=== PATIENT | female | born 1970 | race Caucasian/White ===

== ENCOUNTER → 2019-01-03 09:43 | Outpatient (CLI) | payer OTHER, SELFPAY ==
[2019-01-03 10:50] LABS: Add Manual Diff / Slide Review NO; Basophils Absolute Auto 100 /uL (0-100); Basophils Percent Auto 0.6 % (0-2); Eosinophils Absolute Auto 200 /uL (0-450); Eosinophils Percent Auto 1.5 % (2-4); Hematocrit 40.5 % (36-46); Hemoglobin 13.9 g/dL (12.0-16.0); Lymphocytes Absolute Auto 3200 /uL (1100-4500); Lymphocytes Percent Auto 25.7 % (25-40); Mean Corpuscular HGB Conc 34.4 % (30-36); Mean Corpuscular Hemoglobin 32.8 PG (26-34); Mean Corpuscular Volume 95.2 fL (80-100); Monocytes Absolute Auto 700 /uL (0-900); Monocytes Percent Auto 5.3 % (3-14); Neutrophils Absolute Auto 8400 /uL (1500-7000); Neutrophils Percent Auto 66.9 % (50-75); Platelet Count 300 X10^3/uL (150-400); Red Blood Cell Count 4.25 X10^6/uL (4.0-5.2); Red Cell Distribution Width 13.3 % (11.6-14.8); White Blood Cell Count 12.6 X10^3/uL (4.5-11.0)
[2019-01-03 10:55] LABS: Alanine Aminotransferase 28 IU/L (9-52); Albumin 4.5 g/dL (3.5-5.0); Albumin Globulin Ratio 1.7 (1.0-2.8); Alkaline Phosphatase 61 U/L (38-126); Aspartate Aminotransferase 43 IU/L (14-36); BUN Creatinine Ratio 12.2 (6-22); Bilirubin Total 1.2 mg/dL (0.2-1.3); Blood Urea Nitrogen 11 mg/dL (7-17); Calcium 8.7 mg/dL (8.4-10.2); Carbon Dioxide 21 mmol/L (22-32); Chloride 100 mmol/L (98-107); Cholesterol 207 mg/dL (140-199); Estimated Glomerular Filt Rate > 60.0 mL/min (>60); Globulin 2.7 g/dL (1.7-4.1); Glucose 81 mg/dL (70-100); HEMOLYSIS < 15 (0-50); Potassium 3.8 mmol/L (3.4-5.1); Sodium 135 mmol/L (137-145); Total Protein 7.2 g/dL (6.3-8.2); Triglycerides 192 mg/dL (35-150)
[2019-01-03 11:02] LABS: HDL Cholesterol 101 mg/dL (40-60); LDL Cholesterol Calculated 68 mg/dL (<100)
[2019-01-03 11:40] LABS: Thyroid Stimulating Hormone 1.82 uIU/mL (0.47-4.68)
== END ==
PROVIDERS: PCP Family Medicine; Visit Provider Family Medicine
DX: E03.9 Hypothyroidism, unspecified (principal); Z00.00 Encounter for general adult medical examination without abnormal findings
CPT/HCPCS: 36415; 80053; 80061; 84443; 85025

== ENCOUNTER → 2019-02-15 10:20 | Outpatient (CLI) | payer OTHER, SELFPAY | PROVIDERS: PCP Family Medicine; Visit Provider Allergy & Immunology | DX: R23.2 Flushing (principal) | CPT/HCPCS: 36415; 86003 ==

== ENCOUNTER → 2019-05-02 12:29 | Outpatient (CLI) | payer OTHER, SELFPAY ==
[2019-05-02 13:31] LABS: Free T3, Triiodothyronine Free 2.49 pg/mL (2.77-5.27); Free T4, Direct Thyroxine 0.72 ng/dL (0.78-2.19)
== END ==
PROVIDERS: PCP Family Medicine; Visit Provider Family Medicine
DX: E03.9 Hypothyroidism, unspecified (principal)
CPT/HCPCS: 36415; 84439; 84443; 84481

== ENCOUNTER → 2019-05-03 12:22 | Outpatient (CLI) | payer OTHER, SELFPAY ==
[2019-05-03 15:38] LABS: Appearance Urine UA CLEAR; Bilirubin Urine UA NEGATIVE (NEGATIVE); Color Urine UA YELLOW; Glucose Urine UA NEGATIVE (Negative); Ketones Urine UA 1+ (NEGATIVE); Leukocyte Esterase Urine UA TRACE (NEGATIVE); Nitrite Urine UA NEGATIVE (Negative); Occult Blood Urine UA 1+ (Negative); Protein Urine UA NEGATIVE (Negative); Urobilinogen Urine UA 0.2 E.U./dL (0.2); pH Urine UA 7.5 (4.5-8.0)
[2019-05-03 15:46] LABS: Bacteria Urine Few (2-10); Culture Indicated Urine Cult Not Indicated; RBC Urine 1-5/HPF (0-5/HPF); Squamous Epithelial Cell Urine 5-10 /HPF (0-5/HPF); WBC Urine 1-5/HPF (0-5/HPF)
== END ==
PROVIDERS: PCP Family Medicine; Visit Provider Registered Nurse
DX: R30.0 Dysuria (principal)
CPT/HCPCS: 81001

== ENCOUNTER → 2019-11-20 11:05 | Outpatient (CLI) | payer OTHER, SELFPAY ==
--- NOTE | 2019-11-20 11:06 | DI.MG.S_ITS ---
BILATERAL DIGITAL SCREENING MAMMOGRAM 3D/2D WITH CAD: 11/20/2019 CLINICAL: Routine screening. Comparison is made to exams dated: 12/21/2016 mammogram, 04/08/2015 mammogram, and 02/05/2014 mammogram - [facility]. The tissue of both breasts is heterogeneously dense. This may lower the sensitivity of mammography. Current study was also evaluated with a Computer Aided Detection (CAD) system. No significant masses, calcifications, or other findings are seen in either breast. There has been no significant interval change. IMPRESSION: NEGATIVE There is no mammographic evidence of malignancy. A 1 year screening mammogram is recommended. This exam was interpreted at Station ID: [id number]. NOTE: For mammograms, a report in lay terms will be sent to the patient. Approximately 15% of breast malignancies will not be visualized mammographically. In the management of a palpable breast mass, a negative mammogram must not discourage biopsy of a clinically suspicious lesion. Electronically Signed By: Nayeli greene/lauren:11/20/2019 12:56:47 letter sent: Normal Exam ACR BI-RADS Category 1: Negative [id number]
== END ==
PROVIDERS: PCP Family Medicine; Referring Provider Family Medicine; Visit Provider Family Medicine
DX: Z12.31 Encounter for screening mammogram for malignant neoplasm of breast (principal)
CPT/HCPCS: 77063; 77067

== ENCOUNTER → 2019-12-25 11:57 | Outpatient (CLI) | payer OTHER, SELFPAY ==
[2019-12-25 13:43] LABS: Add Manual Diff / Slide Review NO; Basophils Absolute Auto 100 /uL (0-100); Basophils Percent Auto 1.3 % (0-2); Eosinophils Absolute Auto 500 /uL (0-450); Eosinophils Percent Auto 5.1 % (2-4); Hemoglobin 12.9 g/dL (12.0-16.0); Lymphocytes Absolute Auto 1800 /uL (1100-4500); Lymphocytes Percent Auto 19.4 % (25-40); Mean Corpuscular HGB Conc 33.9 % (30-36); Mean Corpuscular Hemoglobin 34.7 PG (26-34); Mean Corpuscular Volume 102.2 fL (80-100); Monocytes Absolute Auto 800 /uL (0-900); Monocytes Percent Auto 8.6 % (3-14); Neutrophils Absolute Auto 6200 /uL (1500-7000); Neutrophils Percent Auto 65.6 % (50-75); Platelet Count 262 X10^3/uL (150-400); Red Blood Cell Count 3.71 X10^6/uL (4.0-5.2); Red Cell Distribution Width 14.2 % (11.6-14.8); White Blood Cell Count 9.4 X10^3/uL (4.5-11.0)
[2019-12-25 16:33] LABS: BUN Creatinine Ratio 22.2 (6-22); Blood Urea Nitrogen 18 mg/dL (7-17); Calcium 9.9 mg/dL (8.4-10.2); Carbon Dioxide 22 mmol/L (22-32); Chloride 102 mmol/L (98-107); Estimated Glomerular Filt Rate > 60.0 mL/min (>60); Glucose 101 mg/dL (70-100); HEMOLYSIS < 15 (0-50); Magnesium 1.6 mg/dL (1.6-2.3); Potassium 4.4 mmol/L (3.4-5.1); Sodium 135 mmol/L (137-145)
[2019-12-25 17:04] LABS: TSH w/ Reflex to FT4 3.53 uIU/mL (0.47-4.68)
== END ==
PROVIDERS: PCP Family Medicine; Referring Provider Internal Medicine Cardiovascular Disease; Visit Provider Internal Medicine Cardiovascular Disease
DX: I47.1 Supraventricular tachycardia (principal)
CPT/HCPCS: 36415; 80048; 83735; 84443; 85025

== ENCOUNTER → 2020-01-28 09:22 | Outpatient (CLI) | payer OTHER, SELFPAY ==
--- NOTE | 2020-01-28 09:27 | DI.ECHO.S_ITS ---
Echocardiogram Report + + :Name: JYOTSNA GARRETT Study Date: 01/28/2020 Height: 66 in : :[facility] Weight: 183 lb : : Gender: Other BSA: 1.9 m2 : :: 1970 Age: 49 yrs BP: 138/82 mmHg: :Reason For Study: TACHYCARDIA : :Ordering Physician: Celeste Castro : :Agnes Performed By: Callie Nguyen : :Referring: Celeste Alarcon : + + Interpretation Summary 1) Normal left ventricular size, thickness, wall motion, and systolic function (EF 60-65%). 2) Normal right ventricular size and function. 3) No significant valvular abnormalities. 4) No prior Echo available for comparison. Procedure: A two-dimensional transthoracic echocardiogram with color flow and Doppler was performed. The study quality was technically adequate. There is no prior echocardiogram noted for this patient. The patient was in normal sinus rhythm during the exam. The heart rate ranged between 80-95 bpm during the study. Left Ventricle: The left ventricle is normal in size and wall thickness. The ejection fraction is estimated to be 60-65%. Left ventricular systolic function is normal. Left ventricular wall motion is normal. Right Ventricle: The right ventricle is normal in size and function. Atria: Both atria are normal in size. There is no Doppler evidence for an interatrial shunt. Mitral Valve: The mitral valve is normal in structure and function. There is mild mitral regurgitation. Aortic Valve: The aortic valve is trileaflet. The aortic valve opens well. There is no aortic valve stenosis. No aortic regurgitation is present. Tricuspid Valve: The tricuspid valve is normal in structure and function. There is mild tricuspid regurgitation. The right ventricular systolic pressure is estimated to be at least 23 mmHg based on an estimated right atrial pressure of 3 mm Hg. Pulmonic Valve: The pulmonic valve is normal in structure and function. There is trace pulmonic regurgitation. Great Vessels: The aortic root is normal size. The dimensions of the ascending aorta are normal. The IVC is of normal diameter and collapses greater than 50% with a sniff. This suggests a low right atrial pressure of 3 mm Hg. Pericardium/ Pleura There is no pericardial effusion. There is no pleural effusion. MMode/2D Measurements & Calculations LVIDd: 4.5 cm LVOT diam: 2.1 cm LVIDs: 2.9 cm Ao root diam: 2.8 cm FS: 35.1 % asc Aorta Diam: 3.0 cm EPSS: 0.72 cm Ao Arch Diam (Prox Trans): 2.9 cm IVSd: 0.99 cm LVPWd: 0.77 cm LV li. diameter/BSA (cm/m^2): 2.3 LV sys. diameter/BSA (cm/m^2): 1.5 LA A2 area: 16.3 cm2 RA long axis: 4.1 cm LA A4 area: 11.6 cm2 RA area: 11.6 cm2 LA length (vol): 3.9 cm RA vol: 27.9 ml LA vol: 40.6 ml RA : 14.5 ml/m2 LA vol index: 21.1 ml/m2 RVD1 (basal): 3.4 cm TAPSE: 1.8 cm Doppler Measurements & Calculations Ao V2 max: 116.8 cm/sec LVOT Max Farhad: 93.1 cm/sec Ao V2 mean: 76.9 cm/sec LV V1 max P.5 mmHg Ao max P.5 mmHg LV V1 VTI: 18.9 cm Ao mean P.7 mmHg MARY(I,D): 2.7 cm2 Ao V2 VTI: 23.5 cm MARY(V,D): 2.7 cm2 sev ratio: 0.81 MARY indexed to BSA (cm^2/m^2): 1.4 MV E max farhad: 99.1 cm/sec TR max farhad: 215.5 cm/sec MV A max farhad: 53.9 cm/sec TR max P.6 mmHg MV E/A: 1.8 PA V2 max: 69.9 cm/sec Med Peak E' Farhad: 9.8 cm/sec PA V2 mean: 49.7 cm/sec E/E' med: 10.1 PA mean P.1 mmHg Lat Peak E' Frahad: 10.6 cm/sec E/E' lat: 9.4 E/e' average: 9.7 MV dec time: 0.23 sec SV(LVOT): 63.8 ml _ Reading Physician:12:54 PM
== END ==
PROVIDERS: PCP Family Medicine; Referring Provider Internal Medicine Cardiovascular Disease; Visit Provider Internal Medicine Cardiovascular Disease
DX: I08.1 Rheumatic disorders of both mitral and tricuspid valves (principal); I47.1 Supraventricular tachycardia
CPT/HCPCS: 93306

== ENCOUNTER 2020-11-12 17:16 | Emergency (ER) | payer OTHER, SELFPAY ==
[2020-11-12] VITALS (8 sets, daily range): BP systolic 121–144; BP diastolic 63–88; PULSE 95–119; RESP 14–20; TEMP 36.6; O2SAT 94–98; BMI 31.3
--- NOTE | 2020-11-12 17:21 | DI.CT.S_ITS ---
PROCEDURE: CT HEAD/BRAIN WO CON INDICATIONS: fall head lac etoh TECHNIQUE: Noncontrast 4.5 mm thick angled axial sections acquired from the foramen magnum to the vertex, with coronal and sagittal reformats. For radiation dose reduction, the following was used: automated exposure control, adjustment of mA and/or kV according to patient size. COMPARISON: None. FINDINGS: Image quality: Excellent. CSF spaces: Basal cisterns are patent. No extra-axial fluid collections. Ventricles are normal in size and shape. Brain: No midline shift. No intracranial masses or hemorrhage. Umanzor-white matter interface is normal. Skull and face: Soft tissue laceration with hematoma can be seen involving the right forehead. No underlying calvarial fracture can be seen. Calvarium and visualized facial bones are intact, without suspicious lesions. Sinuses: Visualized sinuses and mastoids are clear. IMPRESSION: Right forehead hematoma with laceration. No associated fracture is seen. No acute intracranial hemorrhage is seen. No acute intracranial process is seen. Dictated by: Darryl Lowery M.D. on 11/12/2020 at 16:53 Approved by: Darryl Lowery M.D. on 11/12/2020 at 16:53
--- NOTE | 2020-11-12 17:21 | DI.CT.S_ITS ---
PROCEDURE: CT CERVICAL SPINE WO CON INDICATIONS: fall etoh TECHNIQUE: Noncontrast 3 mm thick sections acquired from the skull base to the T4 level. Sagittal and coronal reformats were then constructed. For radiation dose reduction, the following was used: automated exposure control, adjustment of mA and/or kV according to patient size. COMPARISON: [facility], US, THYROID, 03/15/2017, 9:36. [facility], CT, CT HEAD/BRAIN WO CON, 11/12/2020, 17:28. FINDINGS: Image quality: Excellent. Bones: No fractures or dislocations. Visualized superior ribs are intact. Degenerative changes are seen, with mild disc space narrowing at C6-C7. Milder degenerative changes are seen elsewhere. Soft tissues: Prevertebral soft tissues are normal in thickness. No paravertebral hematomas. No apical pneumothoraces. The right thyroid is not seen. Rim calcified left thyroid lesions can be seen. IMPRESSION: No acute fractures are seen. Degenerative changes are seen, which are worst at the C6-C7 level. Thyroid abnormalities are seen, which are believed to be similar to the prior thyroid ultrasound. Dictated by: Darryl Lowery M.D. on 11/12/2020 at 16:54 Approved by: Darryl Lowery M.D. on 11/12/2020 at 16:55
[2020-11-12 17:33] LABS: Add Manual Diff / Slide Review NO; Basophils Absolute Auto 300 /uL (0-100); Basophils Percent Auto 2.2 % (0-2); Eosinophils Absolute Auto 200 /uL (0-450); Eosinophils Percent Auto 1.5 % (2-4); Hematocrit 37.2 % (36-46); Hemoglobin 12.7 g/dL (12.0-16.0); Lymphocytes Absolute Auto 4000 /uL (1100-4500); Lymphocytes Percent Auto 30.2 % (25-40); Mean Corpuscular HGB Conc 34.1 % (30-36); Mean Corpuscular Hemoglobin 36.7 PG (26-34); Mean Corpuscular Volume 107.6 fL (80-100); Monocytes Absolute Auto 800 /uL (0-900); Neutrophils Absolute Auto 7900 /uL (1500-7000); Neutrophils Percent Auto 60.1 % (50-75); Platelet Count 400 X10^3/uL (150-400); Red Blood Cell Count 3.46 X10^6/uL (4.0-5.2); Red Cell Distribution Width 14.8 % (11.6-14.8); White Blood Cell Count 13.2 X10^3/uL (4.5-11.0)
--- NOTE | 2020-11-12 17:34 | ED.HEATRA ---
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 Degenerative changes are seen, with mild disc space narrowing at C6-C7. Milder degenerative changes are seen elsewhere. Soft tissues: Prevertebral soft tissues are normal in thickness. No paravertebral hematomas. No apical pneumothoraces. The right thyroid is not seen. Rim calcified left thyroid lesions can be seen. IMPRESSION: No acute fractures are seen. Degenerative changes are seen, which are worst at the C6-C7 level. Thyroid abnormalities are seen, which are believed to be similar to the prior thyroid ultrasound. Dictated by: Darryl Lowery M.D. on 11/12/2020 at 16:54 Approved by: Darryl Lowery M.D. on 11/12/2020 at 16:55 Discharge Plan Departure Patient Disposition: Home Clinical Impression: Alcohol abuse Laceration of head Qualifiers: Encounter type: initial encounter Location of open wound of head: unspecified part of head Foreign body presence: without foreign body Qualified Code(s): S01.91XA - Laceration without foreign body of unspecified part of head, initial encounter Instructions: DI for Laceration Repair, How to Prevent Falls Activity Restrictions/Additional Instructions: *You have been diagnosed with [fall with forehead laceration and urinary tract infection] *What to do: *Take medications as directed *Follow up with your primary care provider in 2-3 days, call for an appointment. Let them know you were seen in the Emergency Department and that we ask that you be seen in follow up *Return to ER if you should have any new, worsening or concerning symptoms Prescriptions: New sulfamethoxazole-trimethoprim [Bactrim DS] 800-160 mg tablet 1 tab PO BID 5 Days Qty: 10 RF: 0 No Action verapamil 180 mg capsule,ext rel. pellets 24 hr 180 mg PO DAILY Qty: 30 RF: 12 topiramate [Topamax] 50 mg tablet 50 mg PO BID Qty: 60 RF: 12 MULTIVITAMIN 1 cap PO Q DAY Qty: 0 RF: 0 gabapentin [Neurontin] 600 mg tablet See Rx Instructions .ROUTE .COMPLEX Qty: 60 RF: 1 clobetasol 0.05 % ointment 1 applictn Topical BID Qty: 30 RF: 2 ondansetron 4 mg tablet,disintegrating See Rx Instructions .ROUTE .COMPLEX Qty: 30 RF: 0 levothyroxine 25 mcg tablet See Rx Instructions .ROUTE .COMPLEX Qty: 30 RF: 0 drospirenone-ethinyl estradiol [Taylor (28)] 3-0.03 mg tablet 1 tab PO Q DAY Qty: 3 RF: 3 losartan 50 mg tablet 50 mg PO DAILY RF: 0 mometasone 0.1 % cream 1 applictn TOP DAILY RF: 0 tacrolimus 0.1 % ointment 1 applictn TOP BID RF: 0 hydroxyzine pamoate [Vistaril] 25 mg capsule 25 mg PO Q6-8H PRNRF: 0 (DME) low dose naltrexone tablet Qty: 1 RF: 0 Referrals: Robin Fuller DO [Primary Care Provider] -
[2020-11-12 17:37] LABS: Prothrombin Time 11.9 SECONDS (10.1-12.7)
[2020-11-12 17:39] LABS: PTT Partial Thromboplastin Tim 36 SECONDS (26.4-36.2)
[2020-11-12 17:50] LABS: Acetaminophen < 10 ug/mL (10-30); Alanine Aminotransferase 33 IU/L (<35); Albumin 4.3 g/dL (3.5-5.0); Albumin Globulin Ratio 1.4 (1.0-2.8); Alkaline Phosphatase 86 U/L (38-126); Aspartate Aminotransferase 140 IU/L (14-36); BUN Creatinine Ratio 9.8 (6-22); Bilirubin Total 0.5 mg/dL (0.2-1.3); Blood Urea Nitrogen 6 mg/dL (7-17); Calcium 9.2 mg/dL (8.4-10.2); Carbon Dioxide 20 mmol/L (22-32); Chloride 100 mmol/L (98-107); Estimated Glomerular Filt Rate > 60.0 mL/min (>60); Glucose 112 mg/dL (70-100); HEMOLYSIS < 15 (0-50); Potassium 3.9 mmol/L (3.4-5.1); Salicylate < 1.0 mg/dL (<20); Sodium 137 mmol/L (137-145); Total Protein 7.3 g/dL (6.3-8.2)
[2020-11-12 18:08] LABS: Ethanol (ETOH) 415 mg/dL; Lactate (Lactic Acid) 4.2 mmol/L (0.7-2.1)
[2020-11-12 19:28] LABS: Reflexed Lactate in 2 Hours Y
[2020-11-12] MEDS: SODIUM CHLORIDE 0.9% 1,000 ML 1000 ML IV (19:30)
--- NOTE | 2020-11-12 19:34 | PC.NURSE ---
pt gave verbal consent to give medical information to at bedside.
--- NOTE | 2020-11-12 19:41 | PC.NURSE ---
small laceration to R upper eyebrow cleansed with saline. appears to need suture. Dr Leahy made aware. covered with bandaid at this time. Pt in NAD. NS infusing. at side
[2020-11-12 20:29] LABS: Bilirubin Urine UA NEGATIVE (NEGATIVE); Color Urine UA YELLOW; Glucose Urine UA NEGATIVE (Negative); Ketones Urine UA NEGATIVE (NEGATIVE); Leukocyte Esterase Urine UA 2+ (NEGATIVE); Nitrite Urine UA NEGATIVE (Negative); Occult Blood Urine UA 2+ (Negative); Protein Urine UA NEGATIVE (Negative); Specific Gravity Urine UA <=1.005 (1.000-1.035); Urobilinogen Urine UA 0.2 E.U./dL (0.2)
[2020-11-12 20:32] LABS: Lactate 2HR (Lactic Acid Rflx) 3.2 mmol/L (0.7-2.1)
[2020-11-12 20:35] LABS: Ur Creatinine Normal (Normal); Ur Specific Gravity Normal (Normal); Urine pH Normal (Normal)
[2020-11-12 20:36] LABS: UR Morphine/Opiate cutoff 300 Negative (Negative); Urine Amphetamines Negative (Negative); Urine Barbiturates Negative (Negative); Urine Benzodiazepines Negative (Negative); Urine Cocaine Negative (Negative); Urine MDMA Negative (Negative); Urine Methadone Negative (Negative); Urine Methamphetamines Negative (Negative); Urine Oxycodone Negative (Negative); Urine Phencyclidine Negative (Negative); Urine Tetrahydrocannabinol Negative (Negative); Urine Tricyclic Antidepressant Negative (Negative)
[2020-11-12 20:37] LABS: Appearance Urine UA Slightly Cloudy
[2020-11-12 20:39] LABS: Amorphous Sediment Urine 1+; Bacteria Urine Few (2-10); Culture Indicated Urine Specimen Cultured; RBC Urine 1-5/HPF (0-5/HPF); Squamous Epithelial Cell Urine 1-5 /HPF (0-5/HPF); WBC Urine 10-30/HPF (0-5/HPF)
[2020-11-12] MEDS: LIDOCAINE 1% W/EPI 1 ML SUBCUT (20:57)
== END 2020-11-12 21:06 | disposition home or self-care (01) ==
PROVIDERS: Emergency Medicine; Emergency Provider Emergency Medicine; PCP Family Medicine
DX: S01.91XA Laceration without foreign body of unspecified part of head, initial encounter (principal); F10.129 Alcohol abuse with intoxication, unspecified; Y90.8 Blood alcohol level of 240 mg/100 ml or more; W19.XXXA Unspecified fall, initial encounter; R41.82 Altered mental status, unspecified; G61.0 Guillain-Barre syndrome
CPT/HCPCS: 12011; 70450; 72125; 80053; 80305; 80320; 80329; 81001; 83605; 85025; 85610; 85730; 87040; 87086; 93005; 96360; 99284; G0480

== ENCOUNTER → 2020-11-23 10:19 | Outpatient (CLI) | payer OTHER, SELFPAY ==
--- NOTE | 2020-11-23 10:20 | DI.MG.S_ITS ---
BILATERAL DIGITAL SCREENING MAMMOGRAM 3D/2D WITH CAD: 11/23/2020 CLINICAL: Routine screening. Family history of breast cancer. Comparison is made to exams dated: 11/20/2019 mammogram, 12/21/2016 mammogram, and 04/08/2015 mammogram - [facility]. The tissue of both breasts is heterogeneously dense. This may lower the sensitivity of mammography. Current study was also evaluated with a Computer Aided Detection (CAD) system. No significant masses, calcifications, or other findings are seen in either breast. There has been no significant interval change. IMPRESSION: NEGATIVE There is no mammographic evidence of malignancy. A 1 year screening mammogram is recommended. This exam was interpreted at Station ID: [id number]. NOTE: For mammograms, a report in lay terms will be sent to the patient. Approximately 15% of breast malignancies will not be visualized mammographically. In the management of a palpable breast mass, a negative mammogram must not discourage biopsy of a clinically suspicious lesion. Electronically Signed By: Zurdo Gonzalez M.D., jr/lauren:11/23/2020 11:34:28 copy to: Heather Fletcher letter sent: Normal Exam ACR BI-RADS Category 1: Negative [id number]
== END ==
PROVIDERS: PCP Family Medicine; Referring Provider Family Medicine; Visit Provider Family Medicine
DX: Z12.31 Encounter for screening mammogram for malignant neoplasm of breast (principal); Z80.3 Family history of malignant neoplasm of breast
CPT/HCPCS: 77063; 77067

== ENCOUNTER → 2021-02-11 07:59 | Outpatient (CLI) | payer OTHER, SELFPAY ==
--- NOTE | 2021-02-11 08:00 | DI.US.S_ITS ---
PROCEDURE: US ABDOMEN LIMITED INDICATIONS: RIGHT UPPER QUADRANT MASS TECHNIQUE: Real-time focused scanning was performed of the abdomen, with image documentation. COMPARISON: [facility], US, ABDOMEN COMPLETE, 12/21/2016, 9:56. [facility], US, ABDOMEN COMPLETE, 10/03/2013, 3:45. FINDINGS: Scanning is performed at the area of clinical concern involving the right upper quadrant. At this site, there is an enlarged right lobe of the liver. The liver measures 25.8 cm. Increased liver echogenicity can be seen. IMPRESSION: The palpable area corresponds to the right lobe of the liver. The liver is enlarged and fatty infiltrated. Dictated by: Darryl Lowery M.D. on 02/11/2021 at 10:36 Approved by: Darryl Lowery M.D. on 02/11/2021 at 10:38
== END ==
PROVIDERS: PCP Family Medicine; Referring Provider Obstetrics & Gynecology; Visit Provider Obstetrics & Gynecology
DX: R19.01 Right upper quadrant abdominal swelling, mass and lump (principal); R10.11 Right upper quadrant pain; K76.0 Fatty (change of) liver, not elsewhere classified
CPT/HCPCS: 76700; 76705

== ENCOUNTER → 2021-03-09 10:45 | Outpatient (CLI) | payer OTHER, SELFPAY ==
--- NOTE | 2021-03-09 10:46 | DI.US.S_ITS ---
PROCEDURE: US SOFT TISSUE HEAD AND NECK INDICATIONS: thoracic outlet swelling TECHNIQUE: Real-time scanning was performed of the neck region of interest, with image documentation. COMPARISON: None. FINDINGS: Sonographic images of the left lower neck demonstrate no areas of mass lesion, architectural distortion or fluid collection. IMPRESSION: Unremarkable exam. If concern persists, CT is recommended. Dictated by: Mikaela Zamorano M.D. on 03/09/2021 at 16:33 Approved by: Mikaela Zamorano M.D. on 03/09/2021 at 16:33
== END ==
PROVIDERS: PCP Family Medicine; Referring Provider Family Medicine; Visit Provider Family Medicine
DX: G54.0 Brachial plexus disorders (principal)
CPT/HCPCS: 76536

== ENCOUNTER 2021-08-16 18:25 | Emergency (ER) | payer OTHER, BC, SELFPAY ==
--- NOTE | 2021-08-16 18:27 | DI.CT.S_ITS ---
PROCEDURE: CT HEAD/BRAIN WO CON INDICATIONS: fall with head injury, intoxicated, altered TECHNIQUE: Noncontrast 4.5 mm thick angled axial sections acquired from the foramen magnum to the vertex, with coronal and sagittal reformats. For radiation dose reduction, the following was used: automated exposure control, adjustment of mA and/or kV according to patient size. COMPARISON: [facility], CT, CT HEAD/BRAIN WO CON, 11/12/2020, 17:28. FINDINGS: Image quality: Excellent. CSF spaces: Basal cisterns are patent. No extra-axial fluid collections. Ventricles are normal in size and shape. Brain: No midline shift. No intracranial masses or hemorrhage. Umanzor-white matter interface is normal. Skull and face: Calvarium and visualized facial bones are intact, without suspicious lesions. Sinuses: Visualized sinuses and mastoids are clear. IMPRESSION: Unremarkable CT brain. No intracranial hemorrhage or mass effect. Approved by: Floyd Garvey M.D. on 08/16/2021 at 18:04
--- NOTE | 2021-08-16 18:27 | DI.CT.S_ITS ---
PROCEDURE: CT CERVICAL SPINE WO CON INDICATIONS: neck pain after fall TECHNIQUE: Noncontrast 3 mm thick sections acquired from the skull base to the T4 level. Sagittal and coronal reformats were then constructed. For radiation dose reduction, the following was used: automated exposure control, adjustment of mA and/or kV according to patient size. COMPARISON: [facility], CT, CT CERVICAL SPINE WO CON, 11/12/2020, 17:28. FINDINGS: Image quality: Excellent. Bones: Multilevel degenerative disc disease and arthropathy present throughout the mid to lower cervical spine resulting in [id number] central stenosis at C5-6 and C6-7. There is straightening of normal cervical lordosis. No fracture or malalignment. Soft tissues: Prevertebral soft tissues are normal in thickness. No paravertebral hematomas. No apical pneumothoraces. Right lower thyroid is absent. Multiple calcified nodules in the left lobe of thyroid are stable. IMPRESSION: Straightening the normal cervical lordosis without fracture or malalignment. Approved by: Floyd Garvey M.D. on 08/16/2021 at 17:59
[2021-08-16 18:29] VITALS: BP 132/86; PULSE 117; RESP 17; TEMP 36.9; O2SAT 99; BMI 33.9
[2021-08-16 18:42] LABS: Add Manual Diff / Slide Review NO; Basophils Absolute Auto 0 /uL (0-100); Basophils Percent Auto 0.3 % (0-2); Eosinophils Absolute Auto 300 /uL (0-450); Eosinophils Percent Auto 3.7 % (2-4); Hematocrit 40.4 % (36-46); Hemoglobin 13.7 g/dL (12.0-16.0); Lymphocytes Absolute Auto 4200 /uL (1100-4500); Lymphocytes Percent Auto 47.8 % (25-40); Mean Corpuscular Hemoglobin 33.1 PG (26-34); Mean Corpuscular Volume 97.3 fL (80-100); Monocytes Absolute Auto 600 /uL (0-900); Neutrophils Absolute Auto 3600 /uL (1500-7000); Neutrophils Percent Auto 41.2 % (50-75); Platelet Count 285 X10^3/uL (150-400); Red Blood Cell Count 4.15 X10^6/uL (4.0-5.2); Red Cell Distribution Width 14.3 % (11.6-14.8); White Blood Cell Count 8.8 X10^3/uL (4.5-11.0)
[2021-08-16] MEDS: SODIUM CHLORIDE 0.9% 1,000 ML 1000 ML IV (18:53)
[2021-08-16 18:54] LABS: Alanine Aminotransferase 61 IU/L (<35); Albumin 5.1 g/dL (3.5-5.0); Albumin Globulin Ratio 1.5 (1.0-2.8); Alkaline Phosphatase 74 U/L (38-126); Aspartate Aminotransferase 187 IU/L (14-36); BUN Creatinine Ratio 5.6 (6-22); Bilirubin Total 0.5 mg/dL (0.2-1.3); Blood Urea Nitrogen 4 mg/dL (7-17); Calcium 9.5 mg/dL (8.4-10.2); Carbon Dioxide 19 mmol/L (22-32); Chloride 103 mmol/L (98-107); Estimated Glomerular Filt Rate > 60.0 mL/min (>60); Globulin 3.4 g/dL (1.7-4.1); Glucose 99 mg/dL (70-100); HEMOLYSIS < 15 (0-50); Potassium 3.6 mmol/L (3.4-5.1); Sodium 140 mmol/L (137-145); Total Protein 8.5 g/dL (6.3-8.2)
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
[2021-08-16 19:00] LABS: Ethanol (ETOH) 391 mg/dL
--- NOTE | 2021-08-16 19:16 | DI.RAD.S_ITS ---
PROCEDURE: XR HAND LT MIN 3V INDICATIONS: fall with pain over 5th MC TECHNIQUE: 3 views of the hand(s) acquired. COMPARISON: None. FINDINGS: Bones: No dislocations. There is a small ossicle at the base of the 5th metacarpal. Carpal bones are normally aligned. No suspicious bony lesions. Soft tissues: No suspicious soft tissue calcifications. IMPRESSION: There is a small ossicle at the base of the 5th metacarpal which could represent a small fracture fragment. Please correlate with focal pain and tenderness. Dictated by: Christopher Mckeon M.D. on 08/16/2021 at 19:40 Approved by: Christopher Mckeon M.D. on 08/16/2021 at 19:44
[2021-08-16 20:23] VITALS: BP 158/88; PULSE 80; RESP 16; O2SAT 99
== END 2021-08-16 20:25 | disposition home or self-care (01) ==
PROVIDERS: Emergency Provider Emergency Medicine; PCP Family Medicine
DX: S00.83XA Contusion of other part of head, initial encounter (principal); S60.222A Contusion of left hand, initial encounter; F10.129 Alcohol abuse with intoxication, unspecified; Y90.8 Blood alcohol level of 240 mg/100 ml or more; W18.30XA Fall on same level, unspecified, initial encounter
CPT/HCPCS: 36415; 70450; 72125; 73130; 80053; 80320; 85025; 96360; 99284

== ENCOUNTER → 2021-11-16 09:55 | Outpatient (CLI) | payer OTHER, SELFPAY ==
[2021-11-16 12:34] LABS: Add Manual Diff / Slide Review NO; Basophils Absolute Auto 100 /uL (0-100); Basophils Percent Auto 1.8 % (0-2); Eosinophils Absolute Auto 200 /uL (0-450); Eosinophils Percent Auto 3.5 % (2-4); Hemoglobin 11.9 g/dL (12.0-16.0); Lymphocytes Absolute Auto 1800 /uL (1100-4500); Lymphocytes Percent Auto 25.9 % (25-40); Mean Corpuscular HGB Conc 34.1 % (30-36); Mean Corpuscular Hemoglobin 35.1 PG (26-34); Mean Corpuscular Volume 102.7 fL (80-100); Monocytes Absolute Auto 600 /uL (0-900); Neutrophils Absolute Auto 4100 /uL (1500-7000); Neutrophils Percent Auto 59.8 % (50-75); Platelet Count 189 X10^3/uL (150-400); Red Cell Distribution Width 13.8 % (11.6-14.8); White Blood Cell Count 6.9 X10^3/uL (4.5-11.0)
[2021-11-16 12:59] LABS: Magnesium 1.2 mg/dL (1.6-2.3)
== END ==
PROVIDERS: PCP Family Medicine; Referring Provider Internal Medicine Cardiovascular Disease; Visit Provider Internal Medicine Cardiovascular Disease
DX: I10 Essential (primary) hypertension (principal)
CPT/HCPCS: 36415; 83735; 85025

== ENCOUNTER 2022-02-11 18:08 | Emergency (ER) | payer OTHER, SELFPAY ==
[2022-02-11 18:36] VITALS: BP 170/91; PULSE 104; RESP 18; TEMP 36.7; O2SAT 97; BMI 32.3
--- NOTE | 2022-02-11 18:36 | DI.CT.S_ITS ---
PROCEDURE: CT CERVICAL SPINE WO CON INDICATIONS: drunk and fall TECHNIQUE: Noncontrast 3 mm thick sections acquired from the skull base to the T4 level. Sagittal and coronal reformats were then constructed. For radiation dose reduction, the following was used: automated exposure control, adjustment of mA and/or kV according to patient size. COMPARISON: [facility], CT, CT CERVICAL SPINE WO CON, 08/16/2021, 18:36. FINDINGS: Image quality: Excellent. Bones: No fractures or dislocations. Visualized superior ribs are intact. Spine degenerative disc disease and facet arthropathy. Soft tissues: Prevertebral soft tissues are normal in thickness. No paravertebral hematomas. No apical pneumothoraces. 1.0 centimeter 1.4 centimeter and 1.5 centimeter partially calcified thyroid nodules. Right lobe thyroid gland is absent. IMPRESSION: No fracture. No acute osseous lesion. If symptoms and/or clinical suspicion for pathology persists, evaluation with MRI should be considered for further assessment. Dictated by: Dinorah Cuba MD, PhD on 02/11/2022 at 19:42 Approved by: Dinorah Cuba MD, PhD on 02/11/2022 at 19:46
--- NOTE | 2022-02-11 18:36 | DI.CT.S_ITS ---
PROCEDURE: CT HEAD/BRAIN WO CON INDICATIONS: drunk and fall TECHNIQUE: Noncontrast 4.5 mm thick angled axial sections acquired from the foramen magnum to the vertex, with coronal and sagittal reformats. For radiation dose reduction, the following was used: automated exposure control, adjustment of mA and/or kV according to patient size. COMPARISON: [facility], CT, CT HEAD/BRAIN WO CON, 11/12/2020, 17:28. FINDINGS: Image quality: Excellent. CSF spaces: Basal cisterns are patent. No extra-axial fluid collections. Ventricles are normal in size and shape. Brain: No midline shift. No intracranial masses or hemorrhage. Umanzor-white matter interface is normal. Skull and face: Calvarium and visualized facial bones are intact, without suspicious lesions. Sinuses: Visualized sinuses and mastoids are clear. IMPRESSION: No acute intracranial disease process. Dictated by: Dinorah Cuba MD, PhD on 02/11/2022 at 19:41 Approved by: Dinorah Cuba MD, PhD on 02/11/2022 at 19:42
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
--- NOTE | 2022-02-11 19:28 | PC.NURSE ---
gcs 15
[2022-02-11] MEDS: LIDO 1%/SOD BICARB 8.4% (10ML) 10 ML SYRINGE INJ (20:16)
== END 2022-02-11 20:30 | disposition home or self-care (01) ==
PROVIDERS: Emergency Provider Emergency Medicine; PCP Family Medicine
DX: S01.01XA Laceration without foreign body of scalp, initial encounter (principal); W18.30XA Fall on same level, unspecified, initial encounter
CPT/HCPCS: 12001; 70450; 72125; 99283; 99284

== ENCOUNTER → 2022-06-24 08:24 | Outpatient (CLI) | payer OTHER, SELFPAY ==
[2022-06-24 09:50] LABS: Add Manual Diff / Slide Review NO; Basophils Absolute Auto 100 /uL (0-100); Basophils Percent Auto 1.8 % (0-2); Eosinophils Absolute Auto 300 /uL (0-450); Eosinophils Percent Auto 4.7 % (2-4); Hematocrit 31.2 % (36-46); Hemoglobin 10.9 g/dL (12.0-16.0); Lymphocytes Absolute Auto 1900 /uL (1100-4500); Lymphocytes Percent Auto 27.2 % (25-40); Mean Corpuscular HGB Conc 35.1 % (30-36); Mean Corpuscular Hemoglobin 39.1 PG (26-34); Mean Corpuscular Volume 111.4 fL (80-100); Monocytes Absolute Auto 500 /uL (0-900); Monocytes Percent Auto 7.7 % (3-14); Neutrophils Absolute Auto 4100 /uL (1500-7000); Neutrophils Percent Auto 58.6 % (50-75); Platelet Count 237 X10^3/uL (150-400); Red Cell Distribution Width 17.5 % (11.6-14.8)
[2022-06-24 10:26] LABS: Alanine Aminotransferase 13 IU/L (<35); Albumin Globulin Ratio 1.4 (1.0-2.8); Alkaline Phosphatase 68 U/L (38-126); Aspartate Aminotransferase 43 IU/L (14-36); BUN Creatinine Ratio 8.2 (6-22); Bilirubin Total 1.4 mg/dL (0.2-1.3); Blood Urea Nitrogen 6 mg/dL (7-17); Calcium 8.4 mg/dL (8.4-10.2); Carbon Dioxide 25 mmol/L (22-32); Chloride 101 mmol/L (98-107); Cholesterol 243 mg/dL (140-199); Estimated Glomerular Filt Rate > 60 mL/min (>60); Globulin 2.8 g/dL (1.7-4.1); Glucose 102 mg/dL (70-100); HDL Cholesterol 97 mg/dL (40-60); HEMOLYSIS < 15 (0-50); LDL Cholesterol Calculated 121 mg/dL (<100); Potassium 3.8 mmol/L (3.4-5.1); Sodium 138 mmol/L (137-145); Total Protein 6.8 g/dL (6.3-8.2); Triglycerides 125 mg/dL (35-150)
[2022-06-24 10:51] LABS: Macrocytosis 3+
[2022-06-24 11:51] LABS: Free T3, Triiodothyronine Free 2.48 pg/mL (2.77-5.27); Free T4, Direct Thyroxine 1.22 ng/dL (0.78-2.19)
[2022-06-24 12:05] LABS: Thyroid Stimulating Hormone 3.68 uIU/mL (0.47-4.68)
== END ==
PROVIDERS: PCP Family Medicine; Referring Provider Family Medicine; Visit Provider Family Medicine
DX: E03.9 Hypothyroidism, unspecified (principal); K70.0 Alcoholic fatty liver
CPT/HCPCS: 36415; 80053; 80061; 84439; 84443; 84481; 85025

== ENCOUNTER 2023-01-11 10:07 | Emergency (ER) | payer OTHER, SELFPAY ==
[2023-01-11] VITALS (9 sets, daily range): BP systolic 129–146; BP diastolic 73–95; PULSE 84–204; RESP 11–23; TEMP 36.4; O2SAT 97–100; BMI 29.9
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
[2023-01-11 10:43] LABS: Add Manual Diff / Slide Review NO; Basophils Absolute Auto 0 /uL (0-100); Basophils Percent Auto 0.5 % (0-2); Eosinophils Absolute Auto 300 /uL (0-450); Eosinophils Percent Auto 2.9 % (2-4); Hemoglobin 12.6 g/dL (12.0-16.0); Lymphocytes Absolute Auto 2700 /uL (1100-4500); Lymphocytes Percent Auto 31.1 % (25-40); Mean Corpuscular HGB Conc 33.2 % (30-36); Mean Corpuscular Hemoglobin 36.7 PG (26-34); Mean Corpuscular Volume 110.7 fL (80-100); Monocytes Absolute Auto 700 /uL (0-900); Neutrophils Absolute Auto 5000 /uL (1500-7000); Neutrophils Percent Auto 57.5 % (50-75); Platelet Count 230 X10^3/uL (150-400); Red Blood Cell Count 3.43 X10^6/uL (4.0-5.2); Red Cell Distribution Width 15.3 % (11.6-14.8); White Blood Cell Count 8.8 X10^3/uL (4.5-11.0)
[2023-01-11] MEDS: METOPROLOL IR 25 MG TABLET PO (10:45)
[2023-01-11 10:49] LABS: BUN Creatinine Ratio 6.2 (6-22); Blood Urea Nitrogen 4 mg/dL (7-17); Calcium 9.2 mg/dL (8.4-10.2); Carbon Dioxide 23 mmol/L (22-32); Chloride 101 mmol/L (98-107); Estimated Glomerular Filt Rate > 60 mL/min (>60); Glucose 102 mg/dL (70-100); HEMOLYSIS < 15 (0-50); Potassium 3.9 mmol/L (3.4-5.1); Sodium 137 mmol/L (137-145)
[2023-01-11 11:01] LABS: Anisocytosis 2+; Troponin I < 0.012 ng/mL (0.01-0.034)
[2023-01-11 11:03] LABS: Platelet Morphology Comment GIANT PLATELETS SEEN
== END 2023-01-11 12:49 | disposition home or self-care (01) ==
PROVIDERS: Emergency Provider Emergency Medicine; PCP Family Medicine
DX: I47.1 Supraventricular tachycardia (principal); L20.9 Atopic dermatitis, unspecified
CPT/HCPCS: 80048; 84484; 85025; 99283

== ENCOUNTER 2023-04-16 17:08 | Emergency (ER) | payer OTHER, SELFPAY ==
[2023-04-16] VITALS (8 sets, daily range): BP systolic 135; BP diastolic 73; PULSE 60–89; RESP 18–19; TEMP 36.6; O2SAT 95–99; BMI 28.8
[2023-04-16 17:50] LABS: Add Manual Diff / Slide Review NO; Basophils Absolute Auto 100 /uL (0-100); Basophils Percent Auto 1.2 % (0-2); Eosinophils Absolute Auto 200 /uL (0-450); Hematocrit 35.9 % (36-46); Hemoglobin 12.2 g/dL (12.0-16.0); Lymphocytes Absolute Auto 2100 /uL (1100-4500); Lymphocytes Percent Auto 28.7 % (25-40); Mean Corpuscular HGB Conc 34.1 % (30-36); Mean Corpuscular Hemoglobin 33.6 PG (26-34); Mean Corpuscular Volume 98.4 fL (80-100); Monocytes Absolute Auto 500 /uL (0-900); Monocytes Percent Auto 7.6 % (3-14); Neutrophils Absolute Auto 4300 /uL (1500-7000); Neutrophils Percent Auto 59.5 % (50-75); Platelet Count 210 X10^3/uL (150-400); Red Blood Cell Count 3.65 X10^6/uL (4.0-5.2); Red Cell Distribution Width 16.3 % (11.6-14.8); White Blood Cell Count 7.2 X10^3/uL (4.5-11.0)
[2023-04-16 17:53] LABS: UR Morphine/Opiate cutoff 300 Negative (Negative); Ur Creatinine Normal (Normal); Ur Specific Gravity Normal (Normal); Urine Amphetamines Negative (Negative); Urine Barbiturates Negative (Negative); Urine Benzodiazepines Negative (Negative); Urine Cocaine Negative (Negative); Urine MDMA Negative (Negative); Urine Methadone Negative (Negative); Urine Methamphetamines Negative (Negative); Urine Oxycodone Negative (Negative); Urine Phencyclidine Negative (Negative); Urine Tetrahydrocannabinol Negative (Negative); Urine Tricyclic Antidepressant Negative (Negative); Urine pH Normal (Normal)
[2023-04-16 18:00] LABS: Alanine Aminotransferase 28 IU/L (<35); Albumin 4.2 g/dL (3.5-5.0); Albumin Globulin Ratio 1.4 (1.0-2.8); Alkaline Phosphatase 72 U/L (38-126); Aspartate Aminotransferase 81 IU/L (14-36); BUN Creatinine Ratio 9.3 (6-22); Bilirubin Total 0.5 mg/dL (0.2-1.3); Blood Urea Nitrogen 7 mg/dL (7-17); Carbon Dioxide 19 mmol/L (22-32); Chloride 102 mmol/L (98-107); Estimated Glomerular Filt Rate > 60 mL/min (>60); Globulin 3.1 g/dL (1.7-4.1); Glucose 92 mg/dL (70-100); HEMOLYSIS < 15 (0-50); Lipase 59 U/L (23-300); Potassium 3.7 mmol/L (3.4-5.1); Sodium 136 mmol/L (137-145); Total Protein 7.3 g/dL (6.3-8.2)
[2023-04-16 18:10] LABS: Ethanol (ETOH) 408 mg/dL
[2023-04-16 18:15] LABS: Appearance Urine UA CLEAR; Bilirubin Urine UA NEGATIVE (NEGATIVE); Color Urine UA YELLOW; Glucose Urine UA NEGATIVE (Negative); Ketones Urine UA NEGATIVE (NEGATIVE); Leukocyte Esterase Urine UA NEGATIVE (NEGATIVE); Nitrite Urine UA NEGATIVE (Negative); Occult Blood Urine UA NEGATIVE (Negative); Protein Urine UA 2+ (Negative); Specific Gravity Urine UA 1.015 (1.000-1.035); Urobilinogen Urine UA 0.2 E.U./dL (0.2)
[2023-04-16 18:22] LABS: Bacteria Urine None Seen; Culture Indicated Urine Cult Not Indicated; Hyaline Casts Urine 1-5/LPF; RBC Urine None Seen (0-5/HPF); Squamous Epithelial Cell Urine 0-1 /HPF (0-5/HPF); WBC Urine 0-1/HPF (0-5/HPF)
--- NOTE | 2023-04-16 19:30 | PC.NURSE ---
pt aao x 3, speech clear, pt stating she wants to go, informed pt doctor would be informed and in to speak with pt.
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
== END 2023-04-16 20:24 | disposition home or self-care (01) ==
PROVIDERS: Emergency Medicine; Emergency Provider Emergency Medicine; PCP Family Medicine
DX: F10.129 Alcohol abuse with intoxication, unspecified (principal); Y90.8 Blood alcohol level of 240 mg/100 ml or more
CPT/HCPCS: 36415; 80053; 80305; 80320; 81001; 81003; 83690; 85025; 99283

== ENCOUNTER → 2023-09-29 15:06 | Outpatient (CLI) | payer OTHER, SELFPAY ==
--- NOTE | 2023-09-29 15:07 | DI.MRI.S_ITS ---
PROCEDURE: MR CERVICAL SPINE WO CON INDICATIONS: Neck pain TECHNIQUE: Noncontrast sagittal T1 spin echo and T2 fast spin echo, sagittal STIR, foraminal oblique sagittal T2 fast spin echo, and axial gradient echo or T2 fast spin echo through the cervical spine. COMPARISON: [facility], , C-SPINE WITHOUT CONTRAST, 08/24/2007, 8:12. FINDINGS: Image quality: Excellent. Alignment and Curvature: Straightening of the normal cervical lordosis. The Bone Marrow: Marrow demonstrates normal overall signal. Spinal Cord: Visualized spinal cord has normal size and signal. No cerebellar tonsillar herniation. Paraspinous Soft Tissues: No paravertebral masses. Prevertebral soft tissues are normal in thickness. Enlarged appearance of the left thyroid with likely nodules, not well evaluated. C2-C3: Disc desiccation. No central canal stenosis. No neural foraminal stenosis. C3-C4: Disc desiccation and mild posterior disc osteophyte complex. No significant central canal stenosis. No neural foraminal stenosis. C4-C5: Disc desiccation and posterior disc osteophyte complex. Mild central canal stenosis. Facet and uncovertebral arthropathy. Mild bilateral neural foraminal stenosis. C5-C6: Disc desiccation height loss. Posterior disc osteophyte complex, asymmetric to the left. Mild central canal stenosis. Facet and uncovertebral arthropathy. Mild bilateral neural foraminal stenosis. C6-C7: Disc desiccation height loss. Posterior disc osteophyte complex. Mild central canal stenosis. Facet and uncovertebral arthropathy. Mild bilateral neural foraminal stenosis. C7-T1: No central canal or neural foraminal stenosis. IMPRESSION: 1. Mild degenerative changes of the cervical spine with mild central canal and neural foraminal stenosis as described above. 2. Enlargement of the left lobe of thyroid with likely nodules, not well evaluated. Consider thyroid ultrasound for further evaluation. Dictated by: Oscar Villalobos M.D. on 09/29/2023 at 16:20 Approved by: Oscar Villalobos M.D. on 09/29/2023 at 16:25
== END ==
PROVIDERS: PCP Family Medicine; Referring Provider Family Medicine; Visit Provider Family Medicine
DX: M47.812 Spondylosis without myelopathy or radiculopathy, cervical region (principal); M54.2 Cervicalgia; G89.29 Other chronic pain; G61.0 Guillain-Barre syndrome; E04.9 Nontoxic goiter, unspecified
CPT/HCPCS: 72141

== ENCOUNTER → 2023-11-08 11:12 | Outpatient (CLI) | payer OTHER, SELFPAY ==
[2023-11-08 12:01] LABS: Add Manual Diff / Slide Review NO; Basophils Absolute Auto 100 /uL (0-100); Basophils Percent Auto 1.3 % (0-2); Eosinophils Absolute Auto 500 /uL (0-450); Eosinophils Percent Auto 5.2 % (2-4); Hemoglobin 11.6 g/dL (12.0-16.0); Lymphocytes Absolute Auto 3700 /uL (1100-4500); Lymphocytes Percent Auto 37.3 % (25-40); Mean Corpuscular HGB Conc 33.2 % (30-36); Mean Corpuscular Hemoglobin 28.3 PG (26-34); Mean Corpuscular Volume 85.2 fL (80-100); Monocytes Absolute Auto 600 /uL (0-900); Monocytes Percent Auto 6.6 % (3-14); Neutrophils Absolute Auto 4900 /uL (1500-7000); Neutrophils Percent Auto 49.6 % (50-75); Platelet Count 258 X10^3/uL (150-400); Red Blood Cell Count 4.11 X10^6/uL (4.0-5.2); Red Cell Distribution Width 16.9 % (11.6-14.8); White Blood Cell Count 9.8 X10^3/uL (4.5-11.0)
[2023-11-08 12:20] LABS: Alanine Aminotransferase 11 IU/L (<35); Albumin 3.9 g/dL (3.5-5.0); Albumin Globulin Ratio 1.3 (1.0-2.8); Alkaline Phosphatase 66 U/L (38-126); Aspartate Aminotransferase 27 IU/L (14-36); BUN Creatinine Ratio 12.6 (6-22); Bilirubin Total 0.8 mg/dL (0.2-1.3); Blood Urea Nitrogen 11 mg/dL (7-17); Calcium 8.9 mg/dL (8.4-10.2); Carbon Dioxide 21 mmol/L (22-32); Chloride 105 mmol/L (98-107); Cholesterol 275 mg/dL (140-199); Estimated Glomerular Filt Rate > 60 mL/min (>60); Globulin 3.1 g/dL (1.7-4.1); Glucose 105 mg/dL (70-100); HDL Cholesterol 77 mg/dL (40-60); HEMOLYSIS < 15 (0-50); LDL Cholesterol Calculated 175 mg/dL (<100); Potassium 3.6 mmol/L (3.4-5.1); Sodium 136 mmol/L (137-145); Triglycerides 116 mg/dL (35-150)
[2023-11-08 12:35] LABS: Luteinizing Hormone 2.14 mIU/mL
[2023-11-08 12:36] LABS: Vitamin D 25 Hydroxy (D3) 69.4 ng/mL (30.0-100.0)
[2023-11-08 12:50] LABS: TSH w/ Reflex to FT4 0.84 uIU/mL (0.47-4.68)
[2023-11-08 12:51] LABS: Estradiol, Total 26.2 pg/mL
== END ==
PROVIDERS: PCP Family Medicine; Referring Provider Family Medicine; Visit Provider Family Medicine
DX: E03.9 Hypothyroidism, unspecified (principal); R03.0 Elevated blood-pressure reading, without diagnosis of hypertension; I10 Essential (primary) hypertension; N95.1 Menopausal and female climacteric states
CPT/HCPCS: 36415; 80053; 80061; 82306; 82670; 83001; 83002; 84443; 85025

== ENCOUNTER → 2023-11-21 12:09 | Outpatient (CLI) | payer OTHER, SELFPAY ==
--- NOTE | 2023-11-21 12:10 | DI.RAD.S_ITS ---
PROCEDURE: XR THORACIC SPINE 3V INDICATIONS: thoracic back pain TECHNIQUE: 3 views of the thoracic spine were acquired. COMPARISON: [facility], , THORACIC SPINE 3 VIEWS, 07/04/2009, 12:36. FINDINGS: Bones: No fractures or dislocations. No suspicious bony lesions. 12 pairs of ribs are noted, and appear intact where visualized. Soft tissues: No paravertebral stripe thickening. IMPRESSION: Unremarkable thoracic spine radiographs Approved by: Floyd Garvey M.D. on 11/21/2023 at 19:39
--- NOTE | 2023-11-21 12:10 | DI.RAD.S_ITS ---
PROCEDURE: XR CERVICAL SPINE 4V OR 5V INDICATIONS: neck pain TECHNIQUE: For views of the cervical spine acquired. COMPARISON: None. FINDINGS: Bones: No fractures or dislocations to the T1 level. Oblique images demonstrate no bony foraminal stenoses. There is straightening of the normal cervical lordosis associated with degenerative disc disease and arthropathy in the mid cervical spine. Craniovertebral relationships normal. Soft tissues: No prevertebral soft tissue swelling. 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 on 11/21/2023 at 19:32
== END ==
PROVIDERS: PCP Family Medicine; Referring Provider Anesthesiology; Visit Provider Anesthesiology
DX: M47.812 Spondylosis without myelopathy or radiculopathy, cervical region (principal); M50.320 Other cervical disc degeneration, mid-cervical region, unspecified level; M99.01 Segmental and somatic dysfunction of cervical region; M99.02 Segmental and somatic dysfunction of thoracic region
CPT/HCPCS: 72050; 72072

== ENCOUNTER → 2023-12-13 10:53 | Outpatient (CLI) | payer OTHER, SELFPAY ==
--- NOTE | 2023-12-13 10:54 | DI.MG.S_ITS ---
BILATERAL DIGITAL SCREENING MAMMOGRAM 3D/2D WITH CAD: 12/13/2023 CLINICAL: Routine screening. Comparison is made to exams dated: 11/23/2020 mammogram, 11/20/2019 mammogram, and 12/21/2016 mammogram - [facility]. Both breasts are heterogeneously dense, which may obscure small masses (category c / 51-75% glandular tissue). Current study was also evaluated with a Computer Aided Detection (CAD) system. No significant masses, calcifications, or other findings are seen in either breast. There has been no significant interval change. IMPRESSION: NEGATIVE There is no mammographic evidence of malignancy. A 1 year screening mammogram is recommended. Based on the Tyrer Cuzick model (a risk assessment model) the patient's lifetime risk is 9.2% and her 10 year risk is 2.2%. According to the ACR, ACS, and NCCN guidelines, an annual breast MRI exam along with mammogram is recommended if the patient's lifetime risk is 20% or greater. This exam was interpreted at Station ID: [id number]. NOTE: For mammograms, a report in lay terms will be sent to the patient. Approximately 15% of breast malignancies will not be visualized mammographically. In the management of a palpable breast mass, a negative mammogram must not discourage biopsy of a clinically suspicious lesion. Electronically Signed By: Hardeep thompson/lauren:12/13/2023 13:09:21 copy to: Heather Fletcher letter sent: Normal Exam ACR BI-RADS Category 1: Negative [id number]
== END ==
LOC: MAMMO 10:53
PROVIDERS: PCP Family Medicine; Referring Provider Family Medicine; Visit Provider Family Medicine
DX: Z12.31 Encounter for screening mammogram for malignant neoplasm of breast (principal); R92.333 Mammographic heterogeneous density, bilateral breasts
CPT/HCPCS: 77063; 77067

== ENCOUNTER → 2024-02-14 12:52 | Outpatient (CLI) | payer OTHER, SELFPAY ==
--- NOTE | 2024-02-15 14:33 | DIET.OUTPTC ---
Dietary Outpatient Consultation Note Consultation Date: 02/14/2024 Assessment: 53 y F referred to dietitian for obesity. PMH of alcoholic fatty liver, HTN. Horace reports goals of wanting to lose weight and concerns for difficulties with weight management due to medications. Has stopped taking cymbalta due to concerns for weight gain and she reports working with her doctor to find alternative. Reports increase in sweet cravings when she stopped drinking alcohol. Prefers convenient/quick meals. Diet recall: B-Activia yogurt drink L-Prepared Cruz salad OR tuna sandwich (made at home) OR veg or turkey sandwich from [employer] D-handful of nuts (almonds) Drinks only water Does not have N/V/D/C Allergies/sensitives to melons Ht: 167.6 cm Wt: 109.43 kg BMI: 40.1 Weight Hx: +20% weight gain between Aug 2023-Oct 2023 08/30/23: 83.915 kg 10/17/23: 100.414 kg 01/24/24: 109.429 kg Labs: 11/08/23 TG WNL Chol: 275 LDL: 175 HDL: 77 Nutrition Diagnosis: Nutrition related knowledge deficit r/t limited previous nutrition educ as evidenced by nutrition assessment Interventions: -MNT for weight management provided -Including: balanced meals, adequate protein intake, macros, label reading, sweet cravings Goals: 1. Include additional protein source daily (i.e. has previously done premier protein drinks for breakfast) 2. Horace is hoping to work with pain management and be able to walk more 3. Additional fruit/vegetable intake daily (i.e. at lunch) EER: MSJ baseline 1725 kcals x 1.1 AF = 1900; 1446-7069 kcals 75 grams protein (1-1.2 g/kg per adjusted IBW compared with 20% MSJ) Monitoring/Evaluations: goals, diet recall, labs, med changes Electronically Signed by: Mitzi Rodriguez 02/15/24 14:33 Clinical Dietitian [address] [id number]
== END ==
PROVIDERS: Family Provider Family Medicine; PCP Family Medicine; Referring Provider Family Medicine
DX: E66.9 Obesity, unspecified (principal); Z68.41 Body mass index [BMI] 40.0-44.9, adult; Z71.3 Dietary counseling and surveillance; I10 Essential (primary) hypertension; K70.0 Alcoholic fatty liver
CPT/HCPCS: 97802

== ENCOUNTER → 2024-03-07 10:49 | Outpatient (CLI) | payer OTHER, SELFPAY ==
--- NOTE | 2024-03-07 10:50 | DI.RAD.S_ITS ---
PROCEDURE: XR HIP W PEL IF DONE JESSICA MIN 4V INDICATIONS: Chronic pain with exacerbation of low back pain TECHNIQUE: AP pelvis with lateral view(s) of the bilateral hip(s). COMPARISON: None. FINDINGS: Bones: No fractures or dislocations. Pelvic ring appears intact. Joint spaces are maintained. No suspicious bony lesions. Soft tissues: The visualized bowel gas pattern is normal. No suspicious soft tissue calcifications. IMPRESSION: No acute bony abnormality. No significant degenerative changes. If there is high clinical suspicion for a radiographically occult fracture, consider cross-sectional imaging for further evaluation. Dictated by: Chun Vines M.D. on 03/07/2024 at 17:35 Approved by: Chun Vines M.D. on 03/07/2024 at 17:36
--- NOTE | 2024-03-07 10:50 | DI.RAD.S_ITS ---
PROCEDURE: XR LUMBAR SPINE 2-3V INDICATIONS: Chronic pain with exacerbation of low back pain TECHNIQUE: 3 views of the lumbar spine were acquired. COMPARISON: None. FINDINGS: Bones: 5 [id number] vertebrae are present. There are tiny rib lith at T12. There is normal bony alignment. No vertebral body compression fractures. Vertebral body height and disc spaces are maintained. Minimal facet arthropathy at L4-5 and L5-S1. No suspicious bony lesions. Soft tissues: Overlying bowel gas pattern is normal. No suspicious soft tissue calcifications. IMPRESSION: 1. No acute bony abnormality. If clinical symptoms persist, consider repeat radiograph in 10-14 days versus cross-sectional imaging. 2. No significant degenerative changes. Minimal facet arthropathy at L4-5 and L5-S1. Dictated by: Chun Vines M.D. on 03/07/2024 at 17:36 Approved by: Chun Vines M.D. on 03/07/2024 at 17:37
== END ==
PROVIDERS: Family Provider Family Medicine; PCP Family Medicine; Referring Provider Family Medicine; Visit Provider Family Medicine
DX: M54.50 Low back pain, unspecified (principal); G89.29 Other chronic pain
CPT/HCPCS: 72100; 73522

== ENCOUNTER → 2024-04-01 09:23 | Outpatient (CLI) | payer OTHER, SELFPAY ==
[2024-04-01 10:54] LABS: Add Manual Diff / Slide Review NO; Basophils Absolute Auto 200 /uL (0-100); Basophils Percent Auto 1.8 % (0-2); Eosinophils Absolute Auto 400 /uL (0-450); Eosinophils Percent Auto 3.7 % (2-4); Hematocrit 34.3 % (36-46); Hemoglobin 11.2 g/dL (12.0-16.0); Lymphocytes Absolute Auto 2600 /uL (1100-4500); Lymphocytes Percent Auto 25.6 % (25-40); Mean Corpuscular HGB Conc 32.5 % (30-36); Mean Corpuscular Hemoglobin 25.5 PG (26-34); Mean Corpuscular Volume 78.2 fL (80-100); Monocytes Absolute Auto 600 /uL (0-900); Monocytes Percent Auto 5.9 % (3-14); Neutrophils Absolute Auto 6300 /uL (1500-7000); Platelet Count 226 X10^3/uL (150-400); Red Blood Cell Count 4.39 X10^6/uL (4.0-5.2); Red Cell Distribution Width 17.2 % (11.6-14.8)
[2024-04-01 11:24] LABS: Alanine Aminotransferase 12 IU/L (<35); Albumin 4.2 g/dL (3.5-5.0); Albumin Globulin Ratio 1.7 (1.0-2.8); Alkaline Phosphatase 70 U/L (38-126); Aspartate Aminotransferase 18 IU/L (14-36); BUN Creatinine Ratio 17.6 (6-22); Bilirubin Total 0.7 mg/dL (0.2-1.3); Blood Urea Nitrogen 15 mg/dL (7-17); Calcium 8.9 mg/dL (8.4-10.2); Carbon Dioxide 19 mmol/L (22-32); Chloride 110 mmol/L (98-107); Cholesterol 209 mg/dL (140-199); Estimated Glomerular Filt Rate > 60 mL/min (>60); Globulin 2.5 g/dL (1.7-4.1); Glucose 110 mg/dL (70-100); HDL Cholesterol 72 mg/dL (40-60); HEMOLYSIS < 15 (0-50); LDL Cholesterol Calculated 98 mg/dL (<100); Potassium 4.3 mmol/L (3.4-5.1); Sodium 137 mmol/L (137-145); Total Protein 6.7 g/dL (6.3-8.2); Triglycerides 196 mg/dL (35-150)
== END ==
PROVIDERS: Family Provider Family Medicine; PCP Family Medicine; Referring Provider Family Medicine; Visit Provider Family Medicine
DX: I10 Essential (primary) hypertension (principal); D64.9 Anemia, unspecified
CPT/HCPCS: 36415; 80053; 80061; 85025

== ENCOUNTER → 2024-06-19 09:28 | Outpatient (CLI) | payer OTHER, SELFPAY ==
[2024-06-19 10:08] LABS: Hemoglobin 12.9 g/dL (12.0-16.0); Mean Corpuscular HGB Conc 33.2 % (30-36); Mean Corpuscular Hemoglobin 27.6 PG (26-34); Mean Corpuscular Volume 83.3 fL (80-100); Platelet Count 244 X10^3/uL (150-400); Red Blood Cell Count 4.68 X10^6/uL (4.0-5.2); Red Cell Distribution Width 17.7 % (11.6-14.8); White Blood Cell Count 11.2 X10^3/uL (4.5-11.0)
[2024-06-19 10:34] LABS: Neutrophils Absolute Manual 6944 /uL (3000-5900); Total Cells Counted 100
[2024-06-19 10:35] LABS: Anisocytosis 1+
[2024-06-19 17:47] LABS: Vitamin B12 215 pg/mL (239-931)
== END ==
PROVIDERS: Family Provider Family Medicine; PCP Family Medicine; Referring Provider Family Medicine; Visit Provider Family Medicine
DX: D50.9 Iron deficiency anemia, unspecified (principal); Z86.39 Personal history of other endocrine, nutritional and metabolic disease
CPT/HCPCS: 36415; 82607; 85025

== ENCOUNTER → 2024-06-26 11:20 | Outpatient (CLI) | payer OTHER, SELFPAY ==
--- NOTE | 2024-06-26 11:21 | DI.RAD.S_ITS ---
PROCEDURE: XR FOOT RT MIN 3V INDICATIONS: Heel pain TECHNIQUE: 3 views of the foot were acquired. COMPARISON: None. FINDINGS: Bones: There is a nondisplaced transverse fracture through the base of the 5th proximal phalanx. Hammertoe deformities present the 1st through 5th digits Joints: There is mild degenerative change of the 2nd through 5th interphalangeal joints. Soft tissues: No soft tissue abnormality. IMPRESSION: Nondisplaced transverse fracture 5th proximal phalanx Dictated by: Cong Barnes M.D. on 06/27/2024 at 7:40 Approved by: Cong Barnes M.D. on 06/27/2024 at 7:42
== END ==
PROVIDERS: Family Provider Family Medicine; PCP Family Medicine; Referring Provider Family Medicine; Visit Provider Family Medicine
DX: S92.514A Nondisplaced fracture of proximal phalanx of right lesser toe(s), initial encounter for closed fracture (principal); M79.671 Pain in right foot; G89.29 Other chronic pain
CPT/HCPCS: 73630

== ENCOUNTER 2024-07-02 13:00 | Outpatient (RCR) | payer OTHER, SELFPAY ==
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
--- NOTE | 2024-02-15 13:58 | PT.OPPOC ---
Physical, Occupational & Speech Therapy At [facility] Current Diagnoses Other chronic pain (02/15/24) Pain in thoracic spine (02/15/24) Myalgia, other site (02/15/24) Visit Care Team Role Provider Type New Fuller DO Family Provider Physician Primary Care Provider Specialty: Family Practice Address: [address] [place] [address], [id number] Email: Enma Miller PA-C Attending Provider Advanced Improvement Manager Referring Provider Specialty: Medical Wound Care Address: [address] [place] [address], [address] Email: [email or web address] Plan Of Care PT-OP-T Assessment and Plan Start: 02/15/24 07:19 Freq: Status: Active Protocol: Document 02/15/24 11:18 LRN (Rec: 02/15/24 12:41 LRN [id number]) Physical Therapy Assessment Rehab Potential Rehabilitation Potential Excellent Evaluation Complexity Number of Personal Factors/Comorbidities 3 or More Number of Body Systems Impaired 4 or More Clinical Presentation at Evaluation Evolving Impairments Impairments Functional Activities,Pain, Posture,ROM,Soft Tissue Mobility,Strength Other Impairments Nighttim positioning Goals Three Impairment Upper back weakness with onset of intrascapular pain with use of arms. Impairment UE Quickdash score 47.72 (47.7 % impaired, score 40-59). LUIZA score 23/50 or 46/100 (46% impaired, score 40-59) Short Term Goal (STG) Pt will be educated in self care pain management with use of positioning and use of cryotherapy. STG Duration 5 wks-03/22/24 Custodial Goal (LTG) Pt will be able to lightly sweep without onset of posterior scapular pain. LTG Duration 12 wks-05/10/24 Two Impairment Sleep interruption of intrascapular pain with movement of arms. Short Term Goal (STG) Pt will be educated in sleeping positions with support to UE's and neutral spine positioning, and proper sit/stand posture. STG Duration 5 wks-03/22/24 Diagnostic Technician Goal (LTG) Pt will be able to improve sleep w/o severe pain onset while moving arms. LTG Duration 12 wks-05/10/24 One Impairment HEP Short Term Goal (STG) Pt will be educated in proper body mechanics for ADLs and be able to return to cardio gym exers w/o onset of back pain. STG Duration 5 wks-03/22/24 Custodial Goal (LTG) Pt will be independent with a HEP of neck, shoulder and upper/lower back ROM and strengthening ex's. LTG Duration 12 wks-05/10/24 Assessment Summary Assessment Pt is a 53 yo female who presents with postural, thoracic mechanical & soft tissue dysunction with onset of bilateral constant intrascapular and lateral neck pain, and bilateral shoulder pain when the upper back pain is severe. I was not able to reproduce her intrascapular pain today; therefore it appears her pain may be more soft tissue related, but there is probably a mechanical component involving her cervical and thoracic spine as she is quite restricted in mobility in both areas. The pt will benefit from skilled physical therapy to work towards achieving the above stated goals. Physical Therapy Plan Frequency and Duration Frequency of Treatment 2x/Week Duration of treatment (weeks) 12 Plan of Care Start Date 02/15/24 Plan of Care End Date 05/10/24 Therapeutic Interventions Therapeutic Interventions Balance Training,Home Exercise Program,Joint Mobilizations, Manual Therapy,Neuromuscular Re-education,Self-Care/Home Management,Soft Tissue Mobilization,Therapeutic Activities,Therapeutic Exercises Modalities Cold Pack/Ice Massage,Electric Stimulation,Hot Packs Next Visit Focus/Plan Next Note Type Treatment Note Next Visit Plan Next: Complete cervical special tests and strength, Cervical and thoracic ROM ex's ending in MH/IFES > [neck> Lower Thoracic], progressing to strengthening and upper back stabilization. Education: self care pain management-cryotherapy, sleeping positions with support to UE's and with neutral spine positioning, posture sit & stand, body mechanics for ADLS and work movements. Manual: STM, JMT Modalities: MH/IFES, cryotherapy. Ther Ex & HEP: neck, shoulder and upper/lower back ROM and strengthening ex's. Plan of Care Dates Plan of Care Start Date 02/15/24 Plan of Care End Date 05/10/24 Electronically Signed by: Nayeli Francis, PT 02/15/24 8181 If you are in agreement with this Plan of Care, please return a signed and dated copy. I have reviewed this Plan of Care and certify that the skilled therapy services above are required to meet the patient?s needs. Physician Signature Date Printed Name and Credentials Clinical Instructor Signature Printed Name and Credentials
--- NOTE | 2024-02-20 10:53 | PT.OTN ---
Current Diagnoses Other chronic pain (02/20/24) Pain in thoracic spine (02/20/24) Myalgia, other site (02/20/24) Physical Therapy Treatment Note PT-OP-A Visit Information Start: 02/15/24 07:19 Freq: Status: Active Protocol: Document 02/20/24 09:52 LRN (Rec: 02/20/24 10:51 LRN [id number]) Out-Patient Physical Therapy Visit Information Visit Information Visit Type Treatment Note Visit Start Time 09:52 Visit Stop Time 10:33 Visit Number 2 Evaluation Information Evaluation Date 02/15/24 Precautions Precautions Pt reported Rubber/Latex Allergy. Requests no EStim. Necrosis of R humeral head. Neuropathy (pt notes from Eva Gonzalez) in LE's from knees distally (pain in feet, numbness in legs, and burning at night), with decreased balance (reported from mindy), chronic pain in upper back. PMH (per pt): depression controlled by meds, possible Fibromyalgia, history of L Ankle surgery (chencho, pins, screws). PT-OP-B Current Condition Start: 02/15/24 07:19 Freq: Status: Active Protocol: Document 02/15/24 11:18 LRN (Rec: 02/15/24 12:41 LRN [id number]) Current Condition History of Current Condition Onset Date 1 yr ago. Current Complaints Stabbing back pain at scapula bilaterally, L worse than R. History of Current Condition 1 yr ago got a stabbing pain in R scapula area, now is more in the L side. No previous history of upper back pain. Pt states her pain wakes her up at night when moving arms. She describes her pain as severe, and that it takes a day to recover from because she becomes physically exhausted by the pain. Her current activity level is low. She states she walks, ex's at the local gym on a recumbent bike and does errands around town. Two yrs ago she exercised in the gym with arm and leg workouts in addition to the cardio exercise. Prior Treatments and Tests -OH treatments of Dr. Fuller. -Sports [facility] Spine with treatments to the neck for trigger points (pt felt not helpful). She reports being given a creme in the past by Mr. Deutsch in the [facility] that had Gabapentin in it, but at the [facility] clinic was given a prescription w/o Gabapentin and she didn't find it helpful. -Sleeps on ice. -Uses infrared heating pad. -Ms relaxors (prescription from Dr. Robertson: methalcarbinol-4000mg) sometimes helps. Treatment Goals Patient/Caregiver Goals Pt goals: - Improve sleep w/o severe pain while moving arms. - Lightly sweep without posterior scapular pain onset. - Independent with HEP and gym exer-cardio ex's. Personal Factors Other Personal Factors That May Effect -Depression, possible Therapy/Recovery Fibromyalgia. -Neuropathy (pt notes from Eva Gonzalez) in LE's from knees distally (pain in feet, numbness in legs, and burning at night), with decreased balance (reported from tessa?). -Chronic pain in upper back, -Doesn't have comfortable shoes to wear, (needs wide shoes to be comfortable), because without right support her feet feels like she is walking on rocks. PT-OP-C Subjective Start: 02/15/24 07:19 Freq: Status: Active Protocol: Document 02/20/24 09:52 LRN (Rec: 02/20/24 10:51 LRN [id number]) OP-PT Subjective Patient Comments Patient Comments Yesterday got really tight and had a hard time getting a breath. PT-OP-H Neuro Start: 02/15/24 07:19 Freq: Status: Active Protocol: Document 02/15/24 11:18 LRN (Rec: 02/15/24 12:41 LRN [id number]) Sensation Evaluation Gross Sensation Gross Sensation WNL PT-OP-J Posture/Palpation/Skin Start: 02/15/24 07:19 Freq: Status: Active Protocol: Document 02/15/24 11:18 LRN (Rec: 02/15/24 12:41 LRN [id number]) Posture Evaluation Position Standing Head/C-Spine Posture Forward Head T-Spine Posture Increased Kyphosis L-Spine Posture Decreased Lordosis Shoulder Posture (L) Forward,(L) Elevated Arm Posture (L) Internally Rotated,(R) Internally Rotated Comments Posture Comments Dowagers hump, straightened T2 -T4 spine, increased curve ~ T11-12, very mild C-curve of T /S with apex on the L (~ T5). Palpation Assessment Location Shoulders Palpation Location L Posterior Deltoid Palpation Details Atrophy Intrascapular region Palpation Location Rhomboids, Paraspinals Palpation Details L side muscle guarding, Neck Palpation Location L Cervical paraspinals & R UT Palpation Findings Soft Tissue Tightness, Tenderness PT-OP-K Range of Motion Start: 02/15/24 07:19 Freq: Status: Active Protocol: Document 02/15/24 11:18 LRN (Rec: 02/15/24 12:41 LRN [id number]) Cervical Spine Range of Motion Cervical Spine Active Degrees Testing Position Sitting Flexion 20 Extension 50 Rotation Left 38 Rotation Right 47 Lateral Flexion Left 18 Lateral Flexion Right 20 ROM Limitations Soft Tissue Tightness Lumbar Spine Range of Motion Lumbar Spine Active Degrees Testing Position Standing Flexion 72 Extension 17 Rotation Left 30 Rotation Right 30 Lateral Flexion Left 15 Lateral Flexion Right 15 ROM Limitations Soft Tissue Tightness,Pain Comments Rotation: has pain and tightness. Flexion: LBP & UBP. Shoulder Goniometric Range of Motion Shoulder Right Active Testing Position Sitting Flexion 150 Extension 35 Abduction 140 Left Active Testing Position Sitting Flexion 150 Extension 35 Abduction 140 PT-OP-M Strength Start: 02/15/24 07:19 Freq: Status: Active Protocol: Document 02/15/24 11:18 LRN (Rec: 02/15/24 12:41 LRN [id number]) Shoulder Strength Shoulder Manual Muscle Testing Right Flexion 3 Fair Extension 4+ Good+ External Rotation 3 Fair Internal Rotation 3+ Fair+ Comments Strength is 5/5 except as indicated above. Left Flexion 3 Fair External Rotation 3 Fair Comments Strength is 5/5 except as indicated above. PT-OP-Q Treatments Start: 02/15/24 07:19 Freq: Status: Active Protocol: Document 02/20/24 09:52 LRN (Rec: 02/20/24 10:51 LRN [id number]) Therapeutic Exercises Supine Exercises C/S neck stretch Supine Exercise Name Rotation, SB Equipment Used MH to back Comments Assessed after stretching VA & Foraminal compression. Upper trunk rot stretch Supine Exercise Name Knees and arms opp direction, then just arms to opp direction Side bilateral Reps/Minutes 10' Comments Pt limited in R shdr mob due to necrosis R humeru; cued to move head w/arms Sitting Exercises Trunk rot stretch Sitting Exercise Name Hand on outside opp knee and rot head/shoulders to side of knee. Side bilateral Reps/Minutes 10 SH x 6 Comments Cued to breathe w/stretch and head rot to lead mvmt. Deep Breathing Sitting Exercise Name Elbows planted on back rest, a hand on lower abdomen and on chest Reps/Minutes 15' Comments Cued to breathe through the lower hips and keep chest still Manual Therapy Treatment Manual Traction Cervical Details no pain relief in neck or upper back; therefore DC'd Body Position Supine Reps/Duration 1' Self-Care/Home Management Treatment Education Patient Education Home Exercise Program Activities Self-Care/Home Management Activities Issued HEP: Deep breathing, handouts x 2: showing anatomy of D.breathing and positioning and explanation of D. breathing, and Sitting Trunk Rot stretch. PT-OP-T Assessment and Plan Start: 02/15/24 07:19 Freq: Status: Active Protocol: Document 02/20/24 09:52 LRN (Rec: 02/20/24 10:51 LRN [id number]) Physical Therapy Assessment Goals Three Impairment Upper back weakness with onset of intrascapular pain with use of arms. Impairment UE Quickdash score 47.72 (47.7 % impaired, score 40-59). LUIZA score 23/50 or 46/100 (46% impaired, score 40-59) Short Term Goal (STG) Pt will be educated in self care pain management with use of positioning and use of cryotherapy. STG Duration 5 wks-03/22/24 Care Program Resident Goal (LTG) Pt will be able to lightly sweep without onset of posterior scapular pain. LTG Duration 12 wks-05/10/24 Two Impairment Sleep interruption of intrascapular pain with movement of arms. Short Term Goal (STG) Pt will be educated in sleeping positions with support to UE's and neutral spine positioning, and proper sit/stand posture. STG Duration 5 wks-03/22/24 Nursing Home Goal (LTG) Pt will be able to improve sleep w/o severe pain onset while moving arms. LTG Duration 12 wks-05/10/24 One Impairment HEP Short Term Goal (STG) Pt will be educated in proper body mechanics for ADLs and be able to return to cardio gym exers w/o onset of back pain. STG Duration 5 wks-03/22/24 Care Program Resident Goal (LTG) Pt will be independent with a HEP of neck, shoulder and upper/lower back ROM and strengthening ex's. 02/20/24: HEP: Deep breathing & Trunk rot stretch LTG Duration 12 wks-05/10/24 progressed 02/20/24 Assessment Summary Assessment Pt is a 53 yo female with postural, T/S mechanical & soft tissue dys with onset of alan constant intrascapular & lateral neck pain; alan shdr pain when UBP is severe. Today pt demonstrates extreme difficulty performing deep breathing because she typically chest breathes. C/S test for possible disc or vertebral artery dysfunction is negative. Physical Therapy Plan Frequency and Duration Frequency of Treatment 2x/Week Duration of treatment (weeks) 12 Plan of Care Start Date 02/15/24 Plan of Care End Date 05/10/24 Next Visit Focus/Plan Next Note Type Treatment Note Next Visit Plan Next: Check cervical strength, review T/S rot & deep breathing ex. Progress with cervical (rot/SB) and thoracic ROM ex's (to decr kyphosis), L/S to improve lordosis. Progress to strengthening and upper back stabilization. Education in self care pain management-cryotherapy, sleeping positions with support to UE's and with neutral spine positioning. Education: posture sit & stand, body mechanics for ADLS and work movements. Manual: STM, JMT Modalities: Modality if needed to improve cesar to stretches (MH, ice). Ther Ex & HEP: neck, shoulder and upper/lower back ROM and strengthening ex's.
--- NOTE | 2024-02-20 10:57 | PT.OTN ---
Current Diagnoses Other chronic pain (02/20/24) Pain in thoracic spine (02/20/24) Myalgia, other site (02/20/24) Physical Therapy Treatment Note PT-OP-A Visit Information Start: 02/15/24 07:19 Freq: Status: Active Protocol: Document 02/20/24 09:52 LRN (Rec: 02/20/24 10:51 LRN [id number]) Out-Patient Physical Therapy Visit Information Visit Information Visit Type Treatment Note Visit Start Time 09:52 Visit Stop Time 10:33 Visit Number 2 Evaluation Information Evaluation Date 02/15/24 Precautions Precautions Pt reported Rubber/Latex Allergy. Requests no EStim. Necrosis of R humeral head. Neuropathy (pt notes from Eva Gonzalez) in LE's from knees distally (pain in feet, numbness in legs, and burning at night), with decreased balance (reported from mindy), chronic pain in upper back. PMH (per pt): depression controlled by meds, possible Fibromyalgia, history of L Ankle surgery (chencho, pins, screws). PT-OP-B Current Condition Start: 02/15/24 07:19 Freq: Status: Active Protocol: Document 02/15/24 11:18 LRN (Rec: 02/15/24 12:41 LRN [id number]) Current Condition History of Current Condition Onset Date 1 yr ago. Current Complaints Stabbing back pain at scapula bilaterally, L worse than R. History of Current Condition 1 yr ago got a stabbing pain in R scapula area, now is more in the L side. No previous history of upper back pain. Pt states her pain wakes her up at night when moving arms. She describes her pain as severe, and that it takes a day to recover from because she becomes physically exhausted by the pain. Her current activity level is low. She states she walks, ex's at the local gym on a recumbent bike and does errands around town. Two yrs ago she exercised in the gym with arm and leg workouts in addition to the cardio exercise. Prior Treatments and Tests -OH treatments of Dr. Fuller. -Sports & Spine with treatments to the neck for trigger points (pt felt not helpful). She reports being given a creme in the past by Mr. Deutsch in the [facility] that had Gabapentin in it, but at the [facility] clinic was given a prescription w/o Gabapentin and she didn't find it helpful. -Sleeps on ice. -Uses infrared heating pad. -Ms relaxors (prescription from Dr. Robertson: methalcarbinol-4000mg) sometimes helps. Treatment Goals Patient/Caregiver Goals Pt goals: - Improve sleep w/o severe pain while moving arms. - Lightly sweep without posterior scapular pain onset. - Independent with HEP and gym exer-cardio ex's. Personal Factors Other Personal Factors That May Effect -Depression, possible Therapy/Recovery Fibromyalgia. -Neuropathy (pt notes from Eva Gonzalez) in LE's from knees distally (pain in feet, numbness in legs, and burning at night), with decreased balance (reported from tessa?). -Chronic pain in upper back, -Doesn't have comfortable shoes to wear, (needs wide shoes to be comfortable), because without right support her feet feels like she is walking on rocks. PT-OP-C Subjective Start: 02/15/24 07:19 Freq: Status: Active Protocol: Document 02/20/24 09:52 LRN (Rec: 02/20/24 10:51 LRN [id number]) OP-PT Subjective Patient Comments Patient Comments Yesterday got really tight and had a hard time getting a breath. PT-OP-H Neuro Start: 02/15/24 07:19 Freq: Status: Active Protocol: Document 02/15/24 11:18 LRN (Rec: 02/15/24 12:41 LRN [id number]) Sensation Evaluation Gross Sensation Gross Sensation WNL PT-OP-J Posture/Palpation/Skin Start: 02/15/24 07:19 Freq: Status: Active Protocol: Document 02/15/24 11:18 LRN (Rec: 02/15/24 12:41 LRN [id number]) Posture Evaluation Position Standing Head/C-Spine Posture Forward Head T-Spine Posture Increased Kyphosis L-Spine Posture Decreased Lordosis Shoulder Posture (L) Forward,(L) Elevated Arm Posture (L) Internally Rotated,(R) Internally Rotated Comments Posture Comments Dowagers hump, straightened T2 -T4 spine, increased curve ~ T11-12, very mild C-curve of T /S with apex on the L (~ T5). Palpation Assessment Location Shoulders Palpation Location L Posterior Deltoid Palpation Details Atrophy Intrascapular region Palpation Location Rhomboids, Paraspinals Palpation Details L side muscle guarding, Neck Palpation Location L Cervical paraspinals & R UT Palpation Findings Soft Tissue Tightness, Tenderness PT-OP-K Range of Motion Start: 02/15/24 07:19 Freq: Status: Active Protocol: Document 02/15/24 11:18 LRN (Rec: 02/15/24 12:41 LRN [id number]) Cervical Spine Range of Motion Cervical Spine Active Degrees Testing Position Sitting Flexion 20 Extension 50 Rotation Left 38 Rotation Right 47 Lateral Flexion Left 18 Lateral Flexion Right 20 ROM Limitations Soft Tissue Tightness Lumbar Spine Range of Motion Lumbar Spine Active Degrees Testing Position Standing Flexion 72 Extension 17 Rotation Left 30 Rotation Right 30 Lateral Flexion Left 15 Lateral Flexion Right 15 ROM Limitations Soft Tissue Tightness,Pain Comments Rotation: has pain and tightness. Flexion: LBP & UBP. Shoulder Goniometric Range of Motion Shoulder Right Active Testing Position Sitting Flexion 150 Extension 35 Abduction 140 Left Active Testing Position Sitting Flexion 150 Extension 35 Abduction 140 PT-OP-L Special Tests Start: 02/15/24 07:19 Freq: Status: Active Protocol: Document 02/20/24 09:52 LRN (Rec: 02/20/24 10:57 LRN [id number]) Special Tests Cervical Spine Special Tests Vertebral Artery Test Results negative Traction Test Results negative Foraminal Compression Test Results negative PT-OP-M Strength Start: 02/15/24 07:19 Freq: Status: Active Protocol: Document 02/15/24 11:18 LRN (Rec: 02/15/24 12:41 LRN [id number]) Shoulder Strength Shoulder Manual Muscle Testing Right Flexion 3 Fair Extension 4+ Good+ External Rotation 3 Fair Internal Rotation 3+ Fair+ Comments Strength is 5/5 except as indicated above. Left Flexion 3 Fair External Rotation 3 Fair Comments Strength is 5/5 except as indicated above. PT-OP-Q Treatments Start: 02/15/24 07:19 Freq: Status: Active Protocol: Document 02/20/24 09:52 LRN (Rec: 02/20/24 10:51 LRN [id number]) Therapeutic Exercises Supine Exercises C/S neck stretch Supine Exercise Name Rotation, SB Equipment Used MH to back Comments Assessed after stretching VA & Foraminal compression. Upper trunk rot stretch Supine Exercise Name Knees and arms opp direction, then just arms to opp direction Side bilateral Reps/Minutes 10' Comments Pt limited in R shdr mob due to necrosis R humeru; cued to move head w/arms Sitting Exercises Trunk rot stretch Sitting Exercise Name Hand on outside opp knee and rot head/shoulders to side of knee. Side bilateral Reps/Minutes 10 SH x 6 Comments Cued to breathe w/stretch and head rot to lead mvmt. Deep Breathing Sitting Exercise Name Elbows planted on back rest, a hand on lower abdomen and on chest Reps/Minutes 15' Comments Cued to breathe through the lower hips and keep chest still Manual Therapy Treatment Manual Traction Cervical Details no pain relief in neck or upper back; therefore DC'd Body Position Supine Reps/Duration 1' Self-Care/Home Management Treatment Education Patient Education Home Exercise Program Activities Self-Care/Home Management Activities Issued HEP: Deep breathing, handouts x 2: showing anatomy of D.breathing and positioning and explanation of D. breathing, and Sitting Trunk Rot stretch. PT-OP-T Assessment and Plan Start: 02/15/24 07:19 Freq: Status: Active Protocol: Document 02/20/24 09:52 LRN (Rec: 02/20/24 10:51 LRN [id number]) Physical Therapy Assessment Goals Three Impairment Upper back weakness with onset of intrascapular pain with use of arms. Impairment UE Quickdash score 47.72 (47.7 % impaired, score 40-59). LUIZA score 23/50 or 46/100 (46% impaired, score 40-59) Short Term Goal (STG) Pt will be educated in self care pain management with use of positioning and use of cryotherapy. STG Duration 5 wks-03/22/24 Prison Goal (LTG) Pt will be able to lightly sweep without onset of posterior scapular pain. LTG Duration 12 wks-05/10/24 Two Impairment Sleep interruption of intrascapular pain with movement of arms. Short Term Goal (STG) Pt will be educated in sleeping positions with support to UE's and neutral spine positioning, and proper sit/stand posture. STG Duration 5 wks-03/22/24 Real Estate Site Analyst Goal (LTG) Pt will be able to improve sleep w/o severe pain onset while moving arms. LTG Duration 12 wks-05/10/24 One Impairment HEP Short Term Goal (STG) Pt will be educated in proper body mechanics for ADLs and be able to return to cardio gym exers w/o onset of back pain. STG Duration 5 wks-03/22/24 Real Estate Site Analyst Goal (LTG) Pt will be independent with a HEP of neck, shoulder and upper/lower back ROM and strengthening ex's. 02/20/24: HEP: Deep breathing & Trunk rot stretch LTG Duration 12 wks-05/10/24 progressed 02/20/24 Assessment Summary Assessment Pt is a 53 yo female with postural, T/S mechanical & soft tissue dys with onset of alan constant intrascapular & lateral neck pain; alan shdr pain when UBP is severe. Today pt demonstrates extreme difficulty performing deep breathing because she typically chest breathes. C/S test for possible disc or vertebral artery dysfunction is negative. Physical Therapy Plan Frequency and Duration Frequency of Treatment 2x/Week Duration of treatment (weeks) 12 Plan of Care Start Date 02/15/24 Plan of Care End Date 05/10/24 Next Visit Focus/Plan Next Note Type Treatment Note Next Visit Plan Next: Check cervical strength, review T/S rot & deep breathing ex. Progress with cervical (rot/SB) and thoracic ROM ex's (to decr kyphosis), L/S to improve lordosis. Progress to strengthening and upper back stabilization. Education in self care pain management-cryotherapy, sleeping positions with support to UE's and with neutral spine positioning. Education: posture sit & stand, body mechanics for ADLS and work movements. Manual: STM, JMT Modalities: Modality if needed to improve cesar to stretches (MH, ice). Ther Ex & HEP: neck, shoulder and upper/lower back ROM and strengthening ex's.
--- NOTE | 2024-02-22 10:49 | PT.OTN ---
Current Diagnoses Other chronic pain (02/22/24) Pain in thoracic spine (02/22/24) Myalgia, other site (02/22/24) Physical Therapy Treatment Note PT-OP-A Visit Information Start: 02/15/24 07:19 Freq: Status: Active Protocol: Document 02/22/24 08:21 LRN (Rec: 02/22/24 09:08 LRN [id number]) Out-Patient Physical Therapy Visit Information Visit Information Visit Type Treatment Note Visit Start Time 08:21 Visit Stop Time 09:04 Visit Number 3 Evaluation Information Evaluation Date 02/15/24 Precautions Precautions Pt reported Rubber/Latex Allergy. Requests no EStim. Necrosis of R humeral head. Neuropathy (pt notes from Eva Gonzalez) in LE's from knees distally (pain in feet, numbness in legs, and burning at night), with decreased balance (reported from mindy), chronic pain in upper back. PMH (per pt): depression controlled by meds, possible Fibromyalgia, history of L Ankle surgery (chencho, pins, screws). PT-OP-B Current Condition Start: 02/15/24 07:19 Freq: Status: Active Protocol: Document 02/15/24 11:18 LRN (Rec: 02/15/24 12:41 LRN [id number]) Current Condition History of Current Condition Onset Date 1 yr ago. Current Complaints Stabbing back pain at scapula bilaterally, L worse than R. History of Current Condition 1 yr ago got a stabbing pain in R scapula area, now is more in the L side. No previous history of upper back pain. Pt states her pain wakes her up at night when moving arms. She describes her pain as severe, and that it takes a day to recover from because she becomes physically exhausted by the pain. Her current activity level is low. She states she walks, ex's at the local gym on a recumbent bike and does errands around town. Two yrs ago she exercised in the gym with arm and leg workouts in addition to the cardio exercise. Prior Treatments and Tests -[facility] treatments of Dr. Fuller. -[facility] with treatments to the neck for trigger points (pt felt not helpful). She reports being given a creme in the past by Mr. Deutsch in the Pain Clinic that had Gabapentin in it, but at the [facility] Sp[facility] clinic was given a prescription w/o Gabapentin and she didn't find it helpful. -Sleeps on ice. -Uses infrared heating pad. -Ms relaxors (prescription from Dr. Robertson: methalcarbinol-4000mg) sometimes helps. Treatment Goals Patient/Caregiver Goals Pt goals: - Improve sleep w/o severe pain while moving arms. - Lightly sweep without posterior scapular pain onset. - Independent with HEP and gym exer-cardio ex's. Personal Factors Other Personal Factors That May Effect -Depression, possible Therapy/Recovery Fibromyalgia. -Neuropathy (pt notes from Eva Gonzalez) in LE's from knees distally (pain in feet, numbness in legs, and burning at night), with decreased balance (reported from tessa?). -Chronic pain in upper back, -Doesn't have comfortable shoes to wear, (needs wide shoes to be comfortable), because without right support her feet feels like she is walking on rocks. PT-OP-C Subjective Start: 02/15/24 07:19 Freq: Status: Active Protocol: Document 02/22/24 08:21 LRN (Rec: 02/22/24 09:08 LRN [id number]) OP-PT Subjective Patient Comments Patient Comments In a lot of pain on the L side of scapula later in the afternoon and yesterday was bad (~mid Rhomboids). Woke this morning had to be slow w/ arm mvmt because arms hurt and they feel swollen. Pain to start 8/10, reduced with treatment to 6/10 and during MWM PT-OP-H Neuro Start: 02/15/24 07:19 Freq: Status: Active Protocol: Document 02/15/24 11:18 LRN (Rec: 02/15/24 12:41 LRN [id number]) Sensation Evaluation Gross Sensation Gross Sensation WNL PT-OP-J Posture/Palpation/Skin Start: 02/15/24 07:19 Freq: Status: Active Protocol: Document 02/15/24 11:18 LRN (Rec: 02/15/24 12:41 LRN [id number]) Posture Evaluation Position Standing Head/C-Spine Posture Forward Head T-Spine Posture Increased Kyphosis L-Spine Posture Decreased Lordosis Shoulder Posture (L) Forward,(L) Elevated Arm Posture (L) Internally Rotated,(R) Internally Rotated Comments Posture Comments Dowagers hump, straightened T2 -T4 spine, increased curve ~ T11-12, very mild C-curve of T /S with apex on the L (~ T5). Palpation Assessment Location Shoulders Palpation Location L Posterior Deltoid Palpation Details Atrophy Intrascapular region Palpation Location Rhomboids, Paraspinals Palpation Details L side muscle guarding, Neck Palpation Location L Cervical paraspinals & R UT Palpation Findings Soft Tissue Tightness, Tenderness PT-OP-K Range of Motion Start: 02/15/24 07:19 Freq: Status: Active Protocol: Document 02/15/24 11:18 LRN (Rec: 02/15/24 12:41 LRN [id number]) Cervical Spine Range of Motion Cervical Spine Active Degrees Testing Position Sitting Flexion 20 Extension 50 Rotation Left 38 Rotation Right 47 Lateral Flexion Left 18 Lateral Flexion Right 20 ROM Limitations Soft Tissue Tightness Lumbar Spine Range of Motion Lumbar Spine Active Degrees Testing Position Standing Flexion 72 Extension 17 Rotation Left 30 Rotation Right 30 Lateral Flexion Left 15 Lateral Flexion Right 15 ROM Limitations Soft Tissue Tightness,Pain Comments Rotation: has pain and tightness. Flexion: LBP & UBP. Shoulder Goniometric Range of Motion Shoulder Right Active Testing Position Sitting Flexion 150 Extension 35 Abduction 140 Left Active Testing Position Sitting Flexion 150 Extension 35 Abduction 140 PT-OP-L Special Tests Start: 02/15/24 07:19 Freq: Status: Active Protocol: Document 02/20/24 09:52 LRN (Rec: 02/20/24 10:57 LRN [id number]) Special Tests Cervical Spine Special Tests Vertebral Artery Test Results negative Traction Test Results negative Foraminal Compression Test Results negative PT-OP-M Strength Start: 02/15/24 07:19 Freq: Status: Active Protocol: Document 02/22/24 08:21 LRN (Rec: 02/22/24 09:08 LRN [id number]) Cervical Spine Strength Cervical Spine Manual Muscle Testing Flexion (C1-2) 4 Good Extension 5 Normal Rotation Left 3 Fair Rotation Right 3- Fair- Lateral Flexion Left (C3) 4 Good Lateral Flexion Right (C3) 4 Good Comments L rotation the pt uses occiptal ms more to rotate, R rot pt uses upper body to rotate. PT-OP-Q Treatments Start: 02/15/24 07:19 Freq: Status: Active Protocol: Document 02/22/24 08:21 LRN (Rec: 02/22/24 09:08 LRN [id number]) Therapeutic Exercises Supine Exercises Deep C. neck flexor strengthneing Supine Exercise Name Semi-reclined ~40 deg's Reps/Minutes 10 SH x 6 Comments Extra time taken for training Sitting Exercises C/S Yun Sitting Exercise Name Yun C/S contractions (all motions) Side bilateral Reps/Minutes 10' Comments MMT taken Manual Therapy Treatment Soft Tissue Mobilization STM T/S Body Location C-7-T1, T1-T2, & L T1 facet Mobilization Type Myofascial Release,Sustained Pressure Intensity/Depth Moderate Body Position Semi-reclined ~40 deg's Comments Pt noted decrease pain during treatment. MWM of T/S Body Location Upper T/S and L facets Mobilization Type Other Body Position Sitting Self-Care/Home Management Treatment Education Patient Education Home Exercise Program Activities Self-Care/Home Management Activities Issued & reviewed HEP: Deep Cervical Neck Flexor strengthening. PT-OP-T Assessment and Plan Start: 02/15/24 07:19 Freq: Status: Active Protocol: Document 02/22/24 08:21 LRN (Rec: 02/22/24 09:08 LRN [id number]) Physical Therapy Assessment Goals Three Impairment Upper back weakness with onset of intrascapular pain with use of arms. Impairment UE Quickdash score 47.72 (47.7 % impaired, score 40-59). LUIZA score 23/50 or 46/100 (46% impaired, score 40-59) Short Term Goal (STG) Pt will be educated in self care pain management with use of positioning and use of cryotherapy. STG Duration 5 wks-03/22/24 Usp Goal (LTG) Pt will be able to lightly sweep without onset of posterior scapular pain. LTG Duration 12 wks-05/10/24 Two Impairment Sleep interruption of intrascapular pain with movement of arms. Short Term Goal (STG) Pt will be educated in sleeping positions with support to UE's and neutral spine positioning, and proper sit/stand posture. STG Duration 5 wks-03/22/24 Rock Singer Goal (LTG) Pt will be able to improve sleep w/o severe pain onset while moving arms. LTG Duration 12 wks-05/10/24 One Impairment HEP Short Term Goal (STG) Pt will be educated in proper body mechanics for ADLs and be able to return to cardio gym exers w/o onset of back pain. STG Duration 5 wks-03/22/24 Usp Goal (LTG) Pt will be independent with a HEP of neck, shoulder and upper/lower back ROM and strengthening ex's. 02/20/24: HEP: Deep breathing & Trunk rot stretch LTG Duration 12 wks-05/10/24 progressed 02/20/24 Assessment Summary Assessment 53 yo female w/posture, T/S mechanical & soft tissue dys, alan constant intrascapular & lateral neck pain; & alan shdr pain when UBP is severe. Today pt shows weakness of neck muscles, pain in L mid rhomboid region that is slightly relieved with traction sitting (pain 8/10 to 6/10) of spinous processes of C7-T1, T1-T2 and facet of T1- T2. Pt able to perform Deep cervical neck flexor strengthening quite well. Physical Therapy Plan Frequency and Duration Frequency of Treatment 2x/Week Duration of treatment (weeks) 12 Plan of Care Start Date 02/15/24 Plan of Care End Date 05/10/24 Next Visit Focus/Plan Next Note Type Treatment Note Next Visit Plan Next: Review T/S rot stretch & deep breathing. Progress with cervical (rot/SB) and thoracic ROM ex's (to decr kyphosis) & manual mob to decr pain with mvmt & L/S to improve lordosis. Strengthening back and upper back stabilization. Education in self care pain management-cryotherapy. Education in best sleeping positions with support to UE's and with neutral spine positioning. Education: posture sit & stand, body mechanics for ADLS and work movements. Manual: MFR & JMT to T/S and STM if needed. Modalities: Modality if needed to improve cesar to stretches (MH, ice). Ther Ex & HEP: neck, shoulder and upper/lower back ROM and strengthening ex's.
--- NOTE | 2024-02-27 09:45 | PT.OTN ---
Current Diagnoses Other chronic pain (02/27/24) Pain in thoracic spine (02/27/24) Myalgia, other site (02/27/24) Physical Therapy Treatment Note PT-OP-A Visit Information Start: 02/15/24 07:19 Freq: Status: Active Protocol: Document 02/27/24 09:01 SP (Rec: 02/27/24 09:48 SP [id number]) Out-Patient Physical Therapy Visit Information Visit Information Visit Type Treatment Note Visit Start Time 09:01 Visit Stop Time 09:45 Visit Number 4 Number of [employer]OR Visits 1 Evaluation Information Evaluation Date 02/15/24 Precautions Precautions Pt reported Rubber/Latex Allergy. Requests no EStim. Necrosis of R humeral head. Neuropathy (pt notes from Eva Gonzalez) in LE's from knees distally (pain in feet, numbness in legs, and burning at night), with decreased balance (reported from mindy), chronic pain in upper back. PMH (per pt): depression controlled by meds, possible Fibromyalgia, history of L Ankle surgery (chencho, pins, screws). PT-OP-B Current Condition Start: 02/15/24 07:19 Freq: Status: Active Protocol: Document 02/15/24 11:18 LRN (Rec: 02/15/24 12:41 LRN [id number]) Current Condition History of Current Condition Onset Date 1 yr ago. Current Complaints Stabbing back pain at scapula bilaterally, L worse than R. History of Current Condition 1 yr ago got a stabbing pain in R scapula area, now is more in the L side. No previous history of upper back pain. Pt states her pain wakes her up at night when moving arms. She describes her pain as severe, and that it takes a day to recover from because she becomes physically exhausted by the pain. Her current activity level is low. She states she walks, ex's at the local gym on a recumbent bike and does errands around town. Two yrs ago she exercised in the gym with arm and leg workouts in addition to the cardio exercise. Prior Treatments and Tests -[facility] treatments of Dr. Fuller. -Sports & Spine with treatments to the neck for trigger points (pt felt not helpful). She reports being given a creme in the past by Mr. Deutsch in the Pain Clinic that had Gabapentin in it, but at the [facility] Spine clinic was given a prescription w/o Gabapentin and she didn't find it helpful. -Sleeps on ice. -Uses infrared heating pad. -Ms relaxors (prescription from Dr. Robertson: methalcarbinol-4000mg) sometimes helps. Treatment Goals Patient/Caregiver Goals Pt goals: - Improve sleep w/o severe pain while moving arms. - Lightly sweep without posterior scapular pain onset. - Independent with HEP and gym exer-cardio ex's. Personal Factors Other Personal Factors That May Effect -Depression, possible Therapy/Recovery Fibromyalgia. -Neuropathy (pt notes from Eva Gonzalez) in LE's from knees distally (pain in feet, numbness in legs, and burning at night), with decreased balance (reported from tessa?). -Chronic pain in upper back, -Doesn't have comfortable shoes to wear, (needs wide shoes to be comfortable), because without right support her feet feels like she is walking on rocks. PT-OP-C Subjective Start: 02/15/24 07:19 Freq: Status: Active Protocol: Document 02/27/24 09:01 SP (Rec: 02/27/24 09:48 SP [id number]) OP-PT Subjective Patient Comments Patient Comments Pt reports the tappping technique over L anterior chest, lasted for couple hours then pain came back. She reports sleeps on back, bad shoulders so can't lay on side . PT-OP-H Neuro Start: 02/15/24 07:19 Freq: Status: Active Protocol: Document 02/15/24 11:18 LRN (Rec: 02/15/24 12:41 LRN [id number]) Sensation Evaluation Gross Sensation Gross Sensation WNL PT-OP-J Posture/Palpation/Skin Start: 02/15/24 07:19 Freq: Status: Active Protocol: Document 02/15/24 11:18 LRN (Rec: 02/15/24 12:41 LRN [id number]) Posture Evaluation Position Standing Head/C-Spine Posture Forward Head T-Spine Posture Increased Kyphosis L-Spine Posture Decreased Lordosis Shoulder Posture (L) Forward,(L) Elevated Arm Posture (L) Internally Rotated,(R) Internally Rotated Comments Posture Comments Dowagers hump, straightened T2 -T4 spine, increased curve ~ T11-12, very mild C-curve of T /S with apex on the L (~ T5). Palpation Assessment Location Shoulders Palpation Location L Posterior Deltoid Palpation Details Atrophy Intrascapular region Palpation Location Rhomboids, Paraspinals Palpation Details L side muscle guarding, Neck Palpation Location L Cervical paraspinals & R UT Palpation Findings Soft Tissue Tightness, Tenderness PT-OP-K Range of Motion Start: 02/15/24 07:19 Freq: Status: Active Protocol: Document 02/15/24 11:18 LRN (Rec: 02/15/24 12:41 LRN [id number]) Cervical Spine Range of Motion Cervical Spine Active Degrees Testing Position Sitting Flexion 20 Extension 50 Rotation Left 38 Rotation Right 47 Lateral Flexion Left 18 Lateral Flexion Right 20 ROM Limitations Soft Tissue Tightness Lumbar Spine Range of Motion Lumbar Spine Active Degrees Testing Position Standing Flexion 72 Extension 17 Rotation Left 30 Rotation Right 30 Lateral Flexion Left 15 Lateral Flexion Right 15 ROM Limitations Soft Tissue Tightness,Pain Comments Rotation: has pain and tightness. Flexion: LBP & UBP. Shoulder Goniometric Range of Motion Shoulder Right Active Testing Position Sitting Flexion 150 Extension 35 Abduction 140 Left Active Testing Position Sitting Flexion 150 Extension 35 Abduction 140 PT-OP-L Special Tests Start: 02/15/24 07:19 Freq: Status: Active Protocol: Document 02/20/24 09:52 LRN (Rec: 02/20/24 10:57 LRN [id number]) Special Tests Cervical Spine Special Tests Vertebral Artery Test Results negative Traction Test Results negative Foraminal Compression Test Results negative PT-OP-M Strength Start: 02/15/24 07:19 Freq: Status: Active Protocol: Document 02/22/24 08:21 LRN (Rec: 02/22/24 09:08 LRN [id number]) Cervical Spine Strength Cervical Spine Manual Muscle Testing Flexion (C1-2) 4 Good Extension 5 Normal Rotation Left 3 Fair Rotation Right 3- Fair- Lateral Flexion Left (C3) 4 Good Lateral Flexion Right (C3) 4 Good Comments L rotation the pt uses occiptal ms more to rotate, R rot pt uses upper body to rotate. PT-OP-Q Treatments Start: 02/15/24 07:19 Freq: Status: Active Protocol: Document 02/27/24 09:01 SP (Rec: 02/27/24 09:48 SP [id number]) Therapeutic Exercises Supine Exercises Deep C. neck flexor strengthneing Supine Exercise Name Semi-reclined ~40 deg's Reps/Minutes 10 SH x 6 Comments cued for ease into DNF hold C/S neck stretch Supine Exercise Name Rotation, SB Side bilateral Resistance AROM Equipment Used Semi-reclined ~40 deg's Reps/Minutes 5 SH x5 Comments painfree range, reported little more tightness on R turning R Upper trunk rot stretch Supine Exercise Name Knees and arms opp direction, then just arms to opp direction Side bilateral Equipment Used Semi-reclined ~40 deg's Reps/Minutes 5 SH x5 Comments Limited in R shdr mob due to necrosis R humeru; cued to move head w/arms Sitting Exercises Trunk rot stretch Sitting Exercise Name Hand on outside opp knee and rot head/shoulders to side of knee. Side bilateral Reps/Minutes 10 SH x 5 Comments Cued to breathe w/stretch and head rot to lead mvmt. Scap pinches Sitting Exercise Name Scap Pinches Side bilateral Reps/Minutes 5 SH x5 Comments cued head nod neutral CS Standing Exercises wall posture /c humeral ER anatomical position Standing Exercise Name Initiated in PT: suggested add to HEP Side bilateral Equipment Used back to wall, arms anatomical position Reps/Minutes 5 SH x5- good feedback anterior chain Comments cued buttocks & shld on wall, LS toward wall, head nod /c CS retraction ntr Manual Therapy Treatment Soft Tissue Mobilization STM T/S Body Location C-7-T1, T1-T2 Mobilization Type Myofascial Release,Sustained Pressure Intensity/Depth Moderate Body Position Semi-reclined ~40 deg's Comments Pt noted decrease pain during treatment. Manual Traction Cervical Details reports good relaxing Body Position Hooklying Reps/Duration 20 SH x3 reps Self-Care/Home Management Treatment Education Patient Education Home Exercise Program,Pain Management,Posture Other Education Ed self application SCM and carryover DNF and cervical rot and SB post for decreased tension on neck and improve posture. PT-OP-T Assessment and Plan Start: 02/15/24 07:19 Freq: Status: Active Protocol: Document 02/27/24 09:01 SP (Rec: 02/27/24 09:48 SP [id number]) Physical Therapy Assessment Goals Three Impairment Upper back weakness with onset of intrascapular pain with use of arms. Impairment UE Quickdash score 47.72 (47.7 % impaired, score 40-59). LUIZA score 23/50 or 46/100 (46% impaired, score 40-59) Short Term Goal (STG) Pt will be educated in self care pain management with use of positioning and use of cryotherapy. STG Duration 5 wks-03/22/24 Congressional Representative Goal (LTG) Pt will be able to lightly sweep without onset of posterior scapular pain. LTG Duration 12 wks-05/10/24 Two Impairment Sleep interruption of intrascapular pain with movement of arms. Short Term Goal (STG) Pt will be educated in sleeping positions with support to UE's and neutral spine positioning, and proper sit/stand posture. STG Duration 5 wks-03/22/24 Congressional Representative Goal (LTG) Pt will be able to improve sleep w/o severe pain onset while moving arms. LTG Duration 12 wks-05/10/24 One Impairment HEP Short Term Goal (STG) Pt will be educated in proper body mechanics for ADLs and be able to return to cardio gym exers w/o onset of back pain. STG Duration 5 wks-03/22/24 Mcc Goal (LTG) Pt will be independent with a HEP of neck, shoulder and upper/lower back ROM and strengthening ex's. 02/20/24: HEP: Deep breathing & Trunk rot stretch LTG Duration 12 wks-05/10/24 progressed 02/20/24 Assessment Summary Assessment Pt responded well to manual with ability to turn head and trunk little more. Improved understanding neutral CS seated posture with cuing and found back to wall helpful in where her body alignment is carryover. Good relaxing neck musculature with gentle cervical traction today. Physical Therapy Plan Frequency and Duration Frequency of Treatment 2x/Week Duration of treatment (weeks) 12 Plan of Care Start Date 02/15/24 Plan of Care End Date 05/10/24 Therapeutic Interventions Therapeutic Interventions Balance Training,Home Exercise Program,Joint Mobilizations, Manual Therapy,Neuromuscular Re-education,Self-Care/Home Management,Soft Tissue Mobilization,Therapeutic Activities,Therapeutic Exercises Modalities Cold Pack/Ice Massage,Electric Stimulation,Hot Packs Next Visit Focus/Plan Next Note Type Treatment Note Next Visit Plan Ask wall posture support with HEP carryover. IF self SCM and DNF retractions, cervical traction if beneficial continues. Next: Review T/S rot stretch & deep breathing. Progress with cervical (rot/ SB) and thoracic ROM ex's (to decr kyphosis) & manual mob to decr pain with mvmt & L/S to improve lordosis. Strengthening back and upper back stabilization. Education in self care pain management-cryotherapy. Education in best sleeping positions with support to UE's and with neutral spine positioning. Education: posture sit & stand, body mechanics for ADLS and work movements. Manual: MFR & JMT to T/S and STM if needed. Modalities: Modality if needed to improve cesar to stretches (MH, ice). Ther Ex & HEP: neck, shoulder and upper/lower back ROM and strengthening ex's.
--- NOTE | 2024-03-07 10:30 | PT.OTN ---
Current Diagnoses Other chronic pain (03/07/24) Pain in thoracic spine (03/07/24) Myalgia, other site (03/07/24) Physical Therapy Treatment Note PT-OP-A Visit Information Start: 02/15/24 07:19 Freq: Status: Active Protocol: Document 03/07/24 09:50 SP (Rec: 03/07/24 10:36 SP [id number]) Out-Patient Physical Therapy Visit Information Visit Information Visit Type Treatment Note Visit Start Time 09:50 Visit Stop Time 10:30 Visit Number 5 Number of MOLDING ASSOCIATE Visits 2 Evaluation Information Evaluation Date 02/15/24 Precautions Precautions Pt reported Rubber/Latex Allergy. Requests no EStim. Necrosis of R humeral head. Neuropathy (pt notes from Eva Gonzalez) in LE's from knees distally (pain in feet, numbness in legs, and burning at night), with decreased balance (reported from tessa?), chronic pain in upper back. PMH (per pt): depression controlled by meds, possible Fibromyalgia, history of L Ankle surgery (chencho, pins, screws). PT-OP-B Current Condition Start: 02/15/24 07:19 Freq: Status: Active Protocol: Document 02/15/24 11:18 LRN (Rec: 02/15/24 12:41 LRN [id number]) Current Condition History of Current Condition Onset Date 1 yr ago. Current Complaints Stabbing back pain at scapula bilaterally, L worse than R. History of Current Condition 1 yr ago got a stabbing pain in R scapula area, now is more in the L side. No previous history of upper back pain. Pt states her pain wakes her up at night when moving arms. She describes her pain as severe, and that it takes a day to recover from because she becomes physically exhausted by the pain. Her current activity level is low. She states she walks, ex's at the local gym on a recumbent bike and does errands around town. Two yrs ago she exercised in the gym with arm and leg workouts in addition to the cardio exercise. Prior Treatments and Tests -[facility] treatments of Dr. Fuller. -[facility] with treatments to the neck for trigger points (pt felt not helpful). She reports being given a creme in the past by Mr. Deutsch in the [facility] that had Gabapentin in it, but at the [facility] clinic was given a prescription w/o Gabapentin and she didn't find it helpful. -Sleeps on ice. -Uses infrared heating pad. -Ms relaxors (prescription from Dr. Robertson: methalcarbinol-4000mg) sometimes helps. Treatment Goals Patient/Caregiver Goals Pt goals: - Improve sleep w/o severe pain while moving arms. - Lightly sweep without posterior scapular pain onset. - Independent with HEP and gym exer-cardio ex's. Personal Factors Other Personal Factors That May Effect -Depression, possible Therapy/Recovery Fibromyalgia. -Neuropathy (pt notes from Eva Gonzalez) in LE's from knees distally (pain in feet, numbness in legs, and burning at night), with decreased balance (reported from tessa?). -Chronic pain in upper back, -Doesn't have comfortable shoes to wear, (needs wide shoes to be comfortable), because without right support her feet feels like she is walking on rocks. PT-OP-C Subjective Start: 02/15/24 07:19 Freq: Status: Active Protocol: Document 03/07/24 09:50 SP (Rec: 03/07/24 10:36 SP [id number]) OP-PT Subjective Patient Comments Patient Comments Pt reported she had a migraine for 3 days after last tx but unsure if was manual in PT or something else. She also referral to painclinic and ordered back xray after PT appt. She arrived flexed posture with reports upper lumbar pain, she thinks from bent over and stationary standing yesterday cleaning out closet. PT-OP-H Neuro Start: 02/15/24 07:19 Freq: Status: Active Protocol: Document 02/15/24 11:18 LRN (Rec: 02/15/24 12:41 LRN [id number]) Sensation Evaluation Gross Sensation Gross Sensation WNL PT-OP-J Posture/Palpation/Skin Start: 02/15/24 07:19 Freq: Status: Active Protocol: Document 02/15/24 11:18 LRN (Rec: 02/15/24 12:41 LRN [id number]) Posture Evaluation Position Standing Head/C-Spine Posture Forward Head T-Spine Posture Increased Kyphosis L-Spine Posture Decreased Lordosis Shoulder Posture (L) Forward,(L) Elevated Arm Posture (L) Internally Rotated,(R) Internally Rotated Comments Posture Comments Dowagers hump, straightened T2 -T4 spine, increased curve ~ T11-12, very mild C-curve of T /S with apex on the L (~ T5). Palpation Assessment Location Shoulders Palpation Location L Posterior Deltoid Palpation Details Atrophy Intrascapular region Palpation Location Rhomboids, Paraspinals Palpation Details L side muscle guarding, Neck Palpation Location L Cervical paraspinals & R UT Palpation Findings Soft Tissue Tightness, Tenderness PT-OP-K Range of Motion Start: 02/15/24 07:19 Freq: Status: Active Protocol: Document 02/15/24 11:18 LRN (Rec: 02/15/24 12:41 LRN [id number]) Cervical Spine Range of Motion Cervical Spine Active Degrees Testing Position Sitting Flexion 20 Extension 50 Rotation Left 38 Rotation Right 47 Lateral Flexion Left 18 Lateral Flexion Right 20 ROM Limitations Soft Tissue Tightness Lumbar Spine Range of Motion Lumbar Spine Active Degrees Testing Position Standing Flexion 72 Extension 17 Rotation Left 30 Rotation Right 30 Lateral Flexion Left 15 Lateral Flexion Right 15 ROM Limitations Soft Tissue Tightness,Pain Comments Rotation: has pain and tightness. Flexion: LBP & UBP. Shoulder Goniometric Range of Motion Shoulder Right Active Testing Position Sitting Flexion 150 Extension 35 Abduction 140 Left Active Testing Position Sitting Flexion 150 Extension 35 Abduction 140 PT-OP-L Special Tests Start: 02/15/24 07:19 Freq: Status: Active Protocol: Document 02/20/24 09:52 LRN (Rec: 02/20/24 10:57 LRN [id number]) Special Tests Cervical Spine Special Tests Vertebral Artery Test Results negative Traction Test Results negative Foraminal Compression Test Results negative PT-OP-M Strength Start: 02/15/24 07:19 Freq: Status: Active Protocol: Document 02/22/24 08:21 LRN (Rec: 02/22/24 09:08 LRN [id number]) Cervical Spine Strength Cervical Spine Manual Muscle Testing Flexion (C1-2) 4 Good Extension 5 Normal Rotation Left 3 Fair Rotation Right 3- Fair- Lateral Flexion Left (C3) 4 Good Lateral Flexion Right (C3) 4 Good Comments L rotation the pt uses occiptal ms more to rotate, R rot pt uses upper body to rotate. PT-OP-Q Treatments Start: 02/15/24 07:19 Freq: Status: Active Protocol: Document 03/07/24 09:50 SP (Rec: 03/07/24 10:36 SP [id number]) Therapeutic Exercises Sitting Exercises pelvic tilts Sitting Exercise Name initiated in PT: AP Equipment Used seated front chair Reps/Minutes 10 reps Comments AROM post manual Scap pinches Sitting Exercise Name Scap Pinches Side bilateral Reps/Minutes 5 SH x5 Comments cued head nod neutral CS Manual Therapy Treatment Soft Tissue Mobilization STM T/S Body Location upper LS and TS Mobilization Type Myofascial Release,Sustained Pressure Intensity/Depth Moderate Body Position Semi-reclined ~40 deg's Comments Pt noted decrease pain during treatment. Manual Techniques PROM CS Type rotation Comments PROM end feel, contract relax holds, improved L rotation. Self-Care/Home Management Treatment Education Patient Education Body Mechanics,Joint Protection,Pain Management, Posture Other Education Discussed wt shift and change stance positions when stationary. Straight back, hip hinge squat mechanics getting items off closer to floor for back health/support. Stationary bent over standing puts alot strain on back, better understanding. PT-OP-T Assessment and Plan Start: 02/15/24 07:19 Freq: Status: Active Protocol: Document 03/07/24 09:50 SP (Rec: 03/07/24 10:36 SP [id number]) Physical Therapy Assessment Goals Three Impairment Upper back weakness with onset of intrascapular pain with use of arms. Impairment UE Quickdash score 47.72 (47.7 % impaired, score 40-59). LUIZA score 23/50 or 46/100 (46% impaired, score 40-59) Short Term Goal (STG) Pt will be educated in self care pain management with use of positioning and use of cryotherapy. STG Duration 5 wks-03/22/24 Correction Goal (LTG) Pt will be able to lightly sweep without onset of posterior scapular pain. LTG Duration 12 wks-05/10/24 Two Impairment Sleep interruption of intrascapular pain with movement of arms. Short Term Goal (STG) Pt will be educated in sleeping positions with support to UE's and neutral spine positioning, and proper sit/stand posture. 03/07/24: time spent standing wt shift/stance changes, spinal support when squat. STG Duration 5 wks-03/22/24 progressing Correction Goal (LTG) Pt will be able to improve sleep w/o severe pain onset while moving arms. LTG Duration 12 wks-05/10/24 One Impairment HEP Short Term Goal (STG) Pt will be educated in proper body mechanics for ADLs and be able to return to cardio gym exers w/o onset of back pain. STG Duration 5 wks-03/22/24 Correction Goal (LTG) Pt will be independent with a HEP of neck, shoulder and upper/lower back ROM and strengthening ex's. 02/20/24: HEP: Deep breathing & Trunk rot stretch LTG Duration 12 wks-05/10/24 progressed 02/20/24 Assessment Summary Assessment Pt Physical Therapy Plan Frequency and Duration Frequency of Treatment 2x/Week Duration of treatment (weeks) 12 Plan of Care Start Date 02/15/24 Plan of Care End Date 05/10/24 Therapeutic Interventions Therapeutic Interventions Balance Training,Home Exercise Program,Joint Mobilizations, Manual Therapy,Neuromuscular Re-education,Self-Care/Home Management,Soft Tissue Mobilization,Therapeutic Activities,Therapeutic Exercises Modalities Cold Pack/Ice Massage,Electric Stimulation,Hot Packs Next Visit Focus/Plan Next Note Type Treatment Note Next Visit Plan Ask wall posture support with HEP carryover. IF self SCM and DNF retractions, cervical traction if beneficial continues. Next: Review sleep with pillow support, body mechanics cleaning out closet,check goal progression, T/S rot stretch & deep breathing. Progress with cervical (rot/SB ) and thoracic ROM ex's (to decr kyphosis) & manual mob to decr pain with mvmt & L/S to improve lordosis. Strengthening back and upper back stabilization. Education in self care pain management-cryotherapy. Education in best sleeping positions with support to UE's and with neutral spine positioning. Education: posture sit & stand, body mechanics for ADLS and work movements. Manual: MFR & JMT to T/S and STM if needed. Modalities: Modality if needed to improve cesar to stretches (MH, ice). Ther Ex & HEP: neck, shoulder and upper/lower back ROM and strengthening ex's.
--- NOTE | 2024-03-11 12:02 | PT.OTN ---
Current Diagnoses Other chronic pain (03/11/24) Pain in thoracic spine (03/11/24) Myalgia, other site (03/11/24) Physical Therapy Treatment Note PT-OP-A Visit Information Start: 02/15/24 07:19 Freq: Status: Active Protocol: Document 03/11/24 08:12 AB (Rec: 03/11/24 12:02 AB [id number]) Out-Patient Physical Therapy Visit Information Visit Information Visit Type Treatment Note Visit Start Time 09:49 Visit Stop Time 10:33 Visit Number 6 Number of PRINT PRODUCTION MANAGER Visits 3 Evaluation Information Evaluation Date 02/15/24 Precautions Precautions Pt reported Rubber/Latex Allergy. Requests no EStim. Necrosis of R humeral head. Neuropathy (pt notes from Eva Gonzalez) in LE's from knees distally (pain in feet, numbness in legs, and burning at night), with decreased balance (reported from tessa?), chronic pain in upper back. PMH (per pt): depression controlled by meds, possible Fibromyalgia, history of L Ankle surgery (chencho, pins, screws). PT-OP-B Current Condition Start: 02/15/24 07:19 Freq: Status: Active Protocol: Document 02/15/24 11:18 LRN (Rec: 02/15/24 12:41 LRN [id number]) Current Condition History of Current Condition Onset Date 1 yr ago. Current Complaints Stabbing back pain at scapula bilaterally, L worse than R. History of Current Condition 1 yr ago got a stabbing pain in R scapula area, now is more in the L side. No previous history of upper back pain. Pt states her pain wakes her up at night when moving arms. She describes her pain as severe, and that it takes a day to recover from because she becomes physically exhausted by the pain. Her current activity level is low. She states she walks, ex's at the local gym on a recumbent bike and does errands around town. Two yrs ago she exercised in the gym with arm and leg workouts in addition to the cardio exercise. Prior Treatments and Tests -[facility] treatments of Dr. Fuller. -Sports & Sp[facility] with treatments to the neck for trigger points (pt felt not helpful). She reports being given a creme in the past by Mr. Deutsch in the [facility] that had Gabapentin in it, but at the [facility] clinic was given a prescription w/o Gabapentin and she didn't find it helpful. -Sleeps on ice. -Uses infrared heating pad. -Ms relaxors (prescription from Dr. Robertson: methalcarbinol-4000mg) sometimes helps. Treatment Goals Patient/Caregiver Goals Pt goals: - Improve sleep w/o severe pain while moving arms. - Lightly sweep without posterior scapular pain onset. - Independent with HEP and gym exer-cardio ex's. Personal Factors Other Personal Factors That May Effect -Depression, possible Therapy/Recovery Fibromyalgia. -Neuropathy (pt notes from Eva Gonzalez) in LE's from knees distally (pain in feet, numbness in legs, and burning at night), with decreased balance (reported from tessa?). -Chronic pain in upper back, -Doesn't have comfortable shoes to wear, (needs wide shoes to be comfortable), because without right support her feet feels like she is walking on rocks. PT-OP-C Subjective Start: 02/15/24 07:19 Freq: Status: Active Protocol: Document 03/11/24 08:12 AB (Rec: 03/11/24 12:02 AB [id number]) OP-PT Subjective Patient Comments Patient Comments Patient reports the same it doesn't change. Patient reports it is hard to bend down to clean floor/closet. AROM CS rotation 55 deg right 35 deg left start of session. PT-OP-H Neuro Start: 02/15/24 07:19 Freq: Status: Active Protocol: Document 02/15/24 11:18 LRN (Rec: 02/15/24 12:41 LRN [id number]) Sensation Evaluation Gross Sensation Gross Sensation WNL PT-OP-J Posture/Palpation/Skin Start: 02/15/24 07:19 Freq: Status: Active Protocol: Document 02/15/24 11:18 LRN (Rec: 02/15/24 12:41 LRN [id number]) Posture Evaluation Position Standing Head/C-Spine Posture Forward Head T-Spine Posture Increased Kyphosis L-Spine Posture Decreased Lordosis Shoulder Posture (L) Forward,(L) Elevated Arm Posture (L) Internally Rotated,(R) Internally Rotated Comments Posture Comments Dowagers hump, straightened T2 -T4 spine, increased curve ~ T11-12, very mild C-curve of T /S with apex on the L (~ T5). Palpation Assessment Location Shoulders Palpation Location L Posterior Deltoid Palpation Details Atrophy Intrascapular region Palpation Location Rhomboids, Paraspinals Palpation Details L side muscle guarding, Neck Palpation Location L Cervical paraspinals & R UT Palpation Findings Soft Tissue Tightness, Tenderness PT-OP-K Range of Motion Start: 02/15/24 07:19 Freq: Status: Active Protocol: Document 02/15/24 11:18 LRN (Rec: 02/15/24 12:41 LRN [id number]) Cervical Spine Range of Motion Cervical Spine Active Degrees Testing Position Sitting Flexion 20 Extension 50 Rotation Left 38 Rotation Right 47 Lateral Flexion Left 18 Lateral Flexion Right 20 ROM Limitations Soft Tissue Tightness Lumbar Spine Range of Motion Lumbar Spine Active Degrees Testing Position Standing Flexion 72 Extension 17 Rotation Left 30 Rotation Right 30 Lateral Flexion Left 15 Lateral Flexion Right 15 ROM Limitations Soft Tissue Tightness,Pain Comments Rotation: has pain and tightness. Flexion: LBP & UBP. Shoulder Goniometric Range of Motion Shoulder Right Active Testing Position Sitting Flexion 150 Extension 35 Abduction 140 Left Active Testing Position Sitting Flexion 150 Extension 35 Abduction 140 PT-OP-L Special Tests Start: 02/15/24 07:19 Freq: Status: Active Protocol: Document 02/20/24 09:52 LRN (Rec: 02/20/24 10:57 LRN [id number]) Special Tests Cervical Spine Special Tests Vertebral Artery Test Results negative Traction Test Results negative Foraminal Compression Test Results negative PT-OP-M Strength Start: 02/15/24 07:19 Freq: Status: Active Protocol: Document 02/22/24 08:21 LRN (Rec: 02/22/24 09:08 LRN [id number]) Cervical Spine Strength Cervical Spine Manual Muscle Testing Flexion (C1-2) 4 Good Extension 5 Normal Rotation Left 3 Fair Rotation Right 3- Fair- Lateral Flexion Left (C3) 4 Good Lateral Flexion Right (C3) 4 Good Comments L rotation the pt uses occiptal ms more to rotate, R rot pt uses upper body to rotate. PT-OP-Q Treatments Start: 02/15/24 07:19 Freq: Status: Active Protocol: Document 03/11/24 08:12 AB (Rec: 03/11/24 12:02 AB [id number]) Therapeutic Exercises Supine Exercises chest database admin Side bilateral Reps/Minutes 2 minutes Comments verbal cues for UE positioning CS rotation on occipital float Side bilateral Reps/Minutes 2 minutes Comments VC to perform slowly in pain free range Standing Exercises isometric reactive deep neck flexors Side bilateral Resistance level one latex free band Reps/Minutes X10 ( initiated standing then positioned back to wall Comments Verbal cues Other Exercises CS rotation in counter plank position Side bilateral Reps/Minutes X10 Comments VC to perform in pain free range Therapeutic Activity Therapeutic Activity sleep positioning Comments Patient ed to avoid pillows under UE's in supine, to avoid anything under the knees and to decrease the height of towel/pillow she is putting under her knees slowly. Patient advised to perform pec stretch prior to sleep. Manual Therapy Treatment Soft Tissue Mobilization STM T/S Body Location scalenes at lateral clavicle, CS paraspinals and intervertebral tissue Mobilization Type Cross-Friction,Rolling Intensity/Depth Moderate Body Position Sitting Comments with pillows under UE's Manual Traction Cervical Body Position Hooklying Comments gentle traction and occipital release, monitored for pain throughout. Self-Care/Home Management Treatment Activities Self-Care/Home Management Activities CS rotation in counter plank position, and Chest database admin added to HEP PT-OP-T Assessment and Plan Start: 02/15/24 07:19 Freq: Status: Active Protocol: Document 03/11/24 08:12 AB (Rec: 03/11/24 12:02 AB [id number]) Physical Therapy Assessment Goals Three Impairment Upper back weakness with onset of intrascapular pain with use of arms. Impairment UE Quickdash score 47.72 (47.7 % impaired, score 40-59). LUIZA score 23/50 or 46/100 (46% impaired, score 40-59) Short Term Goal (STG) Pt will be educated in self care pain management with use of positioning and use of cryotherapy. STG Duration 5 wks-03/22/24 Penitentiary Goal (LTG) Pt will be able to lightly sweep without onset of posterior scapular pain. LTG Duration 12 wks-05/10/24 Two Impairment Sleep interruption of intrascapular pain with movement of arms. Short Term Goal (STG) Pt will be educated in sleeping positions with support to UE's and neutral spine positioning, and proper sit/stand posture. 03/07/24: time spent standing wt shift/stance changes, spinal support when squat. STG Duration 5 wks-03/22/24 progressing Nuclear Equipment Research Engineer Goal (LTG) Pt will be able to improve sleep w/o severe pain onset while moving arms. LTG Duration 12 wks-05/10/24 One Impairment HEP Short Term Goal (STG) Pt will be educated in proper body mechanics for ADLs and be able to return to cardio gym exers w/o onset of back pain. STG Duration 5 wks-03/22/24 Nuclear Equipment Research Engineer Goal (LTG) Pt will be independent with a HEP of neck, shoulder and upper/lower back ROM and strengthening ex's. 02/20/24: HEP: Deep breathing & Trunk rot stretch LTG Duration 12 wks-05/10/24 progressed 02/20/24 Assessment Summary Assessment AROM CS rotation 38 deg left 59 deg right end of session. Patient reports she feels fine . Increased AROM CS rotation should allow patient to scan for traffic with dec difficulty, but is not yet WNL . Physical Therapy Plan Next Visit Focus/Plan Next Note Type Treatment Note Next Visit Plan Ask wall posture support with HEP carryover. IF self SCM and DNF retractions, cervical traction if beneficial continues. Next: Review sleep with pillow support, body mechanics cleaning out closet, T/S rot stretch & deep breathing. Progress with cervical (rot/SB ) and thoracic ROM ex's (to decr kyphosis) & manual mob to decr pain with mvmt & L/S to improve lordosis. Strengthening back and upper back stabilization. Education in self care pain management-cryotherapy. Education: posture sit & stand, body mechanics for ADLS and work movements. Manual: MFR & JMT to T/S and STM if needed. Modalities: Modality if needed to improve cesar to stretches (MH, ice). Ther Ex & HEP: neck, shoulder and upper/lower back ROM and strengthening ex's.
--- NOTE | 2024-03-14 15:37 | PT.OTN ---
Current Diagnoses Other chronic pain (03/14/24) Pain in thoracic spine (03/14/24) Myalgia, other site (03/14/24) Physical Therapy Treatment Note PT-OP-A Visit Information Start: 02/15/24 07:19 Freq: Status: Active Protocol: Document 03/14/24 14:39 LRN (Rec: 03/14/24 15:35 LRN [id number]) Out-Patient Physical Therapy Visit Information Visit Information Visit Type Treatment Note Visit Start Time 14:39 Visit Stop Time 15:21 Visit Number 7 Evaluation Information Evaluation Date 02/15/24 Precautions Precautions Pt reported Rubber/Latex Allergy. Requests no EStim. Necrosis of R humeral head. Neuropathy (pt notes from Eva Gonzalez) in LE's from knees distally (pain in feet, numbness in legs, and burning at night), with decreased balance (reported from mindy), chronic pain in upper back. PMH (per pt): depression controlled by meds, possible Fibromyalgia, history of L Ankle surgery (chencho, pins, screws). PT-OP-B Current Condition Start: 02/15/24 07:19 Freq: Status: Active Protocol: Document 02/15/24 11:18 LRN (Rec: 02/15/24 12:41 LRN [id number]) Current Condition History of Current Condition Onset Date 1 yr ago. Current Complaints Stabbing back pain at scapula bilaterally, L worse than R. History of Current Condition 1 yr ago got a stabbing pain in R scapula area, now is more in the L side. No previous history of upper back pain. Pt states her pain wakes her up at night when moving arms. She describes her pain as severe, and that it takes a day to recover from because she becomes physically exhausted by the pain. Her current activity level is low. She states she walks, ex's at the local gym on a recumbent bike and does errands around town. Two yrs ago she exercised in the gym with arm and leg workouts in addition to the cardio exercise. Prior Treatments and Tests -[facility] treatments of Dr. Fuller. -Sports & Spine with treatments to the neck for trigger points (pt felt not helpful). She reports being given a creme in the past by Mr. Deutsch in the [facility] that had Gabapentin in it, but at the [facility] clinic was given a prescription w/o Gabapentin and she didn't find it helpful. -Sleeps on ice. -Uses infrared heating pad. -Ms relaxors (prescription from Dr. Robertson: methalcarbinol-4000mg) sometimes helps. Treatment Goals Patient/Caregiver Goals Pt goals: - Improve sleep w/o severe pain while moving arms. - Lightly sweep without posterior scapular pain onset. - Independent with HEP and gym exer-cardio ex's. Personal Factors Other Personal Factors That May Effect -Depression, possible Therapy/Recovery Fibromyalgia. -Neuropathy (pt notes from Eva Gonzalez) in LE's from knees distally (pain in feet, numbness in legs, and burning at night), with decreased balance (reported from tessa?). -Chronic pain in upper back, -Doesn't have comfortable shoes to wear, (needs wide shoes to be comfortable), because without right support her feet feels like she is walking on rocks. PT-OP-C Subjective Start: 02/15/24 07:19 Freq: Status: Active Protocol: Document 03/14/24 14:39 LRN (Rec: 03/14/24 15:35 LRN [id number]) OP-PT Subjective Patient Comments Patient Comments States she feels no change. No lasting change. Pain changes location. Today pain most in LB after going to [employer] and shopping in [place]. Neck pain is 5/10 not really bad. LBP across the LB, rated 8/10. PT-OP-H Neuro Start: 02/15/24 07:19 Freq: Status: Active Protocol: Document 02/15/24 11:18 LRN (Rec: 02/15/24 12:41 LRN [id number]) Sensation Evaluation Gross Sensation Gross Sensation WNL PT-OP-J Posture/Palpation/Skin Start: 02/15/24 07:19 Freq: Status: Active Protocol: Document 02/15/24 11:18 LRN (Rec: 02/15/24 12:41 LRN [id number]) Posture Evaluation Position Standing Head/C-Spine Posture Forward Head T-Spine Posture Increased Kyphosis L-Spine Posture Decreased Lordosis Shoulder Posture (L) Forward,(L) Elevated Arm Posture (L) Internally Rotated,(R) Internally Rotated Comments Posture Comments Dowagers hump, straightened T2 -T4 spine, increased curve ~ T11-12, very mild C-curve of T /S with apex on the L (~ T5). Palpation Assessment Location Shoulders Palpation Location L Posterior Deltoid Palpation Details Atrophy Intrascapular region Palpation Location Rhomboids, Paraspinals Palpation Details L side muscle guarding, Neck Palpation Location L Cervical paraspinals & R UT Palpation Findings Soft Tissue Tightness, Tenderness PT-OP-K Range of Motion Start: 02/15/24 07:19 Freq: Status: Active Protocol: Document 02/15/24 11:18 LRN (Rec: 02/15/24 12:41 LRN [id number]) Cervical Spine Range of Motion Cervical Spine Active Degrees Testing Position Sitting Flexion 20 Extension 50 Rotation Left 38 Rotation Right 47 Lateral Flexion Left 18 Lateral Flexion Right 20 ROM Limitations Soft Tissue Tightness Lumbar Spine Range of Motion Lumbar Spine Active Degrees Testing Position Standing Flexion 72 Extension 17 Rotation Left 30 Rotation Right 30 Lateral Flexion Left 15 Lateral Flexion Right 15 ROM Limitations Soft Tissue Tightness,Pain Comments Rotation: has pain and tightness. Flexion: LBP & UBP. Shoulder Goniometric Range of Motion Shoulder Right Active Testing Position Sitting Flexion 150 Extension 35 Abduction 140 Left Active Testing Position Sitting Flexion 150 Extension 35 Abduction 140 PT-OP-L Special Tests Start: 02/15/24 07:19 Freq: Status: Active Protocol: Document 02/20/24 09:52 LRN (Rec: 02/20/24 10:57 LRN [id number]) Special Tests Cervical Spine Special Tests Vertebral Artery Test Results negative Traction Test Results negative Foraminal Compression Test Results negative PT-OP-M Strength Start: 02/15/24 07:19 Freq: Status: Active Protocol: Document 02/22/24 08:21 LRN (Rec: 02/22/24 09:08 LRN [id number]) Cervical Spine Strength Cervical Spine Manual Muscle Testing Flexion (C1-2) 4 Good Extension 5 Normal Rotation Left 3 Fair Rotation Right 3- Fair- Lateral Flexion Left (C3) 4 Good Lateral Flexion Right (C3) 4 Good Comments L rotation the pt uses occiptal ms more to rotate, R rot pt uses upper body to rotate. PT-OP-Q Treatments Start: 02/15/24 07:19 Freq: Status: Active Protocol: Document 03/14/24 14:39 LRN (Rec: 03/14/24 15:35 LRN [id number]) Therapeutic Exercises Supine Exercises LTR Supine Exercise Name Lower trunk rot Side bilateral Reps/Minutes 3 SH x 5' Comments Cued to not shift feet around and to not stretch into pain Regular breathing Supine Exercise Name TA tightening with inhale and relax w/exhale Reps/Minutes 10' chest political aide Side bilateral Reps/Minutes 3 minutes Comments verbal cues for UE positioning CS rotation on occipital float Side bilateral Reps/Minutes 8' Comments VC to perform slowly in pain free range Upper trunk rot stretch Supine Exercise Name UE's LTR rot stretch (arm moving side to side) Side bilateral Reps/Minutes 10 SH x 5' Comments Cued to have eyes follow hands . Sidelying Exercises TA tightening Sidelying Exercise Name L sidelie, pt I/S to do at home bilaterally Side left Reps/Minutes 3' Manual Therapy Treatment Soft Tissue Mobilization ABdomen Body Location Abdomen lift up and cranially from L ASIS Mobilization Type Myofascial Release Body Position L sidelie Self-Care/Home Management Treatment Education Patient Education Home Exercise Program Other Education Reviewed with pt to eliminate support of knees with pillows under them to reduce numbness and tingly of L feet. PT-OP-T Assessment and Plan Start: 02/15/24 07:19 Freq: Status: Active Protocol: Document 03/14/24 14:39 LRN (Rec: 03/14/24 15:35 [facility] [id number]) Physical Therapy Assessment Goals Three Impairment Upper back weakness with onset of intrascapular pain with use of arms. Impairment UE Quickdash score 47.72 (47.7 % impaired, score 40-59). LUIZA score 23/50 or 46/100 (46% impaired, score 40-59) Short Term Goal (STG) Pt will be educated in self care pain management with use of positioning and use of cryotherapy. STG Duration 5 wks-03/22/24 M[facility] Goal (LTG) Pt will be able to lightly sweep without onset of posterior scapular pain. LTG Duration 12 wks-05/10/24 Two Impairment Sleep interruption of intrascapular pain with movement of arms. Short Term Goal (STG) Pt will be educated in sleeping positions with support to UE's and neutral spine positioning, and proper sit/stand posture. 03/07/24: time spent standing wt shift/stance changes, spinal support when squat. 03/14/24: Pt educated in supine neutral positioning and recommended not placing pillow support under knees at bedtime. STG Duration 5 wks-03/22/24 progressed (need ed sit/stnd posture) Hotel Server Goal (LTG) Pt will be able to improve sleep w/o severe pain onset while moving arms. LTG Duration 12 wks-05/10/24 One Impairment HEP Short Term Goal (STG) Pt will be educated in proper body mechanics for ADLs and be able to return to cardio gym exers w/o onset of back pain. STG Duration 5 wks-03/22/24 Hotel Server Goal (LTG) Pt will be independent with a HEP of neck, shoulder and upper/lower back ROM and strengthening ex's. 02/20/24: HEP: Deep breathing & Trunk rot stretch LTG Duration 12 wks-05/10/24 progressed 02/20/24 Assessment Summary Assessment 53 yo female w/posture, T/S mechanical & soft tissue dys, alan constant intrascapular & lateral neck pain; & alan shdr pain when UBP is severe. Today pt is reporting she has been doing the wall posture support and has found LBP relief with PPT of pelvis with ex's, but no change with neck as she is doing posture support. 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 Physical Therapy Plan Frequency and Duration Frequency of Treatment 2x/Week Duration of treatment (weeks) 12 Plan of Care Start Date 02/15/24 Plan of Care End Date 05/10/24 Next Visit Focus/Plan Next Note Type Treatment Note Next Visit Plan Self SCM and DNF retractions, cervical traction if beneficial continues. Next: Address STGs 1, 2, 3. Educ: Body mechanics cleaning out closet, T/S rot stretch & reg breathing w/TA tight. Progress with cervical (rot/SB) and thoracic ROM ex' s (to decr kyphosis) & manual mob to decr pain with mvmt & L /S to improve lordosis. Strengthening back and upper back stabilization. Education in self care pain management-cryotherapy. Education: posture sit & stand, body mechanics for ADLS and work movements. Manual: MFR & JMT to T/S and STM if needed. Modalities: Modality if needed to improve csear to stretches (MH, ice). Ther Ex & HEP: neck, shoulder and upper/lower back ROM and strengthening ex's.
--- NOTE | 2024-03-18 13:00 | PT.OTN ---
Current Diagnoses Other chronic pain (03/18/24) Pain in thoracic spine (03/18/24) Myalgia, other site (03/18/24) Physical Therapy Treatment Note PT-OP-A Visit Information Start: 02/15/24 07:19 Freq: Status: Active Protocol: Document 03/18/24 08:16 AB (Rec: 03/18/24 13:00 AB [id number]) Out-Patient Physical Therapy Visit Information Visit Information Visit Type Treatment Note Visit Start Time 09:48 Visit Stop Time 10:32 Visit Number 8 Number of DEPUTY SHERIFF K9 HANDLER Visits 1 Evaluation Information Evaluation Date 02/15/24 Precautions Precautions Pt reported Rubber/Latex Allergy. Requests no EStim. Necrosis of R humeral head. Neuropathy (pt notes from Eva Gonzalez) in LE's from knees distally (pain in feet, numbness in legs, and burning at night), with decreased balance (reported from tessa?), chronic pain in upper back. PMH (per pt): depression controlled by meds, possible Fibromyalgia, history of L Ankle surgery (chencho, pins, screws). PT-OP-B Current Condition Start: 02/15/24 07:19 Freq: Status: Active Protocol: Document 02/15/24 11:18 LRN (Rec: 02/15/24 12:41 LRN [id number]) Current Condition History of Current Condition Onset Date 1 yr ago. Current Complaints Stabbing back pain at scapula bilaterally, L worse than R. History of Current Condition 1 yr ago got a stabbing pain in R scapula area, now is more in the L side. No previous history of upper back pain. Pt states her pain wakes her up at night when moving arms. She describes her pain as severe, and that it takes a day to recover from because she becomes physically exhausted by the pain. Her current activity level is low. She states she walks, ex's at the local gym on a recumbent bike and does errands around town. Two yrs ago she exercised in the gym with arm and leg workouts in addition to the cardio exercise. Prior Treatments and Tests -[facility] treatments of Dr. Fuller. -Sports & Spine with treatments to the neck for trigger points (pt felt not helpful). She reports being given a creme in the past by Mr. Deutsch in the [facility] that had Gabapentin in it, but at the [facility] Spine clinic was given a prescription w/o Gabapentin and she didn't find it helpful. -Sleeps on ice. -Uses infrared heating pad. -Ms relaxors (prescription from Dr. Robertson: methalcarbinol-4000mg) sometimes helps. Treatment Goals Patient/Caregiver Goals Pt goals: - Improve sleep w/o severe pain while moving arms. - Lightly sweep without posterior scapular pain onset. - Independent with HEP and gym exer-cardio ex's. Personal Factors Other Personal Factors That May Effect -Depression, possible Therapy/Recovery Fibromyalgia. -Neuropathy (pt notes from Eva Gonzalez) in LE's from knees distally (pain in feet, numbness in legs, and burning at night), with decreased balance (reported from tessa?). -Chronic pain in upper back, -Doesn't have comfortable shoes to wear, (needs wide shoes to be comfortable), because without right support her feet feels like she is walking on rocks. PT-OP-C Subjective Start: 02/15/24 07:19 Freq: Status: Active Protocol: Document 03/18/24 08:16 AB (Rec: 03/18/24 13:00 AB [id number]) OP-PT Subjective Patient Comments Patient Comments Patient reports she had a bad weekend, moved a step thing that vibrates that she uses to work on her balance, estimates the object was 50 lb , comments this aggravated her scapular area but is better today. PT-OP-H Neuro Start: 02/15/24 07:19 Freq: Status: Active Protocol: Document 02/15/24 11:18 LRN (Rec: 02/15/24 12:41 LRN [id number]) Sensation Evaluation Gross Sensation Gross Sensation WNL PT-OP-J Posture/Palpation/Skin Start: 02/15/24 07:19 Freq: Status: Active Protocol: Document 02/15/24 11:18 LRN (Rec: 02/15/24 12:41 LRN [id number]) Posture Evaluation Position Standing Head/C-Spine Posture Forward Head T-Spine Posture Increased Kyphosis L-Spine Posture Decreased Lordosis Shoulder Posture (L) Forward,(L) Elevated Arm Posture (L) Internally Rotated,(R) Internally Rotated Comments Posture Comments Dowagers hump, straightened T2 -T4 spine, increased curve ~ T11-12, very mild C-curve of T /S with apex on the L (~ T5). Palpation Assessment Location Shoulders Palpation Location L Posterior Deltoid Palpation Details Atrophy Intrascapular region Palpation Location Rhomboids, Paraspinals Palpation Details L side muscle guarding, Neck Palpation Location L Cervical paraspinals & R UT Palpation Findings Soft Tissue Tightness, Tenderness PT-OP-K Range of Motion Start: 02/15/24 07:19 Freq: Status: Active Protocol: Document 02/15/24 11:18 LRN (Rec: 02/15/24 12:41 LRN [id number]) Cervical Spine Range of Motion Cervical Spine Active Degrees Testing Position Sitting Flexion 20 Extension 50 Rotation Left 38 Rotation Right 47 Lateral Flexion Left 18 Lateral Flexion Right 20 ROM Limitations Soft Tissue Tightness Lumbar Spine Range of Motion Lumbar Spine Active Degrees Testing Position Standing Flexion 72 Extension 17 Rotation Left 30 Rotation Right 30 Lateral Flexion Left 15 Lateral Flexion Right 15 ROM Limitations Soft Tissue Tightness,Pain Comments Rotation: has pain and tightness. Flexion: LBP & UBP. Shoulder Goniometric Range of Motion Shoulder Right Active Testing Position Sitting Flexion 150 Extension 35 Abduction 140 Left Active Testing Position Sitting Flexion 150 Extension 35 Abduction 140 PT-OP-L Special Tests Start: 02/15/24 07:19 Freq: Status: Active Protocol: Document 02/20/24 09:52 LRN (Rec: 02/20/24 10:57 LRN [id number]) Special Tests Cervical Spine Special Tests Vertebral Artery Test Results negative Traction Test Results negative Foraminal Compression Test Results negative PT-OP-M Strength Start: 02/15/24 07:19 Freq: Status: Active Protocol: Document 02/22/24 08:21 LRN (Rec: 02/22/24 09:08 LRN [id number]) Cervical Spine Strength Cervical Spine Manual Muscle Testing Flexion (C1-2) 4 Good Extension 5 Normal Rotation Left 3 Fair Rotation Right 3- Fair- Lateral Flexion Left (C3) 4 Good Lateral Flexion Right (C3) 4 Good Comments L rotation the pt uses occiptal ms more to rotate, R rot pt uses upper body to rotate. PT-OP-Q Treatments Start: 02/15/24 07:19 Freq: Status: Active Protocol: Document 03/18/24 08:16 AB (Rec: 03/18/24 13:00 AB [id number]) Therapeutic Exercises Supine Exercises LTR Supine Exercise Name Lower trunk rot Side bilateral Reps/Minutes X5 CS rotation on occipital float Side bilateral Reps/Minutes 2 min Comments VC to perform slowly in pain free range Sidelying Exercises open book Side bilateral Reps/Minutes X3 holding 5 breaths TA tightening Side bilateral Reps/Minutes X5 holding 3 breaths Manual Therapy Treatment Soft Tissue Mobilization STM T/S Body Location Thoracic paraspinals, UT, levator scap, rhomboids Mobilization Type Cross-Friction,Rolling, Sustained Pressure Intensity/Depth Moderate Body Position Sidelying Joint Mobilizations scapular mobilization Joint scapular Direction into depression and adduction Grade III Body Position Sidelying Reps/Duration X10 each direction each UE Manual Traction Cervical Body Position Hooklying Comments gentle traction and occipital release, monitored for pain throughout. PT-OP-T Assessment and Plan Start: 02/15/24 07:19 Freq: Status: Active Protocol: Document 03/18/24 08:16 AB (Rec: 03/18/24 13:00 AB [id number]) Physical Therapy Assessment Goals Three Impairment Upper back weakness with onset of intrascapular pain with use of arms. Impairment UE Quickdash score 47.72 (47.7 % impaired, score 40-59). LUIZA score 23/50 or 46/100 (46% impaired, score 40-59) Short Term Goal (STG) Pt will be educated in self care pain management with use of positioning and use of cryotherapy. STG Duration 5 wks-03/22/24 Systematic Theology Professor Goal (LTG) Pt will be able to lightly sweep without onset of posterior scapular pain. LTG Duration 12 wks-05/10/24 Two Impairment Sleep interruption of intrascapular pain with movement of arms. Short Term Goal (STG) Pt will be educated in sleeping positions with support to UE's and neutral spine positioning, and proper sit/stand posture. 03/07/24: time spent standing wt shift/stance changes, spinal support when squat. 03/14/24: Pt educated in supine neutral positioning and recommended not placing pillow support under knees at bedtime. STG Duration 5 wks-03/22/24 progressed (need ed sit/stnd posture) [facility] Goal (LTG) Pt will be able to improve sleep w/o severe pain onset while moving arms. 03/18/2024 reports Severe UE pain when waking up now down to 3-4 days a week. LTG Duration 12 wks-05/10/24 One Impairment HEP Short Term Goal (STG) Pt will be educated in proper body mechanics for ADLs and be able to return to cardio gym exers w/o onset of back pain. 03/18/2024 discussed light pushing items with foot to see if they slide as a test prior to attempting to lift items, and also note the size/ awkwardness of the item. Patient performed the slide test on PAUL and BOSU STG Duration 5 wks-03/22/24 [facility] Goal (LTG) Pt will be independent with a HEP of neck, shoulder and upper/lower back ROM and strengthening ex's. 02/20/24: HEP: Deep breathing & Trunk rot stretch LTG Duration 12 wks-05/10/24 progressed 02/20/24 Assessment Summary Assessment Horace reports feeling the same , comments she thinks she will feel better later gestures to indicate due to the manual therapy. Physical Therapy Plan Frequency and Duration Frequency of Treatment 2x/Week Duration of treatment (weeks) 12 Plan of Care Start Date 02/15/24 Plan of Care End Date 05/10/24 Therapeutic Interventions Therapeutic Interventions Balance Training,Home Exercise Program,Joint Mobilizations, Manual Therapy,Neuromuscular Re-education,Self-Care/Home Management,Soft Tissue Mobilization,Therapeutic Activities,Therapeutic Exercises Modalities Cold Pack/Ice Massage,Electric Stimulation,Hot Packs Next Visit Focus/Plan Next Note Type Treatment Note Next Visit Plan Self SCM and DNF retractions, cervical traction if beneficial continues. Next: Address STGs 1, > 2, 3. Educ: Body mechanics cleaning out closet, assess cesar to and add to HEP T/S rot stretch Open book & continue to review/ possibly add to HEP reg breathing w/TA tight. Progress with cervical (rot/SB ) and thoracic ROM ex's (to decr kyphosis) & manual mob to decr pain with mvmt & L/S to improve lordosis. Strengthening back and upper back stabilization. Education in self care pain management-cryotherapy. Education: posture sit & stand, body mechanics for ADLS and work movements. Manual: MFR & JMT to T/S and STM if needed. Modalities: Modality if needed to improve cesar to stretches (MH, ice). Ther Ex & HEP: neck, shoulder and upper/lower back ROM and strengthening ex's.
--- NOTE | 2024-03-20 12:59 | PT.OTN ---
Current Diagnoses Other chronic pain (03/20/24) Pain in thoracic spine (03/20/24) Myalgia, other site (03/20/24) Physical Therapy Treatment Note PT-OP-A Visit Information Start: 02/15/24 07:19 Freq: Status: Active Protocol: Document 03/20/24 09:04 AB (Rec: 03/20/24 09:05 AB [id number]) Out-Patient Physical Therapy Visit Information Visit Information Visit Type Treatment Note Visit Note Access Code [email or web address] Visit Start Time 09:48 Visit Stop Time 10:33 Visit Number 9 Number of JOURNEYMAN GLAZIER Visits 2 Evaluation Information Evaluation Date 02/15/24 Precautions Precautions Pt reported Rubber/Latex Allergy. Requests no EStim. Necrosis of R humeral head. Neuropathy (pt notes from Eva Gonzalez) in LE's from knees distally (pain in feet, numbness in legs, and burning at night), with decreased balance (reported from mindy), chronic pain in upper back. PMH (per pt): depression controlled by meds, possible Fibromyalgia, history of L Ankle surgery (chencho, pins, screws). PT-OP-B Current Condition Start: 02/15/24 07:19 Freq: Status: Active Protocol: Document 02/15/24 11:18 LRN (Rec: 02/15/24 12:41 LRN [id number]) Current Condition History of Current Condition Onset Date 1 yr ago. Current Complaints Stabbing back pain at scapula bilaterally, L worse than R. History of Current Condition 1 yr ago got a stabbing pain in R scapula area, now is more in the L side. No previous history of upper back pain. Pt states her pain wakes her up at night when moving arms. She describes her pain as severe, and that it takes a day to recover from because she becomes physically exhausted by the pain. Her current activity level is low. She states she walks, ex's at the local gym on a recumbent bike and does errands around town. Two yrs ago she exercised in the gym with arm and leg workouts in addition to the cardio exercise. Prior Treatments and Tests -[facility] treatments of Dr. Fuller. -[facility] with treatments to the neck for trigger points (pt felt not helpful). She reports being given a creme in the past by Mr. Deutsch in the [facility] that had Gabapentin in it, but at the [facility] was given a prescription w/o Gabapentin and she didn't find it helpful. -Sleeps on ice. -Uses infrared heating pad. -Ms relaxors (prescription from Dr. Robertson: methalcarbinol-4000mg) sometimes helps. Treatment Goals Patient/Caregiver Goals Pt goals: - Improve sleep w/o severe pain while moving arms. - Lightly sweep without posterior scapular pain onset. - Independent with HEP and gym exer-cardio ex's. Personal Factors Other Personal Factors That May Effect -Depression, possible Therapy/Recovery Fibromyalgia. -Neuropathy (pt notes from Eva Gonzalez) in LE's from knees distally (pain in feet, numbness in legs, and burning at night), with decreased balance (reported from tessa?). -Chronic pain in upper back, -Doesn't have comfortable shoes to wear, (needs wide shoes to be comfortable), because without right support her feet feels like she is walking on rocks. PT-OP-C Subjective Start: 02/15/24 07:19 Freq: Status: Active Protocol: Document 03/20/24 09:04 AB (Rec: 03/20/24 09:32 AB [id number]) OP-PT Subjective Patient Comments Patient Comments Horace reports the low back is stiff, the mid back is better. PT-OP-H Neuro Start: 02/15/24 07:19 Freq: Status: Active Protocol: Document 02/15/24 11:18 LRN (Rec: 02/15/24 12:41 LRN [id number]) Sensation Evaluation Gross Sensation Gross Sensation WNL PT-OP-J Posture/Palpation/Skin Start: 02/15/24 07:19 Freq: Status: Active Protocol: Document 02/15/24 11:18 LRN (Rec: 02/15/24 12:41 LRN [id number]) Posture Evaluation Position Standing Head/C-Spine Posture Forward Head T-Spine Posture Increased Kyphosis L-Spine Posture Decreased Lordosis Shoulder Posture (L) Forward,(L) Elevated Arm Posture (L) Internally Rotated,(R) Internally Rotated Comments Posture Comments Dowagers hump, straightened T2 -T4 spine, increased curve ~ T11-12, very mild C-curve of T /S with apex on the L (~ T5). Palpation Assessment Location Shoulders Palpation Location L Posterior Deltoid Palpation Details Atrophy Intrascapular region Palpation Location Rhomboids, Paraspinals Palpation Details L side muscle guarding, Neck Palpation Location L Cervical paraspinals & R UT Palpation Findings Soft Tissue Tightness, Tenderness PT-OP-K Range of Motion Start: 02/15/24 07:19 Freq: Status: Active Protocol: Document 02/15/24 11:18 LRN (Rec: 02/15/24 12:41 LRN [id number]) Cervical Spine Range of Motion Cervical Spine Active Degrees Testing Position Sitting Flexion 20 Extension 50 Rotation Left 38 Rotation Right 47 Lateral Flexion Left 18 Lateral Flexion Right 20 ROM Limitations Soft Tissue Tightness Lumbar Spine Range of Motion Lumbar Spine Active Degrees Testing Position Standing Flexion 72 Extension 17 Rotation Left 30 Rotation Right 30 Lateral Flexion Left 15 Lateral Flexion Right 15 ROM Limitations Soft Tissue Tightness,Pain Comments Rotation: has pain and tightness. Flexion: LBP & UBP. Shoulder Goniometric Range of Motion Shoulder Right Active Testing Position Sitting Flexion 150 Extension 35 Abduction 140 Left Active Testing Position Sitting Flexion 150 Extension 35 Abduction 140 PT-OP-L Special Tests Start: 02/15/24 07:19 Freq: Status: Active Protocol: Document 02/20/24 09:52 LRN (Rec: 02/20/24 10:57 LRN [id number]) Special Tests Cervical Spine Special Tests Vertebral Artery Test Results negative Traction Test Results negative Foraminal Compression Test Results negative PT-OP-M Strength Start: 02/15/24 07:19 Freq: Status: Active Protocol: Document 02/22/24 08:21 LRN (Rec: 02/22/24 09:08 LRN [id number]) Cervical Spine Strength Cervical Spine Manual Muscle Testing Flexion (C1-2) 4 Good Extension 5 Normal Rotation Left 3 Fair Rotation Right 3- Fair- Lateral Flexion Left (C3) 4 Good Lateral Flexion Right (C3) 4 Good Comments L rotation the pt uses occiptal ms more to rotate, R rot pt uses upper body to rotate. PT-OP-Q Treatments Start: 02/15/24 07:19 Freq: Status: Active Protocol: Document 03/20/24 09:04 AB (Rec: 03/20/24 09:31 AB [id number]) Cardio Equipment Upper Body Ergometer (UBE) Duration (Minutes) 2 RPM 120 Height standing 6 Other one minute fwd one min backward Therapeutic Exercises Supine Exercises CS rotation on occipital float Side bilateral Reps/Minutes 2 min Comments VC to perform slowly in pain free range Deep C. neck flexor strengthneing Reps/Minutes X3 X5 seconds Sidelying Exercises open book Side bilateral Reps/Minutes X5 holding 5 breaths Other Exercises cat cow Other Exercise Name in forearm counter plank postion Reps/Minutes X10 Comments Verbal and visual cues CS rotation in counter plank position Side bilateral Reps/Minutes X10 Comments VC to perform in pain free range Therapeutic Activity Therapeutic Activity sleep positioning Comments Discussed weaning off knees being positioned bent in supine. Verbalized and positioned pillow under UE in sidelying, but patient reports she does not sleep sidelying Manual Therapy Treatment Soft Tissue Mobilization STM T/S Body Location Thoracic paraspinals, UT, levator scap, rhomboids Mobilization Type Cross-Friction,Rolling, Sustained Pressure Intensity/Depth Moderate Body Position Sidelying Joint Mobilizations scapular mobilization Joint scapular Direction into depression and adduction Grade III Body Position Sidelying Reps/Duration X10 each direction each UE Manual Traction Cervical Body Position Hooklying Comments gentle traction and occipital release, monitored for pain throughout. Self-Care/Home Management Treatment Education Other Education Body mechanics review with handouts for vacuuming and picking up items, keeping items close and bending at hips and knees. PT-OP-T Assessment and Plan Start: 02/15/24 07:19 Freq: Status: Active Protocol: Document 03/20/24 09:04 AB (Rec: 03/20/24 09:31 AB [id number]) Physical Therapy Assessment Goals Three Impairment Upper back weakness with onset of intrascapular pain with use of arms. Impairment UE Quickdash score 47.72 (47.7 % impaired, score 40-59). LUIZA score 23/50 or 46/100 (46% impaired, score 40-59) Short Term Goal (STG) Pt will be educated in self care pain management with use of positioning and use of cryotherapy. STG Duration 5 wks-03/22/24 Shelter Goal (LTG) Pt will be able to lightly sweep without onset of posterior scapular pain. LTG Duration 12 wks-05/10/24 Two Impairment Sleep interruption of intrascapular pain with movement of arms. Short Term Goal (STG) Pt will be educated in sleeping positions with support to UE's and neutral spine positioning, and proper sit/stand posture. 03/07/24: time spent standing wt shift/stance changes, spinal support when squat. 03/14/24: Pt educated in supine neutral positioning and recommended not placing pillow support under knees at bedtime. STG Duration 5 wks-03/22/24 progressed (need ed sit/stnd posture) Check Writer Salesperson Goal (LTG) Pt will be able to improve sleep w/o severe pain onset while moving arms. 03/18/2024 reports Severe UE pain when waking up now down to 3-4 days a week. 03/20/2024 Body mechanics review with handouts for vacuuming and picking up items , keeping items close and bending at hips and knees. Discussed weaning off knees being positioned bent in supine. Verbalized and positioned pillow under UE in sidelying, but patient reports she does not sleep sidelying LTG Duration 12 wks-05/10/24 One Impairment HEP Short Term Goal (STG) Pt will be educated in proper body mechanics for ADLs and be able to return to cardio gym exers w/o onset of back pain. 03/18/2024 discussed light pushing items with foot to see if they slide as a test prior to attempting to lift items, and also note the size/ awkwardness of the item. Patient performed the slide test on PAUL and BOSU STG Duration 5 wks-03/22/24 Shelter Goal (LTG) Pt will be independent with a HEP of neck, shoulder and upper/lower back ROM and strengthening ex's. 02/20/24: HEP: Deep breathing & Trunk rot stretch 03/20/2024 counter cat cow on forearms and CS rotation AROM in counter position added to HEP LTG Duration 12 wks-05/10/24 progressed 02/20/24 Assessment Summary Assessment Horace reports the right side of back feels a little twingy, like it needs to be popped. Visible increase in seated trunk rotation AROM left and right. Physical Therapy Plan Frequency and Duration Frequency of Treatment 2x/Week Duration of treatment (weeks) 12 Plan of Care Start Date 02/15/24 Plan of Care End Date 05/10/24 Next Visit Focus/Plan Next Note Type Progress Note Next Visit Plan Self SCM and DNF retractions, cervical traction if beneficial continues. Next: Address STGs 1, > 2, 3. Educ: continue/review Body mechanics cleaning out closet , assess cesar to and add to HEP T/S rot stretch Open book & continue to review/ possibly add to HEP reg breathing w/TA tight. Progress with cervical ( /SB) ex's (to decr kyphosis) & manual mob to decr pain with mvmt & L/S to improve lordosis. Strengthening back and upper back stabilization. Education in self care pain management-cryotherapy. Education: posture sit & stand, review body mechanics for ADLS and work movements. Manual: MFR & JMT to T/S and STM if needed. Modalities: Modality if needed to improve cesar to stretches (MH, ice). Ther Ex & HEP: neck, shoulder and upper/lower back ROM and strengthening ex's.
--- NOTE | 2024-03-26 16:47 | PT.OTN ---
Current Diagnoses Other chronic pain (03/26/24) Pain in thoracic spine (03/26/24) Myalgia, other site (03/26/24) Physical Therapy Treatment Note PT-OP-A Visit Information Start: 02/15/24 07:19 Freq: Status: Active Protocol: Document 03/26/24 11:16 LRN (Rec: 03/26/24 12:08 LRN [id number]) Out-Patient Physical Therapy Visit Information Visit Information Visit Type Progress Note Visit Note 4' to use bathroom to start Visit Start Time 11:17 Visit Stop Time 12:02 Visit Number 10 Evaluation Information Evaluation Date 02/15/24 Precautions Precautions Pt reported Rubber/Latex Allergy. Requests no EStim. Necrosis of R humeral head. Neuropathy (pt notes from Eva Gonzalez) in LE's from knees distally (pain in feet, numbness in legs, and burning at night), with decreased balance (reported from mindy), chronic pain in upper back. PMH (per pt): depression controlled by meds, possible Fibromyalgia, history of L Ankle surgery (chencho, pins, screws). PT-OP-B Current Condition Start: 02/15/24 07:19 Freq: Status: Active Protocol: Document 02/15/24 11:18 LRN (Rec: 02/15/24 12:41 LRN [id number]) Current Condition History of Current Condition Onset Date 1 yr ago. Current Complaints Stabbing back pain at scapula bilaterally, L worse than R. History of Current Condition 1 yr ago got a stabbing pain in R scapula area, now is more in the L side. No previous history of upper back pain. Pt states her pain wakes her up at night when moving arms. She describes her pain as severe, and that it takes a day to recover from because she becomes physically exhausted by the pain. Her current activity level is low. She states she walks, ex's at the local gym on a recumbent bike and does errands around town. Two yrs ago she exercised in the gym with arm and leg workouts in addition to the cardio exercise. Prior Treatments and Tests -[facility] treatments of Dr. Fuller. -[facility] with treatments to the neck for trigger points (pt felt not helpful). She reports being given a creme in the past by Mr. Deutsch in the [facility] that had Gabapentin in it, but at the [facility] was given a prescription w/o Gabapentin and she didn't find it helpful. -Sleeps on ice. -Uses infrared heating pad. -Ms relaxors (prescription from Dr. Robertson: methalcarbinol-4000mg) sometimes helps. Treatment Goals Patient/Caregiver Goals Pt goals: - Improve sleep w/o severe pain while moving arms. - Lightly sweep without posterior scapular pain onset. - Independent with HEP and gym exer-cardio ex's. Personal Factors Other Personal Factors That May Effect -Depression, possible Therapy/Recovery Fibromyalgia. -Neuropathy (pt notes from Eva Gonzalez) in LE's from knees distally (pain in feet, numbness in legs, and burning at night), with decreased balance (reported from mindy). -Chronic pain in upper back, -Doesn't have comfortable shoes to wear, (needs wide shoes to be comfortable), because without right support her feet feels like she is walking on rocks. PT-OP-C Subjective Start: 02/15/24 07:19 Freq: Status: Active Protocol: Document 03/26/24 11:16 LRN (Rec: 03/26/24 12:08 LRN [id number]) OP-PT Subjective Patient Comments Patient Comments States the low back is where she is struggling. Concentrating on doing housework at home for 15' at a time and posturing when standing still. Rests between bouts of cleaning. Feels some days she is better and some days worse. States she is having more good days, but end of day walking is tough because of back pain. Past few days hard to sleep due to feet feeling like they are falling asleep (tingling). Has been doing TM at gym 20-30 ' for past 4-5 months (going 1 -2x/wk), not recumbent bike. Patient Questionnaires Neck Disability Index NDI Score 19 Neck Disability Index Impairment 20 to 39% Impaired (Score 10- 19) Oswestry Low Back Index Oswestry Score 54 Oswestry Impairment 40 to 59% Impaired (Score 40- 59) Quick Dash- Upper Extremity Quick Dash UE Score 19 (one unanswered question) Quick Dash UE Impairment 20 to 39% Impaired (Score 20- 39) OP-PT Pain Assessment Pain Assessment Grid Paper Pain Assessment Grid Completed Yes Location Feet Pain Location Details Bilateral feet except on plantar surface Intensity 6 Scale Used Numeric (0 - 10) Low Back Pain Location Details Across low back at sacral level Intensity 5 Scale Used Numeric (0 - 10) Thoracic region Pain Location Details Intrascapular area Intensity 6 Scale Used Numeric (0 - 10) upper shoulders Pain Location Details R shoulder around the joint Intensity 3 Scale Used Numeric (0 - 10) neck Pain Location Details No pain noted on Pain diagram PT-OP-H Neuro Start: 02/15/24 07:19 Freq: Status: Active Protocol: Document 02/15/24 11:18 LRN (Rec: 02/15/24 12:41 LRN [id number]) Sensation Evaluation Gross Sensation Gross Sensation WNL PT-OP-J Posture/Palpation/Skin Start: 02/15/24 07:19 Freq: Status: Active Protocol: Document 02/15/24 11:18 LRN (Rec: 02/15/24 12:41 LRN [id number]) Posture Evaluation Position Standing Head/C-Spine Posture Forward Head T-Spine Posture Increased Kyphosis L-Spine Posture Decreased Lordosis Shoulder Posture (L) Forward,(L) Elevated Arm Posture (L) Internally Rotated,(R) Internally Rotated Comments Posture Comments Dowagers hump, straightened T2 -T4 spine, increased curve ~ T11-12, very mild C-curve of T /S with apex on the L (~ T5). Palpation Assessment Location Shoulders Palpation Location L Posterior Deltoid Palpation Details Atrophy Intrascapular region Palpation Location Rhomboids, Paraspinals Palpation Details L side muscle guarding, Neck Palpation Location L Cervical paraspinals & R UT Palpation Findings Soft Tissue Tightness, Tenderness PT-OP-K Range of Motion Start: 02/15/24 07:19 Freq: Status: Active Protocol: Document 02/15/24 11:18 LRN (Rec: 02/15/24 12:41 LRN [id number]) Cervical Spine Range of Motion Cervical Spine Active Degrees Testing Position Sitting Flexion 20 Extension 50 Rotation Left 38 Rotation Right 47 Lateral Flexion Left 18 Lateral Flexion Right 20 ROM Limitations Soft Tissue Tightness Lumbar Spine Range of Motion Lumbar Spine Active Degrees Testing Position Standing Flexion 72 Extension 17 Rotation Left 30 Rotation Right 30 Lateral Flexion Left 15 Lateral Flexion Right 15 ROM Limitations Soft Tissue Tightness,Pain Comments Rotation: has pain and tightness. Flexion: LBP & UBP. Shoulder Goniometric Range of Motion Shoulder Right Active Testing Position Sitting Flexion 150 Extension 35 Abduction 140 Left Active Testing Position Sitting Flexion 150 Extension 35 Abduction 140 PT-OP-L Special Tests Start: 02/15/24 07:19 Freq: Status: Active Protocol: Document 02/20/24 09:52 LRN (Rec: 02/20/24 10:57 LRN [id number]) Special Tests Cervical Spine Special Tests Vertebral Artery Test Results negative Traction Test Results negative Foraminal Compression Test Results negative PT-OP-M Strength Start: 02/15/24 07:19 Freq: Status: Active Protocol: Document 02/22/24 08:21 LRN (Rec: 02/22/24 09:08 LRN [id number]) Cervical Spine Strength Cervical Spine Manual Muscle Testing Flexion (C1-2) 4 Good Extension 5 Normal Rotation Left 3 Fair Rotation Right 3- Fair- Lateral Flexion Left (C3) 4 Good Lateral Flexion Right (C3) 4 Good Comments L rotation the pt uses occiptal ms more to rotate, R rot pt uses upper body to rotate. PT-OP-Q Treatments Start: 02/15/24 07:19 Freq: Status: Active Protocol: Document 03/26/24 11:16 LRN (Rec: 03/26/24 12:08 LRN [id number]) Therapeutic Exercises Supine Exercises LTR Supine Exercise Name Lower trunk rot Side bilateral Reps/Minutes 2-3 SH X5 CS rotation on occipital float Side bilateral Reps/Minutes 3 min Comments VC to perform slowly in pain free range Deep C. neck flexor strengthneing Reps/Minutes 8' Sidelying Exercises open book Side bilateral Reps/Minutes X8 holding 5 breaths TA tightening Side bilateral Reps/Minutes X8 holding 3 breaths Self-Care/Home Management Treatment Education Other Education Pt educated in self care pain mgmg w/use of cryotherapy and positioning discussed. Pt educated in proper sit/ stand posture. Educated pt in body mechanics for ADLs. Activities Self-Care/Home Management Activities Handouts issued for education training above. PT-OP-T Assessment and Plan Start: 02/15/24 07:19 Freq: Status: Active Protocol: Document 03/26/24 11:16 LRN (Rec: 03/26/24 12:08 LRN [id number]) Physical Therapy Assessment Rehab Potential Rehabilitation Potential Excellent Evaluation Complexity Number of Personal Factors/Comorbidities 3 or More Number of Body Systems Impaired 4 or More Clinical Presentation at Evaluation Evolving Impairments Impairments Functional Activities,Pain, Posture,ROM,Soft Tissue Mobility,Strength Other Impairments Nighttim positioning Goals Three Impairment Upper back weakness with onset of intrascapular pain with use of arms. Impairment UE Quickdash score 47.72 (47.7 % impaired, score 40-59). LUIZA score 23/50 or 46/100 (46% impaired, score 40-59). Neck Disability Index score 27 (40 to 59% Impaired, Score 20 -29) Short Term Goal (STG) Pt will be educated in self care pain management with use of positioning and use of cryotherapy. 03/26/24: Pt educated in self care pain mgmg w/use of cryotherapy and positioning discussed. STG Duration 5 wks-03/22/24 (03/26/24: MET GOAL) Care Home Goal (LTG) Pt will be able to lightly sweep without onset of posterior scapular pain. 03/26/24: UE Quickdash score 22.5 (22.5% impaired, score 20 -39). Neck Disability Index is 19 ( 20-39% impaired, score 29-39). LUIZA is 54/100 (40-59% impaired , score 40-59). LTG Duration 12 wks-05/10/24 progressed Two Impairment Sleep interruption of intrascapular pain with movement of arms. Short Term Goal (STG) Pt will be educated in sleeping positions with support to UE's and neutral spine positioning, and proper sit/stand posture. 03/07/24: time spent standing wt shift/stance changes, spinal support when squat. 03/14/24: Pt educated in supine neutral positioning and recommended not placing pillow support under knees at bedtime. 03/26/24: Pt educated in proper sit/stand posture. STG Duration 5 wks-03/22/24 progressed (03/26/24: MET GOAL ) Care Home Goal (LTG) Pt will be able to improve sleep w/o severe pain onset while moving arms. 03/18/2024 reports Severe UE pain when waking up now down to 3-4 days a week. 03/20/2024 Body mechanics review with handouts for vacuuming and picking up items , keeping items close and bending at hips and knees. Discussed weaning off knees being positioned bent in supine. Verbalized and positioned pillow under UE in sidelying, but patient reports she does not sleep sidelying LTG Duration 12 wks-05/10/24 One Impairment HEP Short Term Goal (STG) Pt will be educated in proper body mechanics for ADLs and be able to return to cardio gym exers w/o onset of back pain. 03/18/2024 discussed light pushing items with foot to see if they slide as a test prior to attempting to lift items, and also note the size/ awkwardness of the item. Patient performed the slide test on PAUL and BOSU. 03/26/24: Educated pt in body mechanics for ADLs. STG Duration 5 wks-03/22/24 Fur Repairer Goal (LTG) Pt will be independent with a HEP of neck, shoulder and upper/lower back ROM and strengthening ex's. 02/20/24: HEP: Deep breathing & Trunk rot stretch 03/20/2024 counter cat cow on forearms and CS rotation AROM in counter position added to HEP LTG Duration 12 wks-05/10/24 progressed 02/20/24 Assessment Summary Assessment 53 yo female w/posture, T/S mechanical & soft tissue dys, alan constant intrascapular & lateral neck pain; & alan shdr pain when UBP is severe. Today pt had no questions regarding teaching of body mechanics last session. She shows improved function of her neck & UE's per NDI & UE Quickdash score. No significant improvement of the low back, as focus has been more on neck/UE's. Pt would like to progress onto an UE strengthening program as her neck/shoulders are feeling better and because her LBP is her most functional limiting factor, the pt would benefit from continued skilled physical therapy to get her on an UE strengthening program and focus the next 7 wks on her LBP. Physical Therapy Plan Frequency and Duration Frequency of Treatment 2x/Week Duration of treatment (weeks) 12 Plan of Care Start Date 02/15/24 Plan of Care End Date 05/10/24 Therapeutic Interventions Therapeutic Interventions Balance Training,Home Exercise Program,Joint Mobilizations, Manual Therapy,Neuromuscular Re-education,Self-Care/Home Management,Soft Tissue Mobilization,Therapeutic Activities,Therapeutic Exercises Modalities Cold Pack/Ice Massage,Electric Stimulation,Hot Packs Next Visit Focus/Plan Next Note Type Treatment Note Next Visit Plan Self SCM and DNF retractions, cervical traction if beneficial continues. Next: Educ: continue Body mechanics education/training for cleaning out closet, assess cesar to and add to HEP T /S rot stretch Open book & continue to review/ possibly add to HEP reg breathing w/TA tight. Progress with cervical ( /SB) ex's (to decr kyphosis) & manual mob to decr pain with mvmt & L/S to improve lordosis . Strengthening back and upper back stabilization. Education in self care pain management-cryotherapy. Education: posture sit & stand, review body mechanics for ADLS and work movements. Manual: MFR & JMT to T/S and STM if needed. Modalities: Modality if needed to improve cesar to stretches (MH, ice). Ther Ex & HEP: neck, shoulder and upper/lower back ROM and strengthening ex's.
--- NOTE | 2024-03-28 09:46 | PT.OTN ---
Current Diagnoses Other chronic pain (03/28/24) Pain in thoracic spine (03/28/24) Myalgia, other site (03/28/24) Physical Therapy Treatment Note PT-OP-A Visit Information Start: 02/15/24 07:19 Freq: Status: Active Protocol: Document 03/28/24 09:04 SP (Rec: 03/28/24 09:49 SP [id number]) Out-Patient Physical Therapy Visit Information Visit Information Visit Type Treatment Note Visit Note *Pt will be OOT 04/09-04/30 unavailable. Visit Start Time 09:04 Visit Stop Time 09:46 Visit Number 11 Number of MOLD SANDER Visits 1 Evaluation Information Evaluation Date 02/15/24 Precautions Precautions Pt reported Rubber/Latex Allergy. Requests no EStim. Necrosis of R humeral head. Neuropathy (pt notes from Eva Gonzalez) in LE's from knees distally (pain in feet, numbness in legs, and burning at night), with decreased balance (reported from tesas?), chronic pain in upper back. PMH (per pt): depression controlled by meds, possible Fibromyalgia, history of L Ankle surgery (chencho, pins, screws). PT-OP-B Current Condition Start: 02/15/24 07:19 Freq: Status: Active Protocol: Document 02/15/24 11:18 LRN (Rec: 02/15/24 12:41 LRN [id number]) Current Condition History of Current Condition Onset Date 1 yr ago. Current Complaints Stabbing back pain at scapula bilaterally, L worse than R. History of Current Condition 1 yr ago got a stabbing pain in R scapula area, now is more in the L side. No previous history of upper back pain. Pt states her pain wakes her up at night when moving arms. She describes her pain as severe, and that it takes a day to recover from because she becomes physically exhausted by the pain. Her current activity level is low. She states she walks, ex's at the local gym on a recumbent bike and does errands around town. Two yrs ago she exercised in the gym with arm and leg workouts in addition to the cardio exercise. Prior Treatments and Tests -[facility] treatments of Dr. Fuller. -[facility] with treatments to the neck for trigger points (pt felt not helpful). She reports being given a creme in the past by Mr. Deutsch in the [facility] that had Gabapentin in it, but at the [facility] was given a prescription w/o Gabapentin and she didn't find it helpful. -Sleeps on ice. -Uses infrared heating pad. -Ms relaxors (prescription from Dr. Robertson: methalcarbinol-4000mg) sometimes helps. Treatment Goals Patient/Caregiver Goals Pt goals: - Improve sleep w/o severe pain while moving arms. - Lightly sweep without posterior scapular pain onset. - Independent with HEP and gym exer-cardio ex's. Personal Factors Other Personal Factors That May Effect -Depression, possible Therapy/Recovery Fibromyalgia. -Neuropathy (pt notes from Eva Gonzalez) in LE's from knees distally (pain in feet, numbness in legs, and burning at night), with decreased balance (reported from tessa?). -Chronic pain in upper back, -Doesn't have comfortable shoes to wear, (needs wide shoes to be comfortable), because without right support her feet feels like she is walking on rocks. PT-OP-C Subjective Start: 02/15/24 07:19 Freq: Status: Active Protocol: Document 03/28/24 09:04 SP (Rec: 03/28/24 09:49 SP [id number]) OP-PT Subjective Patient Comments Patient Comments Pt reports still having low back discomfort with housework . She takes her muscle relaxors 1st thing in am and take little while to take effect. Pain mainly in feet > than low back pain 1st thing in am when get up and at night is legs and back worse. PT-OP-H Neuro Start: 02/15/24 07:19 Freq: Status: Active Protocol: Document 02/15/24 11:18 LRN (Rec: 02/15/24 12:41 LRN [id number]) Sensation Evaluation Gross Sensation Gross Sensation WNL PT-OP-J Posture/Palpation/Skin Start: 02/15/24 07:19 Freq: Status: Active Protocol: Document 02/15/24 11:18 LRN (Rec: 02/15/24 12:41 LRN [id number]) Posture Evaluation Position Standing Head/C-Spine Posture Forward Head T-Spine Posture Increased Kyphosis L-Spine Posture Decreased Lordosis Shoulder Posture (L) Forward,(L) Elevated Arm Posture (L) Internally Rotated,(R) Internally Rotated Comments Posture Comments Dowagers hump, straightened T2 -T4 spine, increased curve ~ T11-12, very mild C-curve of T /S with apex on the L (~ T5). Palpation Assessment Location Shoulders Palpation Location L Posterior Deltoid Palpation Details Atrophy Intrascapular region Palpation Location Rhomboids, Paraspinals Palpation Details L side muscle guarding, Neck Palpation Location L Cervical paraspinals & R UT Palpation Findings Soft Tissue Tightness, Tenderness PT-OP-K Range of Motion Start: 02/15/24 07:19 Freq: Status: Active Protocol: Document 02/15/24 11:18 LRN (Rec: 02/15/24 12:41 LRN [id number]) Cervical Spine Range of Motion Cervical Spine Active Degrees Testing Position Sitting Flexion 20 Extension 50 Rotation Left 38 Rotation Right 47 Lateral Flexion Left 18 Lateral Flexion Right 20 ROM Limitations Soft Tissue Tightness Lumbar Spine Range of Motion Lumbar Spine Active Degrees Testing Position Standing Flexion 72 Extension 17 Rotation Left 30 Rotation Right 30 Lateral Flexion Left 15 Lateral Flexion Right 15 ROM Limitations Soft Tissue Tightness,Pain Comments Rotation: has pain and tightness. Flexion: LBP & UBP. Shoulder Goniometric Range of Motion Shoulder Right Active Testing Position Sitting Flexion 150 Extension 35 Abduction 140 Left Active Testing Position Sitting Flexion 150 Extension 35 Abduction 140 PT-OP-L Special Tests Start: 02/15/24 07:19 Freq: Status: Active Protocol: Document 02/20/24 09:52 LRN (Rec: 02/20/24 10:57 LRN [id number]) Special Tests Cervical Spine Special Tests Vertebral Artery Test Results negative Traction Test Results negative Foraminal Compression Test Results negative PT-OP-M Strength Start: 02/15/24 07:19 Freq: Status: Active Protocol: Document 02/22/24 08:21 LRN (Rec: 02/22/24 09:08 LRN [id number]) Cervical Spine Strength Cervical Spine Manual Muscle Testing Flexion (C1-2) 4 Good Extension 5 Normal Rotation Left 3 Fair Rotation Right 3- Fair- Lateral Flexion Left (C3) 4 Good Lateral Flexion Right (C3) 4 Good Comments L rotation the pt uses occiptal ms more to rotate, R rot pt uses upper body to rotate. PT-OP-Q Treatments Start: 02/15/24 07:19 Freq: Status: Active Protocol: Document 03/28/24 09:04 SP (Rec: 03/28/24 09:49 SP [id number]) Therapeutic Exercises Supine Exercises LTR Supine Exercise Name Lower trunk rot Side bilateral Reps/Minutes 2-3 SH X5 Comments cued TA engagement CS rotation on occipital float Side bilateral Resistance AROM Equipment Used head on blue floating ball Reps/Minutes 3 min Comments Improved slow and pnfree range Deep C. neck flexor strengthneing Resistance AROM Equipment Used head on blue floating ball Reps/Minutes 5 SH x10 Comments pnfree, good form Sidelying Exercises open book Side bilateral Reps/Minutes X8 holding 5 breaths Comments good stretch anterior shld/pec Other Exercises self STMs Other Exercise Name SCM- supine Side bilateral Equipment Used *gentle no cause headaches Reps/Minutes 10 sec Comments manual and ed self application during tx. Therapeutic Activity Therapeutic Activity body mechanics Name dirt duster (non powered vacuum)/mop/sweeping Comments PPT/TIRE FIXER, tall postural alignment, soft knee bend, wt shift between BLEs, trunk face activity working, TA needed for spinal stabilization support. Manual Therapy Treatment Manual Traction Cervical Body Position Hooklying Comments good feedback response: gentle traction and occipital release reported, monitored for pain throughout. SHowed device search for self application online. Self-Care/Home Management Treatment Education Other Education Time spent body mechanics spinal alignment, self SOR device (provided pt screen shot online found) helpful in tx for self carryover home. PT-OP-T Assessment and Plan Start: 02/15/24 07:19 Freq: Status: Active Protocol: Document 03/28/24 09:04 SP (Rec: 03/28/24 09:49 SP [id number]) Physical Therapy Assessment Goals Three Impairment Upper back weakness with onset of intrascapular pain with use of arms. Impairment UE Quickdash score 47.72 (47.7 % impaired, score 40-59). LUIZA score 23/50 or 46/100 (46% impaired, score 40-59). Neck Disability Index score 27 (40 to 59% Impaired, Score 20 -29) Short Term Goal (STG) Pt will be educated in self care pain management with use of positioning and use of cryotherapy. 03/26/24: Pt educated in self care pain mgmg w/use of cryotherapy and positioning discussed. STG Duration 5 wks-03/22/24 (03/26/24: MET GOAL) Group Home Goal (LTG) Pt will be able to lightly sweep without onset of posterior scapular pain. 03/26/24: UE Quickdash score 22.5 (22.5% impaired, score 20 -39). Neck Disability Index is 19 ( 20-39% impaired, score 29-39). LUIZA is 54/100 (40-59% impaired , score 40-59). LTG Duration 12 wks-05/10/24 progressed Two Impairment Sleep interruption of intrascapular pain with movement of arms. Short Term Goal (STG) Pt will be educated in sleeping positions with support to UE's and neutral spine positioning, and proper sit/stand posture. 03/07/24: time spent standing wt shift/stance changes, spinal support when squat. 03/14/24: Pt educated in supine neutral positioning and recommended not placing pillow support under knees at bedtime. 03/26/24: Pt educated in proper sit/stand posture. STG Duration 5 wks-03/22/24 (03/26/24: MET GOAL) Group Home Goal (LTG) Pt will be able to improve sleep w/o severe pain onset while moving arms. 03/18/2024 reports Severe UE pain when waking up now down to 3-4 days a week. 03/20/2024 Body mechanics review with handouts for vacuuming and picking up items , keeping items close and bending at hips and knees. Discussed weaning off knees being positioned bent in supine. Verbalized and positioned pillow under UE in sidelying, but patient reports she does not sleep sidelying 03/28/23: continued ed proper body/spinal alignment PPT/ soft knee and mechanics housework, wt shift between BLEs and use pillows sleeping propping does. LTG Duration 12 wks-05/10/24 progressing One Impairment HEP Short Term Goal (STG) Pt will be educated in proper body mechanics for ADLs and be able to return to cardio gym exers w/o onset of back pain. 03/18/2024 discussed light pushing items with foot to see if they slide as a test prior to attempting to lift items, and also note the size/ awkwardness of the item. Patient performed the slide test on PAUL and BOSU. 03/26/24: Educated pt in body mechanics for ADLs. 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 02/20/24: HEP: Deep breathing & Trunk rot stretch 03/20/2024 counter cat cow on forearms and CS rotation AROM in counter position added to HEP LTG Duration 12 wks-05/10/24 progressed 02/20/24 Assessment Summary Assessment Pt good feedback less neck tension response with manual traction, discussed use suboccipital release device, provided scanned HO options seen online. Reviewed HEP and most time spent on body mechanics doing house work with improved demonstration and understanding, challenged not use to it. She reports pain reduction before leaving tx. Physical Therapy Plan Frequency and Duration Frequency of Treatment 2x/Week Duration of treatment (weeks) 12 Plan of Care Start Date 02/15/24 Plan of Care End Date 05/10/24 Therapeutic Interventions Therapeutic Interventions Balance Training,Home Exercise Program,Joint Mobilizations, Manual Therapy,Neuromuscular Re-education,Self-Care/Home Management,Soft Tissue Mobilization,Therapeutic Activities,Therapeutic Exercises Modalities Cold Pack/Ice Massage,Electric Stimulation,Hot Packs Next Visit Focus/Plan Next Note Type Treatment Note Next Visit Plan Recheck body mechanics vacuuming, sweeping and how doing Self SCM and DNF retractions, cervical traction if beneficial continues. Next: Educ: continue Body mechanics education/training for cleaning out closet, assess cesar to and add to HEP T /S rot stretch Open book & continue to review/ possibly add to HEP reg breathing w/TA tight. Progress with cervical ( /SB) ex's (to decr kyphosis) & manual mob to decr pain with mvmt & L/S to improve lordosis . Strengthening back and upper back stabilization. Education in self care pain management-cryotherapy. Education: posture sit & stand, review body mechanics for ADLS and work movements. Manual: MFR & JMT to T/S and STM if needed. Modalities: Modality if needed to improve cesar to stretches (MH, ice). Ther Ex & HEP: neck, shoulder and upper/lower back ROM and strengthening ex's.
--- NOTE | 2024-04-02 16:56 | PT.OTN ---
Current Diagnoses Other chronic pain (04/02/24) Pain in thoracic spine (04/02/24) Myalgia, other site (04/02/24) Physical Therapy Treatment Note PT-OP-A Visit Information Start: 02/15/24 07:19 Freq: Status: Active Protocol: Document 04/02/24 08:07 AB (Rec: 04/02/24 10:33 AB [id number]) Out-Patient Physical Therapy Visit Information Visit Information Visit Type Treatment Note Visit Note *Pt will be OOT 04/09-04/30 unavailable. Visit Start Time 09:48 Visit Stop Time 10:32 Visit Number 12 Number of CLINICAL DOCUMENTATION NURSE Visits 2 Evaluation Information Evaluation Date 02/15/24 Precautions Precautions Pt reported Rubber/Latex Allergy. Requests no EStim. Necrosis of R humeral head. Neuropathy (pt notes from Eva Gonzalez) in LE's from knees distally (pain in feet, numbness in legs, and burning at night), with decreased balance (reported from tessa?), chronic pain in upper back. PMH (per pt): depression controlled by meds, possible Fibromyalgia, history of L Ankle surgery (chencho, pins, screws). PT-OP-B Current Condition Start: 02/15/24 07:19 Freq: Status: Active Protocol: Document 02/15/24 11:18 LRN (Rec: 02/15/24 12:41 LRN [id number]) Current Condition History of Current Condition Onset Date 1 yr ago. Current Complaints Stabbing back pain at scapula bilaterally, L worse than R. History of Current Condition 1 yr ago got a stabbing pain in R scapula area, now is more in the L side. No previous history of upper back pain. Pt states her pain wakes her up at night when moving arms. She describes her pain as severe, and that it takes a day to recover from because she becomes physically exhausted by the pain. Her current activity level is low. She states she walks, ex's at the local gym on a recumbent bike and does errands around town. Two yrs ago she exercised in the gym with arm and leg workouts in addition to the cardio exercise. Prior Treatments and Tests -[facility] treatments of Dr. Fuller. -[facility] with treatments to the neck for trigger points (pt felt not helpful). She reports being given a creme in the past by Mr. Deutsch in the [facility] that had Gabapentin in it, but at the [facility] was given a prescription w/o Gabapentin and she didn't find it helpful. -Sleeps on ice. -Uses infrared heating pad. -Ms relaxors (prescription from Dr. Robertson: methalcarbinol-4000mg) sometimes helps. Treatment Goals Patient/Caregiver Goals Pt goals: - Improve sleep w/o severe pain while moving arms. - Lightly sweep without posterior scapular pain onset. - Independent with HEP and gym exer-cardio ex's. Personal Factors Other Personal Factors That May Effect -Depression, possible Therapy/Recovery Fibromyalgia. -Neuropathy (pt notes from Eva Gonzalez) in LE's from knees distally (pain in feet, numbness in legs, and burning at night), with decreased balance (reported from tessa?). -Chronic pain in upper back, -Doesn't have comfortable shoes to wear, (needs wide shoes to be comfortable), because without right support her feet feels like she is walking on rocks. PT-OP-C Subjective Start: 02/15/24 07:19 Freq: Status: Active Protocol: Document 04/02/24 08:07 AB (Rec: 04/02/24 10:33 AB [id number]) OP-PT Subjective Patient Comments Patient Comments Patient reports she is still working on her closet, but daughter started a project that has impacted her work on [employer], and has to helped daughter move items today. Pt reports plans to buy item for occipital release. PT-OP-H Neuro Start: 02/15/24 07:19 Freq: Status: Active Protocol: Document 02/15/24 11:18 LRN (Rec: 02/15/24 12:41 LRN [id number]) Sensation Evaluation Gross Sensation Gross Sensation WNL PT-OP-J Posture/Palpation/Skin Start: 02/15/24 07:19 Freq: Status: Active Protocol: Document 02/15/24 11:18 LRN (Rec: 02/15/24 12:41 LRN [id number]) Posture Evaluation Position Standing Head/C-Spine Posture Forward Head T-Spine Posture Increased Kyphosis L-Spine Posture Decreased Lordosis Shoulder Posture (L) Forward,(L) Elevated Arm Posture (L) Internally Rotated,(R) Internally Rotated Comments Posture Comments Dowagers hump, straightened T2 -T4 spine, increased curve ~ T11-12, very mild C-curve of T /S with apex on the L (~ T5). Palpation Assessment Location Shoulders Palpation Location L Posterior Deltoid Palpation Details Atrophy Intrascapular region Palpation Location Rhomboids, Paraspinals Palpation Details L side muscle guarding, Neck Palpation Location L Cervical paraspinals & R UT Palpation Findings Soft Tissue Tightness, Tenderness PT-OP-K Range of Motion Start: 02/15/24 07:19 Freq: Status: Active Protocol: Document 02/15/24 11:18 LRN (Rec: 02/15/24 12:41 LRN [id number]) Cervical Spine Range of Motion Cervical Spine Active Degrees Testing Position Sitting Flexion 20 Extension 50 Rotation Left 38 Rotation Right 47 Lateral Flexion Left 18 Lateral Flexion Right 20 ROM Limitations Soft Tissue Tightness Lumbar Spine Range of Motion Lumbar Spine Active Degrees Testing Position Standing Flexion 72 Extension 17 Rotation Left 30 Rotation Right 30 Lateral Flexion Left 15 Lateral Flexion Right 15 ROM Limitations Soft Tissue Tightness,Pain Comments Rotation: has pain and tightness. Flexion: LBP & UBP. Shoulder Goniometric Range of Motion Shoulder Right Active Testing Position Sitting Flexion 150 Extension 35 Abduction 140 Left Active Testing Position Sitting Flexion 150 Extension 35 Abduction 140 PT-OP-L Special Tests Start: 02/15/24 07:19 Freq: Status: Active Protocol: Document 02/20/24 09:52 LRN (Rec: 02/20/24 10:57 LRN [id number]) Special Tests Cervical Spine Special Tests Vertebral Artery Test Results negative Traction Test Results negative Foraminal Compression Test Results negative PT-OP-M Strength Start: 02/15/24 07:19 Freq: Status: Active Protocol: Document 02/22/24 08:21 LRN (Rec: 02/22/24 09:08 LRN [id number]) Cervical Spine Strength Cervical Spine Manual Muscle Testing Flexion (C1-2) 4 Good Extension 5 Normal Rotation Left 3 Fair Rotation Right 3- Fair- Lateral Flexion Left (C3) 4 Good Lateral Flexion Right (C3) 4 Good Comments L rotation the pt uses occiptal ms more to rotate, R rot pt uses upper body to rotate. PT-OP-Q Treatments Start: 02/15/24 07:19 Freq: Status: Active Protocol: Document 04/02/24 08:07 AB (Rec: 04/02/24 10:33 AB [id number]) Cardio Equipment Upper Body Ergometer (UBE) Duration (Minutes) 2 RPM 120 Height standing 6 Other one minute fwd one min backward Therapeutic Exercises Supine Exercises CS rotation on occipital float Side bilateral Resistance AROM Equipment Used head on blue floating ball Reps/Minutes 3 min Comments VC for slowly and pain free Deep C. neck flexor strengthneing Resistance AROM Equipment Used head on blue floating ball Reps/Minutes 5 SH x10 Comments pnfree, good form Sidelying Exercises open book Sidelying Exercise Name to HEP Side bilateral Reps/Minutes X5 holding 5 breaths Comments tactile cues and assist for LE postiong Therapeutic Activity Therapeutic Activity body mechanics Name waist to waist pivot and overhead Reps/Minutes X4 waist, X 5 overhead Comments Patient reaching for keys ie keys used as weight Patient ed LE positioning for weight shift and to note pressure under feet during weight shift. Verbal and visual cues for stepping through lifts and weight shifting through lifts Manual Therapy Treatment Soft Tissue Mobilization CS Body Location scalenes at lateral clavicles, UT/levator scap, CS paraspinals Intensity/Depth Moderate Body Position Sitting Manual Traction Cervical Body Position Hooklying Comments and occipital release PT-OP-T Assessment and Plan Start: 02/15/24 07:19 Freq: Status: Active Protocol: Document 04/02/24 08:07 (Rec: 04/02/24 10:33 [id number]) Physical Therapy Assessment Goals Three Impairment Upper back weakness with onset of intrascapular pain with use of arms. Impairment UE Quickdash score 47.72 (47.7 % impaired, score 40-59). LUIZA score 23/50 or 46/100 (46% impaired, score 40-59). Neck Disability Index score 27 (40 to 59% Impaired, Score 20 -29) Short Term Goal (STG) Pt will be educated in self care pain management with use of positioning and use of cryotherapy. 03/26/24: Pt educated in self care pain mgmg w/use of cryotherapy and positioning discussed. STG Duration 5 wks-03/22/24 (03/26/24: MET GOAL) Warehouse Stock Clerk Goal (LTG) Pt will be able to lightly sweep without onset of posterior scapular pain. 03/26/24: UE Quickdash score 22.5 (22.5% impaired, score 20 -39). Neck Disability Index is 19 ( 20-39% impaired, score 29-39). LUIZA is 54/100 (40-59% impaired , score 40-59). LTG Duration 12 wks-05/10/24 progressed Two Impairment Sleep interruption of intrascapular pain with movement of arms. Short Term Goal (STG) Pt will be educated in sleeping positions with support to UE's and neutral spine positioning, and proper sit/stand posture. 03/07/24: time spent standing wt shift/stance changes, spinal support when squat. 03/14/24: Pt educated in supine neutral positioning and recommended not placing pillow support under knees at bedtime. 03/26/24: Pt educated in proper sit/stand posture. STG Duration 5 wks-03/22/24 (03/26/24: MET GOAL) Warehouse Stock Clerk Goal (LTG) Pt will be able to improve sleep w/o severe pain onset while moving arms. 03/18/2024 reports Severe UE pain when waking up now down to 3-4 days a week. 03/20/2024 Body mechanics review with handouts for vacuuming and picking up items , keeping items close and bending at hips and knees. Discussed weaning off knees being positioned bent in supine. Verbalized and positioned pillow under UE in sidelying, but patient reports she does not sleep sidelying 03/28/23: continued ed proper body/spinal alignment PPT/ soft knee and mechanics housework, wt shift between BLEs and use pillows sleeping propping does. 04/02/2024 Patient reports she has not had the severe arm pain with waking up in about a week. LTG Duration 12 wks-05/10/24 progressing One Impairment HEP Short Term Goal (STG) Pt will be educated in proper body mechanics for ADLs and be able to return to cardio gym exers w/o onset of back pain. 03/18/2024 discussed light pushing items with foot to see if they slide as a test prior to attempting to lift items, and also note the size/ awkwardness of the item. Patient performed the slide test on PAUL and BOSU. 03/26/24: Educated pt in body mechanics for ADLs. 04/02/2024: Demonstrated apparatus repair mechanic of lifting waist level ( pivot) and overhead using patient's keys as very light weight for patient trials. STG Duration 5 wks-03/22/24 Detention Goal (LTG) Pt will be independent with a HEP of neck, shoulder and upper/lower back ROM and strengthening ex's. 02/20/24: HEP: Deep breathing & Trunk rot stretch 03/20/2024 counter cat cow on forearms and CS rotation AROM in counter position added to HEP 04/02/2025 open book added to HEP LTG Duration 12 wks-05/10/24 progressed 02/20/24 Assessment Summary Assessment Patient reports feeling much better end of session, able to reach overhead for keys with adequate weight shift, no LS extension. Physical Therapy Plan Frequency and Duration Frequency of Treatment 2x/Week Duration of treatment (weeks) 12 Plan of Care Start Date 02/15/24 Plan of Care End Date 05/10/24 Next Visit Focus/Plan Next Visit Plan Recheck body mechanics vacuuming, sweeping and how doing Self SCM and DNF retractions, cervical traction if beneficial continues. Next: Educ: continue Body mechanics education/training for cleaning out closet, & continue to review/ possibly add to HEP reg breathing w/TA tight. Progress with cervical ( /SB) ex's (to decr kyphosis) & manual mob to decr pain with mvmt & L/S to improve lordosis . Strengthening back and upper back stabilization. Education in self care pain management-cryotherapy. Education: posture sit & stand, review body mechanics for ADLS and work movements. Manual: MFR & JMT to T/S and STM if needed. Modalities: Modality if needed to improve cesar to stretches (MH, ice). Ther Ex & HEP: neck, shoulder and upper/lower back ROM and strengthening ex's.
--- NOTE | 2024-04-05 13:45 | PT.OTN ---
Current Diagnoses Other chronic pain (04/05/24) Pain in thoracic spine (04/05/24) Myalgia, other site (04/05/24) Physical Therapy Treatment Note PT-OP-A Visit Information Start: 02/15/24 07:19 Freq: Status: Active Protocol: Document 04/05/24 13:01 SP (Rec: 04/05/24 14:33 SP [id number]) Out-Patient Physical Therapy Visit Information Visit Information Visit Type Treatment Note Visit Note *Pt will be OOT 04/09-04/30 unavailable. 12/16 after PN Khris [employer] shadowed [employer] Kinjal and pt later half of tx with pt permission. Visit Start Time 13:01 Visit Stop Time 13:45 Visit Number 13 Number of [employer] Visits 3 Evaluation Information Evaluation Date 02/15/24 Precautions Precautions Pt reported Rubber/Latex Allergy, voltrin and CBD allergic reaction. Requests no EStim. Necrosis of R humeral head. Neuropathy (pt notes from Eva Gonzalez) in LE's from knees distally (pain in feet, numbness in legs, and burning at night), with decreased balance (reported from tessa?), chronic pain in upper back. PMH (per pt): depression controlled by meds, possible Fibromyalgia, history of L Ankle surgery (chencho, pins, screws). PT-OP-B Current Condition Start: 02/15/24 07:19 Freq: Status: Active Protocol: Document 02/15/24 11:18 LRN (Rec: 02/15/24 12:41 LRN [id number]) Current Condition History of Current Condition Onset Date 1 yr ago. Current Complaints Stabbing back pain at scapula bilaterally, L worse than R. History of Current Condition 1 yr ago got a stabbing pain in R scapula area, now is more in the L side. No previous history of upper back pain. Pt states her pain wakes her up at night when moving arms. She describes her pain as severe, and that it takes a day to recover from because she becomes physically exhausted by the pain. Her current activity level is low. She states she walks, ex's at the local gym on a recumbent bike and does errands around town. Two yrs ago she exercised in the gym with arm and leg workouts in addition to the cardio exercise. Prior Treatments and Tests -[facility] treatments of Dr. Fuller. -[facility] with treatments to the neck for trigger points (pt felt not helpful). She reports being given a creme in the past by [facility] in the [facility] that had Gabapentin in it, but at the [facility] was given a prescription w/o Gabapentin and she didn't find it helpful. -Sleeps on ice. -Uses infrared heating pad. -Ms relaxors (prescription from Dr. Robertson: methalcarbinol-4000mg) sometimes helps. Treatment Goals Patient/Caregiver Goals Pt goals: - Improve sleep w/o severe pain while moving arms. - Lightly sweep without posterior scapular pain onset. - Independent with HEP and gym exer-cardio ex's. Personal Factors Other Personal Factors That May Effect -Depression, possible Therapy/Recovery Fibromyalgia. -Neuropathy (pt notes from Eva Gonzalez) in LE's from knees distally (pain in feet, numbness in legs, and burning at night), with decreased balance (reported from mindy). -Chronic pain in upper back, -Doesn't have comfortable shoes to wear, (needs wide shoes to be comfortable), because without right support her feet feels like she is walking on rocks. PT-OP-C Subjective Start: 02/15/24 07:19 Freq: Status: Active Protocol: Document 04/05/24 13:01 SP (Rec: 04/05/24 14:33 SP [id number]) OP-PT Subjective Patient Comments Patient Comments Pt reports saw Chiropractor yesterday with focus on R and L side of neck. L is tight and R is ok at arrival today. Doesn't want to do anything to over do so keep in alignment. She reported legs felt constricted and little numb later in day but less at arrival today since seen chiropractor. She got new shoes and noticed when took them off so not sure if shoes contributer. She uses a cream with hemp infused that also helps, can't use Voltarin nor CBD allergic reactions, needed medical care to recover in past.. PT-OP-H Neuro Start: 02/15/24 07:19 Freq: Status: Active Protocol: Document 02/15/24 11:18 LRN (Rec: 02/15/24 12:41 LRN [id number]) Sensation Evaluation Gross Sensation Gross Sensation WNL PT-OP-J Posture/Palpation/Skin Start: 02/15/24 07:19 Freq: Status: Active Protocol: Document 02/15/24 11:18 LRN (Rec: 02/15/24 12:41 LRN [id number]) Posture Evaluation Position Standing Head/C-Spine Posture Forward Head T-Spine Posture Increased Kyphosis L-Spine Posture Decreased Lordosis Shoulder Posture (L) Forward,(L) Elevated Arm Posture (L) Internally Rotated,(R) Internally Rotated Comments Posture Comments Dowagers hump, straightened T2 -T4 spine, increased curve ~ T11-12, very mild C-curve of T /S with apex on the L (~ T5). Palpation Assessment Location Shoulders Palpation Location L Posterior Deltoid Palpation Details Atrophy Intrascapular region Palpation Location Rhomboids, Paraspinals Palpation Details L side muscle guarding, Neck Palpation Location L Cervical paraspinals & R UT Palpation Findings Soft Tissue Tightness, Tenderness PT-OP-K Range of Motion Start: 02/15/24 07:19 Freq: Status: Active Protocol: Document 02/15/24 11:18 LRN (Rec: 02/15/24 12:41 LRN [id number]) Cervical Spine Range of Motion Cervical Spine Active Degrees Testing Position Sitting Flexion 20 Extension 50 Rotation Left 38 Rotation Right 47 Lateral Flexion Left 18 Lateral Flexion Right 20 ROM Limitations Soft Tissue Tightness Lumbar Spine Range of Motion Lumbar Spine Active Degrees Testing Position Standing Flexion 72 Extension 17 Rotation Left 30 Rotation Right 30 Lateral Flexion Left 15 Lateral Flexion Right 15 ROM Limitations Soft Tissue Tightness,Pain Comments Rotation: has pain and tightness. Flexion: LBP & UBP. Shoulder Goniometric Range of Motion Shoulder Right Active Testing Position Sitting Flexion 150 Extension 35 Abduction 140 Left Active Testing Position Sitting Flexion 150 Extension 35 Abduction 140 PT-OP-L Special Tests Start: 02/15/24 07:19 Freq: Status: Active Protocol: Document 02/20/24 09:52 LRN (Rec: 02/20/24 10:57 LRN [id number]) Special Tests Cervical Spine Special Tests Vertebral Artery Test Results negative Traction Test Results negative Foraminal Compression Test Results negative PT-OP-M Strength Start: 02/15/24 07:19 Freq: Status: Active Protocol: Document 02/22/24 08:21 LRN (Rec: 02/22/24 09:08 LRN [id number]) Cervical Spine Strength Cervical Spine Manual Muscle Testing Flexion (C1-2) 4 Good Extension 5 Normal Rotation Left 3 Fair Rotation Right 3- Fair- Lateral Flexion Left (C3) 4 Good Lateral Flexion Right (C3) 4 Good Comments L rotation the pt uses occiptal ms more to rotate, R rot pt uses upper body to rotate. PT-OP-Q Treatments Start: 02/15/24 07:19 Freq: Status: Active Protocol: Document 04/05/24 13:01 SP (Rec: 04/05/24 14:33 SP [id number]) Therapeutic Exercises Sitting Exercises Neck stretching Sitting Exercise Name UT- SB R Side left C/S Yun Sitting Exercise Name DNF retraction Side bilateral Reps/Minutes 5 SH x5 reps Comments ed not push into pain or over pressure radiating into TS Trunk rot stretch Sitting Exercise Name Hand on outside opp knee and rot head/shoulders to side of knee. Side bilateral Reps/Minutes 10 SH x 5 Comments Cued to breathe w/stretch and head rot to lead mvmt. Scap pinches Sitting Exercise Name Scap Pinches Side bilateral Reps/Minutes 5 SH x5 Comments cued head nod neutral CS Other Exercises self STMs Other Exercise Name MWM UT, CS paraspinal Side left Comments manual and ed self application during tx. Therapeutic Activity Therapeutic Activity body mechanics Name counter to shelf eye level and top shelf level over head Reps/Minutes X5 waist eye level, X 5 overhead, x3 from floor Comments (latex band boxes, crate) Cued soft knee bend, hip hinge squat, scap retraction neutral TS, CS nod neutral throughout mechanics lift/lower from floor and over head shelf heights Manual Therapy Treatment Soft Tissue Mobilization CS Body Location L scalenes at lateral clavicles, UT/levator scap, CS paraspinals Mobilization Type Myofascial Release,Rolling, Sustained Pressure,Other Intensity/Depth Moderate Body Position Sitting Comments manual STMs, MWM use theracane under instructtion self releases: head nods/turns PT-OP-T Assessment and Plan Start: 02/15/24 07:19 Freq: Status: Active Protocol: Document 04/05/24 13:01 SP (Rec: 04/05/24 14:33 SP [id number]) Physical Therapy Assessment Goals Three Impairment Upper back weakness with onset of intrascapular pain with use of arms. Impairment UE Quickdash score 47.72 (47.7 % impaired, score 40-59). LUIZA score 23/50 or 46/100 (46% impaired, score 40-59). Neck Disability Index score 27 (40 to 59% Impaired, Score 20 -29) Short Term Goal (STG) Pt will be educated in self care pain management with use of positioning and use of cryotherapy. 03/26/24: Pt educated in self care pain mgmg w/use of cryotherapy and positioning discussed. STG Duration 5 wks-03/22/24 (03/26/24: MET GOAL) Care Home Goal (LTG) Pt will be able to lightly sweep without onset of posterior scapular pain. 03/26/24: UE Quickdash score 22.5 (22.5% impaired, score 20 -39). Neck Disability Index is 19 ( 20-39% impaired, score 29-39). LUIZA is 54/100 (40-59% impaired , score 40-59). LTG Duration 12 wks-05/10/24 progressed Two Impairment Sleep interruption of intrascapular pain with movement of arms. Short Term Goal (STG) Pt will be educated in sleeping positions with support to UE's and neutral spine positioning, and proper sit/stand posture. 03/07/24: time spent standing wt shift/stance changes, spinal support when squat. 03/14/24: Pt educated in supine neutral positioning and recommended not placing pillow support under knees at bedtime. 03/26/24: Pt educated in proper sit/stand posture. STG Duration 5 wks-03/22/24 (03/26/24: MET GOAL) Care Home Goal (LTG) Pt will be able to improve sleep w/o severe pain onset while moving arms. 03/18/2024 reports Severe UE pain when waking up now down to 3-4 days a week. 03/20/2024 Body mechanics review with handouts for vacuuming and picking up items , keeping items close and bending at hips and knees. Discussed weaning off knees being positioned bent in supine. Verbalized and positioned pillow under UE in sidelying, but patient reports she does not sleep sidelying 03/28/23: continued ed proper body/spinal alignment PPT/ soft knee and mechanics housework, wt shift between BLEs and use pillows sleeping propping does. 04/02/2024 Patient reports she has not had the severe arm pain with waking up in about a week. 04/05/24: she reports her arms feel little fuzzy but not hurting when wake up but back mostly pain. Utilized pillows for propping and make a difference in comfort and sleep, 5 hrs. LTG Duration 12 wks-05/10/24 progressing One Impairment HEP Short Term Goal (STG) Pt will be educated in proper body mechanics for ADLs and be able to return to cardio gym exers w/o onset of back pain. 03/18/2024 discussed light pushing items with foot to see if they slide as a test prior to attempting to lift items, and also note the size/ awkwardness of the item. Patient performed the slide test on PAUL and BOSU. 03/26/24: Educated pt in body mechanics for ADLs. 04/02/2024: Demonstrated cash register mechanic of lifting waist level ( pivot) and overhead using patient's keys as very light weight for patient trials. STG Duration 5 wks-03/22/24 Care Home Goal (LTG) Pt will be independent with a HEP of neck, shoulder and upper/lower back ROM and strengthening ex's. 02/20/24: HEP: Deep breathing & Trunk rot stretch 03/20/2024 counter cat cow on forearms and CS rotation AROM in counter position added to HEP 04/02/2025 open book added to HEP LTG Duration 12 wks-05/10/24 progressed 02/20/24 Assessment Summary Assessment Pt arms less pain sleeping, more her back, reports not seeing significant changes. She responded well to manual and carryover use theracane to help carryover home with good results in PT today. She report L side neck seems more relaxed than L end tx, better understanding use theracane home, will find it. Tactile cues for scap retraction, spinal alignment with TA draw in needed during hip hinge picking up items from floor and not projecting head lifting items overhead proper form support to support pain reduction cleaning out closets . Physical Therapy Plan Frequency and Duration Frequency of Treatment 2x/Week Duration of treatment (weeks) 12 Plan of Care Start Date 02/15/24 Plan of Care End Date 05/10/24 Therapeutic Interventions Therapeutic Interventions Balance Training,Home Exercise Program,Joint Mobilizations, Manual Therapy,Neuromuscular Re-education,Self-Care/Home Management,Soft Tissue Mobilization,Therapeutic Activities,Therapeutic Exercises Modalities Cold Pack/Ice Massage,Electric Stimulation,Hot Packs Next Visit Focus/Plan Next Note Type Treatment Note Next Visit Plan Continue review hip hinge body mechanics cleaning out closet , needed cues past tx. Work toward standing carryover ex TA tightening, use breath and spinal alignment. Progress with cervical ( /c SB ex's to decr kyphosis) & manual mob to decr pain with mvmt & L/S to improve lordosis . Strengthening back and upper back stabilization. Education in self care pain management-cryotherapy. Education: posture sit & stand, review body mechanics for ADLS and work movements. Manual: MFR & JMT to T/S and STM if needed. Modalities: Modality if needed to improve cesar to stretches (MH, ice). Ther Ex & HEP: neck, shoulder and upper/lower back ROM and strengthening ex's.
--- NOTE | 2024-04-09 16:02 | PT.OTN ---
Current Diagnoses Other chronic pain (04/09/24) Pain in thoracic spine (04/09/24) Myalgia, other site (04/09/24) Physical Therapy Treatment Note PT-OP-A Visit Information Start: 02/15/24 07:19 Freq: Status: Active Protocol: Document 04/09/24 13:46 LRN (Rec: 04/09/24 14:36 LRN [id number]) Out-Patient Physical Therapy Visit Information Visit Information Visit Type Treatment Note Visit Note 01/16 Visit Start Time 13:46 Visit Stop Time 14:27 Visit Number 14 Evaluation Information Evaluation Date 02/15/24 Precautions Precautions Pt reported Rubber/Latex Allergy, voltrin and CBD allergic reaction. Requests no EStim. Necrosis of R humeral head. Neuropathy (pt notes from Eva Gonzalez) in LE's from knees distally (pain in feet, numbness in legs, and burning at night), with decreased balance (reported from mindy), chronic pain in upper back. PMH (per pt): depression controlled by meds, possible Fibromyalgia, history of L Ankle surgery (chencho, pins, screws). PT-OP-B Current Condition Start: 02/15/24 07:19 Freq: Status: Active Protocol: Document 02/15/24 11:18 LRN (Rec: 02/15/24 12:41 LRN [id number]) Current Condition History of Current Condition Onset Date 1 yr ago. Current Complaints Stabbing back pain at scapula bilaterally, L worse than R. History of Current Condition 1 yr ago got a stabbing pain in R scapula area, now is more in the L side. No previous history of upper back pain. Pt states her pain wakes her up at night when moving arms. She describes her pain as severe, and that it takes a day to recover from because she becomes physically exhausted by the pain. Her current activity level is low. She states she walks, ex's at the local gym on a recumbent bike and does errands around town. Two yrs ago she exercised in the gym with arm and leg workouts in addition to the cardio exercise. Prior Treatments and Tests -[facility] treatments of Dr. Fuller. -[facility] with treatments to the neck for trigger points (pt felt not helpful). She reports being given a creme in the past by Mr. Deutsch in the [facility] that had Gabapentin in it, but at the [facility] was given a prescription w/o Gabapentin and she didn't find it helpful. -Sleeps on ice. -Uses infrared heating pad. -Ms relaxors (prescription from Dr. Robertson: methalcarbinol-4000mg) sometimes helps. Treatment Goals Patient/Caregiver Goals Pt goals: - Improve sleep w/o severe pain while moving arms. - Lightly sweep without posterior scapular pain onset. - Independent with HEP and gym exer-cardio ex's. Personal Factors Other Personal Factors That May Effect -Depression, possible Therapy/Recovery Fibromyalgia. -Neuropathy (pt notes from Eva Gonzalez) in LE's from knees distally (pain in feet, numbness in legs, and burning at night), with decreased balance (reported from tessa?). -Chronic pain in upper back, -Doesn't have comfortable shoes to wear, (needs wide shoes to be comfortable), because without right support her feet feels like she is walking on rocks. PT-OP-C Subjective Start: 02/15/24 07:19 Freq: Status: Active Protocol: Document 04/09/24 13:46 LRN (Rec: 04/09/24 14:36 LRN [id number]) OP-PT Subjective Patient Comments Patient Comments Neck bothering her, went to chiro last TH. Today both sides started to bother her, but not as bad as it had been. Back isn't bothering her but hasn't been doing anything . Could be stress. Having random L scapular pain. has been moving a lot of things in closet. PT-OP-H Neuro Start: 02/15/24 07:19 Freq: Status: Active Protocol: Document 02/15/24 11:18 LRN (Rec: 02/15/24 12:41 LRN [id number]) Sensation Evaluation Gross Sensation Gross Sensation WNL PT-OP-J Posture/Palpation/Skin Start: 02/15/24 07:19 Freq: Status: Active Protocol: Document 02/15/24 11:18 LRN (Rec: 02/15/24 12:41 LRN [id number]) Posture Evaluation Position Standing Head/C-Spine Posture Forward Head T-Spine Posture Increased Kyphosis L-Spine Posture Decreased Lordosis Shoulder Posture (L) Forward,(L) Elevated Arm Posture (L) Internally Rotated,(R) Internally Rotated Comments Posture Comments Dowagers hump, straightened T2 -T4 spine, increased curve ~ T11-12, very mild C-curve of T /S with apex on the L (~ T5). Palpation Assessment Location Shoulders Palpation Location L Posterior Deltoid Palpation Details Atrophy Intrascapular region Palpation Location Rhomboids, Paraspinals Palpation Details L side muscle guarding, Neck Palpation Location L Cervical paraspinals & R UT Palpation Findings Soft Tissue Tightness, Tenderness PT-OP-K Range of Motion Start: 02/15/24 07:19 Freq: Status: Active Protocol: Document 04/09/24 13:46 LRN (Rec: 04/09/24 14:36 LRN [id number]) Cervical Spine Range of Motion Cervical Spine Active Degrees Testing Position Sitting Lateral Flexion Left 31 Lateral Flexion Right 34 PT-OP-L Special Tests Start: 02/15/24 07:19 Freq: Status: Active Protocol: Document 02/20/24 09:52 LRN (Rec: 02/20/24 10:57 LRN [id number]) Special Tests Cervical Spine Special Tests Vertebral Artery Test Results negative Traction Test Results negative Foraminal Compression Test Results negative PT-OP-M Strength Start: 02/15/24 07:19 Freq: Status: Active Protocol: Document 02/22/24 08:21 LRN (Rec: 02/22/24 09:08 LRN [id number]) Cervical Spine Strength Cervical Spine Manual Muscle Testing Flexion (C1-2) 4 Good Extension 5 Normal Rotation Left 3 Fair Rotation Right 3- Fair- Lateral Flexion Left (C3) 4 Good Lateral Flexion Right (C3) 4 Good Comments L rotation the pt uses occiptal ms more to rotate, R rot pt uses upper body to rotate. PT-OP-Q Treatments Start: 02/15/24 07:19 Freq: Status: Active Protocol: Document 04/09/24 13:46 LRN (Rec: 04/09/24 14:36 LRN [id number]) Therapeutic Exercises Supine Exercises KTC Side left Reps/Minutes 10 SH x 2 Sitting Exercises Sit<>stand Sitting Exercise Name Hip hinging Reps/Minutes 10x Comments Cued to tuck tailbone as coming to stand. Neck stretching Sitting Exercise Name UT- SB 2x L, 1x R Side left Reps/Minutes 5-10 SH x 5 2x L, 1x R Comments SB (in deg's) 31 L, 31 R C/S Yun Sitting Exercise Name DNF retraction, and SCM stretch (neck ext/chin jut fwd ) Side bilateral Reps/Minutes 5 SH each mvmt x 10 reps Trunk rot stretch Sitting Exercise Name Hand on outside opp knee and rot head/shoulders to side of knee. Side bilateral Reps/Minutes 10 SH x 5 Comments Cued to breathe w/stretch and head rot to lead mvmt. Standing Exercises Sweeping motion Standing Exercise Name Con/ECC strengthening for sweeping Side bilateral Equipment Used Lev1 TB/Cane Reps/Minutes 6' Comments Cuing to shift wgt and move at hips vs trunk rotating Manual Therapy Treatment Soft Tissue Mobilization Lumbosacral region Body Location Sacral traction/extension, L lumbar parapinals Mobilization Type Sustained Pressure Intensity/Depth Moderate Body Position Prone PT-OP-T Assessment and Plan Start: 02/15/24 07:19 Freq: Status: Active Protocol: Document 04/09/24 13:46 LRN (Rec: 04/09/24 14:36 LRN [id number]) Physical Therapy Assessment Goals Three Impairment Upper back weakness with onset of intrascapular pain with use of arms. Impairment UE Quickdash score 47.72 (47.7 % impaired, score 40-59). LUIZA score 23/50 or 46/100 (46% impaired, score 40-59). Neck Disability Index score 27 (40 to 59% Impaired, Score 20 -29) Short Term Goal (STG) Pt will be educated in self care pain management with use of positioning and use of cryotherapy. 03/26/24: Pt educated in self care pain mgmg w/use of cryotherapy and positioning discussed. STG Duration 5 wks-03/22/24 (03/26/24: MET GOAL) District Manager Primary Care Sales Goal (LTG) Pt will be able to lightly sweep without onset of posterior scapular pain. 03/26/24: UE Quickdash score 22.5 (22.5% impaired, score 20 -39). Neck Disability Index is 19 ( 20-39% impaired, score 29-39). LUIZA is 54/100 (40-59% impaired , score 40-59). LTG Duration 12 wks-05/10/24 progressed Two Impairment Sleep interruption of intrascapular pain with movement of arms. Short Term Goal (STG) Pt will be educated in sleeping positions with support to UE's and neutral spine positioning, and proper sit/stand posture. 03/07/24: time spent standing wt shift/stance changes, spinal support when squat. 03/14/24: Pt educated in supine neutral positioning and recommended not placing pillow support under knees at bedtime. 03/26/24: Pt educated in proper sit/stand posture. STG Duration 5 wks-03/22/24 (03/26/24: MET GOAL) Prison Goal (LTG) Pt will be able to improve sleep w/o severe pain onset while moving arms. 03/18/2024 reports Severe UE pain when waking up now down to 3-4 days a week. 03/20/2024 Body mechanics review with handouts for vacuuming and picking up items , keeping items close and bending at hips and knees. Discussed weaning off knees being positioned bent in supine. Verbalized and positioned pillow under UE in sidelying, but patient reports she does not sleep sidelying 03/28/23: continued ed proper body/spinal alignment PPT/ soft knee and mechanics housework, wt shift between BLEs and use pillows sleeping propping does. 04/02/2024 Patient reports she has not had the severe arm pain with waking up in about a week. 04/05/24: she reports her arms feel little fuzzy but not hurting when wake up but back mostly pain. Utilized pillows for propping and make a difference in comfort and sleep, 5 hrs. 04/09/24: Sleeping a couple weeks w/o the severe pain, fingers only stiff. . LTG Duration 12 wks-05/10/24 progressing 04/05/24 One Impairment HEP Short Term Goal (STG) Pt will be educated in proper body mechanics for ADLs and be able to return to cardio gym exers w/o onset of back pain. 03/18/2024 discussed light pushing items with foot to see if they slide as a test prior to attempting to lift items, and also note the size/ awkwardness of the item. Patient performed the slide test on PAUL and BOSU. 03/26/24: Educated pt in body mechanics for ADLs. 04/02/2024: Demonstrated engineering mechanic of lifting waist level ( pivot) and overhead using patient's keys as very light weight for patient trials. STG Duration 5 wks-03/22/24 04/08/24: met goal for ed of body mech, need return to ex District Manager Primary Care Sales Goal (LTG) Pt will be independent with a HEP of neck, shoulder and upper/lower back ROM and strengthening ex's. 02/20/24: HEP: Deep breathing & Trunk rot stretch 03/20/2024 counter cat cow on forearms and CS rotation AROM in counter position added to HEP 04/02/2025 open book added to HEP LTG Duration 12 wks-05/10/24 progressed 02/20/24 Assessment Summary Assessment 53 yo female initially w/ posture, T/S mechanical & soft tissue dys, alan intrascapular & lateral neck pain; & alan shdr pain when UBP is severe. Today she is only having stiffness of the alan neck and back stiffness but no pain. She had R scapular pain after sweeping strengthening, was resolved with stretching. Pt feels confident with how to clean closets. Pt going 2 [address] ride to [place] and back 04/09- ; therefore will need to be rechecked on return. Physical Therapy Plan Frequency and Duration Frequency of Treatment 2x/Week Duration of treatment (weeks) 12 Plan of Care Start Date 02/15/24 Plan of Care End Date 05/10/24 Next Visit Focus/Plan Next Note Type Treatment Note Next Visit Plan Recheck progress & need for new POC, pt returning from 2 day car ride vacation. Work toward standing carryover ex TA tightening, use breath and spinal alignment. Progress with cervical (SB ex' s), decr T/S kyphosis, & manual mob to decr pain with mvmt & LBP. Strengthening back and upper back stabilization. Education: posture sit & stand. Manual: MFR & JMT to T/S and STM if needed. Modalities: Modality if needed to improve cesar to stretches (MH, ice). Ther Ex & HEP: neck, shoulder and upper/lower back ROM and strengthening ex's.
--- NOTE | 2024-04-30 14:27 | PT.OTN ---
Current Diagnoses Other chronic pain (04/30/24) Pain in thoracic spine (04/30/24) Myalgia, other site (04/30/24) Physical Therapy Treatment Note PT-OP-A Visit Information Start: 02/15/24 07:19 Freq: Status: Active Protocol: Document 04/30/24 09:51 LRN (Rec: 04/30/24 10:44 LRN [id number]) Out-Patient Physical Therapy Visit Information Visit Information Visit Type Progress Note Visit Note 02/15 Visit Start Time 09:52 Visit Stop Time 10:34 Visit Number 15 Evaluation Information Evaluation Date 02/15/24 Precautions Precautions Pt reported Rubber/Latex Allergy, voltrin and CBD allergic reaction. Requests no EStim. Necrosis of R humeral head. Neuropathy (pt notes from Eva Gonzalez) in LE's from knees distally (pain in feet, numbness in legs, and burning at night), with decreased balance (reported from mindy), chronic pain in upper back. PMH (per pt): depression controlled by meds, possible Fibromyalgia, history of L Ankle surgery (chencho, pins, screws). PT-OP-B Current Condition Start: 02/15/24 07:19 Freq: Status: Active Protocol: Document 02/15/24 11:18 LRN (Rec: 02/15/24 12:41 LRN [id number]) Current Condition History of Current Condition Onset Date 1 yr ago. Current Complaints Stabbing back pain at scapula bilaterally, L worse than R. History of Current Condition 1 yr ago got a stabbing pain in R scapula area, now is more in the L side. No previous history of upper back pain. Pt states her pain wakes her up at night when moving arms. She describes her pain as severe, and that it takes a day to recover from because she becomes physically exhausted by the pain. Her current activity level is low. She states she walks, ex's at the local gym on a recumbent bike and does errands around town. Two yrs ago she exercised in the gym with arm and leg workouts in addition to the cardio exercise. Prior Treatments and Tests -[facility] treatments of Dr. Fuller. -[facility] with treatments to the neck for trigger points (pt felt not helpful). She reports being given a creme in the past by Mr. Deutsch in the [facility] that had Gabapentin in it, but at the [facility] was given a prescription w/o Gabapentin and she didn't find it helpful. -Sleeps on ice. -Uses infrared heating pad. -Ms relaxors (prescription from Dr. Robertson: methalcarbinol-4000mg) sometimes helps. Treatment Goals Patient/Caregiver Goals Pt goals: - Improve sleep w/o severe pain while moving arms. - Lightly sweep without posterior scapular pain onset. - Independent with HEP and gym exer-cardio ex's. Personal Factors Other Personal Factors That May Effect -Depression, possible Therapy/Recovery Fibromyalgia. -Neuropathy (pt notes from Eva Gonzalez) in LE's from knees distally (pain in feet, numbness in legs, and burning at night), with decreased balance (reported from mindy). -Chronic pain in upper back, -Doesn't have comfortable shoes to wear, (needs wide shoes to be comfortable), because without right support her feet feels like she is walking on rocks. PT-OP-C Subjective Start: 02/15/24 07:19 Freq: Status: Active Protocol: Document 04/30/24 09:51 LRN (Rec: 04/30/24 10:44 LRN [id number]) OP-PT Subjective Patient Comments Patient Comments Lower back and legs were a problem. Legs swelled at [facility]. In [place] didn't have scooter, so did a lot of walking and had to use walker. Pain today, the upper back is sore at 4/10, lower back is 6/10, neck is stiff rated 5/10. Bending down is painful. Requests therapy for lower back and leg . Will be making appt for massage therapy for upper and lower back. Patient Questionnaires Neck Disability Index NDI Score 9 Neck Disability Index Impairment 1 to 19% Impaired (Score 1-9) Oswestry Low Back Index Oswestry Score 38 Oswestry Impairment 20 to 39% Impaired (Score 20- 39) Quick Dash- Upper Extremity Quick Dash UE Score 12.5% impaired (#9 unanswered question) Quick Dash UE Impairment 1 to 19% Impaired (Score 1-19) OP-PT Pain Assessment Pain Assessment Grid Paper Pain Assessment Grid Completed Yes Location Feet Pain Location Details Bilateral feet except on plantar surface and distal calf. Intensity 6 Scale Used Numeric (0 - 10) Low Back Pain Location Details Across low back at sacral level Intensity 7 Scale Used Numeric (0 - 10) Thoracic region Pain Location Details Intrascapular area Intensity 2 Scale Used Numeric (0 - 10) upper shoulders Pain Location Details Small of neck at alan shoulders Intensity 3 Scale Used Numeric (0 - 10) PT-OP-H Neuro Start: 02/15/24 07:19 Freq: Status: Active Protocol: Document 02/15/24 11:18 LRN (Rec: 02/15/24 12:41 LRN [id number]) Sensation Evaluation Gross Sensation Gross Sensation WNL PT-OP-J Posture/Palpation/Skin Start: 02/15/24 07:19 Freq: Status: Active Protocol: Document 02/15/24 11:18 LRN (Rec: 02/15/24 12:41 LRN [id number]) Posture Evaluation Position Standing Head/C-Spine Posture Forward Head T-Spine Posture Increased Kyphosis L-Spine Posture Decreased Lordosis Shoulder Posture (L) Forward,(L) Elevated Arm Posture (L) Internally Rotated,(R) Internally Rotated Comments Posture Comments Dowagers hump, straightened T2 -T4 spine, increased curve ~ T11-12, very mild C-curve of T /S with apex on the L (~ T5). Palpation Assessment Location Shoulders Palpation Location L Posterior Deltoid Palpation Details Atrophy Intrascapular region Palpation Location Rhomboids, Paraspinals Palpation Details L side muscle guarding, Neck Palpation Location L Cervical paraspinals & R UT Palpation Findings Soft Tissue Tightness, Tenderness PT-OP-K Range of Motion Start: 02/15/24 07:19 Freq: Status: Active Protocol: Document 04/30/24 09:51 LRN (Rec: 04/30/24 10:44 LRN [id number]) Lumbar Spine Range of Motion Lumbar Spine Active Degrees Testing Position Standing Flexion 47 Rotation Left 20 Rotation Right 20 Lateral Flexion Left 10 Lateral Flexion Right 10 Comments NOTE: pt on ms relaxor Flex 55 deg's (level of pain 4 /10) SB L: 12 deg's, R 10 deg's Rot: 45 deg's. Hip Goniometric Range of Motion Hip Right Passive Testing Position Supine Internal Rotation 40 External Rotation 70 Left Passive Testing Position Supine Internal Rotation 30 External Rotation 45 PT-OP-L Special Tests Start: 02/15/24 07:19 Freq: Status: Active Protocol: Document 02/20/24 09:52 LRN (Rec: 02/20/24 10:57 LRN [id number]) Special Tests Cervical Spine Special Tests Vertebral Artery Test Results negative Traction Test Results negative Foraminal Compression Test Results negative PT-OP-M Strength Start: 02/15/24 07:19 Freq: Status: Active Protocol: Document 02/22/24 08:21 LRN (Rec: 02/22/24 09:08 LRN [id number]) Cervical Spine Strength Cervical Spine Manual Muscle Testing Flexion (C1-2) 4 Good Extension 5 Normal Rotation Left 3 Fair Rotation Right 3- Fair- Lateral Flexion Left (C3) 4 Good Lateral Flexion Right (C3) 4 Good Comments L rotation the pt uses occiptal ms more to rotate, R rot pt uses upper body to rotate. PT-OP-Q Treatments Start: 02/15/24 07:19 Freq: Status: Active Protocol: Document 04/30/24 09:51 LRN (Rec: 04/30/24 10:44 LRN [id number]) Therapeutic Exercises Supine Exercises Hip Flexor stretch Side bilateral Reps/Minutes 5' Comments Extra time to determine max cesar stretch L Piriformis stretch Supine Exercise Name Piriformis stretch Side left Reps/Minutes 3' Comments Extra time to determine max cesar stretch L hip IR stretch Supine Exercise Name Lateral Hip stretch Side left Reps/Minutes 5' Comments ROM taken alan hips L hip ER stretch] Supine Exercise Name Fig 4 Side left Reps/Minutes 5' Comments ROM taken alan hips, extra time to determine max cesar stretch position KTC Side left Reps/Minutes 2' Sitting Exercises Trunk rot stretch Sitting Exercise Name Hand on outside opp knee and rot head/shoulders to side of knee. Side bilateral Reps/Minutes 10 SH x 5 Comments Cued to breathe w/stretch and head rot to lead mvmt. Standing Exercises Trunk AROM Side bilateral Reps/Minutes 10' Comments ROM taken Self-Care/Home Management Treatment Education Other Education Discussed results of assessment, goals, and plan of care (POC) with pt; pt agreeable to goals, treatment and POC. Activities Self-Care/Home Management Activities Issued & reviewed HEP: Stretches of Piriformis, Lateral Hip, Fig 4, Hip flexors (Haseeb Test Position) . PT-OP-T Assessment and Plan Start: 02/15/24 07:19 Freq: Status: Active Protocol: Document 04/30/24 09:51 LRN (Rec: 04/30/24 10:44 LRN [id number]) Physical Therapy Assessment Rehab Potential Rehabilitation Potential Excellent Evaluation Complexity Number of Personal Factors/Comorbidities 3 or More Number of Body Systems Impaired 4 or More Clinical Presentation at Evaluation Evolving Impairments Impairments Functional Activities,Pain, Posture,ROM,Soft Tissue Mobility,Strength Other Impairments Nighttim positioning Goals Four Impairment Chronic LBP rated 6/10 (norm is 3-8/10). Short Term Goal (STG) Improve trunk ROM (3-5 deg's) to be able to bend down to sweep up dust after sweeping with pain no greater than 4/10 . STG Duration 8 wks-06/25/24 Wood Web Weaving Machine Operator Goal (LTG) Improve Low back mobility (5- 10 deg's) to lessen pain with putting dishes in chemical processing technician on bottom shelf, or to transfer dishes into a bottom shelf, or bending over to sort laundry or bend over to carry it to washer w/o pain. LTG Duration 12 wks-07/24/24 Three Impairment Upper back weakness with onset of intrascapular pain with use of arms. Impairment UE Quickdash score 47.72 (47.7 % impaired, score 40-59). LUIZA score 23/50 or 46/100 (46% impaired, score 40-59). Neck Disability Index score 27 (40 to 59% Impaired, Score 20 -29) Short Term Goal (STG) Pt will be educated in self care pain management with use of positioning and use of cryotherapy. 03/26/24: Pt educated in self care pain mgmg w/use of cryotherapy and positioning discussed. STG Duration 5 wks-03/22/24 (03/26/24: MET GOAL) Wood Web Weaving Machine Operator Goal (LTG) Pt will be able to lightly sweep without onset of posterior scapular pain. 03/26/24: UE Quickdash score 22.5 (22.5% impaired, score 20 -39). Neck Disability Index is 19 ( 20-39% impaired, score 29-39). LUIZA is 54/100 (40-59% impaired , score 40-59). 04/30/24: If concentrates on proper ADL mechanics the LBP is less. LBP is limiting sweeping LTG Duration 12 wks-07/24/24 updated Two Impairment Sleep interruption of intrascapular pain with movement of arms. Short Term Goal (STG) Pt will be educated in sleeping positions with support to UE's and neutral spine positioning, and proper sit/stand posture. 03/07/24: time spent standing wt shift/stance changes, spinal support when squat. 03/14/24: Pt educated in supine neutral positioning and recommended not placing pillow support under knees at bedtime. 03/26/24: Pt educated in proper sit/stand posture. STG Duration 5 wks-03/22/24 (03/26/24: MET GOAL) Wood Web Weaving Machine Operator Goal (LTG) Pt will be able to improve sleep w/o severe pain onset while moving arms. 03/18/2024 reports Severe UE pain when waking up now down to 3-4 days a week. 03/20/2024 Body mechanics review with handouts for vacuuming and picking up items , keeping items close and bending at hips and knees. Discussed weaning off knees being positioned bent in supine. Verbalized and positioned pillow under UE in sidelying, but patient reports she does not sleep sidelying 03/28/23: continued ed proper body/spinal alignment PPT/ soft knee and mechanics housework, wt shift between BLEs and use pillows sleeping propping does. 04/02/2024 Patient reports she has not had the severe arm pain with waking up in about a week. 04/05/24: she reports her arms feel little fuzzy but not hurting when wake up but back mostly pain. Utilized pillows for propping and make a difference in comfort and sleep, 5 hrs. 04/09/24: Sleeping a couple weeks w/o the severe pain, fingers only stiff. 04/30/24: L elbow pain with moving in bed. LTG Duration 12 wks-07/24/24 updated One Impairment HEP Short Term Goal (STG) Pt will be educated in proper body mechanics for ADLs and be able to return to cardio gym exers w/o onset of back pain. 03/18/2024 discussed light pushing items with foot to see if they slide as a test prior to attempting to lift items, and also note the size/ awkwardness of the item. Patient performed the slide test on PAUL and BOSU. 03/26/24: Educated pt in body mechanics for ADLs. 04/02/2024: Demonstrated water valve mechanic of lifting waist level ( pivot) and overhead using patient's keys as very light weight for patient trials. STG Duration 8 wks-06/25/24 04/08/24: met goal for ed of body mech, need return to ex Wood Web Weaving Machine Operator Goal (LTG) Pt will be independent with a HEP of neck, shoulder and upper/lower back ROM and strengthening ex's. 02/20/24: HEP: Deep breathing & Trunk rot stretch 03/20/2024 counter cat cow on forearms and CS rotation AROM in counter position added to HEP 04/02/2025 open book added to HEP. 04/30/24: HEP: PIriformis, Lateral hip, Fig 4, Hip flexor (Haseeb Test Position) stretch. LTG Duration 12 wks-07/24/24 progressed 04/30/24 Assessment Summary Assessment Pt is a 53 yo female initially w/posture, T/S mechanical & soft tissue dys, alan intrascapular & lateral neck pain; & alan shdr pain when UBP is severe. She attends today after a 3 week vacation with return of her chronic back pain, reduction in upper back pain, and continued upper shoulder and alan feet pain. Pt trunk AROM is functionally limted due to pain and she is having more bilateral feet pain from all the walking she did on vacation. She has shown overall improvement in function per UE Quickdas score , Neck Disability Index and Oswestry Disability Index. Today her pain appears minimally improved, as she has just returned from vacation in [place] where she did a lot of walking, additionally her chronic back pain has returned and she demonstrates decreased trunk mobility and therefore function. The pt would benefit from continued skilled physical therapy to progress her strength and mobility to decrease her pain with movement and improve her function for ADLs. Her plan of care time is extended as I will be absent for 3 wks, but will be able to assess pt's progress on my return. Physical Therapy Plan Frequency and Duration Frequency of Treatment 2x/Week Duration of treatment (weeks) 12 Plan of Care Start Date 04/30/24 Plan of Care End Date 07/24/24 Therapeutic Interventions Therapeutic Interventions Balance Training,Home Exercise Program,Joint Mobilizations, Manual Therapy,Neuromuscular Re-education,Self-Care/Home Management,Soft Tissue Mobilization,Therapeutic Activities,Therapeutic Exercises Modalities Cold Pack/Ice Massage,Hot Packs,Ultrasound Next Visit Focus/Plan Next Note Type Treatment Note Next Visit Plan Education: posture sit & stand. Start: Chronic Back rehab w/ continued Upper back/neck/shdr rehab. Start ROM/ strengthening of back and upper back (HEP for same), to include trunk extensors but focus focus on flexion. Work toward carryover of TA tightening in standing, using breath and maintaining spinal alignment. Progress cervical (SB ex's), decr T/S kyphosis, & manual mob to decr pain with mvmt. Ther Ex Ex & HEP: Cont neck, shoulder ROM and strengthening ex's. Manual: MFR & JMT to T/S and STM if needed. Modalities: Modality if needed to improve cesar to stretches (MH, ice).
--- NOTE | 2024-05-03 12:54 | PT.OTN ---
Current Diagnoses Other chronic pain (05/03/24) Pain in thoracic spine (05/03/24) Myalgia, other site (05/03/24) Physical Therapy Treatment Note PT-OP-A Visit Information Start: 02/15/24 07:19 Freq: Status: Active Protocol: Document 05/03/24 08:05 AB (Rec: 05/03/24 12:54 AB [id number]) Out-Patient Physical Therapy Visit Information Visit Information Visit Type Treatment Note Visit Note 03/18 Visit Start Time 09:48 Visit Stop Time 10:31 Visit Number 16 Number of SURGICAL TECH Visits 1 Evaluation Information Evaluation Date 02/15/24 Precautions Precautions Pt reported Rubber/Latex Allergy, voltrin and CBD allergic reaction. Requests no EStim. Necrosis of R humeral head. Neuropathy (pt notes from Eva Gonzalez) in LE's from knees distally (pain in feet, numbness in legs, and burning at night), with decreased balance (reported from mindy), chronic pain in upper back. PMH (per pt): depression controlled by meds, possible Fibromyalgia, history of L Ankle surgery (chencho, pins, screws). PT-OP-B Current Condition Start: 02/15/24 07:19 Freq: Status: Active Protocol: Document 02/15/24 11:18 LRN (Rec: 02/15/24 12:41 LRN [id number]) Current Condition History of Current Condition Onset Date 1 yr ago. Current Complaints Stabbing back pain at scapula bilaterally, L worse than R. History of Current Condition 1 yr ago got a stabbing pain in R scapula area, now is more in the L side. No previous history of upper back pain. Pt states her pain wakes her up at night when moving arms. She describes her pain as severe, and that it takes a day to recover from because she becomes physically exhausted by the pain. Her current activity level is low. She states she walks, ex's at the local gym on a recumbent bike and does errands around town. Two yrs ago she exercised in the gym with arm and leg workouts in addition to the cardio exercise. Prior Treatments and Tests -[facility] treatments of Dr. Fuller. -[facility] with treatments to the neck for trigger points (pt felt not helpful). She reports being given a creme in the past by Mr. Deutsch in the [facility] that had Gabapentin in it, but at the [facility] was given a prescription w/o Gabapentin and she didn't find it helpful. -Sleeps on ice. -Uses infrared heating pad. -Ms relaxors (prescription from Dr. Robertson: methalcarbinol-4000mg) sometimes helps. Treatment Goals Patient/Caregiver Goals Pt goals: - Improve sleep w/o severe pain while moving arms. - Lightly sweep without posterior scapular pain onset. - Independent with HEP and gym exer-cardio ex's. Personal Factors Other Personal Factors That May Effect -Depression, possible Therapy/Recovery Fibromyalgia. -Neuropathy (pt notes from Eva Gonzalez) in LE's from knees distally (pain in feet, numbness in legs, and burning at night), with decreased balance (reported from tessa?). -Chronic pain in upper back, -Doesn't have comfortable shoes to wear, (needs wide shoes to be comfortable), because without right support her feet feels like she is walking on rocks. PT-OP-C Subjective Start: 02/15/24 07:19 Freq: Status: Active Protocol: Document 05/03/24 08:05 AB (Rec: 05/03/24 12:54 AB [id number]) OP-PT Subjective Patient Comments Patient Comments Patient reports low back was painful on her trip, but mid back was OK. Patient reports she hasn't been that bad since previous session. AROM seated trunk rotation right< left. AROM right shoulder flexion 149 deg. PT-OP-H Neuro Start: 02/15/24 07:19 Freq: Status: Active Protocol: Document 02/15/24 11:18 LRN (Rec: 02/15/24 12:41 LRN [id number]) Sensation Evaluation Gross Sensation Gross Sensation WNL PT-OP-J Posture/Palpation/Skin Start: 02/15/24 07:19 Freq: Status: Active Protocol: Document 02/15/24 11:18 LRN (Rec: 02/15/24 12:41 LRN [id number]) Posture Evaluation Position Standing Head/C-Spine Posture Forward Head T-Spine Posture Increased Kyphosis L-Spine Posture Decreased Lordosis Shoulder Posture (L) Forward,(L) Elevated Arm Posture (L) Internally Rotated,(R) Internally Rotated Comments Posture Comments Dowagers hump, straightened T2 -T4 spine, increased curve ~ T11-12, very mild C-curve of T /S with apex on the L (~ T5). Palpation Assessment Location Shoulders Palpation Location L Posterior Deltoid Palpation Details Atrophy Intrascapular region Palpation Location Rhomboids, Paraspinals Palpation Details L side muscle guarding, Neck Palpation Location L Cervical paraspinals & R UT Palpation Findings Soft Tissue Tightness, Tenderness PT-OP-K Range of Motion Start: 02/15/24 07:19 Freq: Status: Active Protocol: Document 04/30/24 09:51 LRN (Rec: 04/30/24 10:44 LRN [id number]) Lumbar Spine Range of Motion Lumbar Spine Active Degrees Testing Position Standing Flexion 47 Rotation Left 20 Rotation Right 20 Lateral Flexion Left 10 Lateral Flexion Right 10 Comments NOTE: pt on ms relaxor Flex 55 deg's (level of pain 4 /10) SB L: 12 deg's, R 10 deg's Rot: 45 deg's. Hip Goniometric Range of Motion Hip Right Passive Testing Position Supine Internal Rotation 40 External Rotation 70 Left Passive Testing Position Supine Internal Rotation 30 External Rotation 45 PT-OP-L Special Tests Start: 02/15/24 07:19 Freq: Status: Active Protocol: Document 02/20/24 09:52 LRN (Rec: 02/20/24 10:57 LRN [id number]) Special Tests Cervical Spine Special Tests Vertebral Artery Test Results negative Traction Test Results negative Foraminal Compression Test Results negative PT-OP-M Strength Start: 02/15/24 07:19 Freq: Status: Active Protocol: Document 02/22/24 08:21 LRN (Rec: 02/22/24 09:08 LRN [id number]) Cervical Spine Strength Cervical Spine Manual Muscle Testing Flexion (C1-2) 4 Good Extension 5 Normal Rotation Left 3 Fair Rotation Right 3- Fair- Lateral Flexion Left (C3) 4 Good Lateral Flexion Right (C3) 4 Good Comments L rotation the pt uses occiptal ms more to rotate, R rot pt uses upper body to rotate. PT-OP-Q Treatments Start: 02/15/24 07:19 Freq: Status: Active Protocol: Document 05/03/24 08:05 AB (Rec: 05/03/24 12:54 AB [id number]) Cardio Equipment Upper Body Ergometer (UBE) Duration (Minutes) 3 RPM 60 Height standing 6 Other one minute fwd one min backward Therapeutic Exercises Supine Exercises CS rotation on occipital float Side bilateral Resistance AROM Equipment Used head on blue floating ball Reps/Minutes 3 min Comments VC for slowly and pain free Upper trunk rot stretch Supine Exercise Name UE's LTR rot stretch (arm moving side to side) Side bilateral Reps/Minutes 10 SH x 5' Comments Cued to have eyes follow hands . Standing Exercises counter bird dog Standing Exercise Name HEP Side bilateral Reps/Minutes X5 Comments verbal and visual cues thoracic rotation in counter plank Standing Exercise Name HEP Side bilateral Reps/Minutes X5 each side Comments verbal and visual cues, monitored for pain Other Exercises cat cow Other Exercise Name in forearm counter plank postion Reps/Minutes X10 Comments Verbal and visual cues Manual Therapy Treatment Soft Tissue Mobilization STM T/S Body Location Thoracic paraspinals, Mobilization Type Cross-Friction,Sustained Pressure Intensity/Depth Moderate Body Position Sitting Joint Mobilizations scapular mobilization Joint scapular Direction into depression and adduction Grade III Body Position Sitting Reps/Duration X10 each direction each UE PT-OP-T Assessment and Plan Start: 02/15/24 07:19 Freq: Status: Active Protocol: Document 05/03/24 08:05 AB (Rec: 05/03/24 12:54 AB [id number]) Physical Therapy Assessment Goals Four Impairment Chronic LBP rated 6/10 (norm is 3-8/10). Short Term Goal (STG) Improve trunk ROM (3-5 deg's) to be able to bend down to sweep up dust after sweeping with pain no greater than 4/10 . STG Duration 8 wks-06/25/24 Senior Living Goal (LTG) Improve Low back mobility (5- 10 deg's) to lessen pain with putting dishes in change management consultant on bottom shelf, or to transfer dishes into a bottom shelf, or bending over to sort laundry or bend over to carry it to washer w/o pain. LTG Duration 12 wks-07/24/24 Three Impairment Upper back weakness with onset of intrascapular pain with use of arms. Impairment UE Quickdash score 47.72 (47.7 % impaired, score 40-59). LUIZA score 23/50 or 46/100 (46% impaired, score 40-59). Neck Disability Index score 27 (40 to 59% Impaired, Score 20 -29) Short Term Goal (STG) Pt will be educated in self care pain management with use of positioning and use of cryotherapy. 03/26/24: Pt educated in self care pain mgmg w/use of cryotherapy and positioning discussed. STG Duration 5 wks-03/22/24 (03/26/24: MET GOAL) Senior Living Goal (LTG) Pt will be able to lightly sweep without onset of posterior scapular pain. 03/26/24: UE Quickdash score 22.5 (22.5% impaired, score 20 -39). Neck Disability Index is 19 ( 20-39% impaired, score 29-39). LUIZA is 54/100 (40-59% impaired , score 40-59). 04/30/24: If concentrates on proper ADL mechanics the LBP is less. LBP is limiting sweeping LTG Duration 12 wks-07/24/24 updated Two Impairment Sleep interruption of intrascapular pain with movement of arms. Short Term Goal (STG) Pt will be educated in sleeping positions with support to UE's and neutral spine positioning, and proper sit/stand posture. 03/07/24: time spent standing wt shift/stance changes, spinal support when squat. 03/14/24: Pt educated in supine neutral positioning and recommended not placing pillow support under knees at bedtime. 03/26/24: Pt educated in proper sit/stand posture. STG Duration 5 wks-03/22/24 (03/26/24: MET GOAL) Senior Living Goal (LTG) Pt will be able to improve sleep w/o severe pain onset while moving arms. 03/18/2024 reports Severe UE pain when waking up now down to 3-4 days a week. 03/20/2024 Body mechanics review with handouts for vacuuming and picking up items , keeping items close and bending at hips and knees. Discussed weaning off knees being positioned bent in supine. Verbalized and positioned pillow under UE in sidelying, but patient reports she does not sleep sidelying 03/28/23: continued ed proper body/spinal alignment PPT/ soft knee and mechanics housework, wt shift between BLEs and use pillows sleeping propping does. 04/02/2024 Patient reports she has not had the severe arm pain with waking up in about a week. 04/05/24: she reports her arms feel little fuzzy but not hurting when wake up but back mostly pain. Utilized pillows for propping and make a difference in comfort and sleep, 5 hrs. 04/09/24: Sleeping a couple weeks w/o the severe pain, fingers only stiff. 04/30/24: L elbow pain with moving in bed. LTG Duration 12 wks-07/24/24 updated One Impairment HEP Short Term Goal (STG) Pt will be educated in proper body mechanics for ADLs and be able to return to cardio gym exers w/o onset of back pain. 03/18/2024 discussed light pushing items with foot to see if they slide as a test prior to attempting to lift items, and also note the size/ awkwardness of the item. Patient performed the slide test on PAUL and BOSU. 03/26/24: Educated pt in body mechanics for ADLs. 04/02/2024: Demonstrated developer prover mechanical of lifting waist level ( pivot) and overhead using patient's keys as very light weight for patient trials. STG Duration 8 wks-06/25/24 04/08/24: met goal for ed of body mech, need return to ex Agency Manager Goal (LTG) Pt will be independent with a HEP of neck, shoulder and upper/lower back ROM and strengthening ex's. 02/20/24: HEP: Deep breathing & Trunk rot stretch 03/20/2024 counter cat cow on forearms and CS rotation AROM in counter position added to HEP 04/02/2025 open book added to HEP. 04/30/24: HEP: PIriformis, Lateral hip, Fig 4, Hip flexor (Haseeb Test Position) stretch. 05/03/2024 Progressed to counter plank bird dog and thoracic rotation this session , reps limited, but able to perform with good tech. LTG Duration 12 wks-07/24/24 progressed 04/30/24 Assessment Summary Assessment AROM right shoulder to 150 deg end of session, very slight increase, of note patient does have significantly more AROM in supine vs standing right shoulder flexion. Physical Therapy Plan Frequency and Duration Frequency of Treatment 2x/Week Duration of treatment (weeks) 12 Plan of Care Start Date 04/30/24 Plan of Care End Date 07/24/24 Next Visit Focus/Plan Next Note Type Treatment Note Next Visit Plan Education: posture sit & stand. Start: Chronic Back rehab w/ continued Upper back/neck/shdr rehab. Start ROM/ strengthening of back and upper back (HEP for same), to include trunk extensors but focus focus on flexion./Assess cesar to bird dog and thread needle in counter plank Work toward carryover of TA tightening in standing, using breath and maintaining spinal alignment. Progress cervical (SB ex's), decr T/S kyphosis, & manual mob to decr pain with mvmt. Ther Ex Ex & HEP: Cont neck, shoulder ROM and strengthening ex's. Manual: MFR & JMT to T/S and STM if needed. Modalities: Modality if needed to improve cesar to stretches (MH, ice).
--- NOTE | 2024-05-06 10:29 | PT.OTN ---
Current Diagnoses Other chronic pain (05/06/24) Pain in thoracic spine (05/06/24) Myalgia, other site (05/06/24) Physical Therapy Treatment Note PT-OP-A Visit Information Start: 02/15/24 07:19 Freq: Status: Active Protocol: Document 05/06/24 09:49 SP (Rec: 05/06/24 10:31 SP [id number]) Out-Patient Physical Therapy Visit Information Visit Information Visit Type Treatment Note Visit Note 04/17 Visit Start Time 09:49 Visit Stop Time 10: Visit Number 17 Number of INFORMATION CONSULTANT Visits 2 Evaluation Information Evaluation Date 02/15/24 Precautions Precautions Pt reported Rubber/Latex Allergy, voltrin and CBD allergic reaction. Requests no EStim. Necrosis of R humeral head. Neuropathy (pt notes from Eva Gonzalez) in LE's from knees distally (pain in feet, numbness in legs, and burning at night), with decreased balance (reported from mindy), chronic pain in upper back. PMH (per pt): depression controlled by meds, possible Fibromyalgia, history of L Ankle surgery (chencho, pins, screws). PT-OP-B Current Condition Start: 02/15/24 07:19 Freq: Status: Active Protocol: Document 02/15/24 11:18 LRN (Rec: 02/15/24 12:41 LRN [id number]) Current Condition History of Current Condition Onset Date 1 yr ago. Current Complaints Stabbing back pain at scapula bilaterally, L worse than R. History of Current Condition 1 yr ago got a stabbing pain in R scapula area, now is more in the L side. No previous history of upper back pain. Pt states her pain wakes her up at night when moving arms. She describes her pain as severe, and that it takes a day to recover from because she becomes physically exhausted by the pain. Her current activity level is low. She states she walks, ex's at the local gym on a recumbent bike and does errands around town. Two yrs ago she exercised in the gym with arm and leg workouts in addition to the cardio exercise. Prior Treatments and Tests -[facility] treatments of Dr. Fuller. -[facility] with treatments to the neck for trigger points (pt felt not helpful). She reports being given a creme in the past by Mr. Deutsch in the [facility] that had Gabapentin in it, but at the [facility] was given a prescription w/o Gabapentin and she didn't find it helpful. -Sleeps on ice. -Uses infrared heating pad. -Ms relaxors (prescription from Dr. Robertson: methalcarbinol-4000mg) sometimes helps. Treatment Goals Patient/Caregiver Goals Pt goals: - Improve sleep w/o severe pain while moving arms. - Lightly sweep without posterior scapular pain onset. - Independent with HEP and gym exer-cardio ex's. Personal Factors Other Personal Factors That May Effect -Depression, possible Therapy/Recovery Fibromyalgia. -Neuropathy (pt notes from Eva Gonzalez) in LE's from knees distally (pain in feet, numbness in legs, and burning at night), with decreased balance (reported from tessa?). -Chronic pain in upper back, -Doesn't have comfortable shoes to wear, (needs wide shoes to be comfortable), because without right support her feet feels like she is walking on rocks. PT-OP-C Subjective Start: 02/15/24 07:19 Freq: Status: Active Protocol: Document 05/06/24 09:49 SP (Rec: 05/06/24 10:31 SP [id number]) OP-PT Subjective Patient Comments Patient Comments Pt reports her low back is bothering her at arrival. Has been helping daughter prepare for a new dog, organizing and moving furniture due to is room go through to get to backyard. PT-OP-H Neuro Start: 02/15/24 07:19 Freq: Status: Active Protocol: Document 02/15/24 11:18 LRN (Rec: 02/15/24 12:41 LRN [id number]) Sensation Evaluation Gross Sensation Gross Sensation WNL PT-OP-J Posture/Palpation/Skin Start: 02/15/24 07:19 Freq: Status: Active Protocol: Document 02/15/24 11:18 LRN (Rec: 02/15/24 12:41 LRN [id number]) Posture Evaluation Position Standing Head/C-Spine Posture Forward Head T-Spine Posture Increased Kyphosis L-Spine Posture Decreased Lordosis Shoulder Posture (L) Forward,(L) Elevated Arm Posture (L) Internally Rotated,(R) Internally Rotated Comments Posture Comments Dowagers hump, straightened T2 -T4 spine, increased curve ~ T11-12, very mild C-curve of T /S with apex on the L (~ T5). Palpation Assessment Location Shoulders Palpation Location L Posterior Deltoid Palpation Details Atrophy Intrascapular region Palpation Location Rhomboids, Paraspinals Palpation Details L side muscle guarding, Neck Palpation Location L Cervical paraspinals & R UT Palpation Findings Soft Tissue Tightness, Tenderness PT-OP-K Range of Motion Start: 02/15/24 07:19 Freq: Status: Active Protocol: Document 04/30/24 09:51 LRN (Rec: 04/30/24 10:44 LRN [id number]) Lumbar Spine Range of Motion Lumbar Spine Active Degrees Testing Position Standing Flexion 47 Rotation Left 20 Rotation Right 20 Lateral Flexion Left 10 Lateral Flexion Right 10 Comments NOTE: pt on ms relaxor Flex 55 deg's (level of pain 4 /10) SB L: 12 deg's, R 10 deg's Rot: 45 deg's. Hip Goniometric Range of Motion Hip Right Passive Testing Position Supine Internal Rotation 40 External Rotation 70 Left Passive Testing Position Supine Internal Rotation 30 External Rotation 45 PT-OP-L Special Tests Start: 02/15/24 07:19 Freq: Status: Active Protocol: Document 02/20/24 09:52 LRN (Rec: 02/20/24 10:57 LRN [id number]) Special Tests Cervical Spine Special Tests Vertebral Artery Test Results negative Traction Test Results negative Foraminal Compression Test Results negative PT-OP-M Strength Start: 02/15/24 07:19 Freq: Status: Active Protocol: Document 02/22/24 08:21 LRN (Rec: 02/22/24 09:08 LRN [id number]) Cervical Spine Strength Cervical Spine Manual Muscle Testing Flexion (C1-2) 4 Good Extension 5 Normal Rotation Left 3 Fair Rotation Right 3- Fair- Lateral Flexion Left (C3) 4 Good Lateral Flexion Right (C3) 4 Good Comments L rotation the pt uses occiptal ms more to rotate, R rot pt uses upper body to rotate. PT-OP-Q Treatments Start: 02/15/24 07:19 Freq: Status: Active Protocol: Document 05/06/24 09:49 SP (Rec: 05/06/24 10:31 SP [id number]) Cardio Equipment Upper Body Ergometer (UBE) Duration (Minutes) 4 RPM 60 Height standing 6 Other 2 minute fwd 2 min backward Therapeutic Exercises Standing Exercises resisted shoulder extension Standing Exercise Name Initiated in PT Resistance Tb #3 [place] in PT( will bring hers next tx) Reps/Minutes x15 Comments cued postural alignment, elbow straight. counter bird dog Standing Exercise Name reviewed HEP- UE/LE ext- Side bilateral Equipment Used counter Reps/Minutes X5 Comments verbal and visual cues as needed for back align & not to high LE ext thoracic rotation in counter plank Standing Exercise Name HEP Side bilateral Resistance Thread needle AROM both direction (HABD<>HADD) Reps/Minutes X5 each side Comments verbal and visual cues, monitored pnfree range Sweeping motion Standing Exercise Name Con/ECC strengthening for sweeping- HEP reviewed Side bilateral Resistance Lev2 TB/Cane- anchored in door Reps/Minutes 15 reps each side Comments Cuing to shift wgt and move at hips vs trunk rotating Self-Care/Home Management Treatment Education Patient Education Home Exercise Program Other Education Time spent standing and seated posture support into LS on couch, recliner, standing kitchen activities (HERMINIO/soft knee, Neutral pelvis, wt shift between BLEs vs trunk rotation). Verbalized understanding and uses pillow on couch. PT-OP-T Assessment and Plan Start: 02/15/24 07:19 Freq: Status: Active Protocol: Document 05/06/24 09:49 SP (Rec: 05/06/24 10:31 SP [id number]) Physical Therapy Assessment Goals Four Impairment Chronic LBP rated 6/10 (norm is 3-8/10). Short Term Goal (STG) Improve trunk ROM (3-5 deg's) to be able to bend down to sweep up dust after sweeping with pain no greater than 4/10 . STG Duration 8 wks-06/25/24 Dishtank Operator Goal (LTG) Improve Low back mobility (5- 10 deg's) to lessen pain with putting dishes in underground bolting machine operator on bottom shelf, or to transfer dishes into a bottom shelf, or bending over to sort laundry or bend over to carry it to washer w/o pain. LTG Duration 12 wks-07/24/24 Three Impairment Upper back weakness with onset of intrascapular pain with use of arms. Impairment UE Quickdash score 47.72 (47.7 % impaired, score 40-59). LUIZA score 23/50 or 46/100 (46% impaired, score 40-59). Neck Disability Index score 27 (40 to 59% Impaired, Score 20 -29) Short Term Goal (STG) Pt will be educated in self care pain management with use of positioning and use of cryotherapy. 03/26/24: Pt educated in self care pain mgmg w/use of cryotherapy and positioning discussed. STG Duration 5 wks-03/22/24 (03/26/24: MET GOAL) Skilled Nursing Goal (LTG) Pt will be able to lightly sweep without onset of posterior scapular pain. 03/26/24: UE Quickdash score 22.5 (22.5% impaired, score 20 -39). Neck Disability Index is 19 ( 20-39% impaired, score 29-39). LUIZA is 54/100 (40-59% impaired , score 40-59). 04/30/24: If concentrates on proper ADL mechanics the LBP is less. LBP is limiting sweeping LTG Duration 12 wks-07/24/24 updated Two Impairment Sleep interruption of intrascapular pain with movement of arms. Short Term Goal (STG) Pt will be educated in sleeping positions with support to UE's and neutral spine positioning, and proper sit/stand posture. 03/07/24: time spent standing wt shift/stance changes, spinal support when squat. 03/14/24: Pt educated in supine neutral positioning and recommended not placing pillow support under knees at bedtime. 03/26/24: Pt educated in proper sit/stand posture. STG Duration 5 wks-03/22/24 (03/26/24: MET GOAL) Dishtank Operator Goal (LTG) Pt will be able to improve sleep w/o severe pain onset while moving arms. 03/18/2024 reports Severe UE pain when waking up now down to 3-4 days a week. 03/20/2024 Body mechanics review with handouts for vacuuming and picking up items , keeping items close and bending at hips and knees. Discussed weaning off knees being positioned bent in supine. Verbalized and positioned pillow under UE in sidelying, but patient reports she does not sleep sidelying 03/28/23: continued ed proper body/spinal alignment PPT/ soft knee and mechanics housework, wt shift between BLEs and use pillows sleeping propping does. 04/02/2024 Patient reports she has not had the severe arm pain with waking up in about a week. 04/05/24: she reports her arms feel little fuzzy but not hurting when wake up but back mostly pain. Utilized pillows for propping and make a difference in comfort and sleep, 5 hrs. 04/09/24: Sleeping a couple weeks w/o the severe pain, fingers only stiff. 04/30/24: L elbow pain with moving in bed. LTG Duration 12 wks-07/24/24 updated One Impairment HEP Short Term Goal (STG) Pt will be educated in proper body mechanics for ADLs and be able to return to cardio gym exers w/o onset of back pain. 03/18/2024 discussed light pushing items with foot to see if they slide as a test prior to attempting to lift items, and also note the size/ awkwardness of the item. Patient performed the slide test on PAUL and BOSU. 03/26/24: Educated pt in body mechanics for ADLs. 04/02/2024: Demonstrated supervisor instrument mechanics of lifting waist level ( pivot) and overhead using patient's keys as very light weight for patient trials. STG Duration 8 wks-06/25/24 04/08/24: met goal for ed of body mech, need return to ex Skilled Nursing Goal (LTG) Pt will be independent with a HEP of neck, shoulder and upper/lower back ROM and strengthening ex's. 02/20/24: HEP: Deep breathing & Trunk rot stretch 03/20/2024 counter cat cow on forearms and CS rotation AROM in counter position added to HEP 04/02/2025 open book added to HEP. 04/30/24: HEP: PIriformis, Lateral hip, Fig 4, Hip flexor (Haseeb Test Position) stretch. 05/03/2024 Progressed to counter plank bird dog and thoracic rotation this session , reps limited, but able to perform with good tech. LTG Duration 12 wks-07/24/24 progressed 04/30/24 Assessment Summary Assessment Pt responded well to addition of resistance exercise, during sweeping motion, cues for postural alignment and wt shift within HREMINIO with ed mindful of TA engagement /c LS to with report no back recruitment vs typically stationary stance and rotates LS. Occasional cues for back straight alignment during incline HEP: modified bird dog and TS rotation with improved neutral spine form and reports of no pain. Physical Therapy Plan Frequency and Duration Frequency of Treatment 2x/Week Duration of treatment (weeks) 12 Plan of Care Start Date 04/30/24 Plan of Care End Date 07/24/24 Therapeutic Interventions Therapeutic Interventions Balance Training,Home Exercise Program,Joint Mobilizations, Manual Therapy,Neuromuscular Re-education,Self-Care/Home Management,Soft Tissue Mobilization,Therapeutic Activities,Therapeutic Exercises Modalities Cold Pack/Ice Massage,Hot Packs,Ultrasound Next Visit Focus/Plan Next Note Type Treatment Note Next Visit Plan Start: Chronic Back rehab w/ continued Upper back/neck/shdr rehab. Start ROM/ strengthening of back and upper back (HEP for same), to include trunk extensors but focus focus on flexion./Assess cesar to bird dog and thread needle in counter plank Work toward carryover of TA tightening in standing, using breath and maintaining spinal alignment. Progress cervical (SB ex's), decr T/S kyphosis, & manual mob to decr pain with mvmt. Ther Ex Ex & HEP: Cont neck, shoulder ROM and strengthening ex's. Manual: MFR & JMT to T/S and STM if needed. Modalities: Modality if needed to improve cesar to stretches (MH, ice).
--- NOTE | 2024-05-08 10:31 | PT.OTN ---
Current Diagnoses Other chronic pain (05/08/24) Pain in thoracic spine (05/08/24) Myalgia, other site (05/08/24) Physical Therapy Treatment Note PT-OP-A Visit Information Start: 02/15/24 07:19 Freq: Status: Active Protocol: Document 05/08/24 09:51 SP (Rec: 05/08/24 10:36 SP [id number]) Out-Patient Physical Therapy Visit Information Visit Information Visit Type Treatment Note Visit Note 05/18 Visit Start Time 09:51 Visit Stop Time 10:31 Visit Number 18 Number of AUTOMATIC LINE SET UP MECHANIC Visits 3 Evaluation Information Evaluation Date 02/15/24 Precautions Precautions Pt reported Rubber/Latex Allergy, voltrin and CBD allergic reaction. Requests no EStim. Necrosis of R humeral head. Neuropathy (pt notes from Eva Gonzalez) in LE's from knees distally (pain in feet, numbness in legs, and burning at night), with decreased balance (reported from mindy), chronic pain in upper back. PMH (per pt): depression controlled by meds, possible Fibromyalgia, history of L Ankle surgery (chencho, pins, screws). PT-OP-B Current Condition Start: 02/15/24 07:19 Freq: Status: Active Protocol: Document 02/15/24 11:18 LRN (Rec: 02/15/24 12:41 LRN [id number]) Current Condition History of Current Condition Onset Date 1 yr ago. Current Complaints Stabbing back pain at scapula bilaterally, L worse than R. History of Current Condition 1 yr ago got a stabbing pain in R scapula area, now is more in the L side. No previous history of upper back pain. Pt states her pain wakes her up at night when moving arms. She describes her pain as severe, and that it takes a day to recover from because she becomes physically exhausted by the pain. Her current activity level is low. She states she walks, ex's at the local gym on a recumbent bike and does errands around town. Two yrs ago she exercised in the gym with arm and leg workouts in addition to the cardio exercise. Prior Treatments and Tests -[facility] treatments of Dr. Fuller. -[facility] with treatments to the neck for trigger points (pt felt not helpful). She reports being given a creme in the past by Mr. Deutsch in the [facility] that had Gabapentin in it, but at the [facility] was given a prescription w/o Gabapentin and she didn't find it helpful. -Sleeps on ice. -Uses infrared heating pad. -Ms relaxors (prescription from Dr. Robertson: methalcarbinol-4000mg) sometimes helps. Treatment Goals Patient/Caregiver Goals Pt goals: - Improve sleep w/o severe pain while moving arms. - Lightly sweep without posterior scapular pain onset. - Independent with HEP and gym exer-cardio ex's. Personal Factors Other Personal Factors That May Effect -Depression, possible Therapy/Recovery Fibromyalgia. -Neuropathy (pt notes from Eva Gonzalez) in LE's from knees distally (pain in feet, numbness in legs, and burning at night), with decreased balance (reported from tessa?). -Chronic pain in upper back, -Doesn't have comfortable shoes to wear, (needs wide shoes to be comfortable), because without right support her feet feels like she is walking on rocks. PT-OP-C Subjective Start: 02/15/24 07:19 Freq: Status: Active Protocol: Document 05/08/24 09:51 SP (Rec: 05/08/24 10:36 SP [id number]) OP-PT Subjective Patient Comments Patient Comments Pt reports forgot bring her bands to assess proper resistance for HEP, did see bands to light or hard. She had to take Gabapentin due to leg activity trying to sleep. Will talk to physician and give feedback feet and legs feel like being squeezed more in afternoon and burning. PT-OP-H Neuro Start: 02/15/24 07:19 Freq: Status: Active Protocol: Document 02/15/24 11:18 LRN (Rec: 02/15/24 12:41 LRN [id number]) Sensation Evaluation Gross Sensation Gross Sensation WNL PT-OP-J Posture/Palpation/Skin Start: 02/15/24 07:19 Freq: Status: Active Protocol: Document 02/15/24 11:18 LRN (Rec: 02/15/24 12:41 LRN [id number]) Posture Evaluation Position Standing Head/C-Spine Posture Forward Head T-Spine Posture Increased Kyphosis L-Spine Posture Decreased Lordosis Shoulder Posture (L) Forward,(L) Elevated Arm Posture (L) Internally Rotated,(R) Internally Rotated Comments Posture Comments Dowagers hump, straightened T2 -T4 spine, increased curve ~ T11-12, very mild C-curve of T /S with apex on the L (~ T5). Palpation Assessment Location Shoulders Palpation Location L Posterior Deltoid Palpation Details Atrophy Intrascapular region Palpation Location Rhomboids, Paraspinals Palpation Details L side muscle guarding, Neck Palpation Location L Cervical paraspinals & R UT Palpation Findings Soft Tissue Tightness, Tenderness PT-OP-K Range of Motion Start: 02/15/24 07:19 Freq: Status: Active Protocol: Document 04/30/24 09:51 LRN (Rec: 04/30/24 10:44 LRN [id number]) Lumbar Spine Range of Motion Lumbar Spine Active Degrees Testing Position Standing Flexion 47 Rotation Left 20 Rotation Right 20 Lateral Flexion Left 10 Lateral Flexion Right 10 Comments NOTE: pt on ms relaxor Flex 55 deg's (level of pain 4 /10) SB L: 12 deg's, R 10 deg's Rot: 45 deg's. Hip Goniometric Range of Motion Hip Right Passive Testing Position Supine Internal Rotation 40 External Rotation 70 Left Passive Testing Position Supine Internal Rotation 30 External Rotation 45 PT-OP-L Special Tests Start: 02/15/24 07:19 Freq: Status: Active Protocol: Document 02/20/24 09:52 LRN (Rec: 02/20/24 10:57 LRN [id number]) Special Tests Cervical Spine Special Tests Vertebral Artery Test Results negative Traction Test Results negative Foraminal Compression Test Results negative PT-OP-M Strength Start: 02/15/24 07:19 Freq: Status: Active Protocol: Document 02/22/24 08:21 LRN (Rec: 02/22/24 09:08 LRN [id number]) Cervical Spine Strength Cervical Spine Manual Muscle Testing Flexion (C1-2) 4 Good Extension 5 Normal Rotation Left 3 Fair Rotation Right 3- Fair- Lateral Flexion Left (C3) 4 Good Lateral Flexion Right (C3) 4 Good Comments L rotation the pt uses occiptal ms more to rotate, R rot pt uses upper body to rotate. PT-OP-Q Treatments Start: 02/15/24 07:19 Freq: Status: Active Protocol: Document 05/08/24 09:51 SP (Rec: 05/08/24 10:36 SP [id number]) Therapeutic Exercises Standing Exercises sink stretch Standing Exercise Name trialed with good feedback added to HEP Side bilateral Equipment Used hands on counter or post stable Reps/Minutes 15 SH x3 Comments cued soft knee, back straight hip hinge, lean b, good LS decompress stretch paloff press Standing Exercise Name trialed in PT- added to HEP Side bilateral Resistance TB #3 limegreen latex free Reps/Minutes x15 Comments cued feet shld width, soft knee unlock, TURRET LATHE SET UP OPERATOR, tall postural alignment resisted shoulder extension Standing Exercise Name added to HEP Resistance Tb #3 seminole green latex free Reps/Minutes 2x15 Comments cued postural alignment, elbow straight, scap draw together. Sweeping motion Standing Exercise Name Con/ECC strengthening for sweeping- HEP reviewed Side bilateral Resistance Lev3 TB/Cane- anchored in door Reps/Minutes 215 reps each side Comments Cuing to shift wt and move at hips vs trunk rotating-[employer] home Self-Care/Home Management Treatment Education Patient Education Home Exercise Program Other Education Time spent standing posture, wt shifts and discussion shredding paper (now height device), ed wt shift vs sitting down and wt shift over each pelvs and TURRET LATHE SET UP OPERATOR. Also height of paper in box not low limit bending repetitations needed think of ergonomic, pt verbalized would be more beneficial. PT-OP-T Assessment and Plan Start: 02/15/24 07:19 Freq: Status: Active Protocol: Document 05/08/24 09:51 SP (Rec: 05/08/24 10:36 SP [id number]) Physical Therapy Assessment Goals Four Impairment Chronic LBP rated 6/10 (norm is 3-8/10). Short Term Goal (STG) Improve trunk ROM (3-5 deg's) to be able to bend down to sweep up dust after sweeping with pain no greater than 4/10 . 05/08/24: 5-6/10 low back bending with cues for proper mechancis to hand picker items on floor with muscle relaxer but also take pain pill in afternoon to assist through day. Improved mechanics with ed sweeping wt shift not rotation soley. STG Duration 8 wks-06/25/24 progressing [facility] Goal (LTG) Improve Low back mobility (5- 10 deg's) to lessen pain with putting dishes in vocational services specialist on bottom shelf, or to transfer dishes into a bottom shelf, or bending over to sort laundry or bend over to carry it to washer w/o pain. LTG Duration 12 wks-07/24/24 Three Impairment Upper back weakness with onset of intrascapular pain with use of arms. Impairment UE Quickdash score 47.72 (47.7 % impaired, score 40-59). LUIZA score 23/50 or 46/100 (46% impaired, score 40-59). Neck Disability Index score 27 (40 to 59% Impaired, Score 20 -29) Short Term Goal (STG) Pt will be educated in self care pain management with use of positioning and use of cryotherapy. 03/26/24: Pt educated in self care pain mgmg w/use of cryotherapy and positioning discussed. 05/08/24: improved mechanics LS alignment and TA engement wt shift activities support back and use CP and MHP home for comfort STG Duration 5 wks-03/22/24 (03/26/24: MET GOAL) [facility] Goal (LTG) Pt will be able to lightly sweep without onset of posterior scapular pain. 03/26/24: UE Quickdash score 22.5 (22.5% impaired, score 20 -39). Neck Disability Index is 19 ( 20-39% impaired, score 29-39). LUIZA is 54/100 (40-59% impaired , score 40-59). 04/30/24: If concentrates on proper ADL mechanics the LBP is less. LBP is limiting sweeping 05/08/24: improved mechanics LS alignment and TA engement wt shift activities support back and use CP and MHP home for comfort LTG Duration 12 wks-07/24/24 updated Two Impairment Sleep interruption of intrascapular pain with movement of arms. Short Term Goal (STG) Pt will be educated in sleeping positions with support to UE's and neutral spine positioning, and proper sit/stand posture. 03/07/24: time spent standing wt shift/stance changes, spinal support when squat. 03/14/24: Pt educated in supine neutral positioning and recommended not placing pillow support under knees at bedtime. 03/26/24: Pt educated in proper sit/stand posture. STG Duration 5 wks-03/22/24 (03/26/24: MET GOAL) [facility] Goal (LTG) Pt will be able to improve sleep w/o severe pain onset while moving arms. 03/18/2024 reports Severe UE pain when waking up now down to 3-4 days a week. 03/20/2024 Body mechanics review with handouts for vacuuming and picking up items , keeping items close and bending at hips and knees. Discussed weaning off knees being positioned bent in supine. Verbalized and positioned pillow under UE in sidelying, but patient reports she does not sleep sidelying 03/28/23: continued ed proper body/spinal alignment PPT/ soft knee and mechanics housework, wt shift between BLEs and use pillows sleeping propping does. 04/02/2024 Patient reports she has not had the severe arm pain with waking up in about a week. 04/05/24: she reports her arms feel little fuzzy but not hurting when wake up but back mostly pain. Utilized pillows for propping and make a difference in comfort and sleep, 5 hrs. 04/09/24: Sleeping a couple weeks w/o the severe pain, fingers only stiff. 04/30/24: L elbow pain with moving in bed. 05/08/24: reports elbow stiff and some discomfort / when peforms ROM lessens for warm up . LTG Duration 12wks- 07/24/24 progressing One Impairment HEP Short Term Goal (STG) Pt will be educated in proper body mechanics for ADLs and be able to return to cardio gym exers w/o onset of back pain. 03/18/2024 discussed light pushing items with foot to see if they slide as a test prior to attempting to lift items, and also note the size/ awkwardness of the item. Patient performed the slide test on PAUL and BOSU. 03/26/24: Educated pt in body mechanics for ADLs. 04/02/2024: Demonstrated manufacturing mechanic of lifting waist level ( pivot) and overhead using patient's keys as very light weight for patient trials. STG Duration 8 wks-06/25/24 04/08/24: met goal for ed of body mech, need return to ex Electrical Unit Rebuilder Goal (LTG) Pt will be independent with a HEP of neck, shoulder and upper/lower back ROM and strengthening ex's. 02/20/24: HEP: Deep breathing & Trunk rot stretch 03/20/2024 counter cat cow on forearms and CS rotation AROM in counter position added to HEP 04/02/2025 open book added to HEP. 04/30/24: HEP: PIriformis, Lateral hip, Fig 4, Hip flexor (Haseeb Test Position) stretch. 05/03/2024 Progressed to counter plank bird dog and thoracic rotation this session , reps limited, but able to perform with good tech. 05/08/24: added paloff press, resisted shld ext, previous incline TS rotation and bird dog off counter with pnfre response. LTG Duration 12 wks-07/24/24 progressed 05/08/24 Assessment Summary Assessment Cued pt for proper form and postural/spinal alignment with good feedback muscle tiring with resisted HEP. Added paloff press no adverse affects, provided HO. REview better form self sink stretch vs behinding over at waist to floor with good response. Spent more time with body mechanics shredding with elevate, not bending. same surface wt shfit not trunk rotate, reports found benefiical information would help her back. Physical Therapy Plan Frequency and Duration Frequency of Treatment 2x/Week Duration of treatment (weeks) 12 Plan of Care Start Date 04/30/24 Plan of Care End Date 07/24/24 Therapeutic Interventions Therapeutic Interventions Balance Training,Home Exercise Program,Joint Mobilizations, Manual Therapy,Neuromuscular Re-education,Self-Care/Home Management,Soft Tissue Mobilization,Therapeutic Activities,Therapeutic Exercises Modalities Cold Pack/Ice Massage,Hot Packs,Ultrasound Next Visit Focus/Plan Next Note Type Treatment Note Next Visit Plan Start: Chronic Back rehab w/ continued Upper back/neck/shdr rehab. Start ROM/ strengthening of back and upper back (HEP for same), to include trunk extensors but focus focus on flexion./Assess cesar to bird dog and thread needle in counter plank Work toward carryover of TA tightening in standing, using breath and maintaining spinal alignment. Progress cervical (SB ex's), decr T/S kyphosis, & manual mob to decr pain with mvmt. Ther Ex Ex & HEP: Cont neck, shoulder ROM and strengthening ex's. Manual: MFR & JMT to T/S and STM if needed. Modalities: Modality if needed to improve cesar to stretches (MH, ice).
--- NOTE | 2024-05-24 14:30 | PT.OTN ---
Current Diagnoses Other chronic pain (05/24/24) Pain in thoracic spine (05/24/24) Myalgia, other site (05/24/24) Physical Therapy Treatment Note PT-OP-A Visit Information Start: 02/15/24 07:19 Freq: Status: Active Protocol: Document 05/24/24 13:52 SP (Rec: 05/24/24 14:34 SP [id number]) Out-Patient Physical Therapy Visit Information Visit Information Visit Type Treatment Note Visit Note 02/15 after PN Visit Start Time 13:52 Visit Stop Time 14:30 Visit Number 19 Number of ROGUER Visits 4 Evaluation Information Evaluation Date 02/15/24 Precautions Precautions Pt reported Rubber/Latex Allergy, voltrin and CBD allergic reaction. Requests no EStim. Necrosis of R humeral head. Neuropathy (pt notes from Eva Gonzalez) in LE's from knees distally (pain in feet, numbness in legs, and burning at night), with decreased balance (reported from tessa?), chronic pain in upper back. PMH (per pt): depression controlled by meds, possible Fibromyalgia, history of L Ankle surgery (chencho, pins, screws). PT-OP-B Current Condition Start: 02/15/24 07:19 Freq: Status: Active Protocol: Document 02/15/24 11:18 LRN (Rec: 02/15/24 12:41 LRN [id number]) Current Condition History of Current Condition Onset Date 1 yr ago. Current Complaints Stabbing back pain at scapula bilaterally, L worse than R. History of Current Condition 1 yr ago got a stabbing pain in R scapula area, now is more in the L side. No previous history of upper back pain. Pt states her pain wakes her up at night when moving arms. She describes her pain as severe, and that it takes a day to recover from because she becomes physically exhausted by the pain. Her current activity level is low. She states she walks, ex's at the local gym on a recumbent bike and does errands around town. Two yrs ago she exercised in the gym with arm and leg workouts in addition to the cardio exercise. Prior Treatments and Tests -[facility] treatments of Dr. Fuller. -[facility] with treatments to the neck for trigger points (pt felt not helpful). She reports being given a creme in the past by Mr. Deutsch in the [facility] that had Gabapentin in it, but at the [facility] was given a prescription w/o Gabapentin and she didn't find it helpful. -Sleeps on ice. -Uses infrared heating pad. -Ms relaxors (prescription from Dr. Robertson: methalcarbinol-4000mg) sometimes helps. Treatment Goals Patient/Caregiver Goals Pt goals: - Improve sleep w/o severe pain while moving arms. - Lightly sweep without posterior scapular pain onset. - Independent with HEP and gym exer-cardio ex's. Personal Factors Other Personal Factors That May Effect -Depression, possible Therapy/Recovery Fibromyalgia. -Neuropathy (pt notes from Eva Gonzalez) in LE's from knees distally (pain in feet, numbness in legs, and burning at night), with decreased balance (reported from tessa?). -Chronic pain in upper back, -Doesn't have comfortable shoes to wear, (needs wide shoes to be comfortable), because without right support her feet feels like she is walking on rocks. PT-OP-C Subjective Start: 02/15/24 07:19 Freq: Status: Active Protocol: Document 05/24/24 13:52 SP (Rec: 05/24/24 14:34 SP [id number]) OP-PT Subjective Patient Comments Patient Comments Pt reports fractured R 5th MTP chasing new young puppy. She is still taking lydocaine on neck and muscle relaxors am, Vicadin for low back, feet and neck 3x/wk. She feels is improving in daily activities, trying be mindful of incorporating proper body mechanics and compliant with HEP. PT-OP-H Neuro Start: 02/15/24 07:19 Freq: Status: Active Protocol: Document 02/15/24 11:18 LRN (Rec: 02/15/24 12:41 LRN [id number]) Sensation Evaluation Gross Sensation Gross Sensation WNL PT-OP-J Posture/Palpation/Skin Start: 02/15/24 07:19 Freq: Status: Active Protocol: Document 02/15/24 11:18 LRN (Rec: 02/15/24 12:41 LRN [id number]) Posture Evaluation Position Standing Head/C-Spine Posture Forward Head T-Spine Posture Increased Kyphosis L-Spine Posture Decreased Lordosis Shoulder Posture (L) Forward,(L) Elevated Arm Posture (L) Internally Rotated,(R) Internally Rotated Comments Posture Comments Dowagers hump, straightened T2 -T4 spine, increased curve ~ T11-12, very mild C-curve of T /S with apex on the L (~ T5). Palpation Assessment Location Shoulders Palpation Location L Posterior Deltoid Palpation Details Atrophy Intrascapular region Palpation Location Rhomboids, Paraspinals Palpation Details L side muscle guarding, Neck Palpation Location L Cervical paraspinals & R UT Palpation Findings Soft Tissue Tightness, Tenderness PT-OP-K Range of Motion Start: 02/15/24 07:19 Freq: Status: Active Protocol: Document 04/30/24 09:51 LRN (Rec: 04/30/24 10:44 LRN [id number]) Lumbar Spine Range of Motion Lumbar Spine Active Degrees Testing Position Standing Flexion 47 Rotation Left 20 Rotation Right 20 Lateral Flexion Left 10 Lateral Flexion Right 10 Comments NOTE: pt on ms relaxor Flex 55 deg's (level of pain 4 /10) SB L: 12 deg's, R 10 deg's Rot: 45 deg's. Hip Goniometric Range of Motion Hip Right Passive Testing Position Supine Internal Rotation 40 External Rotation 70 Left Passive Testing Position Supine Internal Rotation 30 External Rotation 45 PT-OP-L Special Tests Start: 02/15/24 07:19 Freq: Status: Active Protocol: Document 02/20/24 09:52 LRN (Rec: 02/20/24 10:57 LRN [id number]) Special Tests Cervical Spine Special Tests Vertebral Artery Test Results negative Traction Test Results negative Foraminal Compression Test Results negative PT-OP-M Strength Start: 02/15/24 07:19 Freq: Status: Active Protocol: Document 02/22/24 08:21 LRN (Rec: 02/22/24 09:08 LRN [id number]) Cervical Spine Strength Cervical Spine Manual Muscle Testing Flexion (C1-2) 4 Good Extension 5 Normal Rotation Left 3 Fair Rotation Right 3- Fair- Lateral Flexion Left (C3) 4 Good Lateral Flexion Right (C3) 4 Good Comments L rotation the pt uses occiptal ms more to rotate, R rot pt uses upper body to rotate. PT-OP-Q Treatments Start: 02/15/24 07:19 Freq: Status: Active Protocol: Document 05/24/24 13:52 SP (Rec: 05/24/24 14:34 SP [id number]) Therapeutic Exercises Standing Exercises TA step ups Standing Exercise Name trialed in PT: challenging lead LLE postural stability Side bilateral Equipment Used rail support PRN Reps/Minutes 5 reps each LE Comments reports no pain but unsteady due to Giabarre squat<> over head reach Standing Exercise Name trialed in PT: functional flexion, UE strength Side bilateral Resistance 4.4 lb small wt ball Reps/Minutes 5 reps x2 sets Comments cued square up, squat with straight back, LE TA support to standing paloff press Standing Exercise Name Reviewed HEP Side bilateral Resistance TB #3 limegreen latex free Reps/Minutes x15 Comments cued feet shld width, soft knee unlock, SLEEP TECH, tall postural alignment resisted shoulder extension Standing Exercise Name HEP reviewed Resistance Tb #3 elim ira green latex free Reps/Minutes 2x15 Comments cued postural alignment, elbow straight, scap draw together. counter bird dog Standing Exercise Name reviewed HEP- UE/LE ext- Side bilateral Equipment Used counter Reps/Minutes 10 alternate, pause 3-5 sec hold Comments good neutral spine form- pnfree reported thoracic rotation in counter plank Standing Exercise Name HEP Side bilateral Resistance Thread needle AROM both direction (HABD<>HADD) Reps/Minutes X5 each side Comments verbal and visual cues, monitored pnfree range Sweeping motion Standing Exercise Name Con/ECC strengthening for sweeping- HEP reviewed Side bilateral Resistance Lev3 TB/Cane- anchored in door Reps/Minutes 215 reps each side Comments Cuing to shift wt and move at hips vs trunk rotating-incorp home PT-OP-T Assessment and Plan Start: 02/15/24 07:19 Freq: Status: Active Protocol: Document 05/24/24 13:52 SP (Rec: 05/24/24 14:34 SP [id number]) Physical Therapy Assessment Goals Four Impairment Chronic LBP rated 6/10 (norm is 3-8/10). Short Term Goal (STG) Improve trunk ROM (3-5 deg's) to be able to bend down to sweep up dust after sweeping with pain no greater than 4/10 . 05/08/24: 5-6/10 low back bending with cues for proper mechancis to nut picker items on floor with muscle relaxer but also take pain pill in afternoon to assist through day. Improved mechanics with ed sweeping wt shift not rotation soley. 05/24/24: laying low activity out side home with busy dogs mid back 2-3/10, neck 6/10, low back 7/10 moving stuff around/not paying attention. Better about body mechanics instructed with sweeping/ shredding paper. STG Duration 8 wks-06/25/24 progressing Game Attendant Goal (LTG) Improve Low back mobility (5- 10 deg's) to lessen pain with putting dishes in sorter/assay tech on bottom shelf, or to transfer dishes into a bottom shelf, or bending over to sort laundry or bend over to carry it to washer w/o pain. 05/24/24 conscious using legs 5 /10 with med support. Has appt to set up referral for new pain clinic LTG Duration 12 wks-07/24/24 progressing Three Impairment Upper back weakness with onset of intrascapular pain with use of arms. Impairment UE Quickdash score 47.72 (47.7 % impaired, score 40-59). LUIZA score 23/50 or 46/100 (46% impaired, score 40-59). Neck Disability Index score 27 (40 to 59% Impaired, Score 20 -29) Short Term Goal (STG) Pt will be educated in self care pain management with use of positioning and use of cryotherapy. 03/26/24: Pt educated in self care pain mgmg w/use of cryotherapy and positioning discussed. 05/08/24: improved mechanics LS alignment and TA engement wt shift activities support back and use CP and MHP home for comfort STG Duration 5 wks-03/22/24 (03/26/24: MET GOAL) Snf Goal (LTG) Pt will be able to lightly sweep without onset of posterior scapular pain. 03/26/24: UE Quickdash score 22.5 (22.5% impaired, score 20 -39). Neck Disability Index is 19 ( 20-39% impaired, score 29-39). LUIZA is 54/100 (40-59% impaired , score 40-59). 04/30/24: If concentrates on proper ADL mechanics the LBP is less. LBP is limiting sweeping 05/08/24: improved mechanics LS alignment and TA engement wt shift activities support back and use CP and MHP home for comfort 05/24/24: 5/10 overall with activities. LTG Duration 12 wks-07/24/24 updated Two Impairment Sleep interruption of intrascapular pain with movement of arms. Short Term Goal (STG) Pt will be educated in sleeping positions with support to UE's and neutral spine positioning, and proper sit/stand posture. 03/07/24: time spent standing wt shift/stance changes, spinal support when squat. 03/14/24: Pt educated in supine neutral positioning and recommended not placing pillow support under knees at bedtime. 03/26/24: Pt educated in proper sit/stand posture. STG Duration 5 wks-03/22/24 (03/26/24: MET GOAL) Snf Goal (LTG) Pt will be able to improve sleep w/o severe pain onset while moving arms. 03/18/2024 reports Severe UE pain when waking up now down to 3-4 days a week. 03/20/2024 Body mechanics review with handouts for vacuuming and picking up items , keeping items close and bending at hips and knees. Discussed weaning off knees being positioned bent in supine. Verbalized and positioned pillow under UE in sidelying, but patient reports she does not sleep sidelying 03/28/23: continued ed proper body/spinal alignment PPT/ soft knee and mechanics housework, wt shift between BLEs and use pillows sleeping propping does. 04/02/2024 Patient reports she has not had the severe arm pain with waking up in about a week. 04/05/24: she reports her arms feel little fuzzy but not hurting when wake up but back mostly pain. Utilized pillows for propping and make a difference in comfort and sleep, 5 hrs. 04/09/24: Sleeping a couple weeks w/o the severe pain, fingers only stiff. 04/30/24: L elbow pain with moving in bed. 05/08/24: reports elbow stiff and some discomfort 1/10 when peforms ROM lessens for warm up . 05/24/24: arms fine, legs pain with 5-10 min laying down burning/ numbing/fuzzy/ prickly sensation limited once in bed and try find position to calm down to fall asleep. LTG Duration 12wks- 07/24/24 progressing One Impairment HEP Short Term Goal (STG) Pt will be educated in proper body mechanics for ADLs and be able to return to cardio gym exers w/o onset of back pain. 03/18/2024 discussed light pushing items with foot to see if they slide as a test prior to attempting to lift items, and also note the size/ awkwardness of the item. Patient performed the slide test on PAUL and BOSU. 03/26/24: Educated pt in body mechanics for ADLs. 04/02/2024: Demonstrated locomotive mechanic apprentice of lifting waist level ( pivot) and overhead using patient's keys as very light weight for patient trials. STG Duration 8 wks-06/25/24 04/08/24: met goal for ed of body mech, need return to ex Snf Goal (LTG) Pt will be independent with a HEP of neck, shoulder and upper/lower back ROM and strengthening ex's. 02/20/24: HEP: Deep breathing & Trunk rot stretch 03/20/2024 counter cat cow on forearms and CS rotation AROM in counter position added to HEP 04/02/2025 open book added to HEP. 04/30/24: HEP: PIriformis, Lateral hip, Fig 4, Hip flexor (Haseeb Test Position) stretch. 05/03/2024 Progressed to counter plank bird dog and thoracic rotation this session , reps limited, but able to perform with good tech. 05/08/24: added paloff press, resisted shld ext, previous incline TS rotation and bird dog off counter with pnfre response. 05/24/24: HEP 05/08 idenified helping good stretch to back, neck. LTG Duration 12 wks-07/24/24 progressed 05/24/24 Assessment Summary Assessment Pt reports no increased pain with activity still -03/18. Little more muscular tension in mid back but does not limit her during trialed squat to OH raise but went away once standing, motion has to do to nut picker after young puppy. Occasional cues for posture and foot positioning during ther ex, especially sweeping motion including wt shift between BLEs vs just arms. Physical Therapy Plan Frequency and Duration Frequency of Treatment 2x/Week Duration of treatment (weeks) 12 Plan of Care Start Date 04/30/24 Plan of Care End Date 07/24/24 Therapeutic Interventions Therapeutic Interventions Balance Training,Home Exercise Program,Joint Mobilizations, Manual Therapy,Neuromuscular Re-education,Self-Care/Home Management,Soft Tissue Mobilization,Therapeutic Activities,Therapeutic Exercises Modalities Cold Pack/Ice Massage,Hot Packs,Ultrasound Next Visit Focus/Plan Next Note Type Treatment Note Next Visit Plan Continue body mechanics during ex assimulate ADLs (sweeping motion, squat nut picker items) and postural alignment during HEP. Continue progress Chronic Back rehab w/continued Upper back/ neck/shdr rehab. Work toward carryover of TA tightening in standing, using breath and maintaining spinal alignment. Progress cervical (SB ex's), decr T/S kyphosis, & manual mob to decr pain with mvmt. Ther Ex Ex & HEP: Cont neck, shoulder ROM and strengthening ex's. Manual: MFR & JMT to T/S and STM if needed. Modalities: Modality if needed to improve cesar to stretches (MH, ice).
--- NOTE | 2024-05-28 11:57 | PT.OTN ---
Current Diagnoses Other chronic pain (05/28/24) Pain in thoracic spine (05/28/24) Myalgia, other site (05/28/24) Physical Therapy Treatment Note PT-OP-A Visit Information Start: 02/15/24 07:19 Freq: Status: Active Protocol: Document 05/28/24 10:33 LRN (Rec: 05/28/24 11:55 LRN [id number]) Out-Patient Physical Therapy Visit Information Visit Information Visit Type Treatment Note Visit Note 03/18 after PN Visit Start Time 10:34 Visit Stop Time 11:18 Visit Number 20 Evaluation Information Evaluation Date 02/15/24 Precautions Precautions Pt reported Rubber/Latex Allergy, voltrin and CBD allergic reaction. Requests no EStim. Necrosis of R humeral head. Neuropathy (pt notes from Eva Gonzalez) in LE's from knees distally (pain in feet, numbness in legs, and burning at night), with decreased balance (reported from tessa?), chronic pain in upper back. PMH (per pt): depression controlled by meds, possible Fibromyalgia, history of L Ankle surgery (chencho, pins, screws). PT-OP-B Current Condition Start: 02/15/24 07:19 Freq: Status: Active Protocol: Document 02/15/24 11:18 LRN (Rec: 02/15/24 12:41 LRN [id number]) Current Condition History of Current Condition Onset Date 1 yr ago. Current Complaints Stabbing back pain at scapula bilaterally, L worse than R. History of Current Condition 1 yr ago got a stabbing pain in R scapula area, now is more in the L side. No previous history of upper back pain. Pt states her pain wakes her up at night when moving arms. She describes her pain as severe, and that it takes a day to recover from because she becomes physically exhausted by the pain. Her current activity level is low. She states she walks, ex's at the local gym on a recumbent bike and does errands around town. Two yrs ago she exercised in the gym with arm and leg workouts in addition to the cardio exercise. Prior Treatments and Tests -[facility] treatments of Dr. Fuller. -[facility] with treatments to the neck for trigger points (pt felt not helpful). She reports being given a creme in the past by Mr. Deutsch in the [facility] that had Gabapentin in it, but at the [facility] was given a prescription w/o Gabapentin and she didn't find it helpful. -Sleeps on ice. -Uses infrared heating pad. -Ms relaxors (prescription from Dr. Robertson: methalcarbinol-4000mg) sometimes helps. Treatment Goals Patient/Caregiver Goals Pt goals: - Improve sleep w/o severe pain while moving arms. - Lightly sweep without posterior scapular pain onset. - Independent with HEP and gym exer-cardio ex's. Personal Factors Other Personal Factors That May Effect -Depression, possible Therapy/Recovery Fibromyalgia. -Neuropathy (pt notes from Eva Gonzalez) in LE's from knees distally (pain in feet, numbness in legs, and burning at night), with decreased balance (reported from tessa?). -Chronic pain in upper back, -Doesn't have comfortable shoes to wear, (needs wide shoes to be comfortable), because without right support her feet feels like she is walking on rocks. PT-OP-C Subjective Start: 02/15/24 07:19 Freq: Status: Active Protocol: Document 05/28/24 10:33 LRN (Rec: 05/28/24 11:55 LRN [id number]) OP-PT Subjective Patient Comments Patient Comments Fx'd baby toe 2.5 wks ago. Upper back not as bad, it the lower back that is irritated when doing things. LBP with activity is 5-6/10, if concentrating on mechanics/ posture pain is 4/10. Sleeping pretty good, can move arms in bed w/o increased pain, but legs have pain after 5 minutes. When remembering to bend knees to sweep, unload digital communications manager and do laundry her pain is less than usual of 7/ 10. PT-OP-H Neuro Start: 02/15/24 07:19 Freq: Status: Active Protocol: Document 02/15/24 11:18 LRN (Rec: 02/15/24 12:41 LRN [id number]) Sensation Evaluation Gross Sensation Gross Sensation WNL PT-OP-J Posture/Palpation/Skin Start: 02/15/24 07:19 Freq: Status: Active Protocol: Document 02/15/24 11:18 LRN (Rec: 02/15/24 12:41 LRN [id number]) Posture Evaluation Position Standing Head/C-Spine Posture Forward Head T-Spine Posture Increased Kyphosis L-Spine Posture Decreased Lordosis Shoulder Posture (L) Forward,(L) Elevated Arm Posture (L) Internally Rotated,(R) Internally Rotated Comments Posture Comments Dowagers hump, straightened T2 -T4 spine, increased curve ~ T11-12, very mild C-curve of T /S with apex on the L (~ T5). Palpation Assessment Location Shoulders Palpation Location L Posterior Deltoid Palpation Details Atrophy Intrascapular region Palpation Location Rhomboids, Paraspinals Palpation Details L side muscle guarding, Neck Palpation Location L Cervical paraspinals & R UT Palpation Findings Soft Tissue Tightness, Tenderness PT-OP-K Range of Motion Start: 02/15/24 07:19 Freq: Status: Active Protocol: Document 05/28/24 10:33 LRN (Rec: 05/28/24 11:55 LRN [id number]) Lumbar Spine Range of Motion Lumbar Spine Active Degrees Testing Position Standing Flexion 68 Extension 30 Rotation Left 10 Rotation Right 20 Lateral Flexion Left 15 Lateral Flexion Right 12 Comments Pt had muscle relaxor in AM. LBP with activity is 5-6/10, concentrating on mechanics/ posture pain is 4/10. PT-OP-L Special Tests Start: 02/15/24 07:19 Freq: Status: Active Protocol: Document 02/20/24 09:52 LRN (Rec: 02/20/24 10:57 LRN [id number]) Special Tests Cervical Spine Special Tests Vertebral Artery Test Results negative Traction Test Results negative Foraminal Compression Test Results negative PT-OP-M Strength Start: 02/15/24 07:19 Freq: Status: Active Protocol: Document 02/22/24 08:21 LRN (Rec: 02/22/24 09:08 LRN [id number]) Cervical Spine Strength Cervical Spine Manual Muscle Testing Flexion (C1-2) 4 Good Extension 5 Normal Rotation Left 3 Fair Rotation Right 3- Fair- Lateral Flexion Left (C3) 4 Good Lateral Flexion Right (C3) 4 Good Comments L rotation the pt uses occiptal ms more to rotate, R rot pt uses upper body to rotate. PT-OP-Q Treatments Start: 02/15/24 07:19 Freq: Status: Active Protocol: Document 05/28/24 10:33 LRN (Rec: 05/28/24 11:55 N [id number]) Therapeutic Exercises Standing Exercises D2 flex Standing Exercise Name trialed in PT: Functional bending for loading/unloading digital communications manager Equipment Used 1# & showed to do at home with Lev 1 TB Reps/Minutes 10x each Comments Cued postural alighnment: bend knees, back straight, TA tight. TA step ups Standing Exercise Name Step ups: more challenging lead LLE postural stability Side bilateral Equipment Used rail support PRN Reps/Minutes 10 reps each LE Comments reports no pain but unsteady due to Giabarre squat<> over head reach Standing Exercise Name functional flexion, UE strength Side bilateral Resistance 4.4 lb small wt ball Reps/Minutes 5 reps [id number] Comments cued square up, squat with straight back, LE TA support to standing paloff press Side bilateral Resistance 2 TB #3 limegreen latex free Reps/Minutes 2x 10 Comments cued feet shld width, soft knee unlock, VOLUNTEER PATIENT REPRESENTATIVE, tall postural alignment resisted shoulder extension Resistance Tb #3 [place] green latex free Reps/Minutes 3x15 Comments cued postural alignment, elbow straight, scap down/draw together. Trunk AROM Standing Exercise Name Trunk flex/ext/alan SB/alan Rot AROM Reps/Minutes 5' Comments ROM taken PT-OP-T Assessment and Plan Start: 02/15/24 07:19 Freq: Status: Active Protocol: Document 05/28/24 10:33 LRN (Rec: 05/28/24 11:55 [facility] [id number]) Physical Therapy Assessment Goals Four Impairment Chronic LBP rated 6/10 (norm is 3-8/10). Short Term Goal (STG) Improve trunk ROM (3-5 deg's) to be able to bend down to sweep up dust after sweeping with pain no greater than 4/10 . 05/08/24: 5-6/10 low back bending with cues for proper mechancis to turkey picker items on floor with muscle relaxer but also take pain pill in afternoon to assist through day. Improved mechanics with ed sweeping wt shift not rotation soley. 05/24/24: laying low activity out side home with busy dogs mid back 2-3/10, neck 6/10, low back 7/10 moving stuff around/not paying attention. Better about body mechanics instructed with sweeping/ shredding paper. 06/28/24: ROM goal achieved, pain 6/10 with sweeping. LBP with activity is 5-6/10, concentrating on mechanics/ posture pain is 4/10. STG Duration 8 wks-06/25/24 progressing Mcfp Goal (LTG) Improve Low back mobility (5- 10 deg's) to lessen pain with putting dishes in digital communications manager on bottom shelf, or to transfer dishes into a bottom shelf, or bending over to sort laundry or bend over to carry it to washer w/o pain. 05/24/24 conscious using legs 5 /10 with med support. Has appt to set up referral for new pain clinic. 05/28/24: ROM met for all except trunk R SB improved 2 deg's. LBP with activity is 5 -6/10, concentrating on mechanics/posture pain is 4/10 . LTG Duration 12 wks-07/24/24 progressing Three Impairment Upper back weakness with onset of intrascapular pain with use of arms. Impairment UE Quickdash score 47.72 (47.7 % impaired, score 40-59). LUIZA score 23/50 or 46/100 (46% impaired, score 40-59). Neck Disability Index score 27 (40 to 59% Impaired, Score 20 -29) Short Term Goal (STG) Pt will be educated in self care pain management with use of positioning and use of cryotherapy. 03/26/24: Pt educated in self care pain mgmg w/use of cryotherapy and positioning discussed. 05/08/24: improved mechanics LS alignment and TA engement wt shift activities support back and use CP and MHP home for comfort STG Duration 5 wks-03/22/24 (03/26/24: MET GOAL) Hand Slitter Goal (LTG) Pt will be able to lightly sweep without onset of posterior scapular pain. 03/26/24: UE Quickdash score 22.5 (22.5% impaired, score 20 -39). Neck Disability Index is 19 ( 20-39% impaired, score 29-39). LUIZA is 54/100 (40-59% impaired , score 40-59). 04/30/24: If concentrates on proper ADL mechanics the LBP is less. LBP is limiting sweeping 05/08/24: improved mechanics LS alignment and TA engement wt shift activities support back and use CP and MHP home for comfort 05/24/24: 5/10 overall with activities. LTG Duration 12 wks-07/24/24 updated Two Impairment Sleep interruption of intrascapular pain with movement of arms. Short Term Goal (STG) Pt will be educated in sleeping positions with support to UE's and neutral spine positioning, and proper sit/stand posture. 03/07/24: time spent standing wt shift/stance changes, spinal support when squat. 03/14/24: Pt educated in supine neutral positioning and recommended not placing pillow support under knees at bedtime. 03/26/24: Pt educated in proper sit/stand posture. STG Duration 5 wks-03/22/24 (03/26/24: MET GOAL) Mcfp Goal (LTG) Pt will be able to improve sleep w/o severe pain onset while moving arms. 03/18/2024 reports Severe UE pain when waking up now down to 3-4 days a week. 03/20/2024 Body mechanics review with handouts for vacuuming and picking up items , keeping items close and bending at hips and knees. Discussed weaning off knees being positioned bent in supine. Verbalized and positioned pillow under UE in sidelying, but patient reports she does not sleep sidelying 03/28/23: continued ed proper body/spinal alignment PPT/ soft knee and mechanics housework, wt shift between BLEs and use pillows sleeping propping does. 04/02/2024 Patient reports she has not had the severe arm pain with waking up in about a week. 04/05/24: she reports her arms feel little fuzzy but not hurting when wake up but back mostly pain. Utilized pillows for propping and make a difference in comfort and sleep, 5 hrs. 04/09/24: Sleeping a couple weeks w/o the severe pain, fingers only stiff. 04/30/24: L elbow pain with moving in bed. 05/08/24: reports elbow stiff and some discomfort 1/10 when peforms ROM lessens for warm up . 05/24/24: arms fine, legs pain with 5-10 min laying down burning/ numbing/fuzzy/ prickly sensation limited once in bed and try find position to calm down to fall asleep. 06/28/24: Sleeping w/o severe arm pain. LTG Duration 12wks- 07/24/24 (05/28/24: MET GOAL) One Impairment HEP Short Term Goal (STG) Pt will be educated in proper body mechanics for ADLs and be able to return to cardio gym exers w/o onset of back pain. 03/18/2024 discussed light pushing items with foot to see if they slide as a test prior to attempting to lift items, and also note the size/ awkwardness of the item. Patient performed the slide test on PAUL and BOSU. 03/26/24: Educated pt in body mechanics for ADLs. 04/02/2024: Demonstrated process mechanic of lifting waist level ( pivot) and overhead using patient's keys as very light weight for patient trials. STG Duration 8 wks-06/25/24 04/08/24: met goal for ed of body mech, need return to ex Mcfp Goal (LTG) Pt will be independent with a HEP of neck, shoulder and upper/lower back ROM and strengthening ex's. 02/20/24: HEP: Deep breathing & Trunk rot stretch 03/20/2024 counter cat cow on forearms and CS rotation AROM in counter position added to HEP 04/02/2025 open book added to HEP. 04/30/24: HEP: PIriformis, Lateral hip, Fig 4, Hip flexor (Haseeb Test Position) stretch. 05/03/2024 Progressed to counter plank bird dog and thoracic rotation this session , reps limited, but able to perform with good tech. 05/08/24: added paloff press, resisted shld ext, previous incline TS rotation and bird dog off counter with pnfre response. 05/24/24: HEP 05/08 idenified helping good stretch to back, neck. LTG Duration 12 wks-07/24/24 progressed 05/24/24 Assessment Summary Assessment 53 yo female w/initial posture , T/S mechanical & soft tissue dys, alan intrascapular, shdr, & lateral neck pain; now mostly c/o nighttime LE dyscomfort. Today she demonstrates improved trunk mobility and function, and less back (UB/LB) pain when pt concentrates on movement/core tightening; otherwise pain persists with functional movements of sweeping, squatting for laundry, and loading/unloading digital communications manager. Focus for the next 4-5 wks needs to be on core (LB/UB)/LE functional strengthening as mentioned above. Physical Therapy Plan Frequency and Duration Frequency of Treatment 2x/Week Duration of treatment (weeks) 12 Plan of Care Start Date 04/30/24 Plan of Care End Date 07/24/24 Next Visit Focus/Plan Next Note Type Treatment Note Next Visit Plan Assess UE QuickDASH score, & intrascapular pain onset with sweeping (LTG 3). Continue body mechanics during ex assimulate ADLs (sweeping motion, squat turkey picker items, PNF loading/unloading digital communications manager) and postural alignment during HEP. Continue progress Chronic Back rehab w/continued LB/LE's > neck/shdr rehab. Progress decr in LE pain at night with trunk/LE strengthening for functional mvmt. Work toward carryover of TA tightening in standing, using breath and maintaining spinal alignment. Ther Ex & HEP: Back/hips functional ROM and strengthening. Manual: MFR & JMT T/S kyphosis, mob if needed to decr pain with mvmt. Modalities: Modality if needed to improve cesar to stretches (MH, ice).
--- NOTE | 2024-05-31 17:31 | PT.OTN ---
Current Diagnoses Other chronic pain (05/31/24) Pain in thoracic spine (05/31/24) Myalgia, other site (05/31/24) Physical Therapy Treatment Note PT-OP-A Visit Information Start: 02/15/24 07:19 Freq: Status: Active Protocol: Document 05/31/24 09:52 LRN (Rec: 05/31/24 10:34 LRN [id number]) Out-Patient Physical Therapy Visit Information Visit Information Visit Type Treatment Note Visit Note 04/17 after PN Visit Start Time 09:52 Visit Stop Time 10:30 Visit Number 21 Evaluation Information Evaluation Date 02/15/24 Precautions Precautions Pt reported Rubber/Latex Allergy, voltrin and CBD allergic reaction. Requests no EStim. Necrosis of R humeral head. Neuropathy (pt notes from Eva Gonzalez) in LE's from knees distally (pain in feet, numbness in legs, and burning at night), with decreased balance (reported from mindy), chronic pain in upper back. PMH (per pt): depression controlled by meds, possible Fibromyalgia, history of L Ankle surgery (chencho, pins, screws). PT-OP-B Current Condition Start: 02/15/24 07:19 Freq: Status: Active Protocol: Document 02/15/24 11:18 LRN (Rec: 02/15/24 12:41 LRN [id number]) Current Condition History of Current Condition Onset Date 1 yr ago. Current Complaints Stabbing back pain at scapula bilaterally, L worse than R. History of Current Condition 1 yr ago got a stabbing pain in R scapula area, now is more in the L side. No previous history of upper back pain. Pt states her pain wakes her up at night when moving arms. She describes her pain as severe, and that it takes a day to recover from because she becomes physically exhausted by the pain. Her current activity level is low. She states she walks, ex's at the local gym on a recumbent bike and does errands around town. Two yrs ago she exercised in the gym with arm and leg workouts in addition to the cardio exercise. Prior Treatments and Tests -[facility] treatments of Dr. Fuller. -[facility] with treatments to the neck for trigger points (pt felt not helpful). She reports being given a creme in the past by Mr. Deutsch in the [facility] that had Gabapentin in it, but at the [facility] was given a prescription w/o Gabapentin and she didn't find it helpful. -Sleeps on ice. -Uses infrared heating pad. -Ms relaxors (prescription from Dr. Robertson: methalcarbinol-4000mg) sometimes helps. Treatment Goals Patient/Caregiver Goals Pt goals: - Improve sleep w/o severe pain while moving arms. - Lightly sweep without posterior scapular pain onset. - Independent with HEP and gym exer-cardio ex's. Personal Factors Other Personal Factors That May Effect -Depression, possible Therapy/Recovery Fibromyalgia. -Neuropathy (pt notes from Eva Gonzalez) in LE's from knees distally (pain in feet, numbness in legs, and burning at night), with decreased balance (reported from tessa?). -Chronic pain in upper back, -Doesn't have comfortable shoes to wear, (needs wide shoes to be comfortable), because without right support her feet feels like she is walking on rocks. PT-OP-C Subjective Start: 02/15/24 07:19 Freq: Status: Active Protocol: Document 05/31/24 09:52 LRN (Rec: 05/31/24 10:34 LRN [id number]) OP-PT Subjective Patient Comments Patient Comments States she has a migraine and did too much last session, flared her up, so her neck/ upper shoulders, is hurting her more from possibly the increased execise. Hasn't done housework, so her low back was not flared. Had to stay home and not do much. Neck pain rated 8/10. PT-OP-H Neuro Start: 02/15/24 07:19 Freq: Status: Active Protocol: Document 02/15/24 11:18 LRN (Rec: 02/15/24 12:41 LRN [id number]) Sensation Evaluation Gross Sensation Gross Sensation WNL PT-OP-J Posture/Palpation/Skin Start: 02/15/24 07:19 Freq: Status: Active Protocol: Document 02/15/24 11:18 LRN (Rec: 02/15/24 12:41 LRN [id number]) Posture Evaluation Position Standing Head/C-Spine Posture Forward Head T-Spine Posture Increased Kyphosis L-Spine Posture Decreased Lordosis Shoulder Posture (L) Forward,(L) Elevated Arm Posture (L) Internally Rotated,(R) Internally Rotated Comments Posture Comments Dowagers hump, straightened T2 -T4 spine, increased curve ~ T11-12, very mild C-curve of T /S with apex on the L (~ T5). Palpation Assessment Location Shoulders Palpation Location L Posterior Deltoid Palpation Details Atrophy Intrascapular region Palpation Location Rhomboids, Paraspinals Palpation Details L side muscle guarding, Neck Palpation Location L Cervical paraspinals & R UT Palpation Findings Soft Tissue Tightness, Tenderness PT-OP-K Range of Motion Start: 02/15/24 07:19 Freq: Status: Active Protocol: Document 05/28/24 10:33 LRN (Rec: 05/28/24 11:55 LRN [id number]) Lumbar Spine Range of Motion Lumbar Spine Active Degrees Testing Position Standing Flexion 68 Extension 30 Rotation Left 10 Rotation Right 20 Lateral Flexion Left 15 Lateral Flexion Right 12 Comments Pt had muscle relaxor in AM. LBP with activity is 5-6/10, concentrating on mechanics/ posture pain is 4/10. PT-OP-L Special Tests Start: 02/15/24 07:19 Freq: Status: Active Protocol: Document 02/20/24 09:52 LRN (Rec: 02/20/24 10:57 LRN [id number]) Special Tests Cervical Spine Special Tests Vertebral Artery Test Results negative Traction Test Results negative Foraminal Compression Test Results negative PT-OP-M Strength Start: 02/15/24 07:19 Freq: Status: Active Protocol: Document 02/22/24 08:21 LRN (Rec: 02/22/24 09:08 LRN [id number]) Cervical Spine Strength Cervical Spine Manual Muscle Testing Flexion (C1-2) 4 Good Extension 5 Normal Rotation Left 3 Fair Rotation Right 3- Fair- Lateral Flexion Left (C3) 4 Good Lateral Flexion Right (C3) 4 Good Comments L rotation the pt uses occiptal ms more to rotate, R rot pt uses upper body to rotate. PT-OP-Q Treatments Start: 02/15/24 07:19 Freq: Status: Active Protocol: Document 05/31/24 09:52 LRN (Rec: 05/31/24 10:34 LRN [id number]) Therapeutic Exercises Supine Exercises Hip Flexor stretch Side bilateral Reps/Minutes 5' Comments Extra time to determine max cesar stretch L hip IR stretch Supine Exercise Name Lateral Hip stretch Side left L hip ER stretch] Supine Exercise Name Fig 4 Side left Comments Cued ankle above or below the kneecap. KTC Side bilateral Reps/Minutes 2' Comments Cued to relax LB with KTC LTR Supine Exercise Name Lower trunk rot Side bilateral Reps/Minutes 2-3 SH X5 Comments cued TA engagement CS rotation on occipital float Side bilateral Resistance AROM Equipment Used head on blue floating ball Reps/Minutes 3 min Comments VC reminder for slowly and pain free Upper trunk rot stretch Supine Exercise Name UE's LTR rot stretch (arm moving side to side) Side bilateral Reps/Minutes 10 SH x 5' Comments Cued to have eyes follow hands . Sitting Exercises Scap pinches Sitting Exercise Name Shoulder rolls - pt more discomfort L side. Reps/Minutes 5x Comments Cued for motion of shoulder pinch Standing Exercises TA step ups Standing Exercise Name 6step ups Side bilateral Equipment Used rail support needed today Reps/Minutes 10 reps each LE Comments reports no pain but unsteady due to Guillian Floyd resisted shoulder extension Resistance Tb #2 [place] green latex free Reps/Minutes 1x15 Comments cued postural alignment, elbow straight, scap down/draw together. PT-OP-T Assessment and Plan Start: 02/15/24 07:19 Freq: Status: Active Protocol: Document 05/31/24 09:52 LRN (Rec: 05/31/24 10:34 LRN [id number]) Physical Therapy Assessment Goals Four Impairment Chronic LBP rated 6/10 (norm is 3-8/10). Short Term Goal (STG) Improve trunk ROM (3-5 deg's) to be able to bend down to sweep up dust after sweeping with pain no greater than 4/10 . 05/08/24: 5-6/10 low back bending with cues for proper mechancis to upper extremity surgeon items on floor with muscle relaxer but also take pain pill in afternoon to assist through day. Improved mechanics with ed sweeping wt shift not rotation soley. 05/24/24: laying low activity out side home with busy dogs mid back 2-3/10, neck 6/10, low back 7/10 moving stuff around/not paying attention. Better about body mechanics instructed with sweeping/ shredding paper. 06/28/24: ROM goal achieved, pain 6/10 with sweeping. LBP with activity is 5-6/10, concentrating on mechanics/ posture pain is 4/10. STG Duration 8 wks-06/25/24 progressing Alf Goal (LTG) Improve Low back mobility (5- 10 deg's) to lessen pain with putting dishes in firer kiln on bottom shelf, or to transfer dishes into a bottom shelf, or bending over to sort laundry or bend over to carry it to washer w/o pain. 05/24/24 conscious using legs 5 /10 with med support. Has appt to set up referral for new pain clinic. 05/28/24: ROM met for all except trunk R SB improved 2 deg's. LBP with activity is 5 -6/10, concentrating on mechanics/posture pain is 4/10 . LTG Duration 12 wks-07/24/24 progressing Three Impairment Upper back weakness with onset of intrascapular pain with use of arms. Impairment UE Quickdash score 47.72 (47.7 % impaired, score 40-59). LUIZA score 23/50 or 46/100 (46% impaired, score 40-59). Neck Disability Index score 27 (40 to 59% Impaired, Score 20 -29) Short Term Goal (STG) Pt will be educated in self care pain management with use of positioning and use of cryotherapy. 03/26/24: Pt educated in self care pain mgmg w/use of cryotherapy and positioning discussed. 05/08/24: improved mechanics LS alignment and TA engement wt shift activities support back and use CP and MHP home for comfort STG Duration 5 wks-03/22/24 (03/26/24: MET GOAL) Tensioning Machine Operator Goal (LTG) Pt will be able to lightly sweep without onset of posterior scapular pain. 03/26/24: UE Quickdash score 22.5 (22.5% impaired, score 20 -39). Neck Disability Index is 19 ( 20-39% impaired, score 29-39). LUIZA is 54/100 (40-59% impaired , score 40-59). 04/30/24: If concentrates on proper ADL mechanics the LBP is less. LBP is limiting sweeping 05/08/24: improved mechanics LS alignment and TA engement wt shift activities support back and use CP and MHP home for comfort 05/24/24: 5/10 overall with activities. LTG Duration 12 wks-07/24/24 updated One Impairment HEP Short Term Goal (STG) Pt will be educated in proper body mechanics for ADLs and be able to return to cardio gym exers w/o onset of back pain. 03/18/2024 discussed light pushing items with foot to see if they slide as a test prior to attempting to lift items, and also note the size/ awkwardness of the item. Patient performed the slide test on PAUL and BOSU. 03/26/24: Educated pt in body mechanics for ADLs. 04/02/2024: Demonstrated automotive glass mechanic of lifting waist level ( pivot) and overhead using patient's keys as very light weight for patient trials. STG Duration 8 wks-06/25/24 04/08/24: met goal for ed of body mech, need return to ex Tensioning Machine Operator Goal (LTG) Pt will be independent with a HEP of neck, shoulder and upper/lower back ROM and strengthening ex's. 02/20/24: HEP: Deep breathing & Trunk rot stretch 03/20/2024 counter cat cow on forearms and CS rotation AROM in counter position added to HEP 04/02/2025 open book added to HEP. 04/30/24: HEP: PIriformis, Lateral hip, Fig 4, Hip flexor (Haseeb Test Position) stretch. 05/03/2024 Progressed to counter plank bird dog and thoracic rotation this session , reps limited, but able to perform with good tech. 05/08/24: added paloff press, resisted shld ext, previous incline TS rotation and bird dog off counter with pnfre response. 05/24/24: HEP 05/08 idenified helping good stretch to back, neck. LTG Duration 12 wks-07/24/24 progressed 05/24/24 Assessment Summary Assessment 53 yo female w/initial posture , T/S mechanical & soft tissue dys, alan intrascapular, shdr, & lateral neck pain; now mostly c/o nighttime LE dyscomfort. Today the pt did not tolerate therapy well due to an increase in neck pain since last visit; therefore withheld UE/neck strengthening exercises. She was on the edge of nausea throughout therapy, but was able to do LE /core ex's. Pt neck pain reduced with therapy to 6/10. Physical Therapy Plan Frequency and Duration Frequency of Treatment 2x/Week Duration of treatment (weeks) 12 Plan of Care Start Date 04/30/24 Plan of Care End Date 07/24/24 Next Visit Focus/Plan Next Note Type Treatment Note Next Visit Plan Assess UE QuickDASH score, & intrascapular pain onset with sweeping (LTG 3). Continue body mechanics during ex assimulate ADLs (sweeping motion, squat upper extremity surgeon items, PNF loading/unloading firer kiln) and postural alignment during HEP. Continue progress Chronic Back rehab w/continued LB/LE's > neck/shdr rehab. Progress decr in LE pain at night with trunk/LE strengthening for functional mvmt. Work toward carryover of TA tightening in standing, using breath and maintaining spinal alignment. Ther Ex & HEP: Back/hips functional ROM and strengthening. Manual: MFR & JMT T/S kyphosis, mob if needed to decr pain with mvmt. Modalities: Modality if needed to improve cesar to stretches (MH, ice).
--- NOTE | 2024-06-04 14:30 | PT.OTN ---
Current Diagnoses Other chronic pain (06/04/24) Pain in thoracic spine (06/04/24) Myalgia, other site (06/04/24) Physical Therapy Treatment Note PT-OP-A Visit Information Start: 02/15/24 07:19 Freq: Status: Active Protocol: Document 06/04/24 13:52 SP (Rec: 06/04/24 15:06 SP [id number]) Out-Patient Physical Therapy Visit Information Visit Information Visit Type Treatment Note Visit Note 05/18 after PN Visit Start Time 13:52 Visit Stop Time 14:30 Visit Number 22 Number of MANAGER ESTATE Visits 1 Evaluation Information Evaluation Date 02/15/24 Precautions Precautions Pt reported Rubber/Latex Allergy, voltrin and CBD allergic reaction. Requests no EStim. Necrosis of R humeral head. Neuropathy (pt notes from Eva Gonzalez) in LE's from knees distally (pain in feet, numbness in legs, and burning at night), with decreased balance (reported from tessa?), chronic pain in upper back. PMH (per pt): depression controlled by meds, possible Fibromyalgia, history of L Ankle surgery (chencho, pins, screws). PT-OP-B Current Condition Start: 02/15/24 07:19 Freq: Status: Active Protocol: Document 02/15/24 11:18 LRN (Rec: 02/15/24 12:41 LRN [id number]) Current Condition History of Current Condition Onset Date 1 yr ago. Current Complaints Stabbing back pain at scapula bilaterally, L worse than R. History of Current Condition 1 yr ago got a stabbing pain in R scapula area, now is more in the L side. No previous history of upper back pain. Pt states her pain wakes her up at night when moving arms. She describes her pain as severe, and that it takes a day to recover from because she becomes physically exhausted by the pain. Her current activity level is low. She states she walks, ex's at the local gym on a recumbent bike and does errands around town. Two yrs ago she exercised in the gym with arm and leg workouts in addition to the cardio exercise. Prior Treatments and Tests -[facility] treatments of Dr. Fuller. -[facility] with treatments to the neck for trigger points (pt felt not helpful). She reports being given a creme in the past by Mr. Deutsch in the [facility] that had Gabapentin in it, but at the [facility] was given a prescription w/o Gabapentin and she didn't find it helpful. -Sleeps on ice. -Uses infrared heating pad. -Ms relaxors (prescription from Dr. Robertson: methalcarbinol-4000mg) sometimes helps. Treatment Goals Patient/Caregiver Goals Pt goals: - Improve sleep w/o severe pain while moving arms. - Lightly sweep without posterior scapular pain onset. - Independent with HEP and gym exer-cardio ex's. Personal Factors Other Personal Factors That May Effect -Depression, possible Therapy/Recovery Fibromyalgia. -Neuropathy (pt notes from Eva Gonzalez) in LE's from knees distally (pain in feet, numbness in legs, and burning at night), with decreased balance (reported from tessa?). -Chronic pain in upper back, -Doesn't have comfortable shoes to wear, (needs wide shoes to be comfortable), because without right support her feet feels like she is walking on rocks. PT-OP-C Subjective Start: 02/15/24 07:19 Freq: Status: Active Protocol: Document 06/04/24 13:52 SP (Rec: 06/04/24 15:06 SP [id number]) OP-PT Subjective Patient Comments Patient Comments Pt reports felt better after last tx with stretching and thought about it the previous tx think did to many reps and maybe contributed to pain. She states feels better when does exercises with a functional component vs just exercises. Patient Questionnaires Quick Dash- Upper Extremity Quick Dash UE Score 13.64 Quick Dash UE Impairment 1 to 19% Impaired (Score 1-19) PT-OP-H Neuro Start: 02/15/24 07:19 Freq: Status: Active Protocol: Document 02/15/24 11:18 LRN (Rec: 02/15/24 12:41 LRN [id number]) Sensation Evaluation Gross Sensation Gross Sensation WNL PT-OP-J Posture/Palpation/Skin Start: 02/15/24 07:19 Freq: Status: Active Protocol: Document 02/15/24 11:18 LRN (Rec: 02/15/24 12:41 LRN [id number]) Posture Evaluation Position Standing Head/C-Spine Posture Forward Head T-Spine Posture Increased Kyphosis L-Spine Posture Decreased Lordosis Shoulder Posture (L) Forward,(L) Elevated Arm Posture (L) Internally Rotated,(R) Internally Rotated Comments Posture Comments Dowagers hump, straightened T2 -T4 spine, increased curve ~ T11-12, very mild C-curve of T /S with apex on the L (~ T5). Palpation Assessment Location Shoulders Palpation Location L Posterior Deltoid Palpation Details Atrophy Intrascapular region Palpation Location Rhomboids, Paraspinals Palpation Details L side muscle guarding, Neck Palpation Location L Cervical paraspinals & R UT Palpation Findings Soft Tissue Tightness, Tenderness PT-OP-K Range of Motion Start: 02/15/24 07:19 Freq: Status: Active Protocol: Document 05/28/24 10:33 LRN (Rec: 05/28/24 11:55 LRN [id number]) Lumbar Spine Range of Motion Lumbar Spine Active Degrees Testing Position Standing Flexion 68 Extension 30 Rotation Left 10 Rotation Right 20 Lateral Flexion Left 15 Lateral Flexion Right 12 Comments Pt had muscle relaxor in AM. LBP with activity is 5-6/10, concentrating on mechanics/ posture pain is 4/10. PT-OP-L Special Tests Start: 02/15/24 07:19 Freq: Status: Active Protocol: Document 02/20/24 09:52 LRN (Rec: 02/20/24 10:57 LRN [id number]) Special Tests Cervical Spine Special Tests Vertebral Artery Test Results negative Traction Test Results negative Foraminal Compression Test Results negative PT-OP-M Strength Start: 02/15/24 07:19 Freq: Status: Active Protocol: Document 02/22/24 08:21 LRN (Rec: 02/22/24 09:08 LRN [id number]) Cervical Spine Strength Cervical Spine Manual Muscle Testing Flexion (C1-2) 4 Good Extension 5 Normal Rotation Left 3 Fair Rotation Right 3- Fair- Lateral Flexion Left (C3) 4 Good Lateral Flexion Right (C3) 4 Good Comments L rotation the pt uses occiptal ms more to rotate, R rot pt uses upper body to rotate. PT-OP-Q Treatments Start: 02/15/24 07:19 Freq: Status: Active Protocol: Document 06/04/24 13:52 SP (Rec: 06/04/24 15:06 SP [id number]) Therapeutic Exercises Supine Exercises Hip Flexor stretch Supine Exercise Name Haseeb stretch off side table Side bilateral Reps/Minutes 30 sec Comments Extra time to determine max cesar stretch L Piriformis stretch Supine Exercise Name Piriformis stretch Side bilateral Reps/Minutes 30 SH x2 Comments knee toward opp shld L hip ER stretch] Supine Exercise Name Fig 4 Side bilateral Reps/Minutes 30 x2 Comments Cued ankle above or below the kneecap. Upper trunk rot stretch Supine Exercise Name UE's LTR rot stretch (arm moving side to side) Side bilateral Reps/Minutes 10 SH x 5 reps Comments Cued to have eyes follow hands . Sitting Exercises Trunk rot stretch Sitting Exercise Name Hand on outside opp knee and rot head/shoulders to side of knee. Side bilateral Reps/Minutes 10 SH x 5 Comments Cued to breathe w/stretch and head rot to lead mvmt. Scap pinches Sitting Exercise Name Shoulder rolls up/back with ER TB. Resistance Tb #1 light blue Reps/Minutes 2x5 Comments good form, painfree. Standing Exercises CS neutral UE wall walking Standing Exercise Name trialed in PT Side bilateral Resistance TB #1 Reps/Minutes 20 ft- Cued elongated posture, CS neutral retraction Comments cued elbows fairly straight, shld down, little bigger than shld width D2 flex Standing Exercise Name trialed in PT: Functional bending for loading/unloading glass curvature gauger Side bilateral Resistance 1. 1 # DB PNF D2 flexion Equipment Used 2. 1# & showed to do at home Reps/Minutes 10x each Comments Cued postural alighnment: bend knees, back straight, TA tight. TA step ups Standing Exercise Name 6step ups Side bilateral Equipment Used no UE support Reps/Minutes 10 reps each LE Comments slight unsteady couple over sway eccentric down due to [place] squat<> over head reach Standing Exercise Name functional flexion, UE strength Side bilateral Resistance 4.4 lb small wt ball Reps/Minutes 5 reps x2sets Comments improved square up, squat with straight back, LE TA support to standing paloff press Side bilateral Resistance TB #3 limegreen latex free Reps/Minutes 2x 10 Comments cued feet shld width, soft knee unlock, PARTS IDENTIFIER, tall postural alignment PT-OP-T Assessment and Plan Start: 02/15/24 07:19 Freq: Status: Active Protocol: Document 06/04/24 13:52 SP (Rec: 06/04/24 15:06 SP [id number]) Physical Therapy Assessment Goals Four Impairment Chronic LBP rated 6/10 (norm is 3-8/10). Short Term Goal (STG) Improve trunk ROM (3-5 deg's) to be able to bend down to sweep up dust after sweeping with pain no greater than 4/10 . 05/08/24: 5-6/10 low back bending with cues for proper mechancis to pick pulling machine tender items on floor with muscle relaxer but also take pain pill in afternoon to assist through day. Improved mechanics with ed sweeping wt shift not rotation soley. 05/24/24: laying low activity out side home with busy dogs mid back 2-3/10, neck 6/10, low back 7/10 moving stuff around/not paying attention. Better about body mechanics instructed with sweeping/ shredding paper. 06/28/24: ROM goal achieved, pain 6/10 with sweeping. LBP with activity is 5-6/10, concentrating on mechanics/ posture pain is 4/10. STG Duration 8 wks-06/25/24 progressing Issuer Goal (LTG) Improve Low back mobility (5- 10 deg's) to lessen pain with putting dishes in glass curvature gauger on bottom shelf, or to transfer dishes into a bottom shelf, or bending over to sort laundry or bend over to carry it to washer w/o pain. 05/24/24 conscious using legs 5 /10 with med support. Has appt to set up referral for new pain clinic. 05/28/24: ROM met for all except trunk R SB improved 2 deg's. LBP with activity is 5 -6/10, concentrating on mechanics/posture pain is 4/10 . LTG Duration 12 wks-07/24/24 progressing Three Impairment Upper back weakness with onset of intrascapular pain with use of arms. Impairment UE Quickdash score 47.72 (47.7 % impaired, score 40-59). LUIZA score 23/50 or 46/100 (46% impaired, score 40-59). Neck Disability Index score 27 (40 to 59% Impaired, Score 20 -29) Short Term Goal (STG) Pt will be educated in self care pain management with use of positioning and use of cryotherapy. 03/26/24: Pt educated in self care pain mgmg w/use of cryotherapy and positioning discussed. 05/08/24: improved mechanics LS alignment and TA engement wt shift activities support back and use CP and MHP home for comfort STG Duration 5 wks-03/22/24 (03/26/24: MET GOAL) Issuer Goal (LTG) Pt will be able to lightly sweep without onset of posterior scapular pain. 03/26/24: UE Quickdash score 22.5 (22.5% impaired, score 20 -39). Neck Disability Index is 19 ( 20-39% impaired, score 29-39). LUIZA is 54/100 (40-59% impaired , score 40-59). 04/30/24: If concentrates on proper ADL mechanics the LBP is less. LBP is limiting sweeping 05/08/24: improved mechanics LS alignment and TA engement wt shift activities support back and use CP and MHP home for comfort 05/24/24: 5/10 overall with activities. 06/04/24: GOAL MET: reports if conscious of posture and proper form wt shift between BLE better, no pain. Quick Dash: score 13.64 (<19% impaired, increase from score 12.5 in April, But didnt' answer 1 question). LTG Duration 12 wks-07/24/24 GOAL MET One Impairment HEP Short Term Goal (STG) Pt will be educated in proper body mechanics for ADLs and be able to return to cardio gym exers w/o onset of back pain. 03/18/2024 discussed light pushing items with foot to see if they slide as a test prior to attempting to lift items, and also note the size/ awkwardness of the item. Patient performed the slide test on PAUL and BOSU. 03/26/24: Educated pt in body mechanics for ADLs. 04/02/2024: Demonstrated small engine mechanic of lifting waist level ( pivot) and overhead using patient's keys as very light weight for patient trials. STG Duration 8 wks-06/25/24 04/08/24: met goal for ed of body mech, need return to ex Issuer Goal (LTG) Pt will be independent with a HEP of neck, shoulder and upper/lower back ROM and strengthening ex's. 02/20/24: HEP: Deep breathing & Trunk rot stretch 03/20/2024 counter cat cow on forearms and CS rotation AROM in counter position added to HEP 04/02/2025 open book added to HEP. 04/30/24: HEP: PIriformis, Lateral hip, Fig 4, Hip flexor (Haseeb Test Position) stretch. 05/03/2024 Progressed to counter plank bird dog and thoracic rotation this session , reps limited, but able to perform with good tech. 05/08/24: added paloff press, resisted shld ext, previous incline TS rotation and bird dog off counter with pnfre response. 05/24/24: HEP 05/08 idenified helping good stretch to back, neck. LTG Duration 12 wks-07/24/24 progressed 05/24/24 Progress Towards Goals Progress Towards Goals Progressing Toward Goals Progress Comments MET LTG #3: no onset scapular pain if focus on body mechanics during daily activities. Assessment Summary Assessment Pt responded well to initial flexibility exercises with mid TS and BLEs. Occasional cues for elongated posture /c CS retraction neutral during ther ex to allow for spinal alignment, reduction back neck /midback discomfort tension. Pt reports no increase normal pain, no rating given. She continues need take muscle relaxers and pain meds for comfort. Physical Therapy Plan Frequency and Duration Frequency of Treatment 2x/Week Duration of treatment (weeks) 12 Plan of Care Start Date 04/30/24 Plan of Care End Date 07/24/24 Therapeutic Interventions Therapeutic Interventions Balance Training,Home Exercise Program,Joint Mobilizations, Manual Therapy,Neuromuscular Re-education,Self-Care/Home Management,Soft Tissue Mobilization,Therapeutic Activities,Therapeutic Exercises Modalities Cold Pack/Ice Massage,Hot Packs,Ultrasound Next Visit Focus/Plan Next Note Type Treatment Note Next Visit Plan Assess response to trial resisted postural alignment resisted UE wall walking and ther ex with functional mobiltiy component. POC: Continue body mechanics during ex assimulate ADLs ( sweeping motion, squat pick pulling machine tender items, PNF loading/unloading glass curvature gauger) and postural alignment during HEP. Continue progress Chronic Back rehab w/continued LB/LE's > neck/shdr rehab. Progress decr in LE pain at night with trunk/LE strengthening for functional mvmt. Work toward carryover of TA tightening in standing, using breath and maintaining spinal alignment. Ther Ex & HEP: Back/hips functional ROM and strengthening. Manual: MFR & JMT T/S kyphosis, mob if needed to decr pain with mvmt. Modalities: Modality if needed to improve cesar to stretches (MH, ice).
--- NOTE | 2024-06-06 17:39 | PT.OTN ---
Current Diagnoses Other chronic pain (06/06/24) Pain in thoracic spine (06/06/24) Myalgia, other site (06/06/24) Physical Therapy Treatment Note PT-OP-A Visit Information Start: 02/15/24 07:19 Freq: Status: Active Protocol: Document 06/06/24 09:51 LRN (Rec: 06/06/24 10:33 LRN [id number]) Out-Patient Physical Therapy Visit Information Visit Information Visit Type Progress Note Visit Note 06/18 after PN Visit Start Time 13:51 Visit Stop Time 14:30 Visit Number 23 Evaluation Information Evaluation Date 02/15/24 Precautions Precautions Pt reported Rubber/Latex Allergy, voltrin and CBD allergic reaction. Requests no EStim. Necrosis of R humeral head. Neuropathy (pt notes from Eva Gonzalez) in LE's from knees distally (pain in feet, numbness in legs, and burning at night), with decreased balance (reported from tessa?), chronic pain in upper back. PMH (per pt): depression controlled by meds, possible Fibromyalgia, history of L Ankle surgery (chencho, pins, screws). PT-OP-B Current Condition Start: 02/15/24 07:19 Freq: Status: Active Protocol: Document 02/15/24 11:18 LRN (Rec: 02/15/24 12:41 LRN [id number]) Current Condition History of Current Condition Onset Date 1 yr ago. Current Complaints Stabbing back pain at scapula bilaterally, L worse than R. History of Current Condition 1 yr ago got a stabbing pain in R scapula area, now is more in the L side. No previous history of upper back pain. Pt states her pain wakes her up at night when moving arms. She describes her pain as severe, and that it takes a day to recover from because she becomes physically exhausted by the pain. Her current activity level is low. She states she walks, ex's at the local gym on a recumbent bike and does errands around town. Two yrs ago she exercised in the gym with arm and leg workouts in addition to the cardio exercise. Prior Treatments and Tests -[facility] treatments of Dr. Fuller. -[facility] with treatments to the neck for trigger points (pt felt not helpful). She reports being given a creme in the past by Mr. Deutsch in the [facility] that had Gabapentin in it, but at the [facility] was given a prescription w/o Gabapentin and she didn't find it helpful. -Sleeps on ice. -Uses infrared heating pad. -Ms relaxors (prescription from Dr. Robertson: methalcarbinol-4000mg) sometimes helps. Treatment Goals Patient/Caregiver Goals Pt goals: - Improve sleep w/o severe pain while moving arms. - Lightly sweep without posterior scapular pain onset. - Independent with HEP and gym exer-cardio ex's. Personal Factors Other Personal Factors That May Effect -Depression, possible Therapy/Recovery Fibromyalgia. -Neuropathy (pt notes from Eva Gonzalez) in LE's from knees distally (pain in feet, numbness in legs, and burning at night), with decreased balance (reported from tessa?). -Chronic pain in upper back, -Doesn't have comfortable shoes to wear, (needs wide shoes to be comfortable), because without right support her feet feels like she is walking on rocks. PT-OP-C Subjective Start: 02/15/24 07:19 Freq: Status: Active Protocol: Document 06/06/24 09:51 LRN (Rec: 06/06/24 10:33 LRN [id number]) OP-PT Subjective Patient Comments Patient Comments Migraine still. Feels we did too much on last session with arms, so it irritated neck ( didn't feel bad at the time). Patient Questionnaires Neck Disability Index NDI Score 24 Neck Disability Index Impairment 20 to 39% Impaired (Score 10- 19) Oswestry Low Back Index Oswestry Score 32 Oswestry Impairment 20 to 39% Impaired (Score 20- 39) Quick Dash- Upper Extremity Quick Dash UE Score 13.64 (from 06/04/24) Quick Dash UE Impairment 1 to 19% Impaired (Score 1-19) OP-PT Pain Assessment Pain Assessment Grid Paper Pain Assessment Grid Completed Yes Location Feet Pain Location Details Alan Dorsal feet Intensity 8 Description- Other Lateral LLE & alan Lower legs 7 -8/10 Low Back Pain Location Details Across LB Intensity 4 Thoracic region Pain Location Details Alan Intrascapular region Intensity 6 neck Pain Location Details Alan Lateral neck Intensity 6 PT-OP-H Neuro Start: 02/15/24 07:19 Freq: Status: Active Protocol: Document 02/15/24 11:18 LRN (Rec: 02/15/24 12:41 LRN [id number]) Sensation Evaluation Gross Sensation Gross Sensation WNL PT-OP-J Posture/Palpation/Skin Start: 02/15/24 07:19 Freq: Status: Active Protocol: Document 02/15/24 11:18 LRN (Rec: 02/15/24 12:41 LRN [id number]) Posture Evaluation Position Standing Head/C-Spine Posture Forward Head T-Spine Posture Increased Kyphosis L-Spine Posture Decreased Lordosis Shoulder Posture (L) Forward,(L) Elevated Arm Posture (L) Internally Rotated,(R) Internally Rotated Comments Posture Comments Dowagers hump, straightened T2 -T4 spine, increased curve ~ T11-12, very mild C-curve of T /S with apex on the L (~ T5). Palpation Assessment Location Shoulders Palpation Location L Posterior Deltoid Palpation Details Atrophy Intrascapular region Palpation Location Rhomboids, Paraspinals Palpation Details L side muscle guarding, Neck Palpation Location L Cervical paraspinals & R UT Palpation Findings Soft Tissue Tightness, Tenderness PT-OP-K Range of Motion Start: 02/15/24 07:19 Freq: Status: Active Protocol: Document 06/06/24 09:51 LRN (Rec: 06/06/24 10:33 LRN [id number]) Lumbar Spine Range of Motion Lumbar Spine Active Degrees Testing Position Standing Flexion 68 Extension 30 Rotation Left 20 Rotation Right 15 Lateral Flexion Left 20 Lateral Flexion Right 15 Hip Goniometric Range of Motion Hip Right Passive Internal Rotation 40 External Rotation 70 Left Passive Internal Rotation 30 External Rotation 45 PT-OP-L Special Tests Start: 02/15/24 07:19 Freq: Status: Active Protocol: Document 02/20/24 09:52 LRN (Rec: 02/20/24 10:57 LRN [id number]) Special Tests Cervical Spine Special Tests Vertebral Artery Test Results negative Traction Test Results negative Foraminal Compression Test Results negative PT-OP-M Strength Start: 02/15/24 07:19 Freq: Status: Active Protocol: Document 02/22/24 08:21 LRN (Rec: 02/22/24 09:08 LRN [id number]) Cervical Spine Strength Cervical Spine Manual Muscle Testing Flexion (C1-2) 4 Good Extension 5 Normal Rotation Left 3 Fair Rotation Right 3- Fair- Lateral Flexion Left (C3) 4 Good Lateral Flexion Right (C3) 4 Good Comments L rotation the pt uses occiptal ms more to rotate, R rot pt uses upper body to rotate. PT-OP-Q Treatments Start: 02/15/24 07:19 Freq: Status: Active Protocol: Document 06/06/24 09:51 LRN (Rec: 06/06/24 10:33 LRN [id number]) Therapeutic Exercises Supine Exercises Hip Flexor stretch Supine Exercise Name Haseeb stretch off side table Side bilateral Reps/Minutes 30 sec Comments Extra time to determine max cesar stretch L Piriformis stretch Supine Exercise Name Piriformis stretch Side bilateral Reps/Minutes 30 SH x2 Comments knee toward opp shld, ROM taken L hip IR stretch Supine Exercise Name Lateral Hip stretch Side left L hip ER stretch] Supine Exercise Name Fig 4 Side bilateral Reps/Minutes 30 x2 Comments Cued ankle above or below the kneecap, ROM taken KTC Side bilateral Reps/Minutes 2' Comments Cued to relax LB with KTC CS rotation on occipital float Side bilateral Resistance AROM Equipment Used head on blue floating ball Reps/Minutes 3 min Comments VC reminder for slowly and pain free Standing Exercises Trunk AROM Standing Exercise Name Trunk AROM stretch Reps/Minutes 10' Comments ROM taken Manual Therapy Treatment Soft Tissue Mobilization CS Body Location L side C/S paraspinals, UT, Posterior Scalenes Mobilization Type Strumming,Sustained Pressure Intensity/Depth Moderate Body Position Supine Comments Not able to completely resolve tension. PT-OP-T Assessment and Plan Start: 02/15/24 07:19 Freq: Status: Active Protocol: Document 06/06/24 09:51 LRN (Rec: 06/06/24 10:33 N [id number]) Physical Therapy Assessment Rehab Potential Rehabilitation Potential Fair Evaluation Complexity Number of Personal Factors/Comorbidities 3 or More Number of Body Systems Impaired 4 or More Clinical Presentation at Evaluation Evolving Impairments Impairments Functional Activities,Pain, Posture,ROM,Soft Tissue Mobility,Strength Other Impairments Nighttim positioning Goals Four Impairment Chronic LBP rated 6/10 (norm is 3-8/10). Short Term Goal (STG) Improve trunk ROM (3-5 deg's) to be able to bend down to sweep up dust after sweeping with pain no greater than 4/10 . 05/08/24: 5-6/10 low back bending with cues for proper mechancis to flower picker items on floor with muscle relaxer but also take pain pill in afternoon to assist through day. Improved mechanics with ed sweeping wt shift not rotation soley. 05/24/24: laying low activity out side home with busy dogs mid back 2-3/10, neck 6/10, low back 7/10 moving stuff around/not paying attention. Better about body mechanics instructed with sweeping/ shredding paper. 06/28/24: ROM goal achieved, pain 6/10 with sweeping. LBP with activity is 5-6/10, concentrating on mechanics/ posture pain is 4/10. STG Duration 8 wks-06/25/24 progressing Baker Apprentice Goal (LTG) Improve Low back mobility (5- 10 deg's) to lessen pain with putting dishes in scaffold worker on bottom shelf, or to transfer dishes into a bottom shelf, or bending over to sort laundry or bend over to carry it to washer w/o pain. 05/24/24 conscious using legs 5 /10 with med support. Has appt to set up referral for new pain clinic. 05/28/24: ROM met for all except trunk R SB improved 2 deg's. LBP with activity is 5 -6/10, concentrating on mechanics/posture pain is 4/10 . LTG Duration 12 wks-07/24/24 progressing Three Impairment Upper back weakness with onset of intrascapular pain with use of arms. Impairment UE Quickdash score 47.72 (47.7 % impaired, score 40-59). LUIZA score 23/50 or 46/100 (46% impaired, score 40-59). Neck Disability Index score 27 (40 to 59% Impaired, Score 20 -29) Short Term Goal (STG) Pt will be educated in self care pain management with use of positioning and use of cryotherapy. 03/26/24: Pt educated in self care pain mgmg w/use of cryotherapy and positioning discussed. 05/08/24: improved mechanics LS alignment and TA engement wt shift activities support back and use CP and MHP home for comfort STG Duration 5 wks-03/22/24 (03/26/24: MET GOAL) Baker Apprentice Goal (LTG) Pt will be able to lightly sweep without onset of posterior scapular pain. 03/26/24: UE Quickdash score 22.5 (22.5% impaired, score 20 -39). Neck Disability Index is 19 ( 20-39% impaired, score 29-39). LUIZA is 54/100 (40-59% impaired , score 40-59). 04/30/24: If concentrates on proper ADL mechanics the LBP is less. LBP is limiting sweeping 05/08/24: improved mechanics LS alignment and TA engement wt shift activities support back and use CP and MHP home for comfort 05/24/24: 02/15 overall with activities. 06/04/24: GOAL MET: reports if conscious of posture and proper form wt shift between BLE better, no pain. Quick Dash: score 13.64 (<19% impaired, increase from score 12.5 in April, But didnt' answer 1 question). LTG Duration 12 wks-07/24/24 GOAL MET 06/04/24 Two Impairment Sleep interruption of intrascapular pain with movement of arms. Short Term Goal (STG) Pt will be educated in sleeping positions with support to UE's and neutral spine positioning, and proper sit/stand posture. 03/07/24: time spent standing wt shift/stance changes, spinal support when squat. 03/14/24: Pt educated in supine neutral positioning and recommended not placing pillow support under knees at bedtime. 03/26/24: Pt educated in proper sit/stand posture. STG Duration 5 wks-03/22/24 (03/26/24: MET GOAL) [facility] Goal (LTG) Pt will be able to improve sleep w/o severe pain onset while moving arms. 03/18/2024 reports Severe UE pain when waking up now down to 3-4 days a week. 03/20/2024 Body mechanics review with handouts for vacuuming and picking up items , keeping items close and bending at hips and knees. Discussed weaning off knees being positioned bent in supine. Verbalized and positioned pillow under UE in sidelying, but patient reports she does not sleep sidelying 03/28/23: continued ed proper body/spinal alignment PPT/ soft knee and mechanics housework, wt shift between BLEs and use pillows sleeping propping does. 04/02/2024 Patient reports she has not had the severe arm pain with waking up in about a week. 04/05/24: she reports her arms feel little fuzzy but not hurting when wake up but back mostly pain. Utilized pillows for propping and make a difference in comfort and sleep, 5 hrs. 04/09/24: Sleeping a couple weeks w/o the severe pain, fingers only stiff. 04/30/24: L elbow pain with moving in bed. 05/08/24: reports elbow stiff and some discomfort 1/10 when peforms ROM lessens for warm up . 05/24/24: arms fine, legs pain with 5-10 min laying down burning/ numbing/fuzzy/ prickly sensation limited once in bed and try find position to calm down to fall asleep. 06/28/24: Sleeping w/o severe arm pain. LTG Duration 12wks- 07/24/24 (05/28/24: MET GOAL) One Impairment HEP Short Term Goal (STG) Pt will be educated in proper body mechanics for ADLs and be able to return to cardio gym exers w/o onset of back pain. 03/18/2024 discussed light pushing items with foot to see if they slide as a test prior to attempting to lift items, and also note the size/ awkwardness of the item. Patient performed the slide test on PAUL and BOSU. 03/26/24: Educated pt in body mechanics for ADLs. 04/02/2024: Demonstrated transit mechanic of lifting waist level ( pivot) and overhead using patient's keys as very light weight for patient trials. STG Duration 8 wks-06/25/24 04/08/24: met goal for ed of body mech, need return to ex [facility] Goal (LTG) Pt will be independent with a HEP of neck, shoulder and upper/lower back ROM and strengthening ex's. 02/20/24: HEP: Deep breathing & Trunk rot stretch 03/20/2024 counter cat cow on forearms and CS rotation AROM in counter position added to HEP 04/02/2025 open book added to HEP. 04/30/24: HEP: PIriformis, Lateral hip, Fig 4, Hip flexor (Haseeb Test Position) stretch. 05/03/2024 Progressed to counter plank bird dog and thoracic rotation this session , reps limited, but able to perform with good tech. 05/08/24: added paloff press, resisted shld ext, previous incline TS rotation and bird dog off counter with pnfre response. 05/24/24: HEP 05/08 idenified helping good stretch to back, neck. LTG Duration 12 wks-07/24/24 progressed 05/24/24 Assessment Summary Assessment Pt is a 53 yo female, with posture dysfunction, initially with T/S mechanical & soft tissue dys, alan intrascapular, shdr, & lateral neck pain; mostly c/o nighttime LE dyscomfort. Pt shows some improvement in hip mobility with progression towards symmetry, IR mobilty 35 deg's R, 40 deg's L; ER much limited on left (75 deg's R, 55 deg's L). Her trunk mobility has improved in SB motion but no change with flexion. She has been in a flair up of neck pain for the 1.5 wks and is planning on see her chiropractor today. Her neck pain is hindering her in progression as the core exercises have involved use of her UE's. With neck in a flared up state, her function is shown as worse in her neck and UE Quickdash scores. The pt would benefit from continued skilled phyiscal therapy to get Horace back to her baseline before the flare up and then for progression to HEP to improve trunk mobility with the goal of improving ADL function. Physical Therapy Plan Frequency and Duration Frequency of Treatment 2x/Week Duration of treatment (weeks) 12 Plan of Care Start Date 04/30/24 Plan of Care End Date 07/24/24 Therapeutic Interventions Therapeutic Interventions Balance Training,Home Exercise Program,Joint Mobilizations, Manual Therapy,Neuromuscular Re-education,Self-Care/Home Management,Soft Tissue Mobilization,Therapeutic Activities,Therapeutic Exercises Modalities Cold Pack/Ice Massage,Hot Packs,Ultrasound Next Visit Focus/Plan Next Note Type Treatment Note Next Visit Plan Assess response to chiropractic treatment and start trunk mobility ex's to improve flex ROM to improve ADL function, then HEP for transition for DC. Assess response to trial resisted postural alignment resisted UE wall walking and ther ex with functional mobiltiy component . POC: Continue body mechanics during ex assimulate ADLs ( sweeping motion, squat flower picker items, PNF loading/unloading scaffold worker) and postural alignment during HEP. Continue progress Chronic Back rehab w/continued LB/LE's > neck/shdr rehab. Progress decr in LE pain at night with trunk/LE strengthening for functional mvmt. Work toward carryover of TA tightening in standing, using breath and maintaining spinal alignment. Ther Ex & HEP: Back/hips functional ROM and strengthening. Manual: MFR & JMT T/S kyphosis, mob if needed to decr pain with mvmt. Modalities: Modality if needed to improve cesar to stretches (MH, ice).
--- NOTE | 2024-06-11 11:16 | PT.OTN ---
Current Diagnoses Other chronic pain (06/11/24) Pain in thoracic spine (06/11/24) Myalgia, other site (06/11/24) Physical Therapy Treatment Note PT-OP-A Visit Information Start: 02/15/24 07:19 Freq: Status: Active Protocol: Document 06/11/24 10:38 SP (Rec: 06/11/24 11:21 SP [id number]) Out-Patient Physical Therapy Visit Information Visit Information Visit Type Treatment Note Visit Note 11/18 after PN Visit Start Time 10:38 Visit Stop Time 11:16 Visit Number 24 Number of PA[employer] PROFESSOR Visits 1 Evaluation Information Evaluation Date 02/15/24 Precautions Precautions Pt reported Rubber/Latex Allergy, voltrin and CBD allergic reaction. Requests no EStim. Necrosis of R humeral head. Neuropathy (pt notes from Eva Gonzalez) in LE's from knees distally (pain in feet, numbness in legs, and burning at night), with decreased balance (reported from tessa?), chronic pain in upper back. PMH (per pt): depression controlled by meds, possible Fibromyalgia, history of L Ankle surgery (chencho, pins, screws). PT-OP-B Current Condition Start: 02/15/24 07:19 Freq: Status: Active Protocol: Document 02/15/24 11:18 LRN (Rec: 02/15/24 12:41 LRN [id number]) Current Condition History of Current Condition Onset Date 1 yr ago. Current Complaints Stabbing back pain at scapula bilaterally, L worse than R. History of Current Condition 1 yr ago got a stabbing pain in R scapula area, now is more in the L side. No previous history of upper back pain. Pt states her pain wakes her up at night when moving arms. She describes her pain as severe, and that it takes a day to recover from because she becomes physically exhausted by the pain. Her current activity level is low. She states she walks, ex's at the local gym on a recumbent bike and does errands around town. Two yrs ago she exercised in the gym with arm and leg workouts in addition to the cardio exercise. Prior Treatments and Tests -[facility] treatments of Dr. Fuller. -[facility] with treatments to the neck for trigger points (pt felt not helpful). She reports being given a creme in the past by Mr. Deutsch in the [facility] that had Gabapentin in it, but at the [facility] was given a prescription w/o Gabapentin and she didn't find it helpful. -Sleeps on ice. -Uses infrared heating pad. -Ms relaxors (prescription from Dr. Robertson: methalcarbinol-4000mg) sometimes helps. Treatment Goals Patient/Caregiver Goals Pt goals: - Improve sleep w/o severe pain while moving arms. - Lightly sweep without posterior scapular pain onset. - Independent with HEP and gym exer-cardio ex's. Personal Factors Other Personal Factors That May Effect -Depression, possible Therapy/Recovery Fibromyalgia. -Neuropathy (pt notes from Eva Gonzalez) in LE's from knees distally (pain in feet, numbness in legs, and burning at night), with decreased balance (reported from tessa?). -Chronic pain in upper back, -Doesn't have comfortable shoes to wear, (needs wide shoes to be comfortable), because without right support her feet feels like she is walking on rocks. PT-OP-C Subjective Start: 02/15/24 07:19 Freq: Status: Active Protocol: Document 06/11/24 10:38 SP (Rec: 06/11/24 11:21 SP [id number]) OP-PT Subjective Patient Comments Patient Comments Pt reports headaches worse after chirpropractic appt but ususally does then much better Sat then acupressure Monday. Headaches better today. PT-OP-H Neuro Start: 02/15/24 07:19 Freq: Status: Active Protocol: Document 02/15/24 11:18 LRN (Rec: 02/15/24 12:41 LRN [id number]) Sensation Evaluation Gross Sensation Gross Sensation WNL PT-OP-J Posture/Palpation/Skin Start: 02/15/24 07:19 Freq: Status: Active Protocol: Document 02/15/24 11:18 LRN (Rec: 02/15/24 12:41 LRN [id number]) Posture Evaluation Position Standing Head/C-Spine Posture Forward Head T-Spine Posture Increased Kyphosis L-Spine Posture Decreased Lordosis Shoulder Posture (L) Forward,(L) Elevated Arm Posture (L) Internally Rotated,(R) Internally Rotated Comments Posture Comments Dowagers hump, straightened T2 -T4 spine, increased curve ~ T11-12, very mild C-curve of T /S with apex on the L (~ T5). Palpation Assessment Location Shoulders Palpation Location L Posterior Deltoid Palpation Details Atrophy Intrascapular region Palpation Location Rhomboids, Paraspinals Palpation Details L side muscle guarding, Neck Palpation Location L Cervical paraspinals & R UT Palpation Findings Soft Tissue Tightness, Tenderness PT-OP-K Range of Motion Start: 02/15/24 07:19 Freq: Status: Active Protocol: Document 06/06/24 09:51 LRN (Rec: 06/06/24 10:33 LRN [id number]) Lumbar Spine Range of Motion Lumbar Spine Active Degrees Testing Position Standing Flexion 68 Extension 30 Rotation Left 20 Rotation Right 15 Lateral Flexion Left 20 Lateral Flexion Right 15 Hip Goniometric Range of Motion Hip Right Passive Internal Rotation 40 External Rotation 70 Left Passive Internal Rotation 30 External Rotation 45 PT-OP-L Special Tests Start: 02/15/24 07:19 Freq: Status: Active Protocol: Document 02/20/24 09:52 LRN (Rec: 02/20/24 10:57 LRN [id number]) Special Tests Cervical Spine Special Tests Vertebral Artery Test Results negative Traction Test Results negative Foraminal Compression Test Results negative PT-OP-M Strength Start: 02/15/24 07:19 Freq: Status: Active Protocol: Document 02/22/24 08:21 LRN (Rec: 02/22/24 09:08 LRN [id number]) Cervical Spine Strength Cervical Spine Manual Muscle Testing Flexion (C1-2) 4 Good Extension 5 Normal Rotation Left 3 Fair Rotation Right 3- Fair- Lateral Flexion Left (C3) 4 Good Lateral Flexion Right (C3) 4 Good Comments L rotation the pt uses occiptal ms more to rotate, R rot pt uses upper body to rotate. PT-OP-Q Treatments Start: 02/15/24 07:19 Freq: Status: Active Protocol: Document 06/11/24 10:38 SP (Rec: 06/11/24 11:21 SP [id number]) Therapeutic Exercises Supine Exercises Hip Flexor stretch Supine Exercise Name Haseeb stretch off side table Side bilateral Reps/Minutes 30 sec Comments Extra time to determine max cesar stretch L Piriformis stretch Supine Exercise Name Piriformis stretch Side bilateral Reps/Minutes 30 SH x2 Comments knee toward opp shld, ROM taken L hip IR stretch Supine Exercise Name Lateral Hip stretch Side left Reps/Minutes 30 x2 Comments good feedback stretch L hip ER stretch] Supine Exercise Name Fig 4 Side bilateral Reps/Minutes 30 x2 Comments Cued ankle above opposite knee CS rotation on occipital float Side bilateral Resistance AROM Equipment Used head on blue floating ball Reps/Minutes 3 min Comments VC reminder for slowly and pain free Upper trunk rot stretch Supine Exercise Name UE's LTR rot stretch (arm reach across body side to side ) Side bilateral Reps/Minutes 10 SH x 5 reps Comments Cued to have eyes follow hands . Standing Exercises CS neutral UE wall walking Standing Exercise Name reports caused alot pain after last ttrialed Comments DC / D2 flex Standing Exercise Name viewed pre Ther Act Side bilateral Resistance 1 # DB PNF D2 flexion Reps/Minutes 10x each Comments Cued postural alighnment: bend knees, back straight, TA tight. TA step ups Standing Exercise Name 6step ups Side bilateral Equipment Used no UE support Reps/Minutes 10 reps each LE Comments cued rhomboid fac, improved midline stability- GianBarre sink stretch Standing Exercise Name trialed with good feedback mid and low back stretch Side bilateral Equipment Used hand on TM rail Reps/Minutes 1 min total Comments cued soft knee, back straight hip hinge, lean b, good LS decompress stretch paloff press Side bilateral Resistance TB #3 limegreen latex free Reps/Minutes 2x 10 Comments cued feet shld width, soft knee unlock, TURBINE ENGINE ASSEMBLER, tall postural alignment Therapeutic Activity Therapeutic Activity PNF D2 Flexion Name Leroy Reps/Minutes 2x5 reps Comments 1# DB (assimulate open hearth furnace laborer to cupboard) Manual Therapy Treatment Soft Tissue Mobilization CS Body Location L side C/S paraspinals, UT, Posterior Scalenes Mobilization Type Strumming,Sustained Pressure Intensity/Depth Moderate Body Position Supine Comments Not able to completely resolve tension. PT-OP-T Assessment and Plan Start: 02/15/24 07:19 Freq: Status: Active Protocol: Document 06/11/24 10:38 SP (Rec: 06/11/24 11:21 SP [id number]) Physical Therapy Assessment Goals Four Impairment Chronic LBP rated 6/10 (norm is 3-8/10). Short Term Goal (STG) Improve trunk ROM (3-5 deg's) to be able to bend down to sweep up dust after sweeping with pain no greater than 4/10 . 05/08/24: 5-6/10 low back bending with cues for proper mechancis to pickers material handlers items on floor with muscle relaxer but also take pain pill in afternoon to assist through day. Improved mechanics with ed sweeping wt shift not rotation soley. 05/24/24: laying low activity out side home with busy dogs mid back 2-3/10, neck 6/10, low back 7/10 moving stuff around/not paying attention. Better about body mechanics instructed with sweeping/ shredding paper. 06/28/24: ROM goal achieved, pain 6/10 with sweeping. LBP with activity is 5-6/10, concentrating on mechanics/ posture pain is 4/10. STG Duration 8 wks-06/25/24 progressing Half-Way Goal (LTG) Improve Low back mobility (5- 10 deg's) to lessen pain with putting dishes in open hearth furnace laborer on bottom shelf, or to transfer dishes into a bottom shelf, or bending over to sort laundry or bend over to carry it to washer w/o pain. 05/24/24 conscious using legs 5 /10 with med support. Has appt to set up referral for new pain clinic. 05/28/24: ROM met for all except trunk R SB improved 2 deg's. LBP with activity is 5 -6/10, concentrating on mechanics/posture pain is 4/10 . LTG Duration 12 wks-07/24/24 progressing Three Impairment Upper back weakness with onset of intrascapular pain with use of arms. Impairment UE Quickdash score 47.72 (47.7 % impaired, score 40-59). LUIZA score 23/50 or 46/100 (46% impaired, score 40-59). Neck Disability Index score 27 (40 to 59% Impaired, Score 20 -29) Short Term Goal (STG) Pt will be educated in self care pain management with use of positioning and use of cryotherapy. 03/26/24: Pt educated in self care pain mgmg w/use of cryotherapy and positioning discussed. 05/08/24: improved mechanics LS alignment and TA engement wt shift activities support back and use CP and MHP home for comfort STG Duration 5 wks-03/22/24 (03/26/24: MET GOAL) Half-Way Goal (LTG) Pt will be able to lightly sweep without onset of posterior scapular pain. 03/26/24: UE Quickdash score 22.5 (22.5% impaired, score 20 -39). Neck Disability Index is 19 ( 20-39% impaired, score 29-39). LUIZA is 54/100 (40-59% impaired , score 40-59). 04/30/24: If concentrates on proper ADL mechanics the LBP is less. LBP is limiting sweeping 05/08/24: improved mechanics LS alignment and TA engement wt shift activities support back and use CP and MHP home for comfort 05/24/24: 02/15 overall with activities. 06/04/24: GOAL MET: reports if conscious of posture and proper form wt shift between BLE better, no pain. Quick Dash: score 13.64 (<19% impaired, increase from score 12.5 in April, But didnt' answer 1 question). LTG Duration 12 wks-07/24/24 GOAL MET 06/04/24 Two Impairment Sleep interruption of intrascapular pain with movement of arms. Short Term Goal (STG) Pt will be educated in sleeping positions with support to UE's and neutral spine positioning, and proper sit/stand posture. 03/07/24: time spent standing wt shift/stance changes, spinal support when squat. 03/14/24: Pt educated in supine neutral positioning and recommended not placing pillow support under knees at bedtime. 03/26/24: Pt educated in proper sit/stand posture. STG Duration 5 wks-03/22/24 (03/26/24: MET GOAL) Half-Way Goal (LTG) Pt will be able to improve sleep w/o severe pain onset while moving arms. 03/18/2024 reports Severe UE pain when waking up now down to 3-4 days a week. 03/20/2024 Body mechanics review with handouts for vacuuming and picking up items , keeping items close and bending at hips and knees. Discussed weaning off knees being positioned bent in supine. Verbalized and positioned pillow under UE in sidelying, but patient reports she does not sleep sidelying 03/28/23: continued ed proper body/spinal alignment PPT/ soft knee and mechanics housework, wt shift between BLEs and use pillows sleeping propping does. 04/02/2024 Patient reports she has not had the severe arm pain with waking up in about a week. 04/05/24: she reports her arms feel little fuzzy but not hurting when wake up but back mostly pain. Utilized pillows for propping and make a difference in comfort and sleep, 5 hrs. 04/09/24: Sleeping a couple weeks w/o the severe pain, fingers only stiff. 04/30/24: L elbow pain with moving in bed. 05/08/24: reports elbow stiff and some discomfort 1/10 when peforms ROM lessens for warm up . 05/24/24: arms fine, legs pain with 5-10 min laying down burning/ numbing/fuzzy/ prickly sensation limited once in bed and try find position to calm down to fall asleep. 06/28/24: Sleeping w/o severe arm pain. LTG Duration 12wks- 07/24/24 (05/28/24: MET GOAL) One Impairment HEP Short Term Goal (STG) Pt will be educated in proper body mechanics for ADLs and be able to return to cardio gym exers w/o onset of back pain. 03/18/2024 discussed light pushing items with foot to see if they slide as a test prior to attempting to lift items, and also note the size/ awkwardness of the item. Patient performed the slide test on PAUL and BOSU. 03/26/24: Educated pt in body mechanics for ADLs. 04/02/2024: Demonstrated floor mechanic of lifting waist level ( pivot) and overhead using patient's keys as very light weight for patient trials. STG Duration 8 wks-06/25/24 04/08/24: [facility], need return to ex Composition Weatherboard Installer Goal (LTG) Pt will be independent with a HEP of neck, shoulder and upper/lower back ROM and strengthening ex's. 02/20/24: HEP: Deep breathing & Trunk rot stretch 03/20/2024 counter cat cow on forearms and CS rotation AROM in counter position added to HEP 04/02/2025 open book added to HEP. 04/30/24: HEP: PIriformis, Lateral hip, Fig 4, Hip flexor (Haseeb Test Position) stretch. 05/03/2024 Progressed to counter plank bird dog and thoracic rotation this session , reps limited, but able to perform with good tech. 05/08/24: added paloff press, resisted shld ext, previous incline TS rotation and bird dog off counter with pnfre response. 05/24/24: HEP 05/08 idenified helping good stretch to back, neck. LTG Duration 12 wks-07/24/24 progressed 05/24/24 Assessment Summary Assessment Pt responded well with decreased neck and head tension reported post manual. Improved demonstration and response thoracic and CS rotation supine. Good tolerance D2 flexion into functional light resisted squat to allow progress putting dishes away. She demonstrates improved midline stability with cuing for rhomboid engagement during steps ups. Pt did not tolerate resisted UE wall walking will DC, due to causing strain on neck. Physical Therapy Plan Frequency and Duration Frequency of Treatment 2x/Week Duration of treatment (weeks) 12 Plan of Care Start Date 04/30/24 Plan of Care End Date 07/24/24 Therapeutic Interventions Therapeutic Interventions Balance Training,Home Exercise Program,Joint Mobilizations, Manual Therapy,Neuromuscular Re-education,Self-Care/Home Management,Soft Tissue Mobilization,Therapeutic Activities,Therapeutic Exercises Modalities Cold Pack/Ice Massage,Hot Packs,Ultrasound Next Visit Focus/Plan Next Note Type Treatment Note Next Visit Plan Assess response to chiropractic treatment and start trunk mobility ex's to improve flex ROM to improve ADL function, then HEP for transition for DC.and ther ex with functional mobiltiy component. POC: Continue body mechanics during ex assimulate ADLs ( sweeping motion, squat pickers material handlers items, PNF loading/unloading open hearth furnace laborer) and postural alignment during HEP. Continue progress Chronic Back rehab w/continued LB/LE's > neck/shdr rehab. Progress decr in LE pain at night with trunk/LE strengthening for functional mvmt. Work toward carryover of TA tightening in standing, using breath and maintaining spinal alignment. Ther Ex & HEP: Back/hips functional ROM and strengthening. Manual: MFR & JMT T/S kyphosis, mob if needed to decr pain with mvmt. Modalities: Modality if needed to improve cesar to stretches (MH, ice).
--- NOTE | 2024-06-14 10:30 | PT.OTN ---
Current Diagnoses Other chronic pain (06/14/24) Pain in thoracic spine (06/14/24) Myalgia, other site (06/14/24) Physical Therapy Treatment Note PT-OP-A Visit Information Start: 02/15/24 07:19 Freq: Status: Active Protocol: Document 06/14/24 09:49 SP (Rec: 06/14/24 10:38 SP [id number]) Out-Patient Physical Therapy Visit Information Visit Information Visit Type Treatment Note Visit Note 12/16 after PN Visit Start Time 09:49 Visit Stop Time 10:30 Visit Number 25 Number of [place] ATTENDANT Visits 2 Evaluation Information Evaluation Date 02/15/24 Precautions Precautions Pt reported Rubber/Latex Allergy, voltrin and CBD allergic reaction. Requests no EStim. Necrosis of R humeral head. Neuropathy (pt notes from Eva Gonzalez) in LE's from knees distally (pain in feet, numbness in legs, and burning at night), with decreased balance (reported from tessa?), chronic pain in upper back. PMH (per pt): depression controlled by meds, possible Fibromyalgia, history of L Ankle surgery (chencho, pins, screws). PT-OP-B Current Condition Start: 02/15/24 07:19 Freq: Status: Active Protocol: Document 02/15/24 11:18 LRN (Rec: 02/15/24 12:41 LRN [id number]) Current Condition History of Current Condition Onset Date 1 yr ago. Current Complaints Stabbing back pain at scapula bilaterally, L worse than R. History of Current Condition 1 yr ago got a stabbing pain in R scapula area, now is more in the L side. No previous history of upper back pain. Pt states her pain wakes her up at night when moving arms. She describes her pain as severe, and that it takes a day to recover from because she becomes physically exhausted by the pain. Her current activity level is low. She states she walks, ex's at the local gym on a recumbent bike and does errands around town. Two yrs ago she exercised in the gym with arm and leg workouts in addition to the cardio exercise. Prior Treatments and Tests -[facility] treatments of Dr. Fuller. -[facility] with treatments to the neck for trigger points (pt felt not helpful). She reports being given a creme in the past by Mr. Deutsch in the Pain [facility] that had Gabapentin in it, but at the [facility] was given a prescription w/o Gabapentin and she didn't find it helpful. -Sleeps on ice. -Uses infrared heating pad. -Ms relaxors (prescription from Dr. Robertson: methalcarbinol-4000mg) sometimes helps. Treatment Goals Patient/Caregiver Goals Pt goals: - Improve sleep w/o severe pain while moving arms. - Lightly sweep without posterior scapular pain onset. - Independent with HEP and gym exer-cardio ex's. Personal Factors Other Personal Factors That May Effect -Depression, possible Therapy/Recovery Fibromyalgia. -Neuropathy (pt notes from Eva Gonzalez) in LE's from knees distally (pain in feet, numbness in legs, and burning at night), with decreased balance (reported from tessa?). -Chronic pain in upper back, -Doesn't have comfortable shoes to wear, (needs wide shoes to be comfortable), because without right support her feet feels like she is walking on rocks. PT-OP-C Subjective Start: 02/15/24 07:19 Freq: Status: Active Protocol: Document 06/14/24 09:49 SP (Rec: 06/14/24 10:38 SP [id number]) OP-PT Subjective Patient Comments Patient Comments Pt reports felt pretty good after last tx. She arrives reporting her back hurting yesterday and continues into today but also very tired, not sure why because took her meds and medicated cream as ususally does. She is not aggressively playing with dog. She states trying be conscious with body mechanics. She stated compliant with stretches of hips especially in am, band exercises in with BUE paloff and extension. PT-OP-H Neuro Start: 02/15/24 07:19 Freq: Status: Active Protocol: Document 02/15/24 11:18 LRN (Rec: 02/15/24 12:41 LRN [id number]) Sensation Evaluation Gross Sensation Gross Sensation WNL PT-OP-J Posture/Palpation/Skin Start: 02/15/24 07:19 Freq: Status: Active Protocol: Document 02/15/24 11:18 LRN (Rec: 02/15/24 12:41 LRN [id number]) Posture Evaluation Position Standing Head/C-Spine Posture Forward Head T-Spine Posture Increased Kyphosis L-Spine Posture Decreased Lordosis Shoulder Posture (L) Forward,(L) Elevated Arm Posture (L) Internally Rotated,(R) Internally Rotated Comments Posture Comments Dowagers hump, straightened T2 -T4 spine, increased curve ~ T11-12, very mild C-curve of T /S with apex on the L (~ T5). Palpation Assessment Location Shoulders Palpation Location L Posterior Deltoid Palpation Details Atrophy Intrascapular region Palpation Location Rhomboids, Paraspinals Palpation Details L side muscle guarding, Neck Palpation Location L Cervical paraspinals & R UT Palpation Findings Soft Tissue Tightness, Tenderness PT-OP-K Range of Motion Start: 02/15/24 07:19 Freq: Status: Active Protocol: Document 06/06/24 09:51 LRN (Rec: 06/06/24 10:33 LRN [id number]) Lumbar Spine Range of Motion Lumbar Spine Active Degrees Testing Position Standing Flexion 68 Extension 30 Rotation Left 20 Rotation Right 15 Lateral Flexion Left 20 Lateral Flexion Right 15 Hip Goniometric Range of Motion Hip Right Passive Internal Rotation 40 External Rotation 70 Left Passive Internal Rotation 30 External Rotation 45 PT-OP-L Special Tests Start: 02/15/24 07:19 Freq: Status: Active Protocol: Document 02/20/24 09:52 LRN (Rec: 02/20/24 10:57 LRN [id number]) Special Tests Cervical Spine Special Tests Vertebral Artery Test Results negative Traction Test Results negative Foraminal Compression Test Results negative PT-OP-M Strength Start: 02/15/24 07:19 Freq: Status: Active Protocol: Document 02/22/24 08:21 LRN (Rec: 02/22/24 09:08 LRN [id number]) Cervical Spine Strength Cervical Spine Manual Muscle Testing Flexion (C1-2) 4 Good Extension 5 Normal Rotation Left 3 Fair Rotation Right 3- Fair- Lateral Flexion Left (C3) 4 Good Lateral Flexion Right (C3) 4 Good Comments L rotation the pt uses occiptal ms more to rotate, R rot pt uses upper body to rotate. PT-OP-Q Treatments Start: 02/15/24 07:19 Freq: Status: Active Protocol: Document 06/14/24 09:49 SP (Rec: 06/14/24 10:38 SP [id number]) Therapeutic Exercises Supine Exercises sciatic nerve stretch Supine Exercise Name reviewed self ex Reps/Minutes x10 ankle pumps Comments good feedback response Hip Flexor stretch Supine Exercise Name Haseeb stretch off side table Side bilateral Reps/Minutes 30 sec Comments good form, & stretch response L Piriformis stretch Supine Exercise Name Piriformis stretch Side bilateral Reps/Minutes 30 SH x2 Comments knee toward opp shld, ROM taken L hip IR stretch Supine Exercise Name Lateral Hip stretch Side left Reps/Minutes 30 x2 Comments good form, & stretch response L hip ER stretch] Supine Exercise Name Fig 4 Side bilateral Equipment Used opposite LE straight Reps/Minutes 30 x2 Comments Cued ankle above opposite knee Sitting Exercises Trunk rot stretch Sitting Exercise Name Hand on outside opp knee and rot head/shoulders to side of knee. Side bilateral Reps/Minutes 10 SH x 5 Comments Cued to breathe w/stretch and head rot to lead mvmt. Standing Exercises squat<> over head reach Standing Exercise Name functional flexion, UE strength Side bilateral Resistance 5.5>6.6 lb small black wt ball Reps/Minutes x10 reps Comments improved square up, squat with straight back, LE TA support to standing paloff press Standing Exercise Name HEP reviewed Side bilateral Resistance TB #3 limegreen latex free- press out from chest height Reps/Minutes 2x15 Comments good form- pnfree reported resisted shoulder extension Standing Exercise Name HEP reviewed Resistance Tb #3 [place] latex free Reps/Minutes 2x15 Comments cued postural alignment, elbow straight, scap down/draw together. counter bird dog Standing Exercise Name reviewed HEP- UE/LE ext- Side bilateral Equipment Used counter Reps/Minutes 10 alternate, pause 2 sec hold Comments good neutral spine form- pnfree reported thoracic rotation in counter plank Standing Exercise Name HEP reviewed- encouraged to continue to perform Side bilateral Resistance Thread needle AROM both direction (HABD<>HADD) Equipment Used hands on counter Reps/Minutes X5 each side Comments monitored pnfree range- good lateral ribcage stretch Other Exercises cat cow Other Exercise Name in forearm counter plank postion Reps/Minutes X10 Comments good form- lessens back tension CS rotation in counter plank position Other Exercise Name HEP reviewed Side bilateral Reps/Minutes 15 Comments VC to perform in pain free range PT-OP-T Assessment and Plan Start: 02/15/24 07:19 Freq: Status: Active Protocol: Document 06/14/24 09:49 SP (Rec: 06/14/24 10:38 SP [id number]) Physical Therapy Assessment Goals Four Impairment Chronic LBP rated 6/10 (norm is 3-8/10). Short Term Goal (STG) Improve trunk ROM (3-5 deg's) to be able to bend down to sweep up dust after sweeping with pain no greater than 4/10 . 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 Improved mechanics with ed sweeping wt shift not rotation soley. 05/24/24: laying low activity out side home with busy dogs mid back 2-3/10, neck 6/10, low back 7/10 moving stuff around/not paying attention. Better about body mechanics instructed with sweeping/ shredding paper. 06/28/24: ROM goal achieved, pain 6/10 with sweeping. LBP with activity is 5-6/10, concentrating on mechanics/ posture pain is 4/10. 06/13/24: low back 8/10, uppper back 6/10. STG Duration 8 wks-06/25/24 slow progressing 06/13/24 Senior Care Goal (LTG) Improve Low back mobility (5- 10 deg's) to lessen pain with putting dishes in palliative care nurse on bottom shelf, or to transfer dishes into a bottom shelf, or bending over to sort laundry or bend over to carry it to washer w/o pain. 05/24/24 conscious using legs 5 /10 with med support. Has appt to set up referral for new pain clinic. 05/28/24: ROM met for all except trunk R SB improved 2 deg's. LBP with activity is 5 -6/10, concentrating on mechanics/posture pain is 4/10 . 06/13/24: GOAL MET: no pain putting away dishes. LTG Duration 12 wks-07/24/24 GOAL MET Three Impairment Upper back weakness with onset of intrascapular pain with use of arms. Impairment UE Quickdash score 47.72 (47.7 % impaired, score 40-59). LUIZA score 23/50 or 46/100 (46% impaired, score 40-59). Neck Disability Index score 27 (40 to 59% Impaired, Score 20 -29) Short Term Goal (STG) Pt will be educated in self care pain management with use of positioning and use of cryotherapy. 03/26/24: Pt educated in self care pain mgmg w/use of cryotherapy and positioning discussed. 05/08/24: improved mechanics LS alignment and TA engement wt shift activities support back and use CP and MHP home for comfort STG Duration 5 wks-03/22/24 (03/26/24: MET GOAL) Green End Man Goal (LTG) Pt will be able to lightly sweep without onset of posterior scapular pain. 03/26/24: UE Quickdash score 22.5 (22.5% impaired, score 20 -39). Neck Disability Index is 19 ( 20-39% impaired, score 29-39). LUIZA is 54/100 (40-59% impaired , score 40-59). 04/30/24: If concentrates on proper ADL mechanics the LBP is less. LBP is limiting sweeping 05/08/24: improved mechanics LS alignment and TA engement wt shift activities support back and use CP and MHP home for comfort 05/24/24: /10 overall with activities. 06/04/24: GOAL MET: reports if conscious of posture and proper form wt shift between BLE better, no pain. Quick Dash: score 13.64 (<19% impaired, increase from score 12.5 in April, But didnt' answer 1 question). LTG Duration 12 wks-07/24/24 GOAL MET 06/04/24 Two Impairment Sleep interruption of intrascapular pain with movement of arms. Short Term Goal (STG) Pt will be educated in sleeping positions with support to UE's and neutral spine positioning, and proper sit/stand posture. 03/07/24: time spent standing wt shift/stance changes, spinal support when squat. 03/14/24: Pt educated in supine neutral positioning and recommended not placing pillow support under knees at bedtime. 03/26/24: Pt educated in proper sit/stand posture. STG Duration 5 wks-03/22/24 (03/26/24: MET GOAL) [place] Man Goal (LTG) Pt will be able to improve sleep w/o severe pain onset while moving arms. 03/18/2024 reports Severe UE pain when waking up now down to 3-4 days a week. 03/20/2024 Body mechanics review with handouts for vacuuming and picking up items , keeping items close and bending at hips and knees. Discussed weaning off knees being positioned bent in supine. Verbalized and positioned pillow under UE in sidelying, but patient reports she does not sleep sidelying 03/28/23: continued ed proper body/spinal alignment PPT/ soft knee and mechanics housework, wt shift between BLEs and use pillows sleeping propping does. 04/02/2024 Patient reports she has not had the severe arm pain with waking up in about a week. 04/05/24: she reports her arms feel little fuzzy but not hurting when wake up but back mostly pain. Utilized pillows for propping and make a difference in comfort and sleep, 5 hrs. 04/09/24: Sleeping a couple weeks w/o the severe pain, fingers only stiff. 04/30/24: L elbow pain with moving in bed. 05/08/24: reports elbow stiff and some discomfort 1/10 when peforms ROM lessens for warm up . 05/24/24: arms fine, legs pain with 5-10 min laying down burning/ numbing/fuzzy/ prickly sensation limited once in bed and try find position to calm down to fall asleep. 06/28/24: Sleeping w/o severe arm pain. LTG Duration 12wks- 07/24/24 (05/28/24: MET GOAL) One Impairment HEP Short Term Goal (STG) Pt will be educated in proper body mechanics for ADLs and be able to return to cardio gym exers w/o onset of back pain. 03/18/2024 discussed light pushing items with foot to see if they slide as a test prior to attempting to lift items, and also note the size/ awkwardness of the item. Patient performed the slide test on PAUL and BOSU. 03/26/24: Educated pt in body mechanics for ADLs. 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 STG Duration 8 wks-06/25/24 04/08/24: met goal for ed of body mech, need return to ex Senior Care Goal (LTG) Pt will be independent with a HEP of neck, shoulder and upper/lower back ROM and strengthening ex's. 02/20/24: HEP: Deep breathing & Trunk rot stretch 03/20/2024 counter cat cow on forearms and CS rotation AROM in counter position added to HEP 04/02/2025 open book added to HEP. 04/30/24: HEP: PIriformis, Lateral hip, Fig 4, Hip flexor (Haseeb Test Position) stretch. 05/03/2024 Progressed to counter plank bird dog and thoracic rotation this session , reps limited, but able to perform with good tech. 05/08/24: added paloff press, resisted shld ext, previous incline TS rotation and bird dog off counter with pnfre response. 05/24/24: HEP 05/08 idenified helping good stretch to back, neck. 06/13/24: progressing performs 3 -4days per week with bands, stretch daily before gets up. LTG Duration 12 wks-07/24/24 progressed Progress Towards Goals Progress Comments MET LTG #4 no pain putting away dishes. Assessment Summary Assessment Pt responds well to ther ex with increased spinal mobility and no reports of pain during performance. She reports decreased muscular tension in her mid/low back after stretching end tx. But reports her back still hurts same as arrived 05/18 with demonstrating slight flexed at hips posturing when leaving. Physical Therapy Plan Frequency and Duration Frequency of Treatment 2x/Week Duration of treatment (weeks) 12 Plan of Care Start Date 04/30/24 Plan of Care End Date 07/24/24 Therapeutic Interventions Therapeutic Interventions Balance Training,Home Exercise Program,Joint Mobilizations, Manual Therapy,Neuromuscular Re-education,Self-Care/Home Management,Soft Tissue Mobilization,Therapeutic Activities,Therapeutic Exercises Modalities Cold Pack/Ice Massage,Hot Packs,Ultrasound Next Visit Focus/Plan Next Note Type Treatment Note Next Visit Plan REcheck response to continued trunk mobility ex's in standing last tx to improve flex ROM to improve ADL function, then HEP for transition for DC & her ex with functional mobiltiy component. 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 Continue progress Chronic Back rehab w/continued LB/LE's > neck/shdr rehab. Progress decr in LE pain at night with trunk/LE strengthening for functional mvmt. Work toward carryover of TA tightening in standing, using breath and maintaining spinal alignment. Ther Ex & HEP: Back/hips functional ROM and strengthening. Manual: MFR & JMT T/S kyphosis, mob if needed to decr pain with mvmt. Modalities: Modality if needed to improve cesar to stretches (MH, ice).
--- NOTE | 2024-06-14 10:30 | PT.OTN ---
Current Diagnoses Other chronic pain (06/14/24) Pain in thoracic spine (06/14/24) Myalgia, other site (06/14/24) Physical Therapy Treatment Note PT-OP-A Visit Information Start: 02/15/24 07:19 Freq: Status: Active Protocol: Document 06/14/24 09:49 SP (Rec: 06/14/24 10:38 SP [id number]) Out-Patient Physical Therapy Visit Information Visit Information Visit Type Treatment Note Visit Note 12/16 after PN Visit Start Time 09:49 Visit Stop Time 10:30 Visit Number 25 Number of ACCREDITATION MANAGER Visits 2 Evaluation Information Evaluation Date 02/15/24 Precautions Precautions Pt reported Rubber/Latex Allergy, voltrin and CBD allergic reaction. Requests no EStim. Necrosis of R humeral head. Neuropathy (pt notes from Eva Gonzalez) in LE's from knees distally (pain in feet, numbness in legs, and burning at night), with decreased balance (reported from tessa?), chronic pain in upper back. PMH (per pt): depression controlled by meds, possible Fibromyalgia, history of L Ankle surgery (chencho, pins, screws). PT-OP-B Current Condition Start: 02/15/24 07:19 Freq: Status: Active Protocol: Document 02/15/24 11:18 LRN (Rec: 02/15/24 12:41 LRN [id number]) Current Condition History of Current Condition Onset Date 1 yr ago. Current Complaints Stabbing back pain at scapula bilaterally, L worse than R. History of Current Condition 1 yr ago got a stabbing pain in R scapula area, now is more in the L side. No previous history of upper back pain. Pt states her pain wakes her up at night when moving arms. She describes her pain as severe, and that it takes a day to recover from because she becomes physically exhausted by the pain. Her current activity level is low. She states she walks, ex's at the local gym on a recumbent bike and does errands around town. Two yrs ago she exercised in the gym with arm and leg workouts in addition to the cardio exercise. Prior Treatments and Tests -[facility] treatments of Dr. Fuller. -[facility] with treatments to the neck for trigger points (pt felt not helpful). She reports being given a creme in the past by Mr. Deutsch in the [facility] that had Gabapentin in it, but at the [facility] was given a prescription w/o Gabapentin and she didn't find it helpful. -Sleeps on ice. -Uses infrared heating pad. -Ms relaxors (prescription from Dr. Robertson: methalcarbinol-4000mg) sometimes helps. Treatment Goals Patient/Caregiver Goals Pt goals: - Improve sleep w/o severe pain while moving arms. - Lightly sweep without posterior scapular pain onset. - Independent with HEP and gym exer-cardio ex's. Personal Factors Other Personal Factors That May Effect -Depression, possible Therapy/Recovery Fibromyalgia. -Neuropathy (pt notes from Eva Gonzalez) in LE's from knees distally (pain in feet, numbness in legs, and burning at night), with decreased balance (reported from tessa?). -Chronic pain in upper back, -Doesn't have comfortable shoes to wear, (needs wide shoes to be comfortable), because without right support her feet feels like she is walking on rocks. PT-OP-C Subjective Start: 02/15/24 07:19 Freq: Status: Active Protocol: Document 06/14/24 09:49 SP (Rec: 06/14/24 10:38 SP [id number]) OP-PT Subjective Patient Comments Patient Comments Pt reports felt pretty good after last tx. She arrives with neck feeling good today but reporting her back hurting yesterday and continues into today but also very tired, not sure why because took her meds and medicated cream as ususally does. She is not aggressively playing with dog. She states trying be conscious with body mechanics. She stated compliant with stretches of hips especially in am, band exercises in with BUE paloff and extension. PT-OP-H Neuro Start: 02/15/24 07:19 Freq: Status: Active Protocol: Document 02/15/24 11:18 LRN (Rec: 02/15/24 12:41 LRN [id number]) Sensation Evaluation Gross Sensation Gross Sensation WNL PT-OP-J Posture/Palpation/Skin Start: 02/15/24 07:19 Freq: Status: Active Protocol: Document 02/15/24 11:18 LRN (Rec: 02/15/24 12:41 LRN [id number]) Posture Evaluation Position Standing Head/C-Spine Posture Forward Head T-Spine Posture Increased Kyphosis L-Spine Posture Decreased Lordosis Shoulder Posture (L) Forward,(L) Elevated Arm Posture (L) Internally Rotated,(R) Internally Rotated Comments Posture Comments Dowagers hump, straightened T2 -T4 spine, increased curve ~ T11-12, very mild C-curve of T /S with apex on the L (~ T5). Palpation Assessment Location Shoulders Palpation Location L Posterior Deltoid Palpation Details Atrophy Intrascapular region Palpation Location Rhomboids, Paraspinals Palpation Details L side muscle guarding, Neck Palpation Location L Cervical paraspinals & R UT Palpation Findings Soft Tissue Tightness, Tenderness PT-OP-K Range of Motion Start: 02/15/24 07:19 Freq: Status: Active Protocol: Document 06/06/24 09:51 LRN (Rec: 06/06/24 10:33 LRN [id number]) Lumbar Spine Range of Motion Lumbar Spine Active Degrees Testing Position Standing Flexion 68 Extension 30 Rotation Left 20 Rotation Right 15 Lateral Flexion Left 20 Lateral Flexion Right 15 Hip Goniometric Range of Motion Hip Right Passive Internal Rotation 40 External Rotation 70 Left Passive Internal Rotation 30 External Rotation 45 PT-OP-L Special Tests Start: 02/15/24 07:19 Freq: Status: Active Protocol: Document 02/20/24 09:52 LRN (Rec: 02/20/24 10:57 LRN [id number]) Special Tests Cervical Spine Special Tests Vertebral Artery Test Results negative Traction Test Results negative Foraminal Compression Test Results negative PT-OP-M Strength Start: 02/15/24 07:19 Freq: Status: Active Protocol: Document 02/22/24 08:21 LRN (Rec: 02/22/24 09:08 LRN [id number]) Cervical Spine Strength Cervical Spine Manual Muscle Testing Flexion (C1-2) 4 Good Extension 5 Normal Rotation Left 3 Fair Rotation Right 3- Fair- Lateral Flexion Left (C3) 4 Good Lateral Flexion Right (C3) 4 Good Comments L rotation the pt uses occiptal ms more to rotate, R rot pt uses upper body to rotate. PT-OP-Q Treatments Start: 02/15/24 07:19 Freq: Status: Active Protocol: Document 06/14/24 09:49 SP (Rec: 06/14/24 10:38 SP [id number]) Therapeutic Exercises Supine Exercises sciatic nerve stretch Supine Exercise Name reviewed self ex Reps/Minutes x10 ankle pumps Comments good feedback response Hip Flexor stretch Supine Exercise Name Haseeb stretch off side table Side bilateral Reps/Minutes 30 sec Comments good form, & stretch response L Piriformis stretch Supine Exercise Name Piriformis stretch Side bilateral Reps/Minutes 30 SH x2 Comments knee toward opp shld, ROM taken L hip IR stretch Supine Exercise Name Lateral Hip stretch Side left Reps/Minutes 30 x2 Comments good form, & stretch response L hip ER stretch] Supine Exercise Name Fig 4 Side bilateral Equipment Used opposite LE straight Reps/Minutes 30 x2 Comments Cued ankle above opposite knee Sitting Exercises Trunk rot stretch Sitting Exercise Name Hand on outside opp knee and rot head/shoulders to side of knee. Side bilateral Reps/Minutes 10 SH x 5 Comments Cued to breathe w/stretch and head rot to lead mvmt. Standing Exercises squat<> over head reach Standing Exercise Name functional flexion, UE strength Side bilateral Resistance 5.5>6.6 lb small black wt ball Reps/Minutes x10 reps Comments improved square up, squat with straight back, LE TA support to standing paloff press Standing Exercise Name HEP reviewed Side bilateral Resistance TB #3 limegreen latex free- press out from chest height Reps/Minutes 2x15 Comments good form- pnfree reported resisted shoulder extension Standing Exercise Name HEP reviewed Resistance Tb #3 [place] latex free Reps/Minutes 2x15 Comments cued postural alignment, elbow straight, scap down/draw together. counter bird dog Standing Exercise Name reviewed HEP- UE/LE ext- Side bilateral Equipment Used counter Reps/Minutes 10 alternate, pause 2 sec hold Comments good neutral spine form- pnfree reported thoracic rotation in counter plank Standing Exercise Name HEP reviewed- encouraged to continue to perform Side bilateral Resistance Thread needle AROM both direction (HABD<>HADD) Equipment Used hands on counter Reps/Minutes X5 each side Comments monitored pnfree range- good lateral ribcage stretch Other Exercises cat cow Other Exercise Name in forearm counter plank postion Reps/Minutes X10 Comments good form- lessens back tension CS rotation in counter plank position Other Exercise Name HEP reviewed Side bilateral Reps/Minutes 15 Comments VC to perform in pain free range PT-OP-T Assessment and Plan Start: 02/15/24 07:19 Freq: Status: Active Protocol: Document 06/14/24 09:49 SP (Rec: 06/14/24 10:38 SP [id number]) Physical Therapy Assessment Goals Four Impairment Chronic LBP rated 6/10 (norm is 3-8/10). Short Term Goal (STG) Improve trunk ROM (3-5 deg's) to be able to bend down to sweep up dust after sweeping with pain no greater than 4/10 . 05/08/24: 5-6/10 low back bending with cues for proper mechancis to seed cone picker items on floor with muscle relaxer but also take pain pill in afternoon to assist through day. Improved mechanics with ed sweeping wt shift not rotation soley. 05/24/24: laying low activity out side home with busy dogs mid back 2-3/10, neck 6/10, low back 7/10 moving stuff around/not paying attention. Better about body mechanics instructed with sweeping/ shredding paper. 06/28/24: ROM goal achieved, pain 6/10 with sweeping. LBP with activity is 5-6/10, concentrating on mechanics/ posture pain is 4/10. 06/13/24: low back 8/10, uppper back 6/10. STG Duration 8 wks-06/25/24 slow progressing 06/13/24 Mcfp Goal (LTG) Improve Low back mobility (5- 10 deg's) to lessen pain with putting dishes in basin finish operator tig welder on bottom shelf, or to transfer dishes into a bottom shelf, or bending over to sort laundry or bend over to carry it to washer w/o pain. 05/24/24 conscious using legs 5 /10 with med support. Has appt to set up referral for new pain clinic. 05/28/24: ROM met for all except trunk R SB improved 2 deg's. LBP with activity is 5 -6/10, concentrating on mechanics/posture pain is 4/10 . 06/13/24: GOAL MET: no pain putting away dishes. LTG Duration 12 wks-07/24/24 GOAL MET Three Impairment Upper back weakness with onset of intrascapular pain with use of arms. Impairment UE Quickdash score 47.72 (47.7 % impaired, score 40-59). LUIZA score 23/50 or 46/100 (46% impaired, score 40-59). Neck Disability Index score 27 (40 to 59% Impaired, Score 20 -29) Short Term Goal (STG) Pt will be educated in self care pain management with use of positioning and use of cryotherapy. 03/26/24: Pt educated in self care pain mgmg w/use of cryotherapy and positioning discussed. 05/08/24: improved mechanics LS alignment and TA engement wt shift activities support back and use CP and MHP home for comfort STG Duration 5 wks-03/22/24 (03/26/24: MET GOAL) Video Technician Goal (LTG) Pt will be able to lightly sweep without onset of posterior scapular pain. 03/26/24: UE Quickdash score 22.5 (22.5% impaired, score 20 -39). Neck Disability Index is 19 ( 20-39% impaired, score 29-39). LUIZA is 54/100 (40-59% impaired , score 40-59). 04/30/24: If concentrates on proper ADL mechanics the LBP is less. LBP is limiting sweeping 05/08/24: improved mechanics LS alignment and TA engement wt shift activities support back and use CP and MHP home for comfort 05/24/24: 02/15 overall with activities. 06/04/24: GOAL MET: reports if conscious of posture and proper form wt shift between BLE better, no pain. Quick Dash: score 13.64 (<19% impaired, increase from score 12.5 in April, But didnt' answer 1 question). LTG Duration 12 wks-07/24/24 GOAL MET 06/04/24 Two Impairment Sleep interruption of intrascapular pain with movement of arms. Short Term Goal (STG) Pt will be educated in sleeping positions with support to UE's and neutral spine positioning, and proper sit/stand posture. 03/07/24: time spent standing wt shift/stance changes, spinal support when squat. 03/14/24: Pt educated in supine neutral positioning and recommended not placing pillow support under knees at bedtime. 03/26/24: Pt educated in proper sit/stand posture. STG Duration 5 wks-03/22/24 (03/26/24: MET GOAL) Mcfp Goal (LTG) Pt will be able to improve sleep w/o severe pain onset while moving arms. 03/18/2024 reports Severe UE pain when waking up now down to 3-4 days a week. 03/20/2024 Body mechanics review with handouts for vacuuming and picking up items , keeping items close and bending at hips and knees. Discussed weaning off knees being positioned bent in supine. Verbalized and positioned pillow under UE in sidelying, but patient reports she does not sleep sidelying 03/28/23: continued ed proper body/spinal alignment PPT/ soft knee and mechanics housework, wt shift between BLEs and use pillows sleeping propping does. 04/02/2024 Patient reports she has not had the severe arm pain with waking up in about a week. 04/05/24: she reports her arms feel little fuzzy but not hurting when wake up but back mostly pain. Utilized pillows for propping and make a difference in comfort and sleep, 5 hrs. 04/09/24: Sleeping a couple weeks w/o the severe pain, fingers only stiff. 04/30/24: L elbow pain with moving in bed. 05/08/24: reports elbow stiff and some discomfort 1/10 when peforms ROM lessens for warm up . 05/24/24: arms fine, legs pain with 5-10 min laying down burning/ numbing/fuzzy/ prickly sensation limited once in bed and try find position to calm down to fall asleep. 06/28/24: Sleeping w/o severe arm pain. LTG Duration 12wks- 07/24/24 (05/28/24: MET GOAL) One Impairment HEP Short Term Goal (STG) Pt will be educated in proper body mechanics for ADLs and be able to return to cardio gym exers w/o onset of back pain. 03/18/2024 discussed light pushing items with foot to see if they slide as a test prior to attempting to lift items, and also note the size/ awkwardness of the item. Patient performed the slide test on PAUL and BOSU. 03/26/24: Educated pt in body mechanics for ADLs. 04/02/2024: Demonstrated diesel engine mechanic apprentice of lifting waist level ( pivot) and overhead using patient's keys as very light weight for patient trials. STG Duration 8 wks-06/25/24 04/08/24: met goal for ed of body mech, need return to ex Video Technician Goal (LTG) Pt will be independent with a HEP of neck, shoulder and upper/lower back ROM and strengthening ex's. 02/20/24: HEP: Deep breathing & Trunk rot stretch 03/20/2024 counter cat cow on forearms and CS rotation AROM in counter position added to HEP 04/02/2025 open book added to HEP. 04/30/24: HEP: PIriformis, Lateral hip, Fig 4, Hip flexor (Haseeb Test Position) stretch. 05/03/2024 Progressed to counter plank bird dog and thoracic rotation this session , reps limited, but able to perform with good tech. 05/08/24: added paloff press, resisted shld ext, previous incline TS rotation and bird dog off counter with pnfre response. 05/24/24: HEP 05/08 idenified helping good stretch to back, neck. 06/13/24: progressing performs 3 -4days per week with bands, stretch daily before gets up. LTG Duration 12 wks-07/24/24 progressed Progress Towards Goals Progress Comments MET LTG #4 no pain putting away dishes. Assessment Summary Assessment Pt responds well to ther ex with increased spinal mobility and no reports of pain during performance. She reports decreased muscular tension in her mid/low back after stretching end tx. But reports her back still hurts same as arrived 05/18 with demonstrating slight flexed at hips posturing when leaving. Physical Therapy Plan Frequency and Duration Frequency of Treatment 2x/Week Duration of treatment (weeks) 12 Plan of Care Start Date 04/30/24 Plan of Care End Date 07/24/24 Therapeutic Interventions Therapeutic Interventions Balance Training,Home Exercise Program,Joint Mobilizations, Manual Therapy,Neuromuscular Re-education,Self-Care/Home Management,Soft Tissue Mobilization,Therapeutic Activities,Therapeutic Exercises Modalities Cold Pack/Ice Massage,Hot Packs,Ultrasound Next Visit Focus/Plan Next Note Type Treatment Note Next Visit Plan REcheck response to continued trunk mobility ex's in standing last tx to improve flex ROM to improve ADL function, then HEP for transition for DC & her ex with functional mobiltiy component. POC: Continue body mechanics during ex assimulate ADLs ( sweeping motion, squat seed cone picker items) and postural alignment during HEP. Continue progress Chronic Back rehab w/continued LB/LE's > neck/shdr rehab. Progress decr in LE pain at night with trunk/LE strengthening for functional mvmt. Work toward carryover of TA tightening in standing, using breath and maintaining spinal alignment. Ther Ex & HEP: Back/hips functional ROM and strengthening. Manual: MFR & JMT T/S kyphosis, mob if needed to decr pain with mvmt. Modalities: Modality if needed to improve cesar to stretches (MH, ice).
--- NOTE | 2024-06-20 15:41 | PT.OTN ---
Current Diagnoses Other chronic pain (06/20/24) Pain in thoracic spine (06/20/24) Myalgia, other site (06/20/24) Physical Therapy Treatment Note PT-OP-A Visit Information Start: 02/15/24 07:19 Freq: Status: Active Protocol: Document 06/20/24 14:36 LRN (Rec: 06/20/24 15:40 LRN [id number]) Out-Patient Physical Therapy Visit Information Visit Information Visit Type Treatment Note Visit Note 01/16 after PN Visit Start Time 14:36 Visit Stop Time 15:23 Visit Number 26 Evaluation Information Evaluation Date 02/15/24 Precautions Precautions Pt reported Rubber/Latex Allergy, voltrin and CBD allergic reaction. Requests no EStim. Necrosis of R humeral head. Neuropathy (pt notes from Eva Gonzalez) in LE's from knees distally (pain in feet, numbness in legs, and burning at night), with decreased balance (reported from tessa?), chronic pain in upper back. PMH (per pt): depression controlled by meds, possible Fibromyalgia, history of L Ankle surgery (chencho, pins, screws). PT-OP-B Current Condition Start: 02/15/24 07:19 Freq: Status: Active Protocol: Document 02/15/24 11:18 LRN (Rec: 02/15/24 12:41 LRN [id number]) Current Condition History of Current Condition Onset Date 1 yr ago. Current Complaints Stabbing back pain at scapula bilaterally, L worse than R. History of Current Condition 1 yr ago got a stabbing pain in R scapula area, now is more in the L side. No previous history of upper back pain. Pt states her pain wakes her up at night when moving arms. She describes her pain as severe, and that it takes a day to recover from because she becomes physically exhausted by the pain. Her current activity level is low. She states she walks, ex's at the local gym on a recumbent bike and does errands around town. Two yrs ago she exercised in the gym with arm and leg workouts in addition to the cardio exercise. Prior Treatments and Tests -[facility] treatments of Dr. Fuller. -[facility] with treatments to the neck for trigger points (pt felt not helpful). She reports being given a creme in the past by Mr. Deutsch in the [facility] that had Gabapentin in it, but at the [facility] was given a prescription w/o Gabapentin and she didn't find it helpful. -Sleeps on ice. -Uses infrared heating pad. -Ms relaxors (prescription from Dr. Robertson: methalcarbinol-4000mg) sometimes helps. Treatment Goals Patient/Caregiver Goals Pt goals: - Improve sleep w/o severe pain while moving arms. - Lightly sweep without posterior scapular pain onset. - Independent with HEP and gym exer-cardio ex's. Personal Factors Other Personal Factors That May Effect -Depression, possible Therapy/Recovery Fibromyalgia. -Neuropathy (pt notes from Eva Gonzalez) in LE's from knees distally (pain in feet, numbness in legs, and burning at night), with decreased balance (reported from tessa?). -Chronic pain in upper back, -Doesn't have comfortable shoes to wear, (needs wide shoes to be comfortable), because without right support her feet feels like she is walking on rocks. PT-OP-C Subjective Start: 02/15/24 07:19 Freq: Status: Active Protocol: Document 06/20/24 14:36 LRN (Rec: 06/20/24 15:40 LRN [id number]) OP-PT Subjective Patient Comments Patient Comments Today LBP is 5-6/10, over the weekend 9.5/10 almost went to ER. Not sure why worse, maybe due to bird dog ex or walking her dog puppy. PT-OP-H Neuro Start: 02/15/24 07:19 Freq: Status: Active Protocol: Document 02/15/24 11:18 LRN (Rec: 02/15/24 12:41 LRN [id number]) Sensation Evaluation Gross Sensation Gross Sensation WNL PT-OP-J Posture/Palpation/Skin Start: 02/15/24 07:19 Freq: Status: Active Protocol: Document 02/15/24 11:18 LRN (Rec: 02/15/24 12:41 LRN [id number]) Posture Evaluation Position Standing Head/C-Spine Posture Forward Head T-Spine Posture Increased Kyphosis L-Spine Posture Decreased Lordosis Shoulder Posture (L) Forward,(L) Elevated Arm Posture (L) Internally Rotated,(R) Internally Rotated Comments Posture Comments Dowagers hump, straightened T2 -T4 spine, increased curve ~ T11-12, very mild C-curve of T /S with apex on the L (~ T5). Palpation Assessment Location Shoulders Palpation Location L Posterior Deltoid Palpation Details Atrophy Intrascapular region Palpation Location Rhomboids, Paraspinals Palpation Details L side muscle guarding, Neck Palpation Location L Cervical paraspinals & R UT Palpation Findings Soft Tissue Tightness, Tenderness PT-OP-K Range of Motion Start: 02/15/24 07:19 Freq: Status: Active Protocol: Document 06/06/24 09:51 LRN (Rec: 06/06/24 10:33 LRN [id number]) Lumbar Spine Range of Motion Lumbar Spine Active Degrees Testing Position Standing Flexion 68 Extension 30 Rotation Left 20 Rotation Right 15 Lateral Flexion Left 20 Lateral Flexion Right 15 Hip Goniometric Range of Motion Hip Right Passive Internal Rotation 40 External Rotation 70 Left Passive Internal Rotation 30 External Rotation 45 PT-OP-L Special Tests Start: 02/15/24 07:19 Freq: Status: Active Protocol: Document 02/20/24 09:52 LRN (Rec: 02/20/24 10:57 LRN [id number]) Special Tests Cervical Spine Special Tests Vertebral Artery Test Results negative Traction Test Results negative Foraminal Compression Test Results negative PT-OP-M Strength Start: 02/15/24 07:19 Freq: Status: Active Protocol: Document 02/22/24 08:21 LRN (Rec: 02/22/24 09:08 LRN [id number]) Cervical Spine Strength Cervical Spine Manual Muscle Testing Flexion (C1-2) 4 Good Extension 5 Normal Rotation Left 3 Fair Rotation Right 3- Fair- Lateral Flexion Left (C3) 4 Good Lateral Flexion Right (C3) 4 Good Comments L rotation the pt uses occiptal ms more to rotate, R rot pt uses upper body to rotate. PT-OP-Q Treatments Start: 02/15/24 07:19 Freq: Status: Active Protocol: Document 06/20/24 14:36 LRN (Rec: 06/20/24 15:40 LRN [id number]) Therapeutic Exercises Supine Exercises L Piriformis stretch Supine Exercise Name Piriformis stretch Side bilateral Reps/Minutes 30 SH x2 Comments knee toward opp shld, ROM taken L hip IR stretch Supine Exercise Name Lateral Hip stretch Side left Reps/Minutes 30 x2 Comments good form, & stretch response L hip ER stretch] Supine Exercise Name Fig 4 Side bilateral Equipment Used opposite LE straight Reps/Minutes 30 x2 Comments Cued ankle above opposite knee Upper trunk rot stretch Supine Exercise Name UE's LTR rot stretch (arm reach across body side to side ) Side bilateral Reps/Minutes 10 SH x 5 reps Comments Cued to have eyes follow hands . Sidelying Exercises TA tightening Side bilateral Reps/Minutes 10 SH X8 holding Standing Exercises D2 flex Side bilateral Resistance 1 # DB PNF D2 flexion Reps/Minutes 10x each Comments Cued postural alighnment: bend knees, back straight, TA tight. TA step ups Standing Exercise Name 6step ups Side bilateral Equipment Used no UE support Reps/Minutes 10 reps each LE Comments cued rhomboid fac, improved midline stability- GianBarre resisted shoulder extension Resistance Tb #3 venetie ira green latex free Reps/Minutes 2x15 Comments cued postural alignment, elbow straight, scap down/draw together. PT-OP-T Assessment and Plan Start: 02/15/24 07:19 Freq: Status: Active Protocol: Document 06/20/24 14:36 LRN (Rec: 06/20/24 15:40 LRN [id number]) Physical Therapy Assessment Goals Four Impairment Chronic LBP rated 6/10 (norm is 3-8/10). Short Term Goal (STG) Improve trunk ROM (3-5 deg's) to be able to bend down to sweep up dust after sweeping with pain no greater than 4/10 . 05/08/24: 5-6/10 low back bending with cues for proper mechancis to sisal picker items on floor with muscle relaxer but also take pain pill in afternoon to assist through day. Improved mechanics with ed sweeping wt shift not rotation soley. 05/24/24: laying low activity out side home with busy dogs mid back 2-3/10, neck 6/10, low back 7/10 moving stuff around/not paying attention. Better about body mechanics instructed with sweeping/ shredding paper. 06/28/24: ROM goal achieved, pain 6/10 with sweeping. LBP with activity is 5-6/10, concentrating on mechanics/ posture pain is 4/10. 06/13/24: low back 8/10, uppper back 6/10. STG Duration 8 wks-06/25/24 slow progressing 06/13/24 Gas Charger Goal (LTG) Improve Low back mobility (5- 10 deg's) to lessen pain with putting dishes in annual giving manager on bottom shelf, or to transfer dishes into a bottom shelf, or bending over to sort laundry or bend over to carry it to washer w/o pain. 05/24/24 conscious using legs 5 /10 with med support. Has appt to set up referral for new pain clinic. 05/28/24: ROM met for all except trunk R SB improved 2 deg's. LBP with activity is 5 -6/10, concentrating on mechanics/posture pain is 4/10 . 06/13/24: GOAL MET: no pain putting away dishes. LTG Duration 12 wks-07/24/24 GOAL MET Three Impairment Upper back weakness with onset of intrascapular pain with use of arms. Impairment UE Quickdash score 47.72 (47.7 % impaired, score 40-59). LUIZA score 23/50 or 46/100 (46% impaired, score 40-59). Neck Disability Index score 27 (40 to 59% Impaired, Score 20 -29) Short Term Goal (STG) Pt will be educated in self care pain management with use of positioning and use of cryotherapy. 03/26/24: Pt educated in self care pain mgmg w/use of cryotherapy and positioning discussed. 05/08/24: improved mechanics LS alignment and TA engement wt shift activities support back and use CP and MHP home for comfort STG Duration 5 wks-03/22/24 (03/26/24: MET GOAL) Retirement Goal (LTG) Pt will be able to lightly sweep without onset of posterior scapular pain. 03/26/24: UE Quickdash score 22.5 (22.5% impaired, score 20 -39). Neck Disability Index is 19 ( 20-39% impaired, score 29-39). LUIZA is 54/100 (40-59% impaired , score 40-59). 04/30/24: If concentrates on proper ADL mechanics the LBP is less. LBP is limiting sweeping 05/08/24: improved mechanics LS alignment and TA engement wt shift activities support back and use CP and MHP home for comfort 05/24/24: 5/10 overall with activities. 06/04/24: GOAL MET: reports if conscious of posture and proper form wt shift between BLE better, no pain. Quick Dash: score 13.64 (<19% impaired, increase from score 12.5 in April, But didnt' answer 1 question). LTG Duration 12 wks-07/24/24 GOAL MET 06/04/24 One Impairment HEP Short Term Goal (STG) Pt will be educated in proper body mechanics for ADLs and be able to return to cardio gym exers w/o onset of back pain. 03/18/2024 discussed light pushing items with foot to see if they slide as a test prior to attempting to lift items, and also note the size/ awkwardness of the item. Patient performed the slide test on PAUL and BOSU. 03/26/24: Educated pt in body mechanics for ADLs. 04/02/2024: Demonstrated terrazzo mechanic of lifting waist level ( pivot) and overhead using patient's keys as very light weight for patient trials. STG Duration 8 wks-06/25/24 04/08/24: met goal for ed of body mech, need return to ex Retirement Goal (LTG) Pt will be independent with a HEP of neck, shoulder and upper/lower back ROM and strengthening ex's. 02/20/24: HEP: Deep breathing & Trunk rot stretch 03/20/2024 counter cat cow on forearms and CS rotation AROM in counter position added to HEP 04/02/2025 open book added to HEP. 04/30/24: HEP: PIriformis, Lateral hip, Fig 4, Hip flexor (Haseeb Test Position) stretch. 05/03/2024 Progressed to counter plank bird dog and thoracic rotation this session , reps limited, but able to perform with good tech. 05/08/24: added paloff press, resisted shld ext, previous incline TS rotation and bird dog off counter with pnfre response. 05/24/24: HEP 05/08 idenified helping good stretch to back, neck. 06/13/24: progressing performs 3 -4days per week with bands, stretch daily before gets up. LTG Duration 12 wks-07/24/24 progressed Assessment Summary Assessment 53 yo female w/initial posture , T/S mechanical & soft tissue dys, alan intrascapular, shdr, & lateral neck pain; now mostly c/o nighttime LE dyscomfort. Today, pt is increased in LBP since last treatment; therefore possibly too much exer last session, or pt also thought it might be related to taking her puppy for a walk. Physical Therapy Plan Frequency and Duration Frequency of Treatment 2x/Week Duration of treatment (weeks) 12 Plan of Care Start Date 04/30/24 Plan of Care End Date 07/24/24 Next Visit Focus/Plan Next Note Type Treatment Note Next Visit Plan Cont with slow progression towards improving trunk mobility in standing, slowly progress improving flex ROM to improve ADL function, then HEP for transition for DC & her ex with functional mobiilty component. Might try slowly progressing tolerance to TBall sitting for core strengthening. Strengthen sweeping/shredding paper mvmt patterns. POC: Continue body mechanics during ex assimulate ADLs ( sweeping motion, squat sisal picker items) and postural alignment during HEP. Continue progress Chronic Back rehab w/continued LB/LE's > neck/shdr rehab. Progress decr in LE pain at night with trunk/LE strengthening for functional mvmt. Work toward carryover of TA tightening in standing, using breath and maintaining spinal alignment. Ther Ex & HEP: Back/hips functional ROM and strengthening. Manual: MFR & JMT T/S kyphosis, mob if needed to decr pain with mvmt. Modalities: Modality if needed to improve cesar to stretches (MH, ice).
--- NOTE | 2024-06-25 10:29 | PT.OTN ---
Current Diagnoses Other chronic pain (06/25/24) Pain in thoracic spine (06/25/24) Myalgia, other site (06/25/24) Physical Therapy Treatment Note PT-OP-A Visit Information Start: 02/15/24 07:19 Freq: Status: Active Protocol: Document 06/25/24 09:51 SP (Rec: 06/25/24 10:32 SP [id number]) Out-Patient Physical Therapy Visit Information Visit Information Visit Type Treatment Note Visit Note 02/15 after PN Visit Start Time 09:51 Visit Stop Time 10:29 Visit Number 27 Number of CANDY SPREADER HELPER Visits 1 Evaluation Information Evaluation Date 02/15/24 Precautions Precautions Pt reported Rubber/Latex Allergy, voltrin and CBD allergic reaction. Requests no EStim. Necrosis of R humeral head. Neuropathy (pt notes from Eva Gonzalez) in LE's from knees distally (pain in feet, numbness in legs, and burning at night), with decreased balance (reported from tessa?), chronic pain in upper back. PMH (per pt): depression controlled by meds, possible Fibromyalgia, history of L Ankle surgery (chencho, pins, screws). PT-OP-B Current Condition Start: 02/15/24 07:19 Freq: Status: Active Protocol: Document 02/15/24 11:18 LRN (Rec: 02/15/24 12:41 LRN [id number]) Current Condition History of Current Condition Onset Date 1 yr ago. Current Complaints Stabbing back pain at scapula bilaterally, L worse than R. History of Current Condition 1 yr ago got a stabbing pain in R scapula area, now is more in the L side. No previous history of upper back pain. Pt states her pain wakes her up at night when moving arms. She describes her pain as severe, and that it takes a day to recover from because she becomes physically exhausted by the pain. Her current activity level is low. She states she walks, ex's at the local gym on a recumbent bike and does errands around town. Two yrs ago she exercised in the gym with arm and leg workouts in addition to the cardio exercise. Prior Treatments and Tests -[facility] treatments of Dr. Fuller. -[facility] with treatments to the neck for trigger points (pt felt not helpful). She reports being given a creme in the past by Mr. Deutsch in the Pain [facility] that had Gabapentin in it, but at the [facility] was given a prescription w/o Gabapentin and she didn't find it helpful. -Sleeps on ice. -Uses infrared heating pad. -Ms relaxors (prescription from Dr. Robertson: methalcarbinol-4000mg) sometimes helps. Treatment Goals Patient/Caregiver Goals Pt goals: - Improve sleep w/o severe pain while moving arms. - Lightly sweep without posterior scapular pain onset. - Independent with HEP and gym exer-cardio ex's. Personal Factors Other Personal Factors That May Effect -Depression, possible Therapy/Recovery Fibromyalgia. -Neuropathy (pt notes from Eva Gonzalez) in LE's from knees distally (pain in feet, numbness in legs, and burning at night), with decreased balance (reported from tessa?). -Chronic pain in upper back, -Doesn't have comfortable shoes to wear, (needs wide shoes to be comfortable), because without right support her feet feels like she is walking on rocks. PT-OP-C Subjective Start: 02/15/24 07:19 Freq: Status: Active Protocol: Document 06/25/24 09:51 SP (Rec: 06/25/24 10:32 SP [id number]) OP-PT Subjective Patient Comments Patient Comments Pt reports thinks has a heel spur in R foot and wonder if it is contributing to back pain when just gentle walk with dog. She reports felt same normal pain withno flares after tx. She saw chiropractor yesterday then focused on low some upper back . She reports just feeling tight in mid/upper back, took some pain relievers this am. PT-OP-H Neuro Start: 02/15/24 07:19 Freq: Status: Active Protocol: Document 02/15/24 11:18 LRN (Rec: 02/15/24 12:41 LRN [id number]) Sensation Evaluation Gross Sensation Gross Sensation WNL PT-OP-J Posture/Palpation/Skin Start: 02/15/24 07:19 Freq: Status: Active Protocol: Document 02/15/24 11:18 LRN (Rec: 02/15/24 12:41 LRN [id number]) Posture Evaluation Position Standing Head/C-Spine Posture Forward Head T-Spine Posture Increased Kyphosis L-Spine Posture Decreased Lordosis Shoulder Posture (L) Forward,(L) Elevated Arm Posture (L) Internally Rotated,(R) Internally Rotated Comments Posture Comments Dowagers hump, straightened T2 -T4 spine, increased curve ~ T11-12, very mild C-curve of T /S with apex on the L (~ T5). Palpation Assessment Location Shoulders Palpation Location L Posterior Deltoid Palpation Details Atrophy Intrascapular region Palpation Location Rhomboids, Paraspinals Palpation Details L side muscle guarding, Neck Palpation Location L Cervical paraspinals & R UT Palpation Findings Soft Tissue Tightness, Tenderness PT-OP-K Range of Motion Start: 02/15/24 07:19 Freq: Status: Active Protocol: Document 06/06/24 09:51 LRN (Rec: 06/06/24 10:33 LRN [id number]) Lumbar Spine Range of Motion Lumbar Spine Active Degrees Testing Position Standing Flexion 68 Extension 30 Rotation Left 20 Rotation Right 15 Lateral Flexion Left 20 Lateral Flexion Right 15 Hip Goniometric Range of Motion Hip Right Passive Internal Rotation 40 External Rotation 70 Left Passive Internal Rotation 30 External Rotation 45 PT-OP-L Special Tests Start: 02/15/24 07:19 Freq: Status: Active Protocol: Document 02/20/24 09:52 LRN (Rec: 02/20/24 10:57 LRN [id number]) Special Tests Cervical Spine Special Tests Vertebral Artery Test Results negative Traction Test Results negative Foraminal Compression Test Results negative PT-OP-M Strength Start: 02/15/24 07:19 Freq: Status: Active Protocol: Document 02/22/24 08:21 LRN (Rec: 02/22/24 09:08 LRN [id number]) Cervical Spine Strength Cervical Spine Manual Muscle Testing Flexion (C1-2) 4 Good Extension 5 Normal Rotation Left 3 Fair Rotation Right 3- Fair- Lateral Flexion Left (C3) 4 Good Lateral Flexion Right (C3) 4 Good Comments L rotation the pt uses occiptal ms more to rotate, R rot pt uses upper body to rotate. PT-OP-Q Treatments Start: 02/15/24 07:19 Freq: Status: Active Protocol: Document 06/25/24 09:51 SP (Rec: 06/25/24 10:32 SP [id number]) Therapeutic Exercises Supine Exercises L Piriformis stretch Supine Exercise Name Piriformis stretch Side bilateral Reps/Minutes 30 SH x2 Comments knee toward opp shld L hip IR stretch Supine Exercise Name Lateral Hip stretch Side left Equipment Used R LE straight, L foot on table outside R thigh, towel support pull knee Reps/Minutes 30 x2 Comments good lat hip stretch response L hip ER stretch] Supine Exercise Name Fig 4 Side bilateral Equipment Used opposite LE straight Reps/Minutes 30 x2 Comments Cued ankle over opp LE lower leg Upper trunk rot stretch Supine Exercise Name LTR /c UE upper trunk rot AROM /stretch opp direction Side bilateral Resistance hooklying Equipment Used (BUE reach across body) Reps/Minutes 10 SH x 5 reps Comments Cued to have eyes follow hands - good painfree Standing Exercises D2 flex Standing Exercise Name PNF D2 flexion Side bilateral Resistance 1 # DB Reps/Minutes 10x Leroy together Comments Improved self postural alignment: bend knees, back straight, TA tight. TA step ups Standing Exercise Name step up fwd, back down Side bilateral Resistance no UE support (bottom step)- AROM Equipment Used 6step x10 reps, 8 step x8 reps Reps/Minutes 2x 10 reps each LE Comments cued rhomboid & TA draw in fac , impr midline stability /c reps, slow soft resisted shoulder extension Resistance Tb #3 ione green latex free Reps/Minutes 2x15 Comments good form: postural alignment, elbow straight, scap down/ draw together. Sweeping motion Standing Exercise Name Con/ECC strengthening for sweeping- HEP reviewed Side bilateral Resistance Lev3 TB /c dowel Cane Reps/Minutes 2x15 reps each side Comments Cuing to shift wt and move at hips /c slight rotation, ed TA fac good resp. PT-OP-T Assessment and Plan Start: 02/15/24 07:19 Freq: Status: Active Protocol: Document 06/25/24 09:51 SP (Rec: 06/25/24 10:32 SP [id number]) Physical Therapy Assessment Goals Four Impairment Chronic LBP rated 6/10 (norm is 3-8/10). Short Term Goal (STG) Improve trunk ROM (3-5 deg's) to be able to bend down to sweep up dust after sweeping with pain no greater than 4/10 . 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 Improved mechanics with ed sweeping wt shift not rotation soley. 05/24/24: laying low activity out side home with busy dogs mid back 2-3/10, neck 6/10, low back 7/10 moving stuff around/not paying attention. Better about body mechanics instructed with sweeping/ shredding paper. 06/28/24: ROM goal achieved, pain 6/10 with sweeping. LBP with activity is 5-6/10, concentrating on mechanics/ posture pain is 4/10. 06/13/24: low back 8/10, uppper back 6/10. STG Duration 8 wks-06/25/24 slow progressing 06/13/24 Nursing Home Goal (LTG) Improve Low back mobility (5- 10 deg's) to lessen pain with putting dishes in auto club safety program coordinator on bottom shelf, or to transfer dishes into a bottom shelf, or bending over to sort laundry or bend over to carry it to washer w/o pain. 05/24/24 conscious using legs 5 /10 with med support. Has appt to set up referral for new pain clinic. 05/28/24: ROM met for all except trunk R SB improved 2 deg's. LBP with activity is 5 -6/10, concentrating on mechanics/posture pain is 4/10 . 06/13/24: GOAL MET: no pain putting away dishes. LTG Duration 12 wks-07/24/24 GOAL MET Three Impairment Upper back weakness with onset of intrascapular pain with use of arms. Impairment UE Quickdash score 47.72 (47.7 % impaired, score 40-59). LUIZA score 23/50 or 46/100 (46% impaired, score 40-59). Neck Disability Index score 27 (40 to 59% Impaired, Score 20 -29) Short Term Goal (STG) Pt will be educated in self care pain management with use of positioning and use of cryotherapy. 03/26/24: Pt educated in self care pain mgmg w/use of cryotherapy and positioning discussed. 05/08/24: improved mechanics LS alignment and TA engement wt shift activities support back and use CP and MHP home for comfort STG Duration 5 wks-03/22/24 (03/26/24: MET GOAL) Kinder Teacher Goal (LTG) Pt will be able to lightly sweep without onset of posterior scapular pain. 03/26/24: UE Quickdash score 22.5 (22.5% impaired, score 20 -39). Neck Disability Index is 19 ( 20-39% impaired, score 29-39). LUIZA is 54/100 (40-59% impaired , score 40-59). 04/30/24: If concentrates on proper ADL mechanics the LBP is less. LBP is limiting sweeping 05/08/24: improved mechanics LS alignment and TA engement wt shift activities support back and use CP and MHP home for comfort 05/24/24: 5/10 overall with activities. 06/04/24: GOAL MET: reports if conscious of posture and proper form wt shift between BLE better, no pain. Quick Dash: score 13.64 (<19% impaired, increase from score 12.5 in April, But didnt' answer 1 question). LTG Duration 12 wks-07/24/24 GOAL MET 06/04/24 One Impairment HEP Short Term Goal (STG) Pt will be educated in proper body mechanics for ADLs and be able to return to cardio gym exers w/o onset of back pain. 03/18/2024 discussed light pushing items with foot to see if they slide as a test prior to attempting to lift items, and also note the size/ awkwardness of the item. Patient performed the slide test on PAUL and BOSU. 03/26/24: Educated pt in body mechanics for ADLs. 04/02/2024: Demonstrated substation mechanic of lifting waist level ( pivot) and overhead using patient's keys as very light weight for patient trials. STG Duration 8 wks-06/25/24 04/08/24: met goal for ed of body mech, need return to ex Nursing Home Goal (LTG) Pt will be independent with a HEP of neck, shoulder and upper/lower back ROM and strengthening ex's. 02/20/24: HEP: Deep breathing & Trunk rot stretch 03/20/2024 counter cat cow on forearms and CS rotation AROM in counter position added to HEP 04/02/2025 open book added to HEP. 04/30/24: HEP: PIriformis, Lateral hip, Fig 4, Hip flexor (Haseeb Test Position) stretch. 05/03/2024 Progressed to counter plank bird dog and thoracic rotation this session , reps limited, but able to perform with good tech. 05/08/24: added paloff press, resisted shld ext, previous incline TS rotation and bird dog off counter with pnfre response. 05/24/24: HEP 05/08 idenified helping good stretch to back, neck. 06/13/24: progressing performs 3 -4days per week with bands, stretch daily before gets up. LTG Duration 12 wks-07/24/24 progressed Assessment Summary Assessment Pt good feedback response to stretch, cues for TA and Spinal alignment for reduction LB over recruitment. Improved self postural corrections during standing resisted HEP. 1 cues for wt shift during sweeping. Was able to tolerated increased height stepups to assimulate home 8 doesn't have rail, cued x1 slow soft stepping for TA fac carryover and trunk alignment stability.. Physical Therapy Plan Frequency and Duration Frequency of Treatment 2x/Week Duration of treatment (weeks) 12 Plan of Care Start Date 04/30/24 Plan of Care End Date 07/24/24 Therapeutic Interventions Therapeutic Interventions Balance Training,Home Exercise Program,Joint Mobilizations, Manual Therapy,Neuromuscular Re-education,Self-Care/Home Management,Soft Tissue Mobilization,Therapeutic Activities,Therapeutic Exercises Modalities Cold Pack/Ice Massage,Hot Packs,Ultrasound Next Visit Focus/Plan Next Note Type Treatment Note Next Visit Plan Assess response to supine stretching & standing resisted HEP similiar last tx. POC: Cont with slow progression towards improving trunk mobility in standing, slowly progress improving flex ROM to improve ADL function, then HEP for transition for DC & her ex with functional mobiilty component. Might try slowly progressing tolerance to TBall sitting for core strengthening. Strengthen sweeping/shredding paper mvmt patterns. POC: Continue body mechanics during ex assimulate ADLs ( sweeping motion, squat garbage pick up worker items) and postural alignment during HEP. Continue progress Chronic Back rehab w/continued LB/LE's > neck/shdr rehab. Progress decr in LE pain at night with trunk/LE strengthening for functional mvmt. Work toward carryover of TA tightening in standing, using breath and maintaining spinal alignment. Ther Ex & HEP: Back/hips functional ROM and strengthening. Manual: MFR & JMT T/S kyphosis, mob if needed to decr pain with mvmt. Modalities: Modality if needed to improve cesar to stretches (MH, ice).
== END 2024-07-08 14:21 | disposition home or self-care (01) ==
LOC: PHYS 13:00
PROVIDERS: Family Provider Family Medicine; PCP Family Medicine; Referring Provider Physician Assistant; Visit Provider Physician Assistant
DX: M79.18 Myalgia, other site (principal); G89.29 Other chronic pain; M54.6 Pain in thoracic spine
CPT/HCPCS: 97110; 97140; 97162; 97530; 97535

== ENCOUNTER → 2024-09-13 10:57 | Outpatient (CLI) | payer OTHER, SELFPAY ==
[2024-09-13 14:20] LABS: Vitamin B12 640 pg/mL (239-931)
== END ==
PROVIDERS: Family Provider Family Medicine; PCP Family Medicine; Referring Provider Family Medicine; Visit Provider Family Medicine
DX: E53.8 Deficiency of other specified B group vitamins (principal); D50.9 Iron deficiency anemia, unspecified
CPT/HCPCS: 36415; 82607

== ENCOUNTER 2024-09-28 11:20 | Emergency (ER) | payer OTHER, SELFPAY ==
[2024-09-28] VITALS (9 sets, daily range): BP systolic 131–144; BP diastolic 68–75; PULSE 79–104; RESP 11–22; TEMP 36.6; O2SAT 94–98; BMI 37.1
--- NOTE | 2024-09-28 11:28 | DI.RAD.S_ITS ---
PROCEDURE: XR CHEST 1V INDICATIONS: chest pain TECHNIQUE: One view of the chest was acquired. COMPARISON: [facility], CR, XR THORACIC SPINE 3V, 11/21/2023, 12:11. FINDINGS: Surgical changes and devices: None. Lungs and pleura: An incomplete inspiratory result is noted, causing a crowded appearance to the lung markings. No focal infiltrates are seen. No pneumothorax or significant pleural effusions are seen. Mediastinum: Mediastinal contours appear normal. Heart size is normal. Bones and chest wall: No suspicious bony lesions. Age-appropriate bony degenerative changes are seen. Overlying soft tissues appear unremarkable. IMPRESSION: Portable chest within normal limits for age. Dictated by: Darryl Lowery M.D. on 09/28/2024 at 10:46 Approved by: Darryl Lowery M.D. on 09/28/2024 at 10:47
--- NOTE | 2024-09-28 11:30 | EKG_ITS ---
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
[2024-09-28 11:45] LABS: Add Manual Diff / Slide Review NO; Basophils Absolute Auto 100 /uL (0-100); Basophils Percent Auto 0.9 % (0-2); Eosinophils Absolute Auto 500 /uL (0-450); Eosinophils Percent Auto 3.4 % (2-4); Hematocrit 42.1 % (36-46); Hemoglobin 13.8 g/dL (12.0-16.0); Lymphocytes Absolute Auto 3600 /uL (1100-4500); Lymphocytes Percent Auto 25.4 % (25-40); Mean Corpuscular HGB Conc 32.9 % (30-36); Mean Corpuscular Volume 88.2 fL (80-100); Monocytes Absolute Auto 600 /uL (0-900); Monocytes Percent Auto 4.2 % (3-14); Neutrophils Absolute Auto 9200 /uL (1500-7000); Neutrophils Percent Auto 66.1 % (50-75); Platelet Count 274 X10^3/uL (150-400); Red Blood Cell Count 4.77 X10^6/uL (4.0-5.2); Red Cell Distribution Width 14.6 % (11.6-14.8)
[2024-09-28 11:47] LABS: Prothrombin Time 11.2 SECONDS (9.4-12.5)
[2024-09-28 11:49] LABS: PTT Partial Thromboplastin Tim 42 SECONDS (25.1-36.5)
[2024-09-28 11:56] LABS: Alanine Aminotransferase 15 IU/L (<35); Albumin 4.1 g/dL (3.5-5.0); Albumin Globulin Ratio 1.4 (1.0-2.8); Alkaline Phosphatase 68 U/L (38-126); Aspartate Aminotransferase 22 IU/L (14-36); BUN Creatinine Ratio 10.5 (6-22); Bilirubin Total 0.6 mg/dL (0.2-1.3); Blood Urea Nitrogen 9 mg/dL (7-17); Calcium 8.9 mg/dL (8.4-10.2); Carbon Dioxide 21 mmol/L (22-32); Chloride 107 mmol/L (98-107); Creatine Kinase < 20 U/L (30-135); Estimated Glomerular Filt Rate > 60 mL/min (>60); Glucose 107 mg/dL (70-100); HEMOLYSIS < 15 (0-50); Lipase 97 U/L (23-300); Magnesium 1.7 mg/dL (1.6-2.3); Potassium 3.6 mmol/L (3.4-5.1); Sodium 138 mmol/L (137-145); Total Protein 7.1 g/dL (6.3-8.2)
[2024-09-28 12:06] LABS: NT-proBNP (BNP-Adult 18+) 106 pg/mL (<125); Troponin I < 0.012 ng/mL (0.01-0.034)
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
[2024-09-28] MEDS: IBUPROFEN 400 MG TABLET PO (12:18)
[2024-09-28] MEDS: methocarbamoL 500 MG TABLET 750 MG PO (12:19)
[2024-09-28 12:30] LABS: D Dimer 231 ng/ml (<500)
[2024-09-28 13:28] LABS: Influenza A - CEPHEID Flu A NEGATIVE (NEGATIVE); Influenza B - CEPHEID Flu B NEGATIVE (NEGATIVE); Respiratory Syncytial Virus Negative (Negative)
[2024-09-28 13:43] LABS: COVID-19 CEPHEID 4-PLEX PCR Negative (Negative)
[2024-09-28 14:01] LABS: Troponin I < 0.012 ng/mL (0.01-0.034)
== END 2024-09-28 14:37 | disposition home or self-care (01) ==
PROVIDERS: Emergency Provider Emergency Medicine; Family Provider Family Medicine; PCP Family Medicine
DX: R07.9 Chest pain, unspecified (principal); R05.3 Chronic cough; R00.0 Tachycardia, unspecified
CPT/HCPCS: 0241U; 36415; 71045; 80053; 82550; 83690; 83735; 83880; 84484; 85025; 85379; 85610; 85730; 99284

== ENCOUNTER → 2024-10-05 09:51 | Outpatient (CLI) | payer OTHER, SELFPAY ==
--- NOTE | 2024-10-05 | DI.MRI.S_ITS ---
PROCEDURE: MR LUMBAR SPINE WO CON INDICATIONS: Other spondylosis, lumbar region TECHNIQUE: Noncontrast sagittal T1 spin echo and T2 fast echo, sagittal STIR, and T2 fast spin echo through the lumbar spine. In cases with scoliosis, additional coronal T2 fast spin echo may be performed. COMPARISON: None. FINDINGS: Image quality: Excellent. Alignment and Curvature: There is normal bony alignment. Bone Marrow: Marrow is of normal overall signal. No acute vertebral body compression fractures. Spinal Cord: Conus medullaris terminates at the L1 level. Visualized cord demonstrates normal signal and size. Paraspinous Soft Tissues: No paravertebral masses. T12-L1: Normal appearance. L1-L2: Normal appearance. L2-L3: Normal appearance. L3-L4: Normal appearance. L4-L5: Normal appearance. L5-S1: Normal appearance. IMPRESSION: No significant degenerative disc disease or facet arthrosis. Dictated by: Shaji Kelly M.D. on 10/07/2024 at 10:11 Approved by: Shaji Kelly M.D. on 10/07/2024 at 10:12
== END ==
PROVIDERS: Family Provider Family Medicine; PCP Family Medicine; Referring Provider Student in an Organized Health Care Education/Training Program; Visit Provider Student in an Organized Health Care Education/Training Program
DX: M47.896 Other spondylosis, lumbar region (principal)
CPT/HCPCS: 72148

== ENCOUNTER 2024-10-10 13:52 | Day surgery (SDC) | payer OTHER, SELFPAY ==
[2024-10-10 14:20] VITALS: BP 137/86; PULSE 101; RESP 17; TEMP 36.8; O2SAT 97
[2024-10-10] MEDS: SODIUM CHLORIDE 0.9% 1,000 ML 150 ML IV (14:43)
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
--- NOTE | 2024-10-10 15:12 | P.OP.COLON_ITS ---
Operative Date/Time/Diagnoses Date of procedure: 10/10/24 Time of procedure: 15:30 Procedure & Clinicians Surgeon: Julieta Prajapati Procedure Notes Procedure in detail: OPERATIVE / PROCEDURE NOTE Horace Purdy, 1970, 54,Female,CSN: [id number] 10/10/24 PREOPERATIVE DIAGNOSIS: Positive FH of colon cancer in her dad. POSTOPERATIVE DIAGNOSIS: Same + Per the colonoscopy to the cecum: NORMAL colon, healthy colon, f/u colonoscopy in 5-7 yrs. PROCEDURE DONE: Colonoscopy to the cecum. ANESTHESIA: MAC per Anesthesia. COMPLICATIONS: None. SPECIMENS: None. ESTIMATED BLOOD LOSS: NONE. CONDITION: Stable to the PACU. OPERATIVE DESCRIPTION: After proper informed consent was signed by the patient knowing all the risks, benefits, and potential complications and possible alternatives of the procedure, the patient was appropriately identified. Horace Purdy underwent a bowel prep that was very efficient yesterday, and the colon was clean. After institution of sedation on her left lateral decubitus position, a rectal exam was performed. Normal rectal and anal tone was found. The Olympus colonoscope was placed into her anus and under direct visualization was advanced from the rectum to the rectosigmoid to the sigmoid to the left colon, splenic flexure, transverse colon, hepatic flexure, ascending colon, and all the way to the cecum. Circumferential visualization of the mucosa was possible. The appendix aperture was noted. The ileocecal valve was noted. No large tumors. No ulcers. No inflammatory bowel disease changes were noted. No diverticulae noted in the sigmoid colon. In the rectum, the scope was retroflexed, and No internal hemorrhoids were noted. The scope was straightened back again. The colon was decompressed, and the scope was retracted out uneventfully. The patient tolerated the procedure well without any complications, was sent to the PACU in stable condition. RECOMMENDATIONS: Continue high-fiber diet - 30-40 gm/day with daily fiber sup plementation. F/u colonoscopy in 5-7 yrs.
[2024-10-10 15:35] VITALS: BP 129/82; PULSE 78; RESP 16; TEMP 36.1; O2SAT 98
[2024-10-10 15:40] VITALS: BP 129/82; PULSE 80; RESP 16; O2SAT 98
[2024-10-10 15:45] VITALS: BP 129/82; PULSE 78; RESP 16; TEMP 36.2; O2SAT 98
== END 2024-10-10 16:02 | disposition home or self-care (01) ==
PROVIDERS: Family Provider Family Medicine; PCP Family Medicine; Referring Provider Surgery; Visit Provider Surgery
PROC: 0DJD8ZZ Inspection of Lower Intestinal Tract, Via Natural or Artificial Opening Endoscopic (ICD-10-PCS; CPT 45378; principal; 2024-10-10 15:00)
DX: Z12.11 Encounter for screening for malignant neoplasm of colon (principal); Z80.0 Family history of malignant neoplasm of digestive organs
CPT/HCPCS: 45378; J2704

== ENCOUNTER → 2025-01-27 07:53 | Outpatient (CLI) | payer OTHER, SELFPAY | PROVIDERS: Family Provider Family Medicine; PCP Family Medicine; Referring Provider Nurse Practitioner Family; Visit Provider Nurse Practitioner Family | DX: R30.0 Dysuria (principal); N89.8 Other specified noninflammatory disorders of vagina | CPT/HCPCS: 87077; 87086; 87186; 87210 ==

== ENCOUNTER → 2025-02-18 11:31 | Outpatient (CLI) | payer OTHER, SELFPAY | LOC: LAB 11:36 | PROVIDERS: Family Provider Family Medicine; PCP Family Medicine; Visit Provider Physician Assistant | DX: R35.0 Frequency of micturition (principal) | CPT/HCPCS: 87086 ==

== ENCOUNTER → 2025-03-07 10:40 | Outpatient (CLI) | payer OTHER, SELFPAY | PROVIDERS: Family Provider Family Medicine; PCP Family Medicine; Visit Provider Nurse Practitioner Family | DX: R35.0 Frequency of micturition (principal); N94.9 Unspecified condition associated with female genital organs and menstrual cycle | CPT/HCPCS: 87077; 87086; 87210 ==

== ENCOUNTER → 2025-04-03 10:15 | Outpatient (CLI) | payer OTHER, SELFPAY | PROVIDERS: Family Provider Family Medicine; PCP Family Medicine; Visit Provider Chiropractor | DX: R30.0 Dysuria (principal) | CPT/HCPCS: 87086 ==

== ENCOUNTER → 2025-04-05 11:16 | Outpatient (CLI) | payer OTHER, SELFPAY | PROVIDERS: Family Provider Family Medicine; PCP Family Medicine; Visit Provider Chiropractor | DX: R30.0 Dysuria (principal) | CPT/HCPCS: 87086 ==

== ENCOUNTER → 2025-04-16 12:31 | Outpatient (CLI) | payer OTHER, SELFPAY ==
[2025-04-16 13:25] LABS: Appearance Urine UA CLOUDY; Bilirubin Urine UA 2+ (NEGATIVE); Color Urine UA ORANGE; Glucose Urine UA TRACE g/dL (Negative); Ketones Urine UA 1+ (NEGATIVE); Leukocyte Esterase Urine UA 3+ (NEGATIVE); Nitrite Urine UA POSITIVE (Negative); Occult Blood Urine UA 3+ (Negative); Protein Urine UA 3+ (Negative); Specific Gravity Urine UA 1.020 (1.000-1.035); Urobilinogen Urine UA 2.0 E.U./dL (0.2)
[2025-04-16 13:35] LABS: pH Urine UA 6.5 (4.5-8.0)
[2025-04-16 13:37] LABS: Culture Indicated Urine Specimen Cultured
== END ==
PROVIDERS: Family Provider Family Medicine; PCP Family Medicine; Referring Provider Family Medicine; Visit Provider Family Medicine
DX: R39.9 Unspecified symptoms and signs involving the genitourinary system (principal)
CPT/HCPCS: 81001; 87077; 87086; 87186

== ENCOUNTER → 2025-07-13 12:04 | Outpatient (CLI) | payer OTHER, SELFPAY | PROVIDERS: Family Provider Family Medicine; PCP Family Medicine; Visit Provider Registered Nurse | DX: R30.0 Dysuria (principal) | CPT/HCPCS: 87086 ==

== ENCOUNTER → 2025-07-17 16:58 | Outpatient (CLI) | payer OTHER, SELFPAY ==
[2025-07-17 17:28] LABS: Appearance Urine UA Slightly Cloudy; Color Urine UA ORANGE
[2025-07-17 17:31] LABS: Culture Indicated Urine Cult Not Indicated
== END ==
PROVIDERS: Family Provider Family Medicine; PCP Family Medicine; Visit Provider Obstetrics & Gynecology Gynecology
DX: N32.81 Overactive bladder (principal); N39.0 Urinary tract infection, site not specified
CPT/HCPCS: 51701; 81001; 99214

== ENCOUNTER → 2025-07-24 11:56 | Outpatient (CLI) | payer OTHER, SELFPAY ==
[2025-07-24 12:45] LABS: Appearance Urine UA CLEAR; Bilirubin Urine UA NEGATIVE (NEGATIVE); Color Urine UA YELLOW; Glucose Urine UA NEGATIVE (Negative); Ketones Urine UA NEGATIVE (NEGATIVE); Leukocyte Esterase Urine UA 2+ (NEGATIVE); Nitrite Urine UA NEGATIVE (Negative); Occult Blood Urine UA NEGATIVE (Negative); Protein Urine UA NEGATIVE (Negative); Specific Gravity Urine UA <=1.005 (1.000-1.035); Urobilinogen Urine UA 0.2 E.U./dL (0.2)
[2025-07-24 12:46] LABS: pH Urine UA 6.5 (4.5-8.0)
[2025-07-24 12:58] LABS: Culture Indicated Urine Cult Not Indicated
== END ==
PROVIDERS: Family Provider Family Medicine; PCP Family Medicine; Referring Provider Family Medicine; Visit Provider Obstetrics & Gynecology Gynecology
DX: R30.0 Dysuria (principal)
CPT/HCPCS: 81001